=== PATIENT | female | born 1970 | race Caucasian/White ===

== ENCOUNTER 2024-08-20 09:38 | Emergency (ER) | payer OTHER, SELFPAY ==
[2024-08-20] VITALS (13 sets, daily range): BP systolic 130–181; BP diastolic 87–123; PULSE 74–85; RESP 13–23; TEMP 36.4; O2SAT 95–99; BMI 31.9
--- NOTE | 2024-08-20 09:47 | CRLHL7_ITS ---
For Patients: As a result of the Century Cures Act, medical imaging exams and procedure reports are released immediately into your electronic medical record. You may view this report before your referring provider. If you have questions, please contact your health care provider. INDICATION: Chest pain. Question fran NV. TECHNIQUE: Chest 1 views. COMPARISON: None FINDINGS: Tubes and devices: None. Lungs: Shallow inspiration. Elevation right hemidiaphragm. Prominence of the bronchovascular markings commensurate with degree of inspiration. No infiltrates. Pleura: No pleural effusion. No pneumothorax. Heart: Heart size and vasculature are normal in caliber and appearance. Autumn and Mediastinum: No enlargement. Bones and soft tissues: No significant findings. IMPRESSION: Shallow inspiration. No infiltrates. Dictated by Mikael Arreola MD @ 08/20/2024 10:16:41 AM (Electronically Signed)
--- NOTE | 2024-08-20 09:48 | ED_ITS ---
HPI - Chest Pain General Chief Complaint: Chest Pain Stated Complaint: Having Heart Attack Time Seen by Provider: 08/20/24 09:51 History of Present Illness HPI narrative: Patient is a 54-year-old woman who comes in today with approximately 10 hour history of left-sided chest pain. Pain is deep to her left breast. There is minimal radiation. The pain is severe 10/10 and worsened with a deep breath. She has had no fevers no chills no night sweats. She has no previous history of coronary disease. Upon arrival I did review her EKG and see no acute abnormalities. She is not hypoxic. She does take medication for hypertension. She has not had any change in her bowel or bladder. She states he has had no similar symptoms previously. No recent injuries. Related Data Home Medications ?Medication ?Instructions ?Recorded ?Confirmed bupropion HCl 150 mg tablet,12 hr 300 mg PO DAILY 08/20/24 08/20/24 sustained-release (Wellbutrin SR) duloxetine 60 mg capsule,delayed 60 mg PO DAILY 08/20/24 08/20/24 release estradiol-progesterone .ROUTE 08/20/24 levothyroxine See Rx Instructions PO .COMPLEX 08/20/24 08/20/24 metoprolol succinate 25 mg 25 mg PO BID 08/20/24 08/20/24 tablet,extended release 24 hr Allergies Allergy/AdvReac Type Severity Reaction Status Date / Time No Known Drug Allergies Allergy Verified 08/20/24 09:53 Review of Systems Status of ROS Reports: 10 or more systems reviewed and unremarkable except as noted in History and below [facility] Medical History (Updated 08/20/24 @ 11:16 by Tommie Ferguson MD) Hypertension ?I10 - Essential (primary) hypertension (ICD-10) Social History Smoking Status: Never smoker Do you use any of these nicotine containing products: None How often do you have a drink containing alcohol: monthly or less AUDIT-C Alcohol total score: 1 Non-prescribed substance use: denies use Exam Narrative Exam Narrative: EXAM GENERAL: Patient appears agitated anxious. EYES: No scleral icterus. LYMPH: No supraclavicular or cervical lymphadenopathy. SKIN: Visible skin seen during exam normal or with benign process only. EXT: No dependent lower extremity pedal edema. HEART: Regular rate and rhythm with no murmurs, rubs, or gallops. LUNGS: Clear to auscultation bilaterally with no crackles or wheezes. ABD: Soft, non tender, non distended. PSYCH: Good eye contact, speech is not pressured. Const Vital Signs, click to edit/add: Vital Signs - 24 hr 08/20/24 09:47 08/20/24 09:59 08/20/24 10:00 Temperature 97.6 F Pulse Rate 77 85 Pulse Rate [Pulse Oximeter] 84 Respiratory Rate 20 16 18 Blood Pressure Blood Pressure [Left Upper Arm] 181/123 H Pulse Oximetry 99 99 97 Oxygen Delivery Method Room Air 08/20/24 10:05 08/20/24 10:15 08/20/24 10:21 Temperature Pulse Rate 83 77 80 Pulse Rate [Pulse Oximeter] Respiratory Rate 19 13 15 Blood Pressure 145/96 H 146/98 H Blood Pressure [Left Upper Arm] Pulse Oximetry 97 97 97 Oxygen Delivery Method Course Course ED Course: Patient seen and examined. EKG personally reviewed. 0.5 mg of IV Dilaudid and 4 mg of IV Zofran given. CBC comprehensive metabolic panel D-dimer troponin chest x-ray pending. Vital Signs Vital signs: Initial Vital Signs Temperature 97.6 F 08/20/24 09:47 Temperature Source Temporal Artery Scan 08/20/24 09:47 Pulse Rate 84 08/20/24 09:47 Pulse Rhythm Regular 08/20/24 09:47 Respiratory Rate 20 08/20/24 09:47 Blood Pressure 181/123 H 08/20/24 09:47 Blood Pressure Mean 142 H 08/20/24 09:47 Blood Pressure Position Supine 08/20/24 09:47 Pulse Oximetry 99 08/20/24 09:47 Oxygen Delivery Method Room Air 08/20/24 09:47 Vital Signs Temperature 97.6 F 08/20/24 09:47 Pulse Rate 84 08/20/24 09:47 Respiratory Rate 20 08/20/24 09:47 Blood Pressure 181/123 H 08/20/24 09:47 Pulse Oximetry 99 08/20/24 09:47 Oxygen Delivery Method Room Air 08/20/24 09:47 Temperature 97.6 F 08/20/24 09:47 Pulse Rate 80 08/20/24 10:21 Respiratory Rate 15 08/20/24 10:21 Blood Pressure 146/98 H 08/20/24 10:21 Pulse Oximetry 97 08/20/24 10:21 Oxygen Delivery Method Room Air 08/20/24 09:47 Medications Administered Medications: Discontinued Medications Generic Name Dose Route Start Last Admin Trade Name Bree PRN Reason Stop Dose Admin Hydromorphone HCl 0.5 mg 08/20/24 09:47 08/20/24 10:12 Hydromorphone 0.5 Mg/0.5 Ml Inj IVP 08/20/24 09:48 0.5 mg ONCE ONE Administration Lidocaine/Aluminum/Magnesium/Simeth 30 ml 08/20/24 09:58 08/20/24 10:05 Gi Cocktail (Visc Lido/Antacid) 30 Ml PO 08/20/24 09:59 30 ml ONCE ONE Administration Ondansetron HCl 4 mg 08/20/24 09:47 08/20/24 10:12 Ondansetron 2 Mg/Ml Inj IVP 08/20/24 09:48 4 mg ONCE ONE Administration MDM - Chest Pain MDM Narrative Medical decision making narrative: Patient is a 54-year-old woman who presents with severe left-sided chest pain. Her EKG was reassuring. Troponin is negative. Patient had been having symptoms for approximately 10 hours at the time of her arrival. D-dimer is negative ch est x-ray is unremarkable. Although her D-dimer is negative I did do a CT of her chest which showed no acute abnormalities. Patient has responded to the IV Dilaudid. She is now resting comfortably. Differential diagnosis would include chest wall strain rib fracture occult thoracic radiculopathy pulmonary embolism acute myocardial infarction. At this time will treated with ice and Ralston with primary care follow-up. No driving year using any machinery follow-up with her primary physician this coming week. Lab Data Labs: Lab Results 08/20/24 Range/Units 09:47 WBC 10.70 (4.50-11.00) K/uL RBC 4.82 (4.00-5.20) m/uL Hgb 14.6 (12.0-16.0) gm/dL Hct 43.7 (33.0-51.0) % MCV 91 (80-100) fL MCH 30 (26-34) pg MCHC 33 (32-36) gm/dL RDW Coeff of Janet 12.6 (11.5-15.5) % Plt Count 351 (140-440) K/uL Neut % (Auto) 69.7 (42.0-72.0) % Lymph % (Auto) 20.3 (20-44) % Jasper % (Auto) 8.2 (0.0-11.0) % Eos % (Auto) 1.3 (0.0-7.0) % Baso % (Auto) 0.3 (0.0-3.0) % Neut # (Auto) 7.46 H (1.7-7.0) K/uL Lymph # (Auto) 2.17 (0.90-2.90) K/uL Jasper # (Auto) 0.90 (0.00-0.90) K/UL Eos # (Auto) 0.14 (0.00-0.50) K/uL Baso # (Auto) 0.03 (0.00-0.30) K/uL Abs Immat Gran (auto) 0.02 (0.00-0.30) K/uL Imm/Tot Granulo (auto) 0.2 % D-Dimer Quant (PE/DVT) 0.19 (0.00-0.50) ug/ml Sodium 138 (135-149) mmol/L Potassium 4.5 (3.6-5.1) mmol/L Chloride 105 (96-114) mmol/L Carbon Dioxide 20 (20-32) mmol/L Anion Gap 13 (7-15) mEq/L BUN 16 (7-30) mg/dL Creatinine 1.2 (0.5-1.5) mg/dL Estimated Creat Clear 52.81 Estimated GFR 53 ml/min Glucose 139 H (60-115) mg/dL Calcium 9.2 (8.4-10.6) mg/dL Total Bilirubin 0.5 (0.1-1.5) mg/dL AST 25 (12-35) U/L ALT 22 (4-35) U/L Alkaline Phosphatase 58 (40-150) U/L Troponin I < 0.01 (0.01-0.04) ng/mL Total Protein 7.6 (6.0-8.3) g/dL Albumin 4.4 (3.3-5.0) g/dL POC Troponin I 0.00 L (0.01-0.04) ng/ml Discharge Plan Discharge Clinical Impression: Chest pain Patient Disposition: Home, Self-Care Condition: Stable Instructions: Chest Wall Pain (ED) Additional Instructions: Continue current medications Ralston as directed Ice Follow-up with your doctor next week. Activity Level: No Restrictions Discharge Diet: Regular Prescriptions: No Action metoprolol succinate 25 mg tablet extended release 24 hr 25 mg PO BID bupropion HCl [Wellbutrin SR] 150 mg tablet sustained-release 12 hr 300 mg PO DAILY duloxetine 60 mg capsule,delayed release(DR/EC) 60 mg PO DAILY levothyroxine See Rx Instructions PO .COMPLEX Rx Instructions: orally daily; estradiol-progesterone .ROUTE Follow Up/Referrals: Provider,Not a Local [Primary Care Provider] - Stand Alone Forms: [employer] Info Instructions
[2024-08-20 09:56] LABS: Basophils Absolute Auto 0.03 K/uL (0.00-0.30); Basophils Percent Auto 0.3 % (0.0-3.0); Eosinophils Absolute Auto 0.14 K/uL (0.00-0.50); Eosinophils Percent Auto 1.3 % (0.0-7.0); Hematocrit 43.7 % (33.0-51.0); Hemoglobin* 14.6 gm/dL (12.0-16.0); Immature Granulocytes Abs Auto 0.02 K/uL (0.00-0.30); Immature Granulocytes Pct Auto 0.2 %; Lymphocytes Absolute Auto 2.17 K/uL (0.90-2.90); Lymphocytes Percent Auto 20.3 % (20-44); Mean Corpuscular HGB Conc 33 gm/dL (32-36); Mean Corpuscular Hemoglobin 30 pg (26-34); Mean Corpuscular Volume 91 fL (80-100); Monocytes Percent Auto 8.2 % (0.0-11.0); Neutrophils Absolute Auto 7.46 K/uL (1.7-7.0); Neutrophils Percent Auto 69.7 % (42.0-72.0); Platelet Count* 351 K/uL (140-440); RDW Coefficient of Variation % 12.6 % (11.5-15.5); Red Blood Count 4.82 m/uL (4.00-5.20)
[2024-08-20 09:57] LABS: Slide Review Reflex No
[2024-08-20] MEDS: GI COCKTAIL (VISC LIDO/ANTACID) 30 ML PO (10:05)
[2024-08-20] MEDS: HYDROmorphone 0.5 mg/0.5 ml inj IVP (10:12)
[2024-08-20] MEDS: ONDANSETRON 2 MG/ML inj 4 MG IVP (10:12)
[2024-08-20 10:13] LABS: Chloride* 105 mmol/L (96-114)
[2024-08-20 10:14] LABS: Albumin* 4.4 g/dL (3.3-5.0); Potassium* 4.5 mmol/L (3.6-5.1); Sodium* 138 mmol/L (135-149)
[2024-08-20 10:16] LABS: Alanine Aminotransferase* 22 U/L (4-35); Anion Gap 13 mEq/L (7-15); Aspartate Amino Transferase* 25 U/L (12-35); Blood Urea Nitrogen* 16 mg/dL (7-30); Carbon Dioxide* 20 mmol/L (20-32); Creatinine* 1.2 mg/dL (0.5-1.5); Est. Creatinine Clearance* 52.81; Estimated Glomerular Filt Rate 53 ml/min
[2024-08-20 10:17] LABS: Alkaline Phosphatase* 58 U/L (40-150); Bilirubin Total* 0.5 mg/dL (0.1-1.5); Calcium* 9.2 mg/dL (8.4-10.6); Glucose* 139 mg/dL (60-115); Total Protein* 7.6 g/dL (6.0-8.3)
[2024-08-20 10:18] LABS: D Dimer Quantitative* 0.19 ug/ml (0.00-0.50)
[2024-08-20 10:31] LABS: Troponin I* < 0.01 ng/mL (0.01-0.04)
--- NOTE | 2024-08-20 10:33 | CRLHL7_ITS ---
For Patients: As a result of the Century Cures Act, medical imaging exams and procedure reports are released immediately into your electronic medical record. You may view this report before your referring provider. If you have questions, please contact your health care provider. INDICATION: Left-sided chest pain. COMPARISON: None. TECHNIQUE: CT angiogram chest with contrast, pulmonary embolism protocol. Multiplanar axial, coronal, and sagittal reformats are included. MIP images to improve detection of pulmonary emboli are included. Intravenous contrast: 75 mL Isovue 370. FINDINGS: PE: Well-timed contrast bolus. No pulmonary emboli. Normal caliber main pulmonary artery. Normal sized right heart chambers. No reflux of contrast below the diaphragm. Airway: Expiratory appearance of the airway. Lungs: Expiratory appearance of the lungs. Bibasilar atelectasis. Small nodules could be obscured, particularly in the lung bases. No consolidations. Normal appearance of the pulmonary interstitium. Pleura: No pleural effusion. No pneumothorax. Lymph nodes: No thoracic adenopathy. Mediastinum: No pneumomediastinum. No mass. Heart and great vessels: No pericardial effusion. Normal cardiac chamber size. Focal atherosclerosis at the origin of the left subclavian artery. Otherwise, no substantial atherosclerotic plaques. No aortic aneurysm. Chest wall: Elevated right diaphragm. Upper abdomen: Normal. Bones: No fractures. No focal bone lesions. IMPRESSION: 1. No pulmonary embolism. 2. Expiratory appearance of the airway and lungs. Please note that all CT scans at this facility use dose modulation, iterative reconstruction, and/or weight-based dosing when appropriate to reduce radiation dose to as low as reasonably achievable. Dictated by Andreia Lynne MD @ 08/20/2024 11:01:11 AM (Electronically Signed)
--- OUTSIDE RECORDS SUMMARY | 2024-08-20 10:44 | XMS_ITS | Encounter Summary ---
Author Organization [place] Address [facility] [place] [address] Care Team Providers Care Paper Roll Machine Operator Name Role Phone Mora Garrett MD Primary Care Prov ider Mora Garrett MD Unavailable + Katina Dow Unavailable Unavailable Shana Singleton MD Unavailable [phone] Katina Dow Unavailable Unavailable Tammi Buitrago PharmD Unavailable [phone] Iftikhar Tammi PharmD Unavailable [phone] Iftikhar, Tammi PharmD Unavailable [phone] Crista Norton APRN UROLOGY PHYSICIAN ASSISTANT Unavailable [phone] Jaz Ro Unavailable [phone] Ashanti Ordoñez MD Unavailable [phone] Ashanti Ordoñez MD Primary Care Provider [phone] Majo Roth RPH Unavailable [phone] Majo Roth RPH Unavailable [phone] Magalie Whipple [facility] Unavailable [phone] Magalie Whipple [facility] Unavailable [phone] Magalie Whipple Unavailable Unavailable Tamiko Renee [facility] Unavailable Anthony Roxana M PA-C Unavailable [phone] Reason for Visit * Reason Onset Date Comments Medication Question 01/04/2021 Encounter Details Date Type Department Care Team (Late st Contact Info) Description 01/04/2021 [facility] [address] [address] Mora Garrett MD [place] [address] [address] Medication Question Social History Tobacco Use Types Packs/Day Years Used Date Smoking Tobacco: Never Smokeless Tobacco: Never Alcohol Use Standard Drinks/Week Comments Yes 0 (1 standard drink = 0.6 oz pur e alcohol) 0-2 glasses of wine per week Social Connection and Isolat ion Panel [NHANES] Answer Date Recorded Frequency of Communication w ith Friends and Family More than three times a week 11/06/2018 Frequency of Social Gatherin gs with Friends and Family Once a week 11/06/2018 Attends [employer] Services More than 4 times per year 11/06/2018 Active Member of Clubs or Organizations Yes 11/06/2018 Attends Club or Organization Meetings More than 4 times per year 11/06/2018 Marital Status 11/06/2018 AUDIT-C Answer Date Recorded Q1: How often do you have a drink containing alc ohol? 2-4 times a month 11/06/2018 Q2: How many drinks containi ng alcohol do you have on a typical day when you are drinking? 1 or 2 11/06/2018 Q3: How often do you have si x or more drinks on one occasion? Never 11/06/2018 Overall Financial Resource Strain (CARDIA) Answe r Date Recorded How hard is it for you to pa y for the very basics like food, housing, medical care, and heating? Not very hard 11/06/2018 PHQ-2 Answer Date Recorded PHQ-2 Score 6 01/08/2021 [facility] - Occupational Stress Questionnaire Answer Date Recorded Feeling of Stress To some extent 11/06/2018 Exercise Vital Sign Answer Date Recorde d Days of Exercise per Week 2 days 2018 Minutes of Exercise per Session 60 min 11/06/2018 Hunger Vital Sign Answer Date Recorded Within the past 12 months, y ou worried that your food would run out before you got the money to buy more. Never true 11/07/19 19 Within the past 12 months, t he food you bought just didn't last and you didn't have money to get more. Never true 11/06/2018 PRAPARE - Transportation Answer Date Re corded In the past 12 months, has l ack of transportation kept you from medical appointments or from getting medications? No 10/12 In the past 12 months, has l ack of transportation kept you from meetings, work, or from getting things needed for daily living? No 11/06/2018 Housing Stability Vital Sign Answer Reggie e Recorded In the last 12 months, was t here a time when you were not able to pay the mortgage or rent on time? No 06/23/2019 In the last 12 months, how many places have you lived? 1 06/23/2019 In the last 12 months, was t here a time when you did not have a steady place to sleep or slept in a skilled nursing (including now)? No 06/23/2019 Education Answer Date Recorded What is the highest level of school you have completed or the highest degree you have received? 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 Garrett- see XIHAhart message and previous message. Please advise. Dipti Hernández RN documented in this encounter Plan of Treatment Upcoming Encounters Date Type Department Care Team (Late st Contact Info) Description 12/08/2024 1:30 PM CDT Office Visit [facility] [address] [place] [phone] Roxana Cruz PA-C [address] [place] [phone] Ashanti Ordoñ[place] [address] [place], [place] [phone] documented as of this encounter Visit Diagnoses Not on filedocumented in this encounter Additional Health Concerns Assessment Noted Time PHQ-9 Depression Total Score: 4 06/07/19 21 3:50 PM TAPE DUPLICATOR documented as of this encounter Care Teams Paper Roll Machine Operator Relationship Specialty Start Date End Date Mora Garrett MD PCP - General Family Practice 01/07/18 10/28/22 Ashanti Ordoñ[place] [address] [place] [address] PCP - General 10/29/22 Mora Garrett MD Assigned PCP 01/10/18 09/05/22 Katina Dow Personal Advocate & Liaison (PAL) Family Practice 09/20/19 09/15/22 Shana Singleton MD [address] [place] [address] [phone] Resident Student in organized health care education/training program 12/16/19 Katina Dow Personal Advocate & Liaison (PAL) Family Medicine 06/08/20 01/07/21 Tammi Buitrago, PharmD [address] [place] [address] [phone] Pharmacist Pharmacist 08/06/20 04/26/24 Tammi Buitrago, PharmD [address] [place] [address] [phone] Assigned MTM Pharmacist 09/07/21 Tammi Buitrago, PharmD [address] [place] [address] [phone] Assigned MTM Pharmacist 01/08/2202/07 Crista Norton APRN UROLOGY PHYSICIAN ASSISTANT [address] [place], [place] [phone] Assigned PCP 09/06/22 09/12/22 Jaz Ro AuD [address] [place] [address] [phone] Audiology 10/02/22 Ashanti Ordoñ[place] [address] [place] [address] Assigned PCP 09/13/22 04/03/24 Majo Roth RPH [address] [place] [address] [phone] Pharmacist Pharmacist Coffee Roaster 12/01/22 04/26/24 Majo Roth, [facility] [address] [place] [address] Assigned MTM Pharmacist 12/06/22 Magalie Whipple, [facility] [address] [id number] Pharmacist Pharmacist 12/26/22 04/26/24 Magalie Whipple, [facility] [address] [place] [address] Assigned MTM Pharmacist 01/03/23 Magalie Whipple Medical Student 08/10/23 04/26/24 Tamiko Renee, [facility] [address] [place] [address] Pharmacist Pharmacist 01/27/24 04/26/24 Roxana Cruz PA-C [address] [place] [phone] Assigned PCP 04/04/24 documented as of this encounter
--- OUTSIDE RECORDS SUMMARY | 2024-08-20 10:44 | XMS_ITS | Encounter Summary ---
Author Organization [place] Address [facility] [place] [address] Care Team Providers Care Build Engineer Name Role Phone Mora Garrett MD Primary Care Prov ider Mora Garrett MD Unavailable + Katina Dow Unavailable Unavailable Shana Singleton MD Unavailable [phone] Iftikhar, Tammi PharmD Unavailable [phone] Iftikhar, Tammi PharmD Unavailable [phone] Iftikhar, Tammi PharmD Unavailable [phone] Crista Norton APRN DAIRY BAR MANAGER Unavailable [phone] [place] Jaz Schneider Unavailable [phone] Ashanti Ordoñez MD Unavailable [phone] Ashanti Ordoñez MD Primary Care Provider [phone] Majo Roth Miesha Unavailable [phone] Majo Roth RPH Unavailable [phone] Magalie Whipple [facility] Unavailable [phone] Magalie Whipple [facility] Unavailable [phone] Magalie Whipple Unavailable Unavailable Tamiko Renee [facility] Unavailable Roxana Cruz PA-C Unavailable [phone] Encounter Details Date Type Department Care Team (Late st Contact Info) Description 02/12/2021 [facility] Medical Advice [facility] [address] [address] [address] [address] Shana Singleton MD [address] [place] [address] Social History Tobacco Use Types Packs/Day Years [...] and Family Once a week 11/06/2018 Attends [employer] Services More than 4 times per year [...] hard 11/06/2018 PHQ-2 Answer Date Recorded PHQ-2 Total Score (Adult) - Positive if 3 or more points; Administer PHQ-9 if positive 4 02/14/2021 [facility] [place] [facility] - Occupational Stress [...] place to sleep or slept in a snf (including now)? No 06/23/2019 Education Answer Date Recorded What is the highest level of school you have completed or the highest degree you have received? 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 Plan of Treatment Upcoming Encounters Date Type Department Care Team (Late st Contact Info) Description 12/08/2024 1:30 PM CDT Office Visit [facility] [id number] [place] [phone] Roxana Cruz PA-C [address] [place] [phone] Ashanti Ordoñez [place] [address] [place] [address] documented as of this encounter Visit Diagnoses Not on filedocumented in this encounter Additional Health Concerns Assessment Noted Time PHQ-9 Depression Total Score: 24 021 1:58 PM CDT documented as of this encounter Care Teams Build Engineer Relationship Specialty Start Date End Date Mora Garrett MD PCP - General Family Practice 01/07/18 10/28/22 Ashanti Ordoñez [place] [address] [place] [address] PCP - General 10/29/22 Mora Garrett MD Assigned PCP 01/10/18 09/05/22 Katina Dow Personal Advocate & Liaison (PAL) Family Practice 09/20/19 09/15/22 Shana Singleton MD [address] [place] [address] [phone] Resident Student in organized health care education/training program 12/16/19 Tammi Buitrago, PharmD [address] [place] [phone] Pharmacist Pharmacist 08/06/20 04/26/24 Tammi Buitrago, PharmD [facility] [address] [address] Assigned MTM Pharmacist 09/07/21 Tammi Buitrago, PharmD [facility] [address] [address] Assigned MTM Pharmacist 01/08/2202/07 Crista Norton APRN DAIRY BAR MANAGER [address] [place] [address] Assigned PCP 09/06/22 09/12/22 Jaz Ro AuD [address] [place] [address] [phone] Audiology 10/02/22 Ashanti Ordoñ[place] [address] [place] [address] Assigned PCP 09/13/22 04/03/24 Majo Roth [facility] [address] [place], [place] [phone] Pharmacist Pharmacist Coat Fitter 12/01/22 04/26/24 Majo Roth [facility] [address] [place], [place] 240475 Assigned MTM Pharmacist 12/06/22 Magalie Whipple [facility] [address] [place] [phone] Pharmacist Pharmacist 12/26/22 04/26/24 Magalie Whipple, [facility] [address] [place] [address] Assigned MTM Pharmacist 01/03/23 Magalie Whipple Medical Student 08/10/23 04/26/24 Tamiko Renee, [facility] [address] [place] [address] Pharmacist Pharmacist 01/27/24 04/26/24 Roxana Cruz PA-C [address] [place] [phone] Assigned PCP 04/04/24 documented as of this encounter
--- OUTSIDE RECORDS SUMMARY | 2024-08-20 10:44 | XMS_ITS | Encounter Summary ---
Author Organization [place] Address [facility] [place] [address] Care Team Providers Care Manager Endoscopy Name Role Phone Mora Garrett MD Primary Care Prov ider Mora Garrett MD Unavailable + Katina Dow Unavailable Unavailable Shana Singleton MD Unavailable [phone] Iftikhar, Tammi PharmD Unavailable +[phone] Iftikhar, Tammi PharmD Unavailable +[phone] Iftikhar, Atmmi PharmD Unavailable +[phone] Crista Norton APRN PROCESS SAFETY MANAGER Unavailable [phone] [place] Jaz Schneider Unavailable +[phone] Ashanti Ordoñez MD Unavailable +[phone] Ashanti Ordoñez MD Primary Care Provider [phone] Majo Roth Miesha Unavailable [phone] Majo Roth RPH Unavailable [phone] Magalie Whipple [facility] Unavailable +[phone] Magalie Whipple [facility] Unavailable +[phone] Magalie Whipple Unavailable Unavailable Tamiko Renee [facility] Unavailable [phone] Roxana Cruz PA-C Unavailable [phone] Encounter Details Date Type Department Care Team (Late st Contact Info) Description 01/16/[address] [facility] Mental Health & Addiction [address] [address] Shana Singleton MD 8679 [place] [address] Social History Tobacco Use Types [...] and Family Once a week 11/06/2018 Attends Denominational Services More than 4 times per year [...] Answer Date Recorded PHQ-2 Score 6 01/08/2021 [facility] of Occupat ional Health - Occupational Stress [...] place to sleep or slept in a correction (including now)? No 06/23/2019 Education Answer Date Recorded What is the highest level of school you have completed or the highest degree you have received? 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 No / Unsure 01/10/2021 3:38 PM CDT documented as of this encounter Plan of Treatment Upcoming Encounters Date Type Department Care Team (Late st Contact Info) Description 12/08/2024 1:30 PM CDT Office Visit [facility] [address] [place] [address] Roxana Cruz PA-C [address] [place] [phone] Ashanti Ordoñ[place] [address] [place] [address] documented as of this encounter Visit Diagnoses Not on filedocumented in this encounter Additional Health Concerns Assessment Noted Time PHQ-9 Depression Total Score: 24 021 1:58 PM CDT documented as of this encounter Care Teams Manager Endoscopy Relationship Specialty Start Date End Date Mora Garrett MD PCP - General Family Practice 01/07/18 10/28/22 Ashanti Ordoñ[place] [address] [place] [address] PCP - General 10/29/22 Mora Garrett MD Assigned PCP 01/10/18 09/05/22 Katina Dow Personal Advocate & Liaison (PAL) Family Practice 09/20/19 09/15/22 Shana Singleton MD [address] [place] [address] Resident Student in organized health care education/training program 12/16/19 Tammi Buitrago, PharmD [address] [place] [address] Pharmacist Pharmacist 08/06/20 04/26/24 Tammi Buitrago, GudeliaD [address] [place] [address] Assigned MTM Pharmacist 09/07/21 Tammi Buitrago, GudeliaD [address] [place] [address] Assigned MTM Pharmacist 01/08/2202/07 Crista Norton APRN PROCESS SAFETY MANAGER [address] [place] [address] Assigned PCP 09/06/22 09/12/22 Jaz Ro AuD [address] [place] [address] Audiology 10/02/22 Ashanti Ordoñ[place] [address] [place] [address] Assigned PCP 09/13/22 04/03/24 Majo Roth [facility] [address] [place] [address] Pharmacist Pharmacist Cap Sizer 12/01/22 04/26/24 Majo Roth Miesha [address] [place] [address] Assigned MTM Pharmacist 12/06/22 Magalie Whipple [facility] [address] [place] [address] Pharmacist Pharmacist 12/26/22 04/26/24 Magalie Whipple [facility] [address] [place] [address] [address] Assigned MTM Pharmacist 01/03/23 Magalie Whipple Medical Student 08/10/23 04/26/24 Tamiko Renee, [facility] [address] [place] [address] Pharmacist Pharmacist 01/27/24 04/26/24 Roxana Cruz PA-C [address] [place] [address] Assigned PCP 04/04/24 documented as of this encounter
--- OUTSIDE RECORDS SUMMARY | 2024-08-20 10:44 | XMS_ITS | Encounter Summary ---
Author Organization [place] Address [facility] [place] [address] Care Team Providers Care Online Communications Manager Name Role Phone Mora Garrett MD Primary Care Prov ider Mora Garrett MD Unavailable + Tony Francisco Unavailable Unavailable Katina Dow Unavailable Unavailable Shana Singleton MD Unavailable +[phone] Katina Dow Unavailable Unavailable Iftikhar, Tammi PharmD Unavailable [phone] Iftikhar, Tammi PharmD Unavailable +[phone] Iftikhar, Tammi PharmD Unavailable +[phone] Crista Norton APRN COOLER WORKER Unavailable [phone] Jaz Ro Unavailable +[phone] Ashanti Ordoñez MD Unavailable [phone] Ashanti Ordoñez MD Primary Care Provider [phone] Majo Roth [facility] Unavailable [phone] Majo Roth [facility] Unavailable [phone] Magalie Whipple [facility] Unavailable [phone] Magalie Whipple [facility] Unavailable [phone] Magalie Whipple Unavailable Unavailable Tamiko Renee [facility] Unavailable [phone] Roxana CruzC Unavailable [phone] Reason for Visit * Reason Onset Date Comments Refill Request 01/20/2019 rizatriptan (MAX ALT) 5 MG tablet Encounter Details Date Type Department Care Team (Late st Contact Info) Description 01/20/2019 MyC Refill [address] [address] Hong Allred PA-C [address] [place] [address] Refill Request (rizatriptan (MAXALT) 5 MG ... Social History Tobacco Use Types Packs/Day Years Used Date Smoking Tobacco: Never Smokeless Tobacco: Never Alcohol Use Standard Drinks/Week Comments Yes 0 (1 standard drink = 0.6 oz pur e alcohol) rare Social Connection and Isolat ion Panel [NHANES] Answer Date Recorded Frequency of Communication w ith Friends and Family More than three times a week 11/06/2018 Frequency of Social Gatherin gs with Friends and Family Once a week 11/06/2018 Attends Ep[employer] Services More than 4 times per year [...] 11/06/2018 PHQ-2 Answer Date Recorded PHQ-2 Score 4 11/06/2018 [facility] of Occupat ional Health - Occupational Stress [...] things needed for daily living? No 11/06/2018 Education Answer Date Recorded What is the highest level of school you have completed or the highest degree you have received? 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 Tonya Byrne RN * Telephone Encounter - Lara Villatoro - 01/20/2019 9:15 AM CDT Images from the original note were not included. Requested Prescriptions Pending Prescriptions Disp Refills ??? rizatriptan (MAXALT) 5 MG tablet 18 tablet 1 Sig: Take 1-2 tablets (5-10 mg) by mouth at onset of headache for migraine Last Written Prescription Date: 11/06/18 Last Fill Quantity: 18, # refills: 1 Last Office Visit: 12/27/2018 [place] Return in about 1 month (around 01/26/2019) for Med Check. Future Office Visit: Serotonin Agonists Failed - 01/20/2019 8:47 AM Failed - Serotonin Agonist request needs review. Please review patient's record. If patient has had 8 or more treatments in the past month, please forward to provider. Passed - Blood pressure under 140/90 in past 12 months BP Readings from Last 3 Encounters: 12/27/18 110/78 11/06/18 (!) 124/92 09/22/18 (!) 142/92 Passed - Recent (12 mo) or future (30 days) visit within the authorizing provider's specialty Patient has had an office visit with the authorizing provider or a provider within the authorizing providers department within the previous 12 mos or has a future within next 30 days. See Patient Info tab in inbasket, or Choose Columns in Meds & Orders section of the refill encounter. Passed - Medication is active on med list Passed - Patient is age 18 or older Passed - No active on record Passed - No positive test in past 12 months documented in this encounter Plan of Treatment Upcoming Encounters Date Type Department Care Team (Late st Contact Info) Description 12/08/2024 1:30 PM CDT Office Visit [facility] [address] [place] [phone] Roxana Cruz PA-C [address] [place] [phone] Ashanti Ordoñ[place] [address] [place] [address] documented as of this encounter Visit Diagnoses Diagnosis Migraine with aura and without status migrainosus, not intractable Migraine with aura, without mention of intractable migraine without mention of status migrainosus documented in this encounter Additional Health Concerns Assessment Noted Time PHQ-9 Depression Total Score: 14 019 12:17 PM CDT documented as of this encounter Care Teams Online Communications Manager Relationship Specialty Start Date End Date Mora Garrett MD PCP - General Family Practice 01/07/18 10/28/22 Ashanti Ordoñ[place] [address] [place] [address] PCP - General 10/29/22 Mora Garrett MD Assigned PCP 01/10/18 09/05/22 Tony Francisco Personal Advocate & Liaison (PAL) Family Practice 04/11/19 09/19/19 Katina Dow Personal Advocate & Liaison (PAL) Family Practice 09/20/19 09/15/22 Shana Singleton MD [address] [place] [address] 035925 Resident Student in organized health care education/training program 12/16/19 Katina Dow Personal Advocate & Liaison (PAL) Family Medicine 06/08/20 01/07/21 Tammi Buitrago, GudeliaD [address] [place] [address] 079654 Pharmacist Pharmacist 08/06/20 04/26/24 Tammi Buitrago, PharmD [address] [place] [address] 015814 Assigned MTM Pharmacist 09/07/21 Tammi Buitrago, GudeliaD [address] [address] Assigned MTM Pharmacist 01/08/2202/07 Crista Norton APRN COOLER WORKER [address] [place] [address] Assigned PCP 09/06/22 09/12/22 Jaz Ro AuD [address] [place] [address] Audiology 10/02/22 Ashanti Ordoñ[place] [address] [place] [address] Assigned PCP 09/13/22 04/03/24 Majo Roth [facility] [address] [place] [address] Pharmacist Pharmacist Engraver Hand [employer]als 12/01/22 04/26/24 Majo Roth [facility] [address] [place] [address] Assigned MTM Pharmacist 12/06/22 Magalie Whipple [facility] [address] [place] [address] Pharmacist Pharmacist 12/26/22 04/26/24 Magalie Whipple [facility] [address] [id number] Assigned MTM Pharmacist 01/03/23 Magalie Whipple Medical Student 08/10/23 04/26/24 Tamiko Renee, [facility] [address] [place] [address] Pharmacist Pharmacist 01/27/24 04/26/24 Roxana Cruz PA-C [address] [place] [address] Assigned PCP 04/04/24 documented as of this encounter
--- OUTSIDE RECORDS SUMMARY | 2024-08-20 10:44 | XMS_ITS | Encounter Summary ---
Author Organization [place] Address [facility] [place] [address] Care Team Providers Care Cross Cut Saw Operator Name Role Phone Mora Garrett MD Primary Care Prov ider Mora Garrett MD Unavailable + Tony Francisco Unavailable Unavailable Katina Dow Unavailable Unavailable Shana Singleton MD Unavailable [phone] Katina Dow Unavailable Unavailable Iftikhar, Tammi PharmD Unavailable [phone] Iftikhar, Tammi PharmD Unavailable [phone] Iftikhar, Tammi PharmD Unavailable +[phone] Crista Norton APRN STROKE PROGRAM COORDINATOR Unavailable [phone] Jaz Ro Unavailable [phone] Ashanti Ordoñez MD Unavailable [phone] Ashanti Ordoñez MD Primary Care Provider [phone] Majo Roth [facility] Unavailable +[phone] Majo Roth [facility] Unavailable [phone] Magalie Whipple [facility] Unavailable Magalie Whipple [facility] Unavailable [phone] Magalie Whipple Unavailable Unavailable Tamiko Renee [facility] Unavailable Roxana Cruz PA-C Unavailable [phone] Reason for Visit * Reason Onset Date Comments MyChart Communication 10/29/2018 duloxetine Encounter Details Date Type Department Care Team (Latest Contact Info) Description 10/29/2018 MyC Medical Advice [facility] [address] [place] [address] Mora Garrett MD ARISE [address] [address] MyChart Communication (duloxetine) Social History Tobacco Use Types Packs/Day Years Used Date Smoking Tobacco: Never Smokeless Tobacco: Never Alcohol Use Standard Drinks/Week Comments Yes 0 (1 standard drink = 0.6 oz pur e alcohol) rare PHQ-2 Answer Date Recorded PHQ-2 Score 1 04/21/2018 Comments No Sex and Gender Information Value Date Recorded Sex Assigned at Female 03/22/2018 7:28 AM SALES REPRESENTATIVE [employer] Legal Sex Female 5:04 AM SALES REPRESENTATIVE [employer] Gender Identity Female 03/22/2018 7:28 AM SALES REPRESENTATIVE [employer] Sexual Orientation Straight 03/22/2018 7: 28 AM SALES REPRESENTATIVE [employer] 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 Plan of Treatment Upcoming Encounters Date Type Department Care Team (Late st Contact Info) Description 12/08/2024 1:30 PM CDT Office Visit [address] [address] Roxana Cruz PA-C [id number] [place] [address] Ashanti Ordoñ[place] [address] [place] [address] documented as of this encounter Visit Diagnoses Not on filedocumented in this encounter Additional Health Concerns Assessment Noted Time PHQ-9 Depression Total Score: 12 019 7:04 AM CDT documented as of this encounter Care Teams Cross Cut Saw Operator Relationship Specialty Start Date End Date Mora Garrett MD PCP - General Family Practice 01/07/18 10/28/22 Ashanti Ordoñ[place] [address] [place] [address] PCP - General 10/29/22 Mora Garrett MD Assigned PCP 01/10/18 09/05/22 Tony Francisco Personal Advocate & Liaison (PAL) Family Practice 04/11/19 09/19/19 Katina Dow Personal Advocate & Liaison (PAL) Family Practice 09/20/19 09/15/22 Shana Singleton MD [address] [place] [address] [phone] Resident Student in organized health care education/training program 12/16/19 Katina Dow Personal Advocate & Liaison (PAL) Family Medicine 06/08/20 01/07/21 Tammi Buitrago, GudeliaD [address] [place], [place] [address] [place], [place] [address] Pharmacist Pharmacist 08/06/20 04/26/24 Tammi Buitrago, GudeliaD [facility] [address] [address] Assigned MTM Pharmacist 09/07/21 Tammi Buitrago, Pako [address] [address] Assigned MTM Pharmacist 01/08/2202/07 Crista Norton APRN STROKE PROGRAM COORDINATOR [address] [place] [address] Assigned PCP 09/06/22 09/12/22 Jaz Ro AuD [address] [place] [address] [id number] Audiology 10/02/22 Ashanti Ordoñ[place] [address] [place] [address] Assigned PCP 09/13/22 04/03/24 Majo Roth [facility] [address] [place], [place] 490185 Pharmacist Pharmacist Public Affairs Specialist 12/01/22 04/26/24 Majo Roth [facility] [address] [place], [place] 8[address] Assigned MTM Pharmacist 12/06/22 Magalie Whipple [facility] [address] [place] [address] Pharmacist Pharmacist 12/26/22 04/26/24 Magalie Whipple [facility] [address] [place], [place] [address] Assigned MTM Pharmacist 01/03/23 Magalie Whipple Medical Student 08/10/23 04/26/24 Tamiko Renee, [facility] [address] [place], [place] [address] Pharmacist Pharmacist 01/27/24 04/26/24 Roxana Cruz PA-C [address] [place] [address] Assigned PCP 04/04/24 documented as of this encounter
--- OUTSIDE RECORDS SUMMARY | 2024-08-20 10:44 | XMS_ITS | Encounter Summary ---
Author Organization [place] Address [facility] [place] [address] Care Team Providers Care Bench Assembler Operator Name Role Phone Mora Garrett MD Primary Care Prov ider Mora Garrett MD Unavailable + Katina Dow Unavailable Unavailable Shana Singleton MD Unavailable [phone] Iftikhar, Tammi PharmD Unavailable +[phone] Iftikhar, Tammi PharmD Unavailable +[phone] Iftikhar, Tammi PharmD Unavailable +[phone] Crista Norton APRN BRIM STITCHER Unavailable [phone] [place] Jaz Schneider Unavailable +[phone] Ashanti Ordoñez MD Unavailable [phone] Ashanti Ordoñez MD Primary Care Provider [phone] Majo Roth Miesha Unavailable [phone] Majo Roth RPH Unavailable [phone] Magalie Whipple [facility] Unavailable [phone] Magalie Whipple [facility] Unavailable [phone] Magalie Whipple Unavailable Unavailable Tamiko Renee [facility] Unavailable Roxana Cruz PA-C Unavailable [phone] Encounter Details Date Type Department Care Team (Late st Contact Info) Description 01/22/2021 MyC Medical Advice [facility] Mental Health & Addiction [address] [address] Shana Singleton MD [address] [place] [address] Social History Tobacco Use Types [...] and Family Once a week 11/06/2018 Attends Cheondoism Services More than 4 times per year [...] Answer Date Recorded PHQ-2 Score 6 01/08/2021 [facility] of Occupat ional Health - Occupational Stress [...] place to sleep or slept in a long-term (including now)? No 06/23/2019 Education Answer Date Recorded What is the highest level of school you have completed or the highest degree you have received? Bachelor's degree (e.g., BA, AB, BS) 06/23/2019 Comments No Sex and Gender Information Value Date Recorded Sex Assigned at Female 03/22/2018 7:28 AM MEMBERSHIP SALES REPRESENTATIVE Legal Sex Female 5:04 AM MEMBERSHIP SALES REPRESENTATIVE Gender Identity Female 03/22/2018 7:28 AM MEMBERSHIP SALES REPRESENTATIVE Sexual Orientation Straight 03/22/2018 7: 28 AM MEMBERSHIP SALES REPRESENTATIVE Occupation Industry Job Start Date Job End [...] Description 12/08/2024 1:30 PM CDT Office Visit [facility] [address] [place] [address] Roxana Cruz PA-C [address] [place] [phone] Ashanti Ordoñ[place] [address] [place] [address] documented as of this encounter Visit Diagnoses Not on filedocumented in this encounter Additional Health Concerns Assessment Noted Time PHQ-9 Depression Total Score: 24 021 1:58 PM CDT documented as of this encounter Care Teams Bench Assembler Operator Relationship Specialty Start Date End Date Mora Garrett MD PCP - General Family Practice 01/07/18 10/28/22 Ashanti Ordoñ[place] [address] [place] [address] PCP - General 10/29/22 Mora Garrett MD Assigned PCP 01/10/18 09/05/22 Katina Dow Personal Advocate & Liaison (PAL) Family Practice 09/20/19 09/15/22 Shana Singleton MD [address] [place] [address] Resident Student in organized health care education/training program 12/16/19 Tammi Buitrago, PharmD [address] [place] [address] Pharmacist Pharmacist 08/06/20 04/26/24 Tammi Buitrago, GudeliaD [address] [place] [address] Assigned MTM Pharmacist 09/07/21 Tammi Buitrago, GudeliaD [address] [place] [address] Assigned MTM Pharmacist 01/08/2202/07 Crista Norton APRN BRIM STITCHER [address] [place] [address] Assigned PCP 09/06/22 09/12/22 Jaz Ro AuD [address] [place] [address] Audiology 10/02/22 Ashanti Ordoñ[place] [address] [place] [address] Assigned PCP 09/13/22 04/03/24 Majo Roth [facility] [address] [place] [address] Pharmacist Pharmacist [facility] 12/01/22 04/26/24 Majo Roth Miesha [address] [place] [address] Assigned MTM Pharmacist 12/06/22 Magalie Whipple [facility] [address] [place] [address] Pharmacist Pharmacist 12/26/22 04/26/24 Magalie Whipple [facility] [address] [place] [address] Assigned MTM Pharmacist 01/03/23 Magalie Whipple Medical Student 08/10/23 04/26/24 Tamiko Renee, [facility] [address] [place] [address] Pharmacist Pharmacist 01/27/24 04/26/24 Roxana Cruz PA-C [address] [place] [address] Assigned PCP 04/04/24 documented as of this encounter
--- OUTSIDE RECORDS SUMMARY | 2024-08-20 10:45 | XMS_ITS | Encounter Summary ---
Author Organization [place] Address Count includes the [facility] [place] [address] Care Team Providers Care Industrial Safety Engineer Name Role Phone Mora Garrett MD Primary Care Prov ider Mora Garrett MD Unavailable + Katina Dow Unavailable Unavailable Shana Singleton MD Unavailable [phone] Katina Dow Unavailable Unavailable Tammi Buitrago PharmD Unavailable [phone] Iftikhar Tammi PharmD Unavailable [phone] Iftikhar, Tammi PharmD Unavailable [phone] Crista Norton APRN BEER RUNNER Unavailable [phone] Jaz Ro Unavailable [phone] Ashanti Ordoñez MD Unavailable [phone] Ashanti Ordoñez MD Primary Care Provider [phone] Majo Roth RPH Unavailable [phone] Majo Roth RPH Unavailable [phone] Magalie Whipple [facility] Unavailable Magalie Whipple [facility] Unavailable Magalie Whipple Unavailable Unavailable Tamiko Renee [facility] Unavailable AnthonyRoxana Sirena PA-C Unavailable [phone] Encounter Details Date Type Department Care Team (Late st Contact Info) Description 06/19/2020 MyC Medical Advice [facility] Mental Health & Addiction [place] [id number] [address] Shana Singleton MD [address] [place] [address] Social History Tobacco Use Types [...] and Family Once a week 11/06/2018 Attends [employer] Services More than 4 times per year [...] or more points; Administer PHQ-9 if positive 0 06/07/2020 [facility] [place] of Occupat ional Health - Occupational Stress [...] place to sleep or slept in a longterm (including now)? No 06/23/2019 Education Answer Date Recorded What is the highest level of school you have completed or the highest degree you have received? 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 No / Unsure 06/10/2020 10:14 PM COTTON GINNER HELPER documented as of this encounter Plan of Treatment Upcoming Encounters Date Type Department Care Team (Late st Contact Info) Description 12/08/2024 1:30 PM CDT Office Visit [facility] [address] [place] [address] Roxana Cruz PA-C [address] [place] [address] Ashanti Ordoñ[place] [address] [place] [address] documented as of this encounter Visit Diagnoses Not on filedocumented in this encounter Additional Health Concerns Assessment Noted Time PHQ-9 Depression Total Score: 4 06/07/19 21 3:50 PM COTTON GINNER HELPER documented as of this encounter Care Teams Industrial Safety Engineer Relationship Specialty Start Date End Date Mora Garrett MD PCP - General Family Practice 01/07/18 10/28/22 Ashanti Ordoñ[place] [address] [place] [address] PCP - General 10/29/22 Mora Garrett MD Assigned PCP 01/10/18 09/05/22 Katina Dow Personal Advocate & Liaison (PAL) Family Practice 09/20/19 09/15/22 Shana Singleton MD [address] [place] [address] Resident Student in organized health care education/training program 12/16/19 Katina Dow Personal Advocate & Liaison (PAL) Family Medicine 06/08/20 01/07/21 Tmami Buitrago, PharmD [address] [place] [address] Pharmacist Pharmacist 08/06/20 04/26/24 Tammi Buitrago, PharmD [address] [place] [address] [phone] Assigned MTM Pharmacist 09/07/21 Tammi Buitrago, GudeliaD [address] [place] [address] [phone] Assigned MTM Pharmacist 01/08/2202/07 Crista Norton APRN [facility] [address] [place] [address] Assigned PCP 09/06/22 09/12/22 Jaz Ro AuD [address] [place] [address] [id number] Audiology 10/02/22 Ashanti Ordoñ[place] [address] [place] [address] Assigned PCP 09/13/22 04/03/24 Majo Roth RPH [address] [place] [address] [phone] Pharmacist Pharmacist Insurance Underwriter 12/01/22 04/26/24 Majo Roth RPH [address] [place] [address] [phone] Assigned MTM Pharmacist 12/06/22 Magalie Whipple, [facility] [address] [id number] Pharmacist Pharmacist 12/26/22 04/26/24 Magalie Whipple, [facility] [address] [id number] Assigned MTM Pharmacist 01/03/23 Magalie Whipple Medical Student 08/10/23 04/26/24 Tamiko Renee, [facility] [address] [place] [address] Pharmacist Pharmacist 01/27/24 04/26/24 Roxana Cruz PAChesterC [address] [place] [address] Assigned PCP 04/04/24 documented as of this encounter
--- OUTSIDE RECORDS SUMMARY | 2024-08-20 10:45 | XMS_ITS | Encounter Summary ---
Author Organization [place] Address [facility] [place] [address] Care Team Providers Care Spa Technician Name Role Phone Mora Garrett MD Primary Care Prov ider Mora Garrett MD Unavailable + Tony Francisco Unavailable Unavailable Katina Dow Unavailable Unavailable Shana Singleton MD Unavailable [phone] Katina Dow Unavailable Unavailable Iftikhar, Tammi PharmD Unavailable [phone] Iftikhar, Tammi PharmD Unavailable [phone] Iftikhar, Tammi PharmD Unavailable [phone] Crista Norton APRN EXPERIMENTAL ELECTRONICS DEVELOPER Unavailable [phone] Jaz Ro Unavailable [phone] Ashanti Ordoñez MD Unavailable [phone] Ashanti Ordoñez MD Primary Care Provider [phone] Majo Roth [facility] Unavailable [phone] Majo Roth [facility] Unavailable [phone] Magalie Whiplpe [facility] Unavailable [phone] Magalie Whipple [facility] Unavailable [phone] Magalie Whipple Unavailable Unavailable Tamiko Renee [facility] Unavailable [phone] Roxana Cruz Sirena PA-C Unavailable [phone] Reason for Visit * Reason Onset Date Comments Medication Question 07/15/2018 Encounter Details Date Type Department Care Team (Late st Contact Info) Description 07/15/[address] [address] Mora Garrett MD [facility] [address] [address] Medication Question Social History Tobacco Use Types Packs/Day Years Used Date Smoking Tobacco: Never Smokeless Tobacco: Never Alcohol Use Standard Drinks/Week Comments Yes 0 (1 standard drink = 0.6 oz pur e alcohol) rare PHQ-2 Answer Date Recorded PHQ-2 Score 1 04/21/2018 Comments No Sex and Gender Information Value Date Recorded Sex Assigned at Female 03/22/2018 7:28 AM SUPERVISOR TREE FRUIT AND NUT FARMING Legal Sex Female 5:04 AM SUPERVISOR [employer] FARMING Gender Identity Female 03/22/2018 7:28 AM SUPERVISOR [employer] FARMING Sexual Orientation Straight 03/22/2018 7: 28 AM SUPERVISOR TREE FRUIT AND NUT FARMING documented as of this encounter Miscellaneous Notes * Telephone Encounter - Dipti Hernández RN - 07/16/2018 7:04 AM CDT Images from the original note were not included. Dr. Garrett- see [employer] message below. Visit due 08/04/18. Reminder in [employer] message to schedule soon. Please advise. MENDY Fukn Nana Adaben, MD to Michelle Cochran ?? 06/28/18 2:32 PM Maurisio Marie to hear pain relief. generally increasing doses can cause this expected side effect which initially resolves in the first couple of weeks. Please go ahead and decrease your dose of wellbutrin and lets see if this does help. Keep me posted. Dr. Garrett Last read by Michelle Cochran at 10:13 PM on 07/15/2018. Michelle Cochran to Tami, Mora Huggins MD 06/28/18 3:[address] Lisbeth Hoff With increased dose, I am now feeling pain relief from cymbalta but noticing increased irritability, anxiety and more difficulty sleeping. Would you recommend decreasing my welbutrin from 300 to 150mg? Michelle Cochran 06/23/18 ASSESSMENT/PLAN: ?? 1. Moderate single current episode of major depressive disorder (H) - will increase dose of cymbalta to 60 mg and recheck in 6 weeks. Compliance encouraged. If no noticeable changes with dose increase she can restart celexa. - DULoxetine (CYMBALTA) 60 MG capsule; Take 1 capsule (60 mg) by mouth daily Dispense: 60 capsule; Refill: 0 ?? 2. Lumbar radiculopathy - DULoxetine (CYMBALTA) 60 MG capsule; Take 1 capsule (60 mg) by mouth daily Dispense: 60 capsule; Refill: 0 ?? 3. Migraine with aura and without status migrainosus, not intractable -stable - rizatriptan (MAXALT) 10 MG tablet; Take 1 tablet (10 mg) by mouth at onset of headache for migraine Dispense: 18 tablet; Refill: 1 ?? 4. Elevated blood pressure reading without diagnosis of hypertension - patient will recheck at work and notify provider ?? See Patient Instructions ?? Mora Garrett MD [facility] Answers for HPI/ROS submitted by the patient on 06/23/2018 Chronic problems general questions HPI Form If you checked off any problems, how difficult have these problems made it for you to do your work,take care of things at home, or get along with other people?: Somewhat difficult PHQ9 TOTAL SCORE: 5 HARDIK 7 TOTAL SCORE: 3 ?? Instructions Return in about 6 weeks (around 08/04/2018). Follow up in 6 weeks or sooner if needed documented in this encounter Plan of Treatment Upcoming Encounters Date Type Department Care Team (Late st Contact Info) Description 12/08/2024 1:30 PM CDT Office Visit [facility] [address] [place] [address] Rxoana Cruz PA-C [address] [place] [phone] Ashanti Ordoñez [place] [id number] [place] [address] [phone] documented as of this encounter Visit Diagnoses Not on filedocumented in this encounter Additional Health Concerns Assessment Noted Time PHQ-9 Depression Total Score: 5 06/25/19 7:05 AM CDT documented as of this encounter Care Teams Spa Technician Relationship Specialty Start Date End Date Mora Garrett MD PCP - General Family Practice 01/07/18 10/28/22 Ashanti Ordoñez [place] [address] [place] [address] PCP - General 10/29/22 Mora Garrett MD Assigned PCP 01/10/18 09/05/22 Tony Francisco Personal Advocate & Liaison (PAL) Family Practice 04/11/19 09/19/19 Kaitna Dow Personal Advocate & Liaison (PAL) Family Practice 09/20/19 09/15/22 Shana Singleton MD [address] [place] [address] Resident Student in organized health care education/training program 12/16/19 Katina Dow Personal Advocate & Liaison (PAL) Family Medicine 06/08/20 01/07/21 Tammi Buitrago, PharmD [address] [place] [phone] Pharmacist Pharmacist 08/06/20 04/26/24 Tammi Buitrago, PharmD [address] [place] [address] Assigned MTM Pharmacist 09/07/21 Tammi Buitrago, GudeliaD [address] [place] [address] Assigned MTM Pharmacist 01/08/2202/07 Crista Norton APRN [facility] [address] [place] [address] Assigned PCP 09/06/22 09/12/22 Jaz Ro AuD [address] [place] [address] 138805 Audiology 10/02/22 Ashanti Ordoñez [place] [address] [place] [address] Assigned PCP 09/13/22 04/03/24 Majo Roth [facility] [address] [place] [address] Pharmacist Pharmacist Cloth Shearer 12/01/22 04/26/24 Majo Roth, [facility] [address] [place] [address] Assigned MTM Pharmacist 12/06/22 Magalie Whipple, [facility] [address] [id number] Pharmacist Pharmacist 12/26/22 04/26/24 Magalie Whipple, [facility] [address] [place] [address] Assigned MTM Pharmacist 01/03/23 Magalie Whipple Medical Student 08/10/23 04/26/24 Tamiko Renee, [facility] [address] [place] [address] Pharmacist Pharmacist 01/27/24 04/26/24 Roxana Cruz PA-C [address] [place] [address] Assigned PCP 04/04/24 documented as of this encounter
--- OUTSIDE RECORDS SUMMARY | 2024-08-20 10:45 | XMS_ITS | Encounter Summary ---
Author Organization [place] Address [facility] [place] [address] Care Team Providers Care Supervisor Fine Grading Name Role Phone Mora Garrett MD Primary Care Prov ider Mora Garrett MD Unavailable + Katina Dow Unavailable Unavailable Shana Singleton MD Unavailable [phone] Tammi Buitrago PharmD Unavailable [phone] Crista Norton NAT INSTRUCTOR ELECTRONIC INDUSTRIAL CONTROLS MECHANIC Unavailable [phone] Jaz Ro AuD Unavailable [phone] Ashanti Ordoñez MD Unavailable [phone] Ashanti Ordoñez MD Primary Care Provider [phone] Majo Roth [facility] Unavailable [phone] Majo Roth [facility] Unavailable [phone] Magalie Whipple [facility] Unavailable [phone] Magalie Whipple [facility] Unavailable WhippleMagalie Unavailable Unavailable Tamiko Renee [facility] Unavailable [phone] Roxana Cruz PA-C Unavailable Encounter Details Date Type Department Care Team (Late st Contact Info) Description 02/21/2022 MyC Medical Advice [facility] Mental Health & Addiction [place] [id number] [address] [address] Christiano Davenport MD [address], [address] [place] [address] Social History Tobacco Use Types Packs/Day Years [...] and Family Once a week 11/06/2018 Attends [employer] Services More than 4 times per year [...] 11/06/2018 PHQ-2 Answer Date Recorded PHQ-2 Score 2 01/20/2022 [facility] of Occupat ional Health - Occupational Stress [...] Sex Assigned at Female 03/22/2018 7:28 AM ROCK CRUSHER OPERATOR Legal Sex Female 5:04 AM ROCK CRUSHER OPERATOR Gender Identity Female 03/22/2018 7:28 AM ROCK CRUSHER OPERATOR Sexual Orientation Straight 03/22/2018 7: 28 AM ROCK CRUSHER OPERATOR 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 No / Unsure 02/11/2022 12:43 PM CDT documented as of this encounter Plan of Treatment Upcoming Encounters Date Type Department Care Team (Late st Contact Info) Description 12/08/2024 1:30 PM CDT Office Visit [facility] [address] [place], [place] [address] Roxana Cruz PA-C [address] [place] [phone] Ashanti Ordoñ[place] [address] [place], [place] [phone] documented as of this encounter Visit Diagnoses Not on filedocumented in this encounter Additional Health Concerns Assessment Noted Time PHQ-9 Depression Total Score: 8 01/21/20 22 10:31 AM CDT documented as of this encounter Care Teams Supervisor Fine Grading Relationship Specialty Start Date End Date Mora Garrett MD PCP - General Family Practice 01/07/18 10/28/22 Ashanti Ordoñez [place] [address] [place] [address] PCP - General 10/29/22 Mora Garrett MD Assigned PCP 01/10/18 09/05/22 Katina Dow Personal Advocate & Liaison (PAL) Family Practice 09/20/19 09/15/22 Shana Singleton MD [address] [place] [address] 349255 Resident Student in organized health care education/training program 12/16/19 Tammi Buitrago, PharmD [address] [place] [address] [phone] Pharmacist Pharmacist 08/06/20 04/26/24 Crista Norton APRN ELECTRONIC INDUSTRIAL CONTROLS MECHANIC [address] [place] [address] Assigned PCP 09/06/22 09/12/22 Jaz Ro AuD [address] [place], [place] 456005 Audiology 10/02/22 Ashanti Ordoñ[place] [address] [address] [address] Assigned PCP 09/13/22 04/03/24 [facility] [place], [place] [address] Pharmacist Pharmacist Unarmed Security Guard 12/01/22 04/26/24 [facility] 9 [place], [place] 447575 Assigned MTM Pharmacist 12/06/22 Magalie Whipple, [facility] [address] [address] Pharmacist Pharmacist 12/26/22 04/26/24 Magalie Whipple, [facility] [address] [address] Assigned MTM Pharmacist 01/03/23 Magalie Whipple Medical Student 08/10/23 04/26/24 Tamiko Renee, [facility] [address] [address] Pharmacist Pharmacist 01/27/24 04/26/24 Roxana Cruz PA-C [address] [place] [phone] Assigned PCP 04/04/24 documented as of this encounter
--- OUTSIDE RECORDS SUMMARY | 2024-08-20 10:45 | XMS_ITS | Encounter Summary ---
Author Organization [place] Address [facility] [place] [address] Care Team Providers Care Communications Consultant Name Role Phone Mora Garrett MD Primary Care Prov ider Moar Garrett MD Unavailable + Katina Dow Unavailable Unavailable Shana Singleton MD Unavailable [phone] Tammi Buitrago PharmD Unavailable [phone] Crista Norton ASSEMBLER ADJUSTER RUBBER DOWN Unavailable [phone] Jaz Ro AuD Unavailable [phone] Ashanti Ordoñez MD Unavailable +[phone] Ashanti Ordoñez MD Primary Care Provider [phone] Majo Roth [facility] Unavailable [phone] Majo Roth [facility] Unavailable [phone] Magalie Whipple [facility] Unavailable [phone] Magalie Whipple [facility] Unavailable [phone] Magalie Whipple Unavailable Unavailable Tamiko Renee [facility] Unavailable Roxana Cruz PA-C Unavailable Encounter Details Date Type Department Care Team (Late st Contact Info) Description 03/21/2022 [facility] Medical Advice [facility] [address] [address] [place] Social History Tobacco Use Types Packs/Day Years [...] and Family Once a week 11/06/2018 Attends [employer] Services More than 4 times per year [...] PHQ-2 Answer Date Recorded PHQ-2 Score 2 03/18/2022 [facility] [place] of Occupat ional Health - Occupational Stress [...] place to sleep or slept in a nursing home (including now)? No 06/23/2019 Education Answer Date Recorded What is the highest level of school you have completed or the highest degree you have received? 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 No / Unsure 03/24/2022 1:41 PM PELLETIZER OPERATOR documented as of this encounter Plan of Treatment Upcoming Encounters Date Type Department Care Team (Late st Contact Info) Description 12/08/2024 1:30 PM CDT Office Visit [facility] [address] [place] [address] Roxana Cruz PAChesterC [address] [place] [address] Ashanti Ordoñ[place] [address] [place] [address] documented as of this encounter Visit Diagnoses Not on filedocumented in this encounter Additional Health Concerns Assessment Noted Time PHQ-9 Depression Total Score: 8 03/18/20 22 4:49 PM PELLETIZER OPERATOR documented as of this encounter Care Teams Communications Consultant Relationship Specialty Start Date End Date Mora Garrett MD PCP - General Family Practice 01/07/18 10/28/22 Ashanti Ordoñez [place] [address] [place] [address] PCP - General 10/29/22 Mora Garrett MD Assigned PCP 01/10/18 09/05/22 Katina Dow Personal Advocate & Liaison (PAL) Family Practice 09/20/19 09/15/22 Shana Singleton MD [facility] [place], [place] 380705 Resident Student in organized health care education/training program 12/16/19 Tammi Buitrago, GudeliaD [address] [place] [address] [phone] Pharmacist Pharmacist 08/06/20 04/26/24 Crista Norton APRN RUBBER DOWN [address] [place] [address] Assigned PCP 09/06/22 09/12/22 Jaz Ro AuD [address] [place] [address] Audiology 10/02/22 Ashanti Ordoñez [place] [address] [place] [address] Assigned PCP 09/13/22 04/03/24 [facility] [address] [place], [place] 8725[address] Pharmacist Pharmacist Outreach And Education Social Worker 12/01/22 04/26/24 [facility] 9 [place], [place] 621465 Assigned MTM Pharmacist 12/06/22 Magalie Whipple, [facility] [address] [id number] Pharmacist Pharmacist 12/26/22 04/26/24 [facility] [address] [place] [id number] Assigned MTM Pharmacist 01/03/23 Magalie Whipple Medical Student 08/10/23 04/26/24 Tamiko Renee, [facility] [address] [id number] Pharmacist Pharmacist 01/27/24 04/26/24 Roxana Cruz PA-C [address] [place] [address] Assigned PCP 04/04/24 documented as of this encounter
--- OUTSIDE RECORDS SUMMARY | 2024-08-20 10:45 | XMS_ITS | Encounter Summary ---
Author Organization [place] Address [facility] [place] [address] Care Team Providers Care Sheep Killer Name Role Phone Mora Garrett MD Primary Care Prov ider Mora Garrett MD Unavailable + Katina Dow Unavailable Unavailable Shana Singleton MD Unavailable +[phone] Iftikhar, Tammi PharmD Unavailable +[phone] Iftikhar, Tammi PharmD Unavailable +[phone] Iftikhar, Tammi PharmD Unavailable +[phone] Crista Norton APRN SHARED SERVICES REPRESENTATIVE Unavailable +[phone] Doritanilton Jaz Schneider Unavailable +[phone] Ashanti Ordoñez MD Unavailable +[phone] Ashanti Ordoñez MD Primary Care Provider +[phone] Majo Roth Miesha Unavailable +[phone] Majo Roth RPH Unavailable [phone] Magalie Whipple [facility] Unavailable +[phone] Magalie Whipple [facility] Unavailable [phone] Magalie Whipple Unavailable Unavailable Tamiko Renee [facility] Unavailable Roxana Cruz PA-C Unavailable [phone] Encounter Details Date Type Department Care Team (Late st Contact Info) Description 01/23/2021 [facility] Medical Advice [facility] Mental Health & Addiction [address] [address] Nahed Mabry, [facility] [address] [place] [address] Social History Tobacco Use Types [...] and Family Once a week 11/06/2018 Attends Mormonism Services More than 4 times per year [...] Answer Date Recorded PHQ-2 Score 6 01/08/2021 [facility] [place] of Occupat ional Health - Occupational Stress [...] place to sleep or slept in a detention (including now)? No 06/23/2019 Education Answer Date Recorded What is the highest level of school you have completed or the highest degree you have received? Bachelor's degree (e.g., BA, AB, BS) 06/23/2019 Comments No Sex and Gender Information Value Date Recorded Sex Assigned at Female 03/22/2018 7:28 AM EGG GRADER Legal Sex Female 5:04 AM EGG GRADER Gender Identity Female 03/22/2018 7:28 AM EGG GRADER Sexual Orientation Straight 03/22/2018 7: 28 AM EGG GRADER Occupation Industry Job Start Date Job End [...] 12/08/2024 1:30 PM CDT Office Visit [facility] [address] [place] [address] Roxana Cruz PA-C [address] [place] [address] Ashanti Ordoñ[place] [address] [place] [address] documented as of this encounter Visit Diagnoses Not on filedocumented in this encounter Additional Health Concerns Assessment Noted Time PHQ-9 Depression Total Score: 24 021 1:58 PM CDT documented as of this encounter Care Teams Sheep Killer Relationship Specialty Start Date End Date Mora Garrett MD PCP - General Family Practice 01/07/18 10/28/22 Ashanti Ordoñ[place] [address] [place] [address] PCP - General 10/29/22 Mora Garrett MD Assigned PCP 01/10/18 09/05/22 Katina Dow Personal Advocate & Liaison (PAL) Family Practice 09/20/19 09/15/22 Shana Singleton MD [address] [place] [address] 109235 Resident Student in organized health care education/training program 12/16/19 Tammi Buitrago, PharmD [address] [place] [address] Pharmacist Pharmacist 08/06/20 04/26/24 Tammi Buitrago, GudeliaD [address] [place] [address] Assigned MTM Pharmacist 09/07/21 Tamim Buitrago, PharmD [address] [place] [address] Assigned MTM Pharmacist 01/08/2202/07 Crista Norton APRN [facility] [address] [place] [address] Assigned PCP 09/06/22 09/12/22 Jaz Ro AuD [address] [place] [address] Audiology 10/02/22 Ashanti Ordoñ[place] [address] [place] [address] Assigned PCP 09/13/22 04/03/24 Majo Roth [facility] [address] [place] [address] Pharmacist Pharmacist Skin Tanner 12/01/22 04/26/24 Majo Roth Miesha [address] [place] [address] Assigned MTM Pharmacist 12/06/22 Magalie Whipple [facility] [address] [place] [address] Pharmacist Pharmacist 12/26/22 04/26/24 Magalie Whipple, [facility] [address] [place] [address] Assigned MTM Pharmacist 01/03/23 Magalie Whipple Medical Student 08/10/23 04/26/24 Tamiko Renee, [facility] [address] [place] [address] [address] Pharmacist Pharmacist 01/27/24 04/26/24 Roxana Cruz PA-C [address] [place] [address] Assigned PCP 04/04/24 documented as of this encounter
--- OUTSIDE RECORDS SUMMARY | 2024-08-20 10:45 | XMS_ITS | Encounter Summary ---
Author Organization [place] Address [facility] [place] [address] Care Team Providers Care Contract Implementation Analyst Name Role Phone Mora Garrett MD Primary Care Prov ider Mora Garrett MD Unavailable + Katina Dow Unavailable Unavailable Shana Singleton MD Unavailable [phone] Katina Dow Unavailable Unavailable Tammi Buitrago PharmD Unavailable [phone] Iftikhar Tammi PharmD Unavailable +[phone] Iftikhar, Tammi PharmD Unavailable +[phone] Crista Norton APRN MAIL CLERK BILLS Unavailable [phone] Jaz Ro Unavailable +[phone] Ashanti Ordoñze MD Unavailable +[phone] Ashanti Ordoñez MD Primary Care Provider +[phone] Majo Roth RPH Unavailable [phone] Majo Roth RPH Unavailable [phone] Magalie Whipple [facility] Unavailable Magalie Whipple [facility] Unavailable [phone] Magalie Whipple Unavailable Unavailable Tamiko Renee [facility] Unavailable AnthonyRoxana Sirena PA-C Unavailable [phone] Encounter Details Date Type Department Care Team (Late st Contact Info) Description 06/17/2020 [facility] Medical Advice [facility] Mental Health & Addiction [place] [id number] [address] [address] Shana Singleton MD 0271 [place] [address] Social History Tobacco Use Types [...] and Family Once a week 11/06/2018 Attends [employer] Services More than 4 times per year [...] points; Administer PHQ-9 if positive 0 06/07/2020 [facility] of Occupat ional Health - Occupational Stress [...] place to sleep or slept in a m[facility]p (including now)? No 06/23/2019 Education Answer Date Recorded What is the highest level of school you have completed or the highest degree you have received? 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 No / Unsure 06/10/2020 10:14 PM ANESTHESIOLOGY TECH documented as of this encounter Miscellaneous Notes * Telephone Encounter - Monica Amor RN - 06/18/2020 4:37 PM ANESTHESIOLOGY TECH Called patient for updates on symptoms and to find out what would be the most helpful from provider. Updates: -feeling much better today after a week of ringing in ears, vertigo, and trouble walking -headaches have stopped- started topamax- yes 50mg, occipital nerve block helpful, off mirtazapine now -back driving today, going back to work tomorrow Thinking that it's definitely connected to Wellbutrin wean. Dropped to 300mg on a Thursday and symptoms started on the Thursday, two days later. Wanting to wean more slowly. Routed to provider for input. THESIOLOGY TECH THESIOLOGY TECH documented in this encounter Plan of Treatment Upcoming Encounters Date Type Department Care Team (Late st Contact Info) Description 12/08/2024 1:30 PM CDT Office Visit [address] [address] Roxana Cruz PA-C [address] [place] [phone] Ashanti Ordoñez [place] [id number] [place] [address] documented as of this encounter Visit Diagnoses Not on filedocumented in this encounter Additional Health Concerns Assessment Noted Time PHQ-9 Depression Total Score: 4 06/07/19 21 3:50 PM ANESTHESIOLOGY TECH documented as of this encounter Care Teams Contract Implementation Analyst Relationship Specialty Start Date End Date Mora Garrett MD PCP - General Family Practice 01/07/18 10/28/22 Ashanti Ordoñ[place] [address] [place] [address] PCP - General 10/29/22 Mora Garrett MD Assigned PCP 01/10/18 09/05/22 Katina Dow Personal Advocate & Liaison (PAL) Family Practice 09/20/19 09/15/22 Shana Singleton MD [address] [place] [address] Resident Student in organized health care education/training program 12/16/19 Katina Dow Personal Advocate & Liaison (PAL) Family Medicine 06/08/20 01/07/21 Tammi Buitrago, PharmD [address] [place] [address] 895354 Pharmacist Pharmacist 08/06/20 04/26/24 Tammi Buitrago, PharmD [address] [place] [address] 807414 Assigned MTM Pharmacist 09/07/21 Tammi Buitrago, PharmD [address] [place] [address] 700904 Assigned MTM Pharmacist 01/08/2202/07 Crista Norton APRN MAIL CLERK BILLS [address] [place] [address] Assigned PCP 09/06/22 09/12/22 Jaz Ro AuD [address]09 [place] [address] Audiology 10/02/22 Ashanti Ordoñ[place] [address] [place] [address] Assigned PCP 09/13/22 04/03/24 [facility] [address] [place] [address] 419095 Pharmacist Pharmacist Geology Faculty Member 12/01/22 04/26/24 [facility] [address] [place] [address] 630865 Assigned MTM Pharmacist 12/06/22 Magalie Whipple, [facility] [address] [id number] Pharmacist Pharmacist 12/26/22 04/26/24 Magalie Whipple, [facility] [address] [place] [address] [address] Assigned MTM Pharmacist 01/03/23 Magalie Whipple Medical Student 08/10/23 04/26/24 Tamiko Renee, [facility] [address] [address] Pharmacist Pharmacist 01/27/24 04/26/24 Roxana Cruz PA-C [address] [place] [address] Assigned PCP 04/04/24 documented as of this encounter
--- OUTSIDE RECORDS SUMMARY | 2024-08-20 10:45 | XMS_ITS | Encounter Summary ---
Author Organization [place] Address [facility] [place] [address] Care Team Providers Care [place] Name Role Phone Mora Garrett MD Primary Care Prov ider Mora Garrett MD Unavailable + Katina Dow Unavailable Unavailable Shana Singleton MD Unavailable [phone] Katina Dow Unavailable Unavailable Tammi Buitrago PharmD Unavailable [phone] Iftikhar Tammi PharmD Unavailable +[phone] Iftikhar, Tammi PharmD Unavailable +[phone] Crista Norton APRN DOCK HAND Unavailable [phone] Jaz Ro Unavailable +[phone] Ashanti Ordoñez MD Unavailable [phone] Ashanti Ordoñez MD Primary Care Provider [phone] Majo Roth RPH Unavailable [phone] Majo Roth RPH Unavailable [phone] Magalie Whipple [facility] Unavailable Magalie Whipple [facility] Unavailable Magalie Whipple Unavailable Unavailable Tamiko Renee [facility] Unavailable AnthonyRoxana Sirena PA-C Unavailable [phone] Encounter Details Date Type Department Care Team (Late st Contact Info) Description 09/18/2020 [facility] Medical Advice [facility] Mental Health & Addiction [place] [id number] [address] [address] Shana Singleton MD 5738 [place] [address] Moderate single current episode of major depressive disorder (H) Social History Tobacco Use Types Packs/Day Years [...] and Family Once a week 11/06/2018 Attends [employer] Services More than 4 times per year [...] points; Administer PHQ-9 if positive 0 06/07/2020 [facility] of Occupat ional Health - Occupational Stress [...] place to sleep or slept in a long term (including now)? No 06/23/2019 Education Answer Date Recorded What is the highest level of school you have completed or the highest degree you have received? 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 No / Unsure 08/20/2020 10:46 AM CDT documented as of this encounter Miscellaneous Notes * Telephone Encounter - Monica Amor RN - 09/19/2020 1:37 PM CDT Images from the original note were not included. Shana Singleton MD Kaiser-Schatzlein, Sarah, RN ?? Clary Rider, here's what I got from pharmacy. Reduce duloxetine from 90mg to 60mg and start low dose Fetzima (20mg) x 1 week, followed by reducing duloxetine to 30mg and increasing Fetzima to 40mg x 1 week, then stop duloxetine and further increase Fetzima if desired. Can you please reply to [facility] and send these Rx's for me? Let me know if not and I will get to it later. Thanks! 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 Routed to provider for finishing. documented in this encounter Plan of Treatment Upcoming Encounters Date Type Department Care Team (Late st Contact Info) Description 12/08/2024 1:30 PM CDT Office Visit [facility] [address] [place] [address] Roxana Cruz, PARodríguez [address] [place] [address] Ashanti Ordoñez MD [id number] [place] [address] [phone] documented as of this encounter Visit Diagnoses Diagnosis Moderate single current episode of major depressive disorder (H) documented in this encounter Additional Health Concerns Assessment Noted Time PHQ-9 Depression Total Score: 4 06/07/19 21 3:50 PM CARDIOLOGY CLINICAL NURSE SPECIALIST documented as of this encounter Care Teams [place] Relationship Specialty Start Date End Date Mora Garrett MD PCP - General Family Practice 01/07/18 10/28/22 Ashanti Ordoñ[place] [address] [place] [address] PCP - General 10/29/22 Mora Garrett MD Assigned PCP 01/10/18 09/05/22 Katina Dow Personal Advocate & Liaison (PAL) Family Practice 09/20/19 09/15/22 Shana Singleton MD [address] [place] [address] 485265 Resident Student in organized health care education/training program 12/16/19 Katina Dow Personal Advocate & Liaison (PAL) Family Medicine 06/08/20 01/07/21 Tammi Buitrago, GudeliaD [address] [place] [address] Pharmacist Pharmacist 08/06/20 04/26/24 Tammi Buitrago, PharmD [address] [place] [address] Assigned MTM Pharmacist 09/07/21 Tammi Buitrago, PharmD [address] [place] [address] Assigned MTM Pharmacist 01/08/2202/07 Crista Norton APRN [facility] [address] [place] [address] Assigned PCP 09/06/22 09/12/22 Jaz Ro AuD [address] [place] [address] Audiology 10/02/22 Ashanti Ordoñ[place] [address] [place] [address] Assigned PCP 09/13/22 04/03/24 [facility] [address] [place] [address] Pharmacist Pharmacist Health Careers Instructor 12/01/22 04/26/24 [facility] [address] [place] [address] Assigned MTM Pharmacist 12/06/22 Magalie Whipple, [facility] [address] [place] [address] Pharmacist Pharmacist 12/26/22 04/26/24 Magalie Whipple, [facility] [address] [place] [address] Assigned MTM Pharmacist 01/03/23 Magalie Whipple Medical Student 08/10/23 04/26/24 Tamiko Renee, [facility] [address] [place] [address] Pharmacist Pharmacist 01/27/24 04/26/24 Roxana Cruz PA-C [address] [place] [address] Assigned PCP 04/04/24 documented as of this encounter
--- OUTSIDE RECORDS SUMMARY | 2024-08-20 10:45 | XMS_ITS | Encounter Summary ---
Author Organization [place] Address [facility] [place] [address] Care Team Providers Care Buttonhole Maker Name Role Phone Mora Garrett MD Primary Care Prov ider Mora Garrett MD Unavailable + Katina Dow Unavailable Unavailable Shana Singleton MD Unavailable [phone] Tammi Buitrago PharmD Unavailable +[phone] Crista Norton LEGAL CLERK GRAIN MIXER Unavailable [phone] Jaz Ro AuD Unavailable [phone] Ashanti Ordoñez MD Unavailable [phone] Ashanti Ordoñez MD Primary Care Provider [phone] Majo Roth [facility] Unavailable [phone] Majo Roth [facility] Unavailable [phone] Magalie Whipple [facility] Unavailable [phone] Magalie Whipple [facility] Unavailable WhippleMagalie Unavailable Unavailable Tamiko Renee [facility] Unavailable Roxana Cruz PA-C Unavailable Encounter Details Date Type Department Care Team (Late st Contact Info) Description 03/12/2022 [facility] Medical Advice [facility] Mental Health & Addiction [place] [id number] [address] [address] Christiano Davenport MD [address], [address] [place] [address] Social History Tobacco Use Types [...] and Family Once a week 11/06/2018 Attends Je[employer]'S Witness Services More than 4 times per year [...] Answer Date Recorded PHQ-2 Score 2 01/20/2022 [facility] of Occupat ional Health - Occupational [...] place to sleep or slept in a group home (including now)? No 06/23/2019 Education Answer Date Recorded What is the highest level of school you have completed or the highest degree you have received? Bachelor's degree (e.g., BA, AB, BS) 06/23/2019 Comments No Sex and Gender Information Value Date Recorded Sex Assigned at Female 03/22/2018 7:28 AM CHIN STRAP CUTTER Legal Sex Female 5:04 AM CHIN STRAP CUTTER Gender Identity Female 03/22/2018 7:28 AM CHIN STRAP CUTTER Sexual Orientation Straight 03/22/2018 7: 28 AM CHIN STRAP CUTTER Occupation Industry Job Start Date Job End [...] Description 12/08/2024 1:30 PM CDT Office Visit [facility] [address] [place], [place] [address] Roxana Cruz PA-C [address] [place] [phone] Ashanti Ordoñ[place] [address] [place], [place] [phone] documented as of this encounter Visit Diagnoses Not on filedocumented in this encounter Additional Health Concerns Assessment Noted Time PHQ-9 Depression Total Score: 8 01/21/20 22 10:31 AM CDT documented as of this encounter Care Teams Buttonhole Maker Relationship Specialty Start Date End Date Mora Garrett MD PCP - General Family Practice 01/07/18 10/28/22 Ashanti Ordoñ[place] [address] [place] [address] PCP - General 10/29/22 Mora Garrett MD Assigned PCP 01/10/18 09/05/22 Katina Dow Personal Advocate & Liaison (PAL) Family Practice 09/20/19 09/15/22 Shana Singleton MD [address] [place] [address] [phone] Resident Student in organized health care education/training program 12/16/19 Tammi Buitrago, PharmD [address] [place] [address] [phone] Pharmacist Pharmacist 08/06/20 04/26/24 Crista Norton APRN GRAIN MIXER [address] [place] [address] Assigned PCP 09/06/22 09/12/22 Jaz Ro AuD [address] [place], [place] 614535 Audiology 10/02/22 Ashanti Ordoñez [place] [address] [place] [address] Assigned PCP 09/13/22 04/03/24 [facility] [address] [place], [place] 326875 Pharmacist Pharmacist Supervisor [employer] 12/01/22 04/26/24 [facility] 9 [place], [place] 777915 Assigned MTM Pharmacist 12/06/22 Magalie Whipple, [facility] [address] [place] [address] Pharmacist Pharmacist 12/26/22 04/26/24 Magalie Whipple, [facility] [address] [place] [address] [address] Assigned MTM Pharmacist 01/03/23 Magalie Whipple Medical Student 08/10/23 04/26/24 Tamiko Renee, [facility] [address] [place] [address] Pharmacist Pharmacist 01/27/24 04/26/24 Roxana Cruz PA-C [address] [place] [address] Assigned PCP 04/04/24 documented as of this encounter
--- OUTSIDE RECORDS SUMMARY | 2024-08-20 10:45 | XMS_ITS | Encounter Summary ---
Author Organization [place] Address [facility] [place] [address] Care Team Providers Care Vessel Builder Name Role Phone Mora Garrett MD Primary Care Prov ider Mora Garrett MD Unavailable + Katina Dow Unavailable Unavailable Shana Singleton MD Unavailable [phone] Tammi Buitrago PharmD Unavailable [phone] Crista Norton DELIVERY TRUCK DRIVER SPRAGGER Unavailable [phone] Jaz Ro AuD Unavailable [phone] Ashanti Ordoñez MD Unavailable [phone] Ashanti Ordoñez MD Primary Care Provider [phone] Majo Roth [facility] Unavailable [phone] Majo Roth [facility] Unavailable [phone] Magalie Whipple [facility] Unavailable [phone] Magalie Whipple [facility] Unavailable [phone] Magalie Whipple Unavailable Unavailable Tamiko Renee [facility] Unavailable Roxana Cruz PA-C Unavailable [phone] Reason for Visit * Reason Onset Date Comments MyChart Communication 03/21/2022 update Encounter Details Date Type Department Care Team (Latest Contact Info) Description 03/21/2022 MyC Medical Advice M [address] [address] Mora Garrett MD ARISE [address] [address] MyChart Communication (update) Social History Tobacco Use Types Packs/Day Years [...] and Family Once a week 11/06/2018 Attends [employer] More than 4 times per year [...] Answer Date Recorded PHQ-2 Score 2 03/18/2022 [facility] [place] of Occupat ional Health - Occupational [...] place to sleep or slept in a [place] health care facility (including now)? No 06/23/2019 Education Answer Date Recorded What is the highest level of school you have completed or the highest degree you have received? 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 No / Unsure 03/24/2022 1:41 PM SUPERVISOR SALVAGE documented as of this encounter Miscellaneous Notes * Telephone Encounter - Michelle Beltran RN - 03/21/2022 8:51 AM CST [facility] appointment update message, routed to NWD, please review and advise Michelle Beltran RN, BSN [facility] RVISOR SALVAGE * Telephone Encounter - [facility] Karl[facility]vin Bo - 03/21/2022 8:39 AM CST Routed to triage. Eric Reynoso 4 [facility] RVISOR SALVAGE documented in this encounter Plan of Treatment Upcoming Encounters Date Type Department Care Team (Late st Contact Info) Description 12/08/2024 1:30 PM CDT Office Visit [facility] [id number] [place] [address] Roxana Cruz PAChesterC [address] [place] [address] Ashanti Ordoñ[place] [address] [place] [address] documented as of this encounter Visit Diagnoses Not on filedocumented in this encounter Additional Health Concerns Assessment Noted Time PHQ-9 Depression Total Score: 8 03/18/20 22 4:49 PM SUPERVISOR SALVAGE documented as of this encounter Care Teams Vessel Builder Relationship Specialty Start Date End Date Mora Garrett MD PCP - General Family Practice 01/07/18 10/28/22 Ashanti Ordoñez [place] [address] [place] [address] PCP - General 10/29/22 Mora Garrett MD Assigned PCP 01/10/18 09/05/22 Katina Dow Personal Advocate & Liaison (PAL) Family Practice 09/20/19 09/15/22 Shana Singleton MD [facility] [place], [place] [address] Resident Student in [employer] [facility] care education/training program 12/16/19 Tammi Buitrago, GudeliaD [facility] [address] [address] Pharmacist Pharmacist 08/06/20 04/26/24 Crista Norton APRN [facility] [address] [place], [place] [id number] Assigned PCP 09/06/22 09/12/22 Jaz Ro AuD [address] [place] [address] Audiology 10/02/22 Ashanti Ordoñ[place] [address] [place] [address] Assigned PCP 09/13/22 04/03/24 Majo Roth [facility] [address] [place] [address] [id number] Pharmacist Pharmacist Bacon Slicer 12/01/22 04/26/24 Majo Roth Miesha [address] [place] [address] [id number] Assigned MTM Pharmacist 12/06/22 Magalie Whipple, [facility] [address] [place] [address] Pharmacist Pharmacist 12/26/22 04/26/24 Magalie Whipple, [facility] [address] [place] [address] Assigned MTM Pharmacist 01/03/23 Magalie Whipple Medical Student 08/10/23 04/26/24 Tamiko Renee, [facility] [address] [place] [address] [address] Pharmacist Pharmacist 01/27/24 04/26/24 Roxana Cruz PA-C [address] [place] [address] Assigned PCP 04/04/24 documented as of this encounter
--- OUTSIDE RECORDS SUMMARY | 2024-08-20 10:45 | XMS_ITS | Encounter Summary ---
Author Organization [place] Address [facility] [place] [address] Care Team Providers Care Quality Assurance Name Role Phone Mora Garrett MD Primary Care Prov ider Mora Garrett MD Unavailable + Katina Dow Unavailable Unavailable Shana Singleton MD Unavailable [phone] Katina Dow Unavailable Unavailable Tammi Buitrago PharmD Unavailable [phone] Iftikhar Tammi PharmD Unavailable [phone] Iftikhar, Tammi PharmD Unavailable [phone] Crista Norton APRN [employer] Unavailable [phone] Jaz Ro Unavailable [phone] Ashanti Ordoñez MD Unavailable [phone] Ashanti Ordoñez MD Primary Care Provider [phone] Majo Roth RPH Unavailable [phone] Majo Roth RPH Unavailable [phone] Magalie Whipple [facility] Unavailable Magalie Whipple [facility] Unavailable Magalie Whipple Unavailable Unavailable Tamiko Renee [facility] Unavailable AnthonyRoxana Sirena PA-C Unavailable [phone] Encounter Details Date Type Department Care Team (Late st Contact Info) Description 11/17/2020 MyC Medical Advice [facility] Mental Health & Addiction [place] [id number] [address] [address] Shana Singleton MD [address] [place] [address] Social History Tobacco Use Types [...] and Family Once a week 11/06/2018 Attends [employer] Services More than 4 times per year [...] points; Administer PHQ-9 if positive 0 06/07/2020 [facility] [place] of Occupat ional Health - Occupational Stress [...] Sex Assigned at Female 03/22/2018 7:28 AM CONCILIATOR Legal Sex Female 5:04 AM CONCILIATOR Gender Identity Female 03/22/2018 7:28 AM CONCILIATOR Sexual Orientation Straight 03/22/2018 7: 28 AM CONCILIATOR 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 No / Unsure 10/24/2020 1:27 PM CDT documented as of this encounter Miscellaneous Notes * Telephone Encounter - Jennifer Gan RN - 11/19/2020 4:24 PM CDT See 11/19 telephone encounter for f/up documented in this encounter Plan of Treatment Upcoming Encounters Date Type Department Care Team (Late st Contact Info) Description 12/08/2024 1:30 PM CDT Office Visit [facility] [address] [place] [address] Roxana Cruz PA-C [address] [place] [address] Ashanti Ordoñez [place] [address] [place] [address] documented as of this encounter Visit Diagnoses Not on filedocumented in this encounter Additional Health Concerns Assessment Noted Time PHQ-9 Depression Total Score: 4 06/07/19 21 3:50 PM CONCILIATOR documented as of this encounter Care Teams Quality Assurance Relationship Specialty Start Date End Date Mora Garrett MD PCP - General Family Practice 01/07/18 10/28/22 Ashanti Ordoñez [place] [address] [place] [address] PCP - General 10/29/22 Mora Garrett MD Assigned PCP 01/10/18 09/05/22 Katina Dow Personal Advocate & Liaison (PAL) Family Practice 09/20/19 09/15/22 Shana Singleton MD [address] [place] [address] [id number] Resident Student in [facility] health care education/training program 12/16/19 Katina Dow Personal Advocate & Liaison (PAL) Family Medicine 06/08/20 01/07/21 Tammi Buitrago, GudeliaD [address] [place] [address] Pharmacist Pharmacist 08/06/20 04/26/24 Tammi Buitrago, GudeliaD [address] [place] [address] Assigned MTM Pharmacist 09/07/21 Tammi Buitrago, PharmD [address] [place] [address] Assigned MTM Pharmacist 01/08/2202/07 Crista Norton APRN [employer] [address] [place] [address] Assigned PCP 09/06/22 09/12/22 Jaz Ro AuD [address] [place] [address] Audiology 10/02/22 Ashanti Ordoñ[place] [address] [place] [address] Assigned PCP 09/13/22 04/03/24 Majo Roth [facility] [address] [place] [address] Pharmacist Pharmacist Election Watcher 12/01/22 04/26/24 Majo Roth, [facility] [address] [place] [address] Assigned MTM Pharmacist 12/06/22 Magalie Whipple, [facility] [address] [place] [address] [address] Pharmacist Pharmacist 12/26/22 04/26/24 Magalie Whipple, [facility] [address] [place] [address] Assigned MTM Pharmacist 01/03/23 Magalie Whipple Medical Student 08/10/23 04/26/24 Tamiko Renee, [facility] [address] [place] [address] Pharmacist Pharmacist 01/27/24 04/26/24 Roxana Cruz PA-C [address] [place] [address] Assigned PCP 04/04/24 documented as of this encounter
--- OUTSIDE RECORDS SUMMARY | 2024-08-20 10:45 | XMS_ITS | Encounter Summary ---
Author Organization [place] Address [address] [place] [address]. [place] [address] Care Team Providers Care Ballast Cleaning Operator Name Role Phone Shana Singleton MD Unavailable [phone] Joshzaira Jaz Schneider Unavailable [phone] Ashanti Ordoñez MD Primary Care Provider [phone] Magalie Whipple [facility] Unavailable [phone] Roxana Cruz PA-C Unavailable [phone] Reason for Visit * Reason Onset Date Comments Refill Request 08/11/2024 Encounter Details Date Type Department Care Team (Late st Contact Info) Description 08/11/2024 MyC Refill M [address] [address] Ashanti Ordoñ[place] [address] [facility] [place] [address] Refill Request Social History Tobacco Use Types Packs/Day Years Used Date Smoking Tobacco: Never Passive Smoke Exposure: Never Smokeless Tobacco: Never Alcohol Use Standard Drinks/Week Comments Yes 0 (1 standard drink = 0.6 oz pur e alcohol) 0-2 glasses of wine per week Social Connection and Isolation Panel [NHANES] A nswer Date Recorded Frequency of Communication with Friends and Fami ly Not on file 12/09/2023 How often do you get together with friends or re latives? Once a week 12/09/2023 Attends [employer] Services Not on file 12/08 Active Member of Clubs or Organizations Not on f ile 12/09/2023 Attends Club or Organization Meetings Not on hamzah e 12/09/2023 Marital Status Not on file 12/09/2023 AUDIT-C Answer Date Recorded Q1: How often do you have a drink containing alc ohol? Monthly or less 03/11/2023 Q2: How many drinks containi ng alcohol do you have on a typical day when you are drinking? 1 or 2 03/11/2023 Q3: How often do you have si x or more drinks on one occasion? Never 03/11/2023 PHQ-2 Answer Date Recorded PHQ-2 Score 1 06/13/2024 [facility] of Occupat ional Health - Occupational Stress Questionnaire Answer Date Recorded Do you feel stress - tense, restless, nervous, or anxious, or unable to sleep at night because your mind is troubled all the time - these days? Not at all 12/09/2023 Exercise Vital Sign Answer Date Recorde d On average, how many days pe r week do you engage in moderate to strenuous exercise (like a brisk walk)? 2 days Minutes of Exercise per Session Not on file 12/09/2023 Adolescent Education Answer Date Record ed Getting School Help Needed Not on file 01/03 Food Insecurity Answer Date Recorded Within the past 12 months, d id you worry that your food would run out before you got money to buy more? No 12/09/2023 Within the past 12 months, d id the food you bought just not last and you didn t have money to get more? No 12/09/2023 Housing Stability Answer Date Recorded Do you have housing? (Housin g is defined as stable permanent housing and does not include staying outside in a car, in a tent, in an abandoned building, in an overnight chcf, or couch-surfing.) Yes 12/09/2023 Are you worried about losing your housing? No 12/09/2023 Financial Resource Strain Answer Date R ecorded Within the past 12 months, h ave you or your family members you live with been unable to get utilities (heat, electricity) when it was really needed? No 12/09/2023 Transportation Needs Answer Date Record ed Within the past 12 months, h as lack of transportation kept you from medical appointments, getting your medicines, non-medical meetings or appointments, work, or from getting things that you need? No 12/09/2023 Interpersonal Safety Answer Date Record ed Do you feel physically and e motionally safe where you currently live? Yes 12/09/2023 Within the past 12 months, h ave you been hit, slapped, kicked or otherwise physically hurt by someone? No 12/09/2023 Within the past 12 months, h ave you been humiliated or emotionally abused in other ways by your partner or ex-partner? No 12/09/2023 Education Answer Date Recorded What is the highest level of school you have completed or the highest degree you have received? 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 Plan of Treatment Upcoming Encounters Date Type Department Care Team (Late st Contact Info) Description 12/08/2024 1:30 PM CDT Office Visit [facility] [address] [place] [address] Roxana Cruz PA-C [address] [place] [address] Ashanti Ordoñ[place] [address] [place], [place] 8[address] documented as of this encounter Visit Diagnoses Diagnosis Migraine with aura and without status migrainosus, not intractable Migraine with aura, without mention of intractable migraine without mention of status migrainosus documented in this encounter Additional Health Concerns Assessment Noted Time PHQ-9 Depression Total Score: 4 06/14/19 25 7:47 AM ASSISTANT SERVICE MANAGER documented as of this encounter Care Teams Ballast Cleaning Operator Relationship Specialty Start Date End Date Ashanti Ordoñ[place] [address] [place] [address] PCP - General 10/29/22 Shana Singleton MD [address] [place], [place] 8140[address] Resident Student in organized health care education/training program 12/16/19 Jaz Ro AuD 9 [place] [address] Audiology 10/02/22 Magalie Whipple [facility] [address] [place], [place] [id number] Assigned MTM Pharmacist 01/03/23 Roxana Cruz PA-C [address] [place] [address] Assigned PCP 04/04/24 documented as of this encounter
--- OUTSIDE RECORDS SUMMARY | 2024-08-20 10:45 | XMS_ITS | Encounter Summary ---
Author Organization [place] Address [facility] [place] [address] Care Team Providers Care Ecology Teacher Name Role Phone Mora Garrett MD Primary Care Prov ider Mora Garrett MD Unavailable + Katina Dow Unavailable Unavailable Shana Singleton MD Unavailable [phone] Tammi Buitrago PharmD Unavailable [phone] Crista Norton OIL PIT ATTENDANT SAMPLER AND TEST PREPARER Unavailable [phone] Jaz Ro AuD Unavailable [phone] Ashanti Ordoñez MD Unavailable [phone] Ashanti Ordoñez MD Primary Care Provider [phone] Majo Roth [facility] Unavailable [phone] Majo Roth [facility] Unavailable [phone] Magalie Whipple [facility] Unavailable [phone] Magalie Whipple [facility] Unavailable [phone] WhippleMagalie Unavailable Unavailable Tamiko Renee [facility] Unavailable Roxana Cruz PA-C Unavailable [phone] Encounter Details Date Type Department Care Team (Late st Contact Info) Description 03/25/2022 [facility] [place] [facility] Mental Health & Addiction [place] [id number] [address] [address] Michele Quiles Social History Tobacco Use Types Packs/Day Years [...] and Family Once a week 11/06/2018 Attends [employer] Services More than 4 times per year [...] Answer Date Recorded PHQ-2 Score 2 03/18/2022 [facility] [place] of Occupat ional Health - Occupational Stress [...] Sex Assigned at Female 03/22/2018 7:28 AM FORK ASSEMBLER Legal Sex Female 5:04 AM FORK ASSEMBLER Gender Identity Female 03/22/2018 7:28 AM FORK ASSEMBLER Sexual Orientation Straight 03/22/2018 7: 28 AM FORK ASSEMBLER 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 No / Unsure 03/24/2022 1:41 PM FORK ASSEMBLER documented as of this encounter Plan of Treatment Upcoming Encounters Date Type Department Care Team (Late st Contact Info) Description 12/08/2024 1:30 PM CDT Office Visit [facility] [address] [place] [address] Roxana Cruz PAChesterC [address] [place] [address] Ashanti Ordoñ[place] [address] [place], [place] [phone] documented as of this encounter Visit Diagnoses Not on filedocumented in this encounter Additional Health Concerns Assessment Noted Time PHQ-9 Depression Total Score: 8 03/18/20 22 4:49 PM FORK ASSEMBLER documented as of this encounter Care Teams Ecology Teacher Relationship Specialty Start Date End Date Mora Garrett MD PCP - General Family Practice 01/07/18 10/28/22 Ashanti Ordoñez [place] [address] [place] [address] PCP - General 10/29/22 Mora Garrett MD Assigned PCP 01/10/18 09/05/22 Katina Dow Personal Advocate & Liaison (PAL) Family Practice 09/20/19 09/15/22 Shana Singleton MD [address] [place] [phone] Resident Student in organized health care education/training program 12/16/19 Tammi Buitrago, PharmD [address] [place], [place] [address] [place], [place] [phone] Pharmacist Pharmacist 08/06/20 04/26/24 Crista Norton APRN SAMPLER AND TEST PREPARER [address] [facility] [place] [address] Assigned PCP 09/06/22 09/12/22 JoshJaz menesesWyatt [address] [place] [address] Audiology 10/02/22 Ashanti Ordoñez [place] [address] [place] [address] Assigned PCP 09/13/22 04/03/24 [facility] [address] [place] [phone] Pharmacist Pharmacist Airplane Pilot Photogrammetry 12/01/22 04/26/24 [facility] [address] [place] [address] [phone] Assigned MTM Pharmacist 12/06/22 Magalie Whipple, [facility] [address] [id number] Pharmacist Pharmacist 12/26/22 04/26/24 Magalie Whipple, [facility] [address] [id number] Assigned MTM Pharmacist 01/03/23 Magalie Whipple Medical Student 08/10/23 04/26/24 Tamiko Renee, [facility] [address] [address] Pharmacist Pharmacist 01/27/24 04/26/24 Roxana Cruz PA-C [address] [place] [address] Assigned PCP 04/04/24 documented as of this encounter
--- OUTSIDE RECORDS SUMMARY | 2024-08-20 10:45 | XMS_ITS | Encounter Summary ---
Author Organization [place] Address [facility] [place] [address] Care Team Providers Care Soda Fountain Operator Name Role Phone Mora Garrett MD Primary Care Prov ider Mora Garrett MD Unavailable + Tony Francisco Unavailable Unavailable Katina Dow Unavailable Unavailable Shana Singleton MD Unavailable +[phone] Katina Dow Unavailable Unavailable Iftikhar, Tammi PharmD Unavailable [phone] Iftikhar, Tammi PharmD Unavailable [phone] Iftikhar, Tammi PharmD Unavailable [phone] Crista Norton APRN IN SHOP SERVICE TECHNICIAN Unavailable [phone] Jaz Ro Unavailable +[phone] Ashanti Ordoñez MD Unavailable [phone] Ashanti Ordoñez MD Primary Care Provider [phone] Majo Roth [facility] Unavailable [phone] Majo Roth [facility] Unavailable [phone] Magalie Whipple [facility] Unavailable Magalie Whipple [facility] Unavailable [phone] Magalie Whipple Unavailable Unavailable Tamiko Renee [facility] Unavailable AnthonyRoxana Sirena ROJAS Unavailable [phone] Encounter Details Date Type Department Care Team (Late st Contact Info) Description 07/19/2018 [facility] [address] [address] Mora Garrett MD [address]ISE [address] [address] Moderate single current episode of major depressive disorder (H) (Primary Dx) Social History Tobacco Use Types Packs/Day Years Used Date Smoking Tobacco: Never Smokeless Tobacco: Never Alcohol Use Standard Drinks/Week Comments Yes 0 (1 standard drink = 0.6 oz pur e alcohol) rare PHQ-2 Answer Date Recorded PHQ-2 Score 1 04/21/2018 Comments No Sex and Gender Information Value Date Recorded Sex Assigned at Female 03/22/2018 7:28 AM TELEPHONER Legal Sex Female 5:04 AM TELEPHONER Gender Identity Female 03/22/2018 7:28 AM TELEPHONER Sexual Orientation Straight 03/22/2018 7: 28 AM TELEPHONER documented as of this encounter Miscellaneous Notes * Telephone Encounter - Dipti Hernández RN - 07/19/2018 3:20 PM CDT Images from the original note were not included. Dr. Garrett- see [employer] message below. Please advise. Dipti Hernández RN July 19, 2018 Mora Garrett MD to Michelle Cochran ?? 10:48 AM Jefferson Martinez, I'm glad the cymbalta is working well for you. Staying on wellbutrin is dependent on how you feel. How long have you been on wellbutrin? We can certainly give weaning off a trial. (let me know if you want to do this and we can develop aschedule). As you know you will note changes when we do this. In regards to cymbalta we have room to play with to see if it provides better pain control but whether that will provider any more benefit or not is unknown. Thanks Last read by Michelle Cochran at 3:12 PM on 07/19/2018. July 16, 2018 ? 7:11 AM You routed this conversation to Mora Garrett MD Me to Michelle Cochran ?? 7:[address] Tami Martinez is off on Fridays. ??I will send this to her to review and advise. ??Also 6 weekrecheck will be due 08/04/18. ??Please schedule this in the near future. ??Dipti Hernández RN Last read by Michelle Cochran at 11:54 AM on 07/16/2018. Me ?? 7:[address] Garrett- see [employer] message below. Visit due 08/04/18. Reminder in [employer] message to schedule soon. Please advise. Dipti Hernández RN ?? Mora Garrett MD to Michelle Cochran ?? 06/28/18 2:32 PM Hi Maurisio Martinez to hear pain relief. generally increasing doses can cause this expected side effect which initially resolves in the first couple of weeks. Please go ahead and decrease your dose of wellbutrin and lets see if this does help. Keep me posted. Dr. Garrett ?? Last read by Michelle Cochran at 10:13 PM on 07/15/2018. ? Michelle Cochran to Mora Garrett MD 06/28/18 3:41 AM ?? Dr Lisbeth Hoff With increased dose, I am now feeling pain relief from cymbalta but noticing increased irritability, anxiety and more difficulty sleeping. Would you recommend decreasing my welbutrin from 300 to 150mg? Michelle Cochran ?? 06/23/18 ASSESSMENT/PLAN: ?? 1. Moderate single current episode of major depressive disorder (H) - will increase dose of cymbalta to 60 mg and recheck in 6 weeks. Compliance encouraged. If no noticeable changes with dose increase she can restart celexa.?? - DULoxetine (CYMBALTA) 60 MG capsule; Take 1 capsule (60 mg) by mouth daily ??Dispense: 60 capsule; Refill: 0 ?? 2. Lumbar radiculopathy - DULoxetine (CYMBALTA) 60 MG capsule; Take 1 capsule (60 mg) by mouth daily ??Dispense: 60 capsule; Refill: 0 ?? 3. Migraine with aura and without status migrainosus, not intractable -stable?? - rizatriptan (MAXALT) 10 MG tablet; Take 1 tablet (10 mg) by mouth at onset of headache for migraine ??Dispense: 18 tablet; Refill: 1 ?? 4. Elevated blood pressure reading without diagnosis of hypertension - patient will recheck at work and notify provider? See Patient Instructions ?? Mora Garrett MD [facility] Answers for HPI/ROS submitted by the patient on 06/23/2018 Chronic problems general questions HPI Form If you checked off any problems, how difficult have these problems made it for you to do your work,take care of things at home, or get along with other people?: Somewhat difficult PHQ9 TOTAL SCORE: 5 HARDIK 7 TOTAL SCORE: 3 ?? Instructions ?? Return in about 6 weeks (around 08/04/2018). Follow up in 6 weeks or sooner if needed ? July 15, 2018 Michelle Cochran to Tami, Mora Huggins MD ?? 10:18 PM Decreased to 150 mg welbutrin which has helped. Should I continue to wean from welbutrin completelyand just stay with cymbalta? I have a feeling I may need to increase cymbalta one more time if we do this. What do you think? Is being on just one of these meds better than two? Will I get more pain relief if increasing cymbalta? My hip pain at night from bursitis has decreased a lot, but still room for more relief in back. Thanks Michelle Cochran documented in this encounter Plan of Treatment Upcoming Encounters Date Type Department Care Team (Late st Contact Info) Description 12/08/2024 1:30 PM CDT Office Visit [facility] [address] [place] [address] Roxana Cruz PA-C [address] [place] [address] Ashanti Ordoñ[place] [address] [place] [address] documented as of this encounter Visit Diagnoses Diagnosis Moderate single current episode of major depressive disorder (H)- Primary documented in this encounter Additional Health Concerns Assessment Noted Time PHQ-9 Depression Total Score: 5 06/25/19 19 7:05 AM CDT documented as of this encounter Care Teams Soda Fountain Operator Relationship Specialty Start Date End Date Mora Garrett MD PCP - General Family Practice 01/07/18 10/28/22 Ashanti Ordoñ[place] [address] [place] [address] PCP - General 10/29/22 Mora Garrett MD Assigned PCP 01/10/18 09/05/22 Tony Francisco Personal Advocate & Liaison (PAL) Family Practice 04/11/19 09/19/19 Katina Dow Personal Advocate & Liaison (PAL) Family Practice 09/20/19 09/15/22 Shana Singleton MD [address] [place] [address] [phone] Resident Student in organized health care education/training program 12/16/19 Katina Dow Personal Advocate & Liaison (PAL) Family Medicine 06/08/20 01/07/21 Tammi Buitrago, PharmD [address] [place] [address] [phone] Pharmacist Pharmacist 08/06/20 04/26/24 Tammi Buitrago, PharmD [address] [place] [address] [phone] Assigned MTM Pharmacist 09/07/21 Tammi Buitrago, GudeliaD [address] [place] [address] [phone] Assigned MTM Pharmacist 01/08/2202/07 Crista Norton APRN IN SHOP SERVICE TECHNICIAN [address] [place] [address] Assigned PCP 09/06/22 09/12/22 Jaz Ro AuD [address] [place] [address] [id number] Audiology 10/02/22 Ashanti Ordoñ[place] [address] [place] [address] Assigned PCP 09/13/22 04/03/24 Majo Roth [facility] [address] [place] [address] [phone] Pharmacist Pharmacist Drafting Technician 12/01/22 04/26/24 Majo Roth, [facility] [address] [place] [address] Assigned MTM Pharmacist 12/06/22 Magalie Whipple, [facility] [address] [id number] Pharmacist Pharmacist 12/26/22 04/26/24 Magalie Whipple, [facility] [address] [place] [address] [address] Assigned MTM Pharmacist 01/03/23 Magalie Whipple Medical Student 08/10/23 04/26/24 Tamiko Renee, [facility] [place] [address] [address] Pharmacist Pharmacist 01/27/24 04/26/24 Roxana Cruz PA-C [address] [place] [address] Assigned PCP 04/04/24 documented as of this encounter
--- OUTSIDE RECORDS SUMMARY | 2024-08-20 10:45 | XMS_ITS | Encounter Summary ---
Author Organization [place] Address [facility] [place] [address] Care Team Providers Care Feller Seam Operator Name Role Phone Mora Garrett MD Primary Care Prov ider Mora Garrett MD Unavailable + Katina Dow Unavailable Unavailable Shana Singleton MD Unavailable [phone] Katina Dow Unavailable Unavailable Tammi Buitrago PharmD Unavailable [phone] Iftikhar Tammi PharmD Unavailable [phone] Iftikhar, Tammi PharmD Unavailable [phone] Crista Norton APRN HARNESS TIER Unavailable [phone] Jaz oR Unavailable +[phone] Ashanti Ordoñez MD Unavailable [phone] Ashanti Ordoñez MD Primary Care Provider [phone] Majo Roth RPH Unavailable [phone] Majo Roth RPH Unavailable [phone] Magalie Whipple [facility] Unavailable Magalie Whipple [facility] Unavailable [phone] Magalie Whipple Unavailable Unavailable Tamiko Renee [facility] Unavailable Anthony Roxana M PA-C Unavailable [phone] Encounter Details Date Type Department Care Team (Late st Contact Info) Description 06/07/2020 [facility] Medical Advice [facility] [place] [id number] [address] [address] Emely Maciel, [facility] [address] [place] [address] Social History Tobacco Use Types [...] and Family Once a week 11/06/2018 Attends Jew Services More than 4 times per year [...] points; Administer PHQ-9 if positive 0 06/07/2020 [facility] [place] of Occupat ional Health - Occupational Stress [...] Sex Assigned at Female 03/22/2018 7:28 AM DATA PROCESSING CONTROL CLERK Legal Sex Female 5:04 AM DATA PROCESSING CONTROL CLERK Gender Identity Female 03/22/2018 7:28 AM DATA PROCESSING CONTROL CLERK Sexual Orientation Straight 03/22/2018 7: 28 AM DATA PROCESSING CONTROL CLERK 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 No / Unsure 06/10/2020 10:14 PM DATA PROCESSING CONTROL CLERK documented as of this encounter Plan of Treatment Upcoming Encounters Date Type Department Care Team (Late st Contact Info) Description 12/08/2024 1:30 PM CDT Office Visit [facility] [address] [place] [address] Roxana Cruz PA-C [address] [place] [address] Ashanti Ordoñ[place] [address] [place] [address] documented as of this encounter Visit Diagnoses Not on filedocumented in this encounter Additional Health Concerns Assessment Noted Time PHQ-9 Depression Total Score: 4 06/07/19 21 3:50 PM DATA PROCESSING CONTROL CLERK documented as of this encounter Care Teams Feller Seam Operator Relationship Specialty Start Date End Date Mora Garrett MD PCP - General Family Practice 01/07/18 10/28/22 Ashanti Ordoñez [place] [address] [place] [address] PCP - General 10/29/22 Mora Garrett MD Assigned PCP 01/10/18 09/05/22 Katina Dow Personal Advocate & Liaison (PAL) Family Practice 09/20/19 09/15/22 Shana Singleton MD [address] [place] [address] Resident Student in organized health care education/training program 12/16/19 Katina Dow Personal Advocate & Liaison (PAL) Family Medicine 06/08/20 01/07/21 Tammi Buitrago, PharmD [address] [place] [address] Pharmacist Pharmacist 08/06/20 04/26/24 Tammi Buitrago, PharmD [address] [place] [address] [phone] Assigned MTM Pharmacist 09/07/21 Tammi Buitrago, PharmD [address] [place] [address] [phone] Assigned MTM Pharmacist 01/08/2202/07 Crista Norton APRN [facility] [address] [place] [address] Assigned PCP 09/06/22 09/12/22 Jaz Ro AuD [address] [place] [address] [phone] Audiology 10/02/22 Ashanti Ordoñ[place] [address] [place] [address] Assigned PCP 09/13/22 04/03/24 Majo Roth RPH [address] [place] [address] [phone] Pharmacist Pharmacist Continuous Crusher Operator 12/01/22 04/26/24 Majo Roth RPH [address] [place] [address] Assigned MTM Pharmacist 12/06/22 Magalie Whipple, [facility] [address] [id number] Pharmacist Pharmacist 12/26/22 04/26/24 Magalie Whipple, [facility] [address] [id number] Assigned MTM Pharmacist 01/03/23 Magalie Whipple Medical Student 08/10/23 04/26/24 Tamiko Renee, [facility] [address] [place] [address] Pharmacist Pharmacist 01/27/24 04/26/24 Roxana Cruz PAChesterC [address] [place] [address] Assigned PCP 04/04/24 documented as of this encounter
--- OUTSIDE RECORDS SUMMARY | 2024-08-20 10:45 | XMS_ITS | Encounter Summary ---
Author Organization [place] Address [facility] [place] [address] Care Team Providers Care Bodywork Therapist Name Role Phone Mora Garrett MD Primary Care Prov ider Mora Garrett MD Unavailable + Katina Dow Unavailable Unavailable Shana Singleton MD Unavailable [phone] Katina Dow Unavailable Unavailable Tammi Buitrago PharmD Unavailable [phone] Iftikhar Tammi PharmD Unavailable +[phone] Iftikhar, Tammi PharmD Unavailable +[phone] Crista Norton APRN STILE RIPSAW OPERATOR Unavailable [phone] Jaz Ro Unavailable [phone] Ashanti Ordoñez MD Unavailable [phone] Ashanti Ordoñez MD Primary Care Provider [phone] Majo Roth RPH Unavailable [phone] Majo Roth RPH Unavailable [phone] Magalie Whipple [facility] Unavailable [phone] Magalie Whipple [facility] Unavailable Magalie Whipple Unavailable Unavailable Tamiko Renee [facility] Unavailable AnthonyRoxana Sirena PA-C Unavailable [phone] Encounter Details Date Type Department Care Team (Late st Contact Info) Description 06/04/2020 [facility]ice [facility] [place] [id number] [address] [address] Shana Singleton MD [address] [place] [address] Social History Tobacco Use Types [...] and Family Once a week 11/06/2018 Attends Islam Services More than 4 times per year [...] points; Administer PHQ-9 if positive 0 06/07/2020 [facility] [place] of Occupat ional Health - Occupational Stress [...] place to sleep or slept in a alf (including now)? No 06/23/2019 Education Answer Date Recorded What is the highest level of school you have completed or the highest degree you have received? 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 No / Unsure 06/07/2020 3:40 PM SORTING MACHINE OPERATOR documented as of this encounter Plan of Treatment Upcoming Encounters Date Type Department Care Team (Late st Contact Info) Description 12/08/2024 1:30 PM CDT Office Visit [facility] [address] [place] [address] Roxana Cruz PA-C [address] [place] [address] Ashanti Ordoñ[place] [address] [place] [address] documented as of this encounter Visit Diagnoses Not on filedocumented in this encounter Additional Health Concerns Assessment Noted Time PHQ-9 Depression Total Score: 11 020 7:02 AM CDT documented as of this encounter Care Teams Bodywork Therapist Relationship Specialty Start Date End Date Mora Garrett MD PCP - General Family Practice 01/07/18 10/28/22 Ashanti Ordoñ[place] [address] [place] [address] PCP - General 10/29/22 Mora Garrett MD Assigned PCP 01/10/18 09/05/22 Katina Dow Personal Advocate & Liaison (PAL) Family Practice 09/20/19 09/15/22 Shana Singleton MD [address] [place] [address] Resident Student in organized health care education/training program 12/16/19 Katina Dow Personal Advocate & Liaison (PAL) Family Medicine 06/08/20 01/07/21 Tammi Buitrago, GudeliaD [address] [place] [address] Pharmacist Pharmacist 08/06/20 04/26/24 Tammi Buitrago, PharmD [address] [place] [phone] Assigned MTM Pharmacist 09/07/21 Tammi Buitrago, GudeliaD [address] [place] [address] Assigned MTM Pharmacist 01/08/2202/07 Crista Norton APRN [facility] [address] [place] [address] Assigned PCP 09/06/22 09/12/22 Jaz Ro AuD [address] [place] [address] [phone] Audiology 10/02/22 Ashanti Ordoñ[place] [address] [place] [address] Assigned PCP 09/13/22 04/03/24 Majo oRth RPH [address] [place] [address] [phone] Pharmacist Pharmacist Ward Clerk 12/01/22 04/26/24 Majo Roth RPH [address] [place] [address] [phone] Assigned MTM Pharmacist 12/06/22 Magalie Whipple, [facility] [address] [id number] Pharmacist Pharmacist 12/26/22 04/26/24 Magalie Whipple, [facility] [address] [place] [address] Assigned MTM Pharmacist 01/03/23 Magalie Whipple Medical Student 08/10/23 04/26/24 Tamiko Renee, [facility] [address] [place] [address] Pharmacist Pharmacist 01/27/24 04/26/24 Roxana Cruz PAChesterC [address] [place] [address] Assigned PCP 04/04/24 documented as of this encounter
--- OUTSIDE RECORDS SUMMARY | 2024-08-20 10:45 | XMS_ITS | Encounter Summary ---
Author Organization [place] Address [address] [place] [address] Care Team Providers Care Bead Forming Machine Set Up Operator Name Role Phone Shana Singleton MD Unavailable [phone] Tammi Buitrago PharmD Unavailable [phone] Jaz Ro Unavailable [phone] Ashanti Ordoñez MD Unavailable [phone] Ashanti Ordoñez MD Primary Care Provider [phone] Majo Roth [facility] Unavailable [phone] Majo Roth [facility] Unavailable [phone] Magalie Whipple [facility] Unavailable [phone] Magalie Whipple [facility] Unavailable [phone] Magalie Whipple Unavailable Unavailable Tamiko Renee [facility] Unavailable Roxana Cruz PA-C Unavailable [phone] Encounter Details Date Type Department Care Team (Late st Contact Info) Description 12/02/[address] [facility] [address] [place] [address] Majo Roth, [facility] [address] [place] [address] Social History Tobacco Use Types Packs/Day Years Used Date Smoking Tobacco: Never Passive Smoke Exposure: Never Smokeless Tobacco: Never Alcohol Use Standard Drinks/Week Comments Yes 0 (1 standard drink = 0.6 oz pur e alcohol) 0-2 glasses of wine per week Social Connection and Isolat ion Panel [NHANES] Answer Date Recorded In a typical week, how many times do you talk on the phone with family, friends, or neighbors? More than three times a week 09/08/2022 How often do you get togethe r with friends or relatives? More than three times a week 09/08/2022 How often do you attend [facility] or [facility] services? More than 4 times per year 09/08/2022 Do you belong to any clubs o r organizations such as shinto groups, unions, fraternal or athletic groups, or school groups? Yes 09/08/2022 Attends Club or Organization Meetings Not on hamzah e 09/08/2022 Are you , , di vorced, , never , or living with a partner? 09/08/2022 AUDIT-C Answer Date Recorded Q1: How often do you have a drink containing alc ohol? 2-4 times a month 09/08/2022 Q2: How many drinks containi ng alcohol do you have on a typical day when you are drinking? 1 or 2 09/08/2022 Q3: How often do you have si x or more drinks on one occasion? Never 09/08/2022 Overall Financial Resource Strain (CARDIA) Answe r Date Recorded How hard is it for you to pa y for the very basics like food, housing, medical care, and heating? Not very hard 09/08/2022 PHQ-2 Answer Date Recorded PHQ-2 Score 2 10/30/2022 [facility] Occupat ional Health - Occupational Stress Questionnaire Answer Date Recorded Do you feel stress - tense, restless, nervous, or anxious, or unable to sleep at night because your mind is troubled all the time - these days? Only a little 09/08/2022 Exercise Vital Sign Answer Date Recorde d On average, how many days pe r week do you engage in moderate to strenuous exercise (like a brisk walk)? 3 days 09/08/2022 On average, how many minutes do you engage in exercise at this level? 80 min 09/08/2022 Hunger Vital Sign Answer Date Recorded Within the past 12 months, y ou worried that your food would run out before you got the money to buy more. Never true 09/09/19 23 Within the past 12 months, t he food you bought just didn't last and you didn't have money to get more. Never true 09/08/2022 PRAPARE - Transportation Answer Date Re corded In the past 12 months, has l ack of transportation kept you from medical appointments or from getting medications? No 08/12 In the past 12 months, has l ack of transportation kept you from meetings, work, or from getting things needed for daily living? No 09/08/2022 Housing Stability Vital Sign Answer Reggie e Recorded In the last 12 months, was t here a time when you were not able to pay the mortgage or rent on time? No 09/08/2022 In the last 12 months, how many places have you lived? 1 09/08/2022 In the last 12 months, was t here a time when you did not have a steady place to sleep or slept in a senior care (including now)? No 09/08/2022 Education Answer Date Recorded What is the highest level of school you have completed or the highest degree you have received? 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 No / Unsure 12/02/2022 1:19 PM CDT documented as of this encounter Plan of Treatment Upcoming Encounters Date Type Department Care Team (Late st Contact Info) Description 12/08/2024 1:30 PM CDT Office Visit [facility] [address] [place] [address] Roxana Cruz PA-C [address] [place] [address] Ashanti Ordoñ[place] [address] [place] [address] documented as of this encounter Visit Diagnoses Not on filedocumented in this encounter Additional Health Concerns Assessment Noted Time PHQ-9 Depression Total Score: 7 10/30/19 8:58 PM CDT documented as of this encounter Care Teams Bead Forming Machine Set Up Operator Relationship Specialty Start Date End Date Ashanti Ordoñ[place] [address] [place] [address] PCP - General 10/29/22 Shana Singleton MD [address] [place] [address] [phone] Resident Student in organized health care education/training program 12/16/19 Tammi Buitrago, GudeliaD [address] [place] [address] [phone] Pharmacist Pharmacist 08/06/20 04/26/24 Jaz Ro AuD [address] [place] [address] 906005 Audiology 10/02/22 Ashanti Ordoñ[place] [address] [place] [address] Assigned PCP 09/13/22 04/03/24 Majo Roth, [facility] [address] [place] [address] Pharmacist Pharmacist Beer Coil Cleaner 12/01/22 04/26/24 Majo Roth, [facility] [address] [place] [address] Assigned MTM Pharmacist 12/06/22 Magalie Whipple, [facility] [address] [place] [address] Pharmacist Pharmacist 12/26/22 04/26/24 Magalie Whipple, [facility] [address] [place] [address] Assigned MTM Pharmacist 01/03/23 Magalie Whipple Medical Student 08/10/23 04/26/24 Tamiko Renee, [facility] [address] [place] [address] Pharmacist Pharmacist 01/27/24 04/26/24 Roxana Cruz PA-C [address] [place] [address] Assigned PCP 04/04/24 documented as of this encounter
--- OUTSIDE RECORDS SUMMARY | 2024-08-20 10:45 | XMS_ITS | Encounter Summary ---
Author Organization [place] Address [facility] [place] [address] Care Team Providers Care Rag Production Worker Name Role Phone Mora Garrett MD Primary Care Prov ider Mora Garrett MD Unavailable + Katina Dow Unavailable Unavailable Shana Singleton MD Unavailable [phone] Tammi Buitrago PharmD Unavailable [phone] Crista Norton HIDE DYER ENDOCRINOLOGY TEACHER Unavailable [phone] Jaz Ro AuD Unavailable [phone] Ashanti Ordoñez MD Unavailable [phone] Ashanti Ordoñez MD Primary Care Provider [phone] Majo Roth [facility] Unavailable [phone] Majo Roth [facility] Unavailable [phone] Magalie Whipple [facility] Unavailable [phone] Magalie Whipple [facility] Unavailable Magalie Whipple Unavailable Unavailable Tamiko Renee [facility] Unavailable Roxana Cruz PA-C Unavailable [phone] Reason for Visit * Reason Comments Medication Refill Encounter Details Date Type Department Care Team (Late st Contact Info) Description 07/14/2022 Refill [facility] Mental Health & Addiction [address] [address] [address] Shireen Garzon MD [address] [facility] [place] [address] Medication Refill Social History Tobacco Use Types Packs/Day Years [...] and Family Once a week 11/06/2018 Attends [employer] More than 4 times per year [...] PHQ-2 Answer Date Recorded PHQ-2 Score 2 06/24/2022 [facility] [place] of Occupat ional Health - Occupational Stress [...] Sex Assigned at Female 03/22/2018 7:28 AM CAMPAIGN MARKETING SPECIALIST Legal Sex Female 5:04 AM CAMPAIGN MARKETING SPECIALIST Gender Identity Female 03/22/2018 7:28 AM CAMPAIGN MARKETING SPECIALIST Sexual Orientation Straight 03/22/2018 7: 28 AM CAMPAIGN MARKETING SPECIALIST 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 No / Unsure 06/24/2022 9:54 AM CDT documented as of this encounter Miscellaneous Notes * Telephone Encounter - Brittanie Granados RN - 07/15/2022 3:40 PM CDT Routing refill request to provider for review/approval because: See pharmacy notes below Med previously ordered by provider out of our clinic Patient has an upcoming visit in in September Brittanie Granados, Registered Nurse [facility] * Telephone Encounter - Roselyn Richter - 07/14/2022 1:21 PM CDT Patient has seen Dr. Fitzgerald in the past and is making an appointment with a new pcp at the clinic. However she is in need of a refill on her Duloxetine 30mg. Is it possible to get a eloy refill to get her through until her appointment? Thanks, Roselyn Richter [facility] documented in this encounter Plan of Treatment Upcoming Encounters Date Type Department Care Team (Late st Contact Info) Description 12/08/2024 1:30 PM CDT Office Visit [address] [address] Roxana Cruz PA-C [address] [place] [address] Ashanti Ordoñez [place] [id number] [place] [address] documented as of this encounter Visit Diagnoses Diagnosis Major depressive disorder, recurrent episode, moderate (H) Major depressive disorder, recurrent episode, moderate HARDIK (generalized anxiety disorder) Generalized anxiety disorder documented in this encounter Additional Health Concerns Assessment Noted Time PHQ-9 Depression Total Score: 8 06/25/19 23 10:01 AM CDT documented as of this encounter Care Teams Rag Production Worker Relationship Specialty Start Date End Date Mora Garrett MD PCP - General Family Practice 01/07/18 10/28/22 Ashanti Ordoñ[place] [address] [place] [address] PCP - General 10/29/22 Mora Garrett MD Assigned PCP 01/10/18 09/05/22 Katina Dow Personal Advocate & Liaison (PAL) Family Practice 09/20/19 09/15/22 Shana Singleton MD [address] [place] [address] 699355 Resident Student in organized health care education/training program 12/16/19 Tammi Buitrago, PharmD [address] [place] [address] Pharmacist Pharmacist 08/06/20 04/26/24 Crista Norton APRN ENDOCRINOLOGY TEACHER [address] [place] [address] Assigned PCP 09/06/22 09/12/22 Jaz Ro AuD [address] [place] [address] Audiology 10/02/22 Ashanti Ordoñ[place] [address] [place] [address] Assigned PCP 09/13/22 04/03/24 Majo Roth [facility] [address] [place] [address] Pharmacist Pharmacist Machine Iii Coremaker 12/01/22 04/26/24 Majo Roth, [facility] [address] [place] [address] Assigned MTM Pharmacist 12/06/22 Magalie Whipple, [facility] [address] [place] [address] Pharmacist Pharmacist 12/26/22 04/26/24 Magalie Whipple, [facility] [address] [place] [address] [address] Assigned MTM Pharmacist 01/03/23 Magalie Whipple Medical Student 08/10/23 04/26/24 Tamiko Renee, [facility] [address] [place] [address] [address] Pharmacist Pharmacist 01/27/24 04/26/24 Roxana Cruz PA-C [address] [place] [address] Assigned PCP 04/04/24 documented as of this encounter
--- OUTSIDE RECORDS SUMMARY | 2024-08-20 10:46 | XMS_ITS | Encounter Summary ---
Author Organization [place] Address [facility] [place] [address] Care Team Providers Care Credit Administration Specialist Name Role Phone Mora Garrett MD Primary Care Prov ider Mora Garrett MD Unavailable + Katina Dow Unavailable Unavailable Shana Singleton MD Unavailable [phone] Iftikhar, Tammi PharmD Unavailable [phone] Iftikhar, Tammi PharmD Unavailable [phone] Iftikhar, Tammi PharmD Unavailable [phone] Crista Norton APRN LENS EDGER Unavailable [phone] Doritanilton Jaz Schneider Unavailable [phone] Ashanti Ordoñez MD Unavailable [phone] Ashanti Ordoñez MD Primary Care Provider [phone] Majo Roth Miesha Unavailable Majo Roth RPH Unavailable [phone] Magalie Whipple [facility] Unavailable [phone] Magalie Whipple [facility] Unavailable [phone] Magalie Whipple Unavailable Unavailable Tamiko Renee [facility] Unavailable [phone] Roxana Cruz Sirena PA-C Unavailable [phone] Reason for Visit * Reason Onset Date Comments Refill Request 12/02/2021 duloxetine Encounter Details Date Type Department Care Team (Late st Contact Info) Description 12/02/2021 MyC Refill [facility] Mental Health & Addiction [place] [id number] [address] Shana Singleton MD [address] [place] [address] Refill Request (duloxetine) Social History Tobacco Use Types Packs/Day [...] and Family Once a week 11/06/2018 Attends [employer] Services More than 4 times per year [...] or more points; Administer PHQ-9 if positive 1 08/05/2021 [facility] [place] of Occupat ional Health - Occupational Stress [...] Sex Assigned at Female 03/22/2018 7:28 AM INSTALLATION AND REPAIR TECHNICIAN Legal Sex Female 5:04 AM INSTALLATION AND REPAIR TECHNICIAN Gender Identity Female 03/22/2018 7:28 AM INSTALLATION AND REPAIR TECHNICIAN Sexual Orientation Straight 03/22/2018 7: 28 AM INSTALLATION AND REPAIR TECHNICIAN 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 documented in this encounter Plan of Treatment Upcoming Encounters Date Type Department Care Team (Late st Contact Info) Description 12/08/2024 1:30 PM CDT Office Visit [facility] [address] [place] [phone] Roxana Cruz PAChesterC [address] [place] [address] Ashanti Ordoñez MD [address] [place] [address] documented as of this encounter Visit Diagnoses Diagnosis Arthralgia of pelvic region and thigh, unspecified laterality Moderate single current episode of major depressive disorder (H) Lumbar radiculopathy Thoracic or lumbosacral neuritis or radiculitis, unspecified PTSD (post-traumatic stress disorder) Posttraumatic stress disorder documented in this encounter Additional Health Concerns Assessment Noted Time PHQ-9 Depression Total Score: 5 08/07/19 22 7:02 AM CDT documented as of this encounter Care Teams Credit Administration Specialist Relationship Specialty Start Date End Date Mora Garrett MD PCP - General Family Practice 01/07/18 10/28/22 Ashanti Ordoñ[place] [address] [place] [address] PCP - General 10/29/22 Mora Garrett MD Assigned PCP 01/10/18 09/05/22 Katina Dow Personal Advocate & Liaison (PAL) Family Practice 09/20/19 09/15/22 Shana Singleton MD [address] [place] [address] [phone] Resident Student in [facility] health care education/training program 12/16/19 Tammi Buitrago, GudeliaD [address] [place] [address] [phone] Pharmacist Pharmacist 08/06/20 04/26/24 Tammi Buitrago, PharmD [address] [place] [address] Assigned MTM Pharmacist 09/07/21 Tammi Buitrago, PharmD [address] [place] [address] 179034 Assigned MTM Pharmacist 01/08/2202/07 Crista Norton APRN LENS EDGER [address] [facility] [place] [place] 18668[address] Assigned PCP 09/06/22 09/12/22 Jaz Ro AuD [address] [place], [place] 311105 Audiology 10/02/22 Ashanti Ordoñ[place] [address] [place] [address] Assigned PCP 09/13/22 04/03/24 Majo Roth, [facility] [address] [place], [place] 229455 Pharmacist Pharmacist Animation Artist 12/01/22 04/26/24 Majo Roth, [facility] [address] [place], [place] 043745 Assigned MTM Pharmacist 12/06/22 Magalie Whipple, [facility] [address] [place] [address] Pharmacist Pharmacist 12/26/22 04/26/24 Magalie Whipple, [facility] [address] [place] [address] [address] Assigned MTM Pharmacist 01/03/23 Magalie Whipple Medical Student 08/10/23 04/26/24 Tamiko Renee, [facility] [address] [place] [address] Pharmacist Pharmacist 01/27/24 04/26/24 Roxana Cruz PA-C [address] [place] [phone] Assigned PCP 04/04/24 documented as of this encounter
--- OUTSIDE RECORDS SUMMARY | 2024-08-20 10:46 | XMS_ITS | Encounter Summary ---
Author Organization [place] Address [facility] [place] [address] Care Team Providers Care Licensed Nuclear Operator Name Role Phone Mora Garrett MD Primary Care Prov ider Mora Garrett MD Unavailable + Katina Dow Unavailable Unavailable Shana Singleton MD Unavailable [phone] Iftikhar, Tammi PharmD Unavailable [phone] Iftikhar, Tammi PharmD Unavailable [phone] Iftikhar, Tammi PharmD Unavailable [phone] Crista Norton APRN WING COMMANDER Unavailable [phone] Doritanilton Jaz Schneider Unavailable +[phone] Ashanti Ordoñez MD Unavailable [phone] Ashanti Ordoñez MD Primary Care Provider [phone] Majo Roth Miesha Unavailable [phone] Majo Roth RPH Unavailable [phone] Magalie Whipple [facility] Unavailable [phone] Magalie Whipple [facility] Unavailable [phone] Magalie Whipple Unavailable Unavailable Tamiko Renee [facility] Unavailable [phone] AnthonyRoxana Sirena PA-C Unavailable [phone] Reason for Visit * Reason Onset Date Comments Refill Request 10/31/2021 Medication Request 10/31/2021 90 day supply on duloxetine (not enough capsules on file for full 90 days and patient going on vacation). Encounter Details Date Type Department Care Team (Late st Contact Info) Description [facility]31/[facility] [address] [address] Mora Garrett MD [place] [address] [address] Refill Request; Medication Request (90 day supply on duloxetine (not enough capsules on file for full 90 days and patient going on vacation).) Social History Tobacco Use Types Packs/Day Years [...] and Family Once a week 11/06/2018 Attends [employer] Services More than 4 times per year [...] points; Administer PHQ-9 if positive 1 08/05/2021 [facility]ational Stress Questionnaire Answer [...] place to sleep or slept in a usp (including now)? No 06/23/2019 Education Answer Date Recorded What is the highest level of school you have completed or the highest degree you have received? 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 She is going on vacation in a few weeks and will need more at that time. We only have enough capsules on file for a 20 day supply. Patient is requesting a new prescription for 90 days supply (#270). If approved, please send a new prescription. Thanks, Roselyn Richter [facility] documented in this encounter Plan of Treatment Upcoming Encounters Date Type Department Care Team (Late st Contact Info) Description 12/08/2024 1:30 PM CDT Office Visit [facility] [address] [place] [address] Roxana Cruz PA-C [address] [place] [address] Ashanti Ordoñ[place] [address] [place] [address] documented as of this encounter Visit Diagnoses [...] documented as of this encounter Care Teams Licensed Nuclear Operator Relationship Specialty Start Date End Date Mora Garrett MD PCP - General Family Practice 01/07/18 10/28/22 Ashanti Ordoñ[place] [address] [place] [address] PCP - General 10/29/22 Mora Garrett MD Assigned PCP 01/10/18 09/05/22 Katina Dow Personal Advocate & Liaison (PAL) Family Practice 09/20/19 09/15/22 Shana Singleton MD [address] [place] [address] [phone] Resident Student in organized health care education/training program 12/16/19 Tammi Buitrago, PharmD [address] [place] [address] 960574 Pharmacist Pharmacist 08/06/20 04/26/24 Tammi Buitrago, PharmD [address] [place] [address] 356354 Assigned MTM Pharmacist 09/07/21 Tammi Buitrago, PharmD [address] [place] [address] [phone] Assigned MTM Pharmacist 01/08/2202/07 Crista Norton APRN WING COMMANDER [address] [place] [address] Assigned PCP 09/06/22 09/12/22 Jaz Ro AuD [address] [place] [address] Audiology 10/02/22 Ashanti Ordoñ[place] [address] [place] [address] Assigned PCP 09/13/22 04/03/24 Majo Roth, [facility] [address] [place] [address] Pharmacist Pharmacist Production Specialist 12/01/22 04/26/24 [facility] [address] [place] [address] Assigned MTM Pharmacist 12/06/22 Magalie Whipple, [facility] [address] [place] [address] Pharmacist Pharmacist 12/26/22 04/26/24 Magalie Whipple, [facility] [address] [place] [address] Assigned MTM Pharmacist 01/03/23 Magalie Whipple Medical Student 08/10/23 04/26/24 Tamiko Renee, [facility] [address] [place] [address] Pharmacist Pharmacist 01/27/24 04/26/24 Roxana Cruz PA-C [address] [place] [phone] Assigned PCP 04/04/24 documented as of this encounter
--- OUTSIDE RECORDS SUMMARY | 2024-08-20 10:46 | XMS_ITS | Encounter Summary ---
Author Organization [place] Address [facility] [place] [address] Care Team Providers Care Fire Sprinkler Service Technician Name Role Phone Shana Singleton MD Unavailable [phone] Tammi Buitrago PharmD Unavailable [phone] Jaz Ro Unavailable [phone] Ashanti Ordoñez MD Unavailable [phone] Ashanti Ordoñez MD Primary Care Provider [phone] Majo Roth [facility] Unavailable [phone] Magalie Whipple [facility] Unavailable [phone] Magalie Whipple [facility] Unavailable Magalie Whipple Unavailable Unavailable Tamiko Renee [facility] Unavailable Roxana Cruz PA-C Unavailable [phone] Encounter Details Date Type Department Care Team (Late st Contact Info) Description 03/02/2024 [facility] Medical Advice [address] [place] [address] Magalie Whipple Vladimir, [facility] [address] [facility] [place] [address] Social History Tobacco Use Types Packs/Day Years [...] re latives? Once a week 12/09/2023 Attends Muslim Services Not on file 12/08 Active Member [...] 03/11/2023 PHQ-2 Answer Date Recorded PHQ-2 Score 2 12/09/2023 [facility] of Occupat ional Health - Occupational Stress [...] Answer Date Recorded Do you have housing? 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 Plan of Treatment Upcoming Encounters Date Type Department Care Team (Late st Contact Info) Description 12/08/2024 1:30 PM CDT Office Visit [address] [address] Roxana Cruz, PAChesterC [address] [place] [address] Ashanti Ordoñ[place] [address] [place], [place] [id number] documented as of this encounter Visit Diagnoses Not on filedocumented in this encounter Additional Health Concerns Assessment Noted Time PHQ-9 Depression Total Score: 9 12/09/19 24 9:30 AM CDT documented as of this encounter Care Teams Fire Sprinkler Service Technician Relationship Specialty Start Date End Date Ashanti Ordoñ[place] [address] [place], [place] [id number] PCP - General 10/29/22 Shana Singleton MD [address] [place] [address] [phone] Resident Student in organized health care education/training program 12/16/19 Tammi Buitrago, GudeliaD [address] [place] [address] [phone] Pharmacist Pharmacist 08/06/20 04/26/24 Jaz Ro AuD [address] [place] [address] [phone] Audiology 10/02/22 Ashanti Ordoñ[place] [address] [place] [address] Assigned PCP 09/13/22 04/03/24 Majo Roth [facility] [address] [place] [address] [phone] Pharmacist Pharmacist Furnace Caretaker 12/01/22 04/26/24 Magalie Whipple, [facility] [address] [place] [address] Pharmacist Pharmacist 12/26/22 04/26/24 Magalie Whipple, [facility] [address] [place] [address] [address] Assigned MTM Pharmacist 01/03/23 Magalie Whipple Medical Student 08/10/23 04/26/24 Tamiko Renee, [facility] [address] [place] [address] [address] Pharmacist Pharmacist 01/27/24 04/26/24 Roxana Cruz PA-C [address] [place] [address] Assigned PCP 04/04/24 documented as of this encounter
--- OUTSIDE RECORDS SUMMARY | 2024-08-20 10:46 | XMS_ITS | Encounter Summary ---
Author Organization [place] Address [address] [place] [address] Care Team Providers Care Pearl Stringer Name Role Phone Shana Singleton MD Unavailable [phone] Tammi Buitrago PharmD Unavailable [phone] Jaz Ro Unavailable [phone] Ashanti Ordoñez MD Unavailable [phone] Ashanti Ordoñez MD Primary Care Provider [phone] Majo Roth [facility] Unavailable [phone] Magalie Whipple [facility] Unavailable [phone] Magalie Whipple [facility] Unavailable [phone] Magalie Whipple Unavailable Unavailable Tamiko Renee [facility] Unavailable Roxana Cruz PA-C Unavailable [phone] Reason for Visit * Reason Onset Date Comments Refill Request 11/05/2023 metoprolol succi claudine ER (TOPROL XL) 25 MG 24 hr tablet Encounter Details Date Type Department Care Team (Late st Contact Info) Description 11/05/2023 Refill [facility] [address] [place] [address] Ashanti Ordoñ[place] [address] [address] Refill Request (metoprolol succinate ER (TOPROL XL) 25 MG 24 hr tablet ) Social History Tobacco Use Types Packs/Day Years [...] neighbors? More than three times a week 03/11/2023 How often do you get togethe r with friends or relatives? Three times a week 03/11/2023 How often do you attend chur or mormon services? More than 4 times per year 03/11/2023 Do you belong to any clubs o r organizations such as episcopalian groups, unions, fraternal or athletic groups, or school groups? Yes 03/11/2023 How often do you attend meet ings of the clubs or organizations you belong to? More than 4 times per year 03/11/2023 Are you , , di vorced, , never , or living with a partner? 03/11/2023 AUDIT-C Answer Date Recorded Q1: How often do you have a drink containing alc ohol? Monthly or less 03/11/2023 Q2: How many drinks containi ng alcohol do you have on a typical day when you are drinking? 1 or 2 03/11/2023 Q3: How often do you have si x or more drinks on one occasion? Never 03/11/2023 PHQ-2 Answer Date Recorded PHQ-2 Score 6 08/10/2023 [facility] [place] of Occupat ional Health - Occupational Stress Questionnaire Answer Date Recorded Do you feel stress - tense, restless, nervous, or anxious, or unable to sleep at night because your mind is troubled all the time - these days? Only a little 03/11/2023 Exercise Vital Sign Answer Date Recorde d On average, how many days pe r week do you engage in moderate to strenuous exercise (like a brisk walk)? 3 days Minutes of Exercise per Session Not on file 03/11/2023 Adolescent Education Answer Date Record ed Getting School Help Needed Not on file 01/03 Food Insecurity Answer Date Recorded Within the past 12 months, d id you worry that your food would run out before you got money to buy more? No 03/11/2023 Within the past 12 months, d id the food you bought just not last and you didn t have money to get more? No 03/11/2023 Housing Stability Answer Date Recorded Do you have housing? (Sarah veliz is defined as stable permanent housing and does not include staying outside in a car, in a tent, in an abandoned building, in an overnight custodial, or couch-surfing.) Yes 03/11/2023 Are you worried about losing your housing? No 03/11/2023 Financial Resource Strain Answer Date R ecorded Within the past 12 months, h ave you or your family members you live with been unable to get utilities (heat, electricity) when it was really needed? No 03/11/2023 Transportation Needs Answer Date Record ed Within the past 12 months, h as lack of transportation kept you from medical appointments, getting your medicines, non-medical meetings or appointments, work, or from getting things that you need? No 03/11/2023 Education Answer Date Recorded What is the highest level of school you have completed or the highest degree you have received? 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 Miscellaneous Notes * Telephone Encounter - Zelda Zabala - 11/09/2023 7:14 AM CDT Patient read GPal message and scheduled Zelda Zabala/ Nail Maker * Telephone Encounter - Ashanti Ordoñez MD - 11/06/2023 7:56 AM CDT I haven't seen her since - needs office visit #60 sent documented in this encounter Plan of Treatment Upcoming Encounters Date Type Department Care Team (Late st Contact Info) Description 12/08/2024 1:30 PM CDT Office Visit [facility] [address] [place] [address] Roxana Cruz PA-C [address] [place] [address] Ashanti Ordoñ[place] [address] [place] [address] documented as of this encounter Visit Diagnoses Diagnosis Benign essential hypertension Essential hypertension, benign documented in this encounter Additional Health Concerns Assessment Noted Time PHQ-9 Depression Total Score: 18 024 1:21 PM CDT documented as of this encounter Care Teams Pearl Stringer Relationship Specialty Start Date End Date Ashanti Ordoñez [place] [id number] [place] [address] PCP - General 10/29/22 Shana Singleton MD [address] [place] [address] Resident Student in organized health care education/training program 12/16/19 Tammi Buitrago, PharmD [address] [place], [place] [address]E [address] [place] [address] Pharmacist Pharmacist 08/06/20 04/26/24 Jaz Ro AuD [address] [place] [address] Audiology 10/02/22 Ashanti Ordoñ[place] [address] [place] [address] Assigned PCP 09/13/22 04/03/24 Majo Roth, [facility] [address] [place] [address] Pharmacist Pharmacist Roll Winder 12/01/22 04/26/24 Magalie Whipple, [facility] [address] [place] [address] Pharmacist Pharmacist 12/26/22 04/26/24 [facility] [address] [place] [address] Assigned MTM Pharmacist 01/03/23 Magalie Whipple Medical Student 08/10/23 04/26/24 Tamiko Renee, [facility] [address] [place] [address] Pharmacist Pharmacist 01/27/24 04/26/24 Roxana Cruz PA-C [address] [place] [address] Assigned PCP 04/04/24 documented as of this encounter
--- OUTSIDE RECORDS SUMMARY | 2024-08-20 10:46 | XMS_ITS | Encounter Summary ---
Author Organization [place] Address [facility] [place] [address] Care Team Providers Care Warp Splitter Name Role Phone Mora Garrett MD Primary Care Prov ider Mora Garrett MD Unavailable + Katina Dow Unavailable Unavailable Shana Singleton MD Unavailable [phone] Katina Dow Unavailable Unavailable Tammi Buitrago PharmD Unavailable [phone] Iftikhar Tammi PharmD Unavailable [phone] Iftikhar, Tammi PharmD Unavailable [phone] Crista Norton APRN PLANNING SPECIALIST Unavailable [phone] Jaz Ro Unavailable [phone] Ashanti Ordoñez MD Unavailable [phone] Ashanti Ordoñez MD Primary Care Provider [phone] Majo Roth RPH Unavailable [phone] Majo Roth RPH Unavailable Magalie Whipple [facility] Unavailable [phone] Magalie Whipple [facility] Unavailable [phone] Magalie Whipple Unavailable Unavailable Tamiko Renee [facility] Unavailable Anthony Roxana M PA-C Unavailable [phone] Encounter Details Date Type Department Care Team (Late st Contact Info) Description 02/02/2020 [facility] Medical Advice [address] [address] Mora Garrett MD [place] [address] [address] Social History Tobacco Use Types Packs/Day Years [...] 11/06/2018 PHQ-2 Answer Date Recorded PHQ-2 Score 3 01/29/2020 [facility] [place] of Occupat ional Health - Occupational Stress [...] Sex Assigned at Female 03/22/2018 7:28 AM AUTOMOTIVE PROJECT ENGINEER Legal Sex Female 5:04 AM AUTOMOTIVE PROJECT ENGINEER Gender Identity Female 03/22/2018 7:28 AM AUTOMOTIVE PROJECT ENGINEER Sexual Orientation Straight 03/22/2018 7: 28 AM AUTOMOTIVE PROJECT ENGINEER 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 No / Unsure 01/30/2020 8:06 AM CDT documented as of this encounter Plan of Treatment Upcoming Encounters Date Type Department Care Team (Late st Contact Info) Description 12/08/2024 1:30 PM CDT Office Visit [facility] [address] [place] [address] Roxana Cruz PA-C [address] [place] [address] Ashanti Ordoñ[place] [address] [place] [address] documented as of this encounter Visit Diagnoses Not on filedocumented in this encounter Additional Health Concerns Assessment Noted Time PHQ-9 Depression Total Score: 11 020 7:02 AM CDT documented as of this encounter Care Teams Warp Splitter Relationship Specialty Start Date End Date Mora Garrett MD PCP - General Family Practice 01/07/18 10/28/22 Ashanti Ordoñez [place] [address] [place] [address] PCP - General 10/29/22 Mora Garrett MD Assigned PCP 01/10/18 09/05/22 Katina Dow Personal Advocate & Liaison (PAL) Family Practice 09/20/19 09/15/22 Shana Singleton MD [address] [place] [address] Resident Student in organized health care education/training program 12/16/19 Katina Dow Personal Advocate & Liaison (PAL) Family Medicine 06/08/20 01/07/21 Tammi Buitrago, PharmD [address] [address] Pharmacist Pharmacist 08/06/20 04/26/24 Tammi Buitrago, PharmD [address] [place] [address] Assigned MTM Pharmacist 09/07/21 Tammi Buitrago, PharmD [address] [place] [address] 486204 Assigned MTM Pharmacist 01/08/2202/07 Crista Norton APRN PLANNING SPECIALIST [address] [place] [address] Assigned PCP 09/06/22 09/12/22 Jaz Ro AuD [address] [place] [phone] Audiology 10/02/22 Ashanti Ordoñ[place] [address] [place] [address] Assigned PCP 09/13/22 04/03/24 Majo Roth RPH [address] [place] [address] [phone] Pharmacist Pharmacist Coroner Transport Technician 12/01/22 04/26/24 Majo Roth RPH [address] [place] [address] [phone] Assigned MTM Pharmacist 12/06/22 Magalie Whipple, [facility] [address] [place] [address] Pharmacist Pharmacist 12/26/22 04/26/24 Magalie Whipple, [facility] [address] [place] [address] [address] Assigned MTM Pharmacist 01/03/23 Magalie Whipple Medical Student 08/10/23 04/26/24 Tamiko Renee, [facility] [address] [place] [address] [address] Pharmacist Pharmacist 01/27/24 04/26/24 Roxana Cruz PA-C [address] [place] [address] Assigned PCP 04/04/24 documented as of this encounter
--- OUTSIDE RECORDS SUMMARY | 2024-08-20 10:46 | XMS_ITS | Clinical Summary ---
Author Organization [facility] Address [address] [place] [address] Care Team Providers Care Document Imaging Manager Name Role Phone Shana Singleton MD Unavailable [phone] aJz Ro Unavailable [phone] Ashanti Ordoñez MD Primary Care Provider [phone] Magalie Whipple [facility] Unavailable [phone] Roxana Cruz-C Unavailable [phone] Allergies Active Allergy Reactions Criticality Noted Date Comments Amlodipine Headache 12/17/2022 Chlorthalidone Dizziness 12/17/2022 Carvedilol 12/26/2022 fatigue, muscle aches in her leg, weight gain, mild headache. Cyclobenzaprine Other (See Comments) 02/14/2022 Twitching and muscle spasms Lactose 05/07/2020 Lisinopril 08/20/2023 headaches Losartan Cramps 12/17/2022 Metaxalone 12/07/2017 Muscle twiching Methylprednisolone Other (See Comments) High 10/24/2020 Patient experienced severe depression with suicidal ideation when she started a Medrol dose pack. She reported rage episodes in the past as well. Moxifloxacin Nausea and Vomiting Low 06/25/2011 Moxifloxacin Hcl In Nacl Nausea and Vomiting Low 06/25/2011 Sulfamethoxazole-Trimethop rim Nausea and Vomiting High 05/03/2016 Happened in 2017 Verapamil 08/20/2023 Headache, constipation insomnia Medications polyethylene glycol (MIRALAX) 17 GM/Dose powder Take 1 Capful by mouth daily. Active traZODone (DESYREL) 50 MG tabletIndication s:HARDIK (generalized anxiety disorder),Major depressive disorder, recurrent episode, moderate (H) Take 25-50 mg (1/2 tablet-1 tablet) at bedtime as needed for insomnia, may take an additional 12.5 mg (1/4 tablet) during the day PRN for anxiety 40 tablet 1 1 Active vitamin D3 (CHOLECALCIFEROL ) 50 mcg (2000 units) tablet Take 1 tablet by mouth daily. 1 Active glucosamine-jose droitin 500-400 MG CAPS per capsule Take 3 capsules by mouth daily Active clobetasol (TEMOVATE) 0.05 % external solutionIndicati ons:Eczema, unspecified type Apply topically 2 times daily 50 mL 1 3 Active fluticasone (FLONASE) 50 MCG/ACT nasal sprayIndications :Allergic rhinitis, unspecified seasonality, unspecified trigger SHAKE GENTLY AND USE 2 SPRAYS INTO EACH NOSTRIL ONCE DAILY 16 g 10 4 Active aspirin-acetamin ophen-caffeine (EXCEDRIN MIGRAINE) 250-250-65 MG tablet Take 1 tablet by mouth daily as needed for headaches Active cetirizine (ZYRTEC) 10 MG tablet Take 10 mg by mouth daily as needed for allergies. Active sennosides (SENOKOT) 8.6 MG tablet Take 2 tablets by mouth daily as needed. Active buPROPion (WELLBUTRIN XL) 300 MG 24 hr tabletIndication s:Major depressive disorder, recurrent episode, moderate (H),HARDIK (generalized anxiety disorder) Take 1 tablet (300 mg) by mouth every morning 90 tablet 3 4 Active DULoxetine (CYMBALTA) 60 MG capsuleIndicatio ns:Major depressive disorder, recurrent episode, moderate (H),HARDIK (generalized anxiety disorder) Take 1 capsule (60 mg) by mouth daily. 90 capsule 3 4 Active MAGNESIUM COMPLEX HIGH POTENCY PO Take 1 capsule by mouth every other day. Active ondansetron (ZOFRAN) 4 MG tabletIndication s:Nausea Take 1 tablet (4 mg) by mouth every 12 hours as needed for nausea. 20 tablet 1 4 Active famotidine-Ca Carb-mag hydrox 10-800-165 MG CHEW Take 1 tablet by mouth daily as needed (heartburn symptoms). Active guaiFENesin-code ine (ROBITUSSIN AC) 100-10 MG/5ML solutionIndicati ons:Upper respiratory tract infection, unspecified type Take 5-10 mLs by mouth every 4 hours as needed for cough. 118 mL 5 Active metoprolol succinate ER (TOPROL XL) 25 MG 24 hr tabletIndication s:Benign essential hypertension TAKE ONE TABLET BY MOUTH TWICE A DAY 180 tablet 1 5 Active rizatriptan (MAXALT) 5 MG tabletIndication s:Migraine with aura and without status migrainosus, not intractable TAKE ONE TO TWO TABLETS BY MOUTH AT ONSET OF HEADACHE FOR MIGRAINE Strength: 5 mg 18 tablet 5 Active rizatriptan (MAXALT) 5 MG tabletIndication s:Migraine with aura and without status migrainosus, not intractable TAKE ONE TO TWO TABLETS BY MOUTH AT ONSET OF HEADACHE FOR MIGRAINE Strength: 5 mg 18 tablet 1 4 025 Discontin ued(Reord er (No AVS)) Active Problems Problem Noted Date Diagnosed Date CKD (chronic kidney disease) stage 2, GFR 60-89 ml/min 10/30/2022 Obesity (BMI 30-39.9) 03/18/2022 Major depressive disorder, recurrent episode, mo derate 03/18/2022 Bone spur of posterior portion of left calcaneus 10/20/2020 Non-insertional Achilles tendinopathy 10/11/2020 Arthritis of carpometacarpal (CMC) joint of left thumb 08/20/2020 Elevated blood pressure read ing without diagnosis of hypertension 05/07/2020 Migraine with aura and witho ut status migrainosus, not intractable 06/23/2018 Moderate single current epis ode of major depressive disorder 12/07/2017 Cervical radiculopathy 12/07/2017 Lumbar radiculopathy 12/07/2017 Thoracic outlet syndrome 12/07/2017 PTSD (post-traumatic stress disorder) 07/02/2011 Overview (07/02/2011): Rule out Bipolar Disorder type 1 (possible mixed episode) Osteoarthritis 08/14/2006 Resolved Problems Problem Noted Date Diagnosed Date Resolved Date Drug-induced constipation 07/20/2019 Generalized osteoarthritis of hand 06/16/2019 10/10/2019 Thumb pain 06/16/2019 10/10/2019 Bursitis of left hip 12/07/2017 022 Eczema, unspecified type 12/07/201707/2021 Trochanteric bursitis of both hips 12/07/2017 04/16/2021 Trapezius muscle strain 08/10/20160 07/2021 Missed 03/26/2012 01/04/2018 Encounters Date Type Department Care Team Description 08/11/2024 MyC Refill [address] [address] Ashanti Ordoñez MD Refill Request 07/01/[address] [address] Roxana Cruz PA-C Medication Refill 06/13/2024 1:30 PM JACK SPINNER Office Visit [facility] [address] [place] [phone] Lara Bailey APRN DIRECTOR OF PHOTOGRAPHY Streptococcal pharyngitis (Primary Dx); Upper respiratory tract infection, unspecified type 06/13/2024 Telephone [facility] [address] [place] [address] Lara Bailey APRN DIRECTOR OF PHOTOGRAPHY Medication Question 06/13/2024 Travel from Last 3 Months Immunizations Immunization Administration Dates Next Due COVID-19 Bivalent 12+ (Pfizer) 01/24/2022 COVID-19 MONOVALENT 12+ (Pfizer) 05/31/2020,04/14 COVID-19 Monovalent 12+ (Pfizer 2021) 01/24/2022 COVID-19 Monovalent Booster 18+ (Moderna) 02/28/2021 Influenza Vaccine 18-64 (Flublok) 2021,01/07/2021,01/18/2020,2018 Influenza Vaccine >6 months,quad, PF ,12/26/2016,01/12/2016,2014 Influenza Vaccine Trivalent (FluBlok) 01/02/2024 TDAP (Adacel,Boostrix) 04/16/2021,04/25/2011 Zoster recombinant adjuvante d (Shingrix) 04/18/2020,02/10/2020 Family History Medical History Relation Comments Depression Brother Hypertension Brother Anxiety Disorder Daughter 1 Depression Daughter 1 Mental Illness Daughter 1 Depression, PTSD , anxiety Unknown/Adopted Daughter 1 Migraine Genetic Disorder Daughter 2 Incontinentia p igmenti Unknown/Adopted Daughter 2 Incontinentia pi gmenti, migraine Cardiac Sudden Father Coronary Artery Disease Father Passed a way Depression Father Heart Failure Father Hyperlipidemia Father Hypertension Father Mental Illness Father Bipolar Leukemia Maternal Grandfather Other Cancer Maternal Grandfather Leukemia Cerebrovascular Disease Maternal Grandmother Depression Maternal Grandmother Breast Cancer Mother Melanoma Mother Other Cancer Mother Melanoma Anemia Paternal Grandmother Unknown/Adopted Paternal Grandmother Aplastic an emai Anxiety Disorder Son Depression Son Mental Illness Son Depression, PTSD Relation Status Comments Brother Alive Daughter 1 Alive Daughter 2 Alive Father Maternal Grandfather Maternal Grandmother Mother Alive Paternal Grandfather Paternal Grandmother Son Alive Social History Tobacco Use Types Packs/Day Years Used Date Smoking Tobacco: Never Passive Smoke Exposure: Never Smokeless Tobacco: Never Tobacco Cessation:Counseling Given: Not Answered Alcohol Use Standard Drinks/Week Comments Yes 0 (1 standard drink = 0.6 oz pur e alcohol) 0-2 glasses of wine per week Social Connection and Isolation Panel [NHANES] A nswer Date Recorded Frequency of Communication with Friends and Fami ly Not on file 12/09/2023 How often do you get together with friends or re latives? Once a week 12/09/2023 Attends Shinto Services Not on file 12/08 Active Member [...] Answer Date Recorded PHQ-2 Score 1 06/13/2024 [facility] - Occupational [...] Date Recorded Do you have housing? 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 Last Filed Vital Signs Vital Sign Reading Time Taken Comments Blood Pressure 124/87 06/13/2024 11:36 AM JACK SPINNER Pulse 79 06/13/2024 11:34 AM JACK SPINNER Temperature 37.1 C (98.8 F) 06/13/2024 11:34 AM JACK SPINNER Respiratory Rate 18 06/13/2024 11:34 AM JACK SPINNER Oxygen Saturation 100% 06/13/2024 11:34 AM JACK SPINNER Inhaled Oxygen Concentration - - Weight 93.9 kg (207 lb) 06/13/2024 11:34 AM JACK SPINNER Height 172.7 cm (5' 8) 06/13/2024 11:34 AM JACK SPINNER Body Mass Index 31.47 06/13/2024 11:34 AM JACK SPINNER Plan of Treatment Upcoming Encounters Date Type Department Care Team (Late st Contact Info) Description 12/08/2024 1:30 PM CDT Office Visit [facility] [id number] [place] [phone] Roxana Cruz PARodríguez [address] [place] [phone] Ashanti Ordoñ[place] [address] [place] [address] Health Maintenance Due Date Last Done Comments CT COLONOGRAPHY 1968 FIT 1968 FLEX SIG 1968 sDNA (Cologuard) 1968 Pneumococcal Vaccine: 50+ Years (1 of 1 - PCV) 01/14/2018 COVID-19 Vaccine ( season) 2023 01/24/2022, 01/24/2022, 02/28/2021, Additional history exists PHQ-9 09/13/2024 06/13/2024, 11/12, 08/10/2023, Additional history exists BMP 12/02/2024 12/03/2023, 02/12, 12/02/2022, Additional history exists LIPID 12/02/2024 12/03/2023, 09/12, 04/16/2021, Additional history exists MICROALBUMIN 12/08/2024 12/09/2023, 12/02/2022 YEARLY PREVENTIVE VISIT 12/08/2024 12/09/19 24, 09/11/2022, 01/30/2020 HPV TEST 01/29/2025 01/30/2020 PAP 01/29/2025 01/30/2020, 07/13/2015 ANNUAL REVIEW OF HM ORDERS 06/13/202506/13, 09/12/2022, 08/20/2020, Additional history exists MAMMO SCREENING 12/10/2025 12/11/2023, 10/11, 09/30/2021, Additional history exists DIABETES SCREENING 12/02/2026 12/03/2023, 0 12/03/2023, 03/04/2023, Additional history exists ADVANCE CARE PLANNING 12/08/2028 12/09/2023, 023 COLONOSCOPY 01/07/2029 01/08/2024, 06/11, 06/21/2018 COLORECTAL CANCER SCREENING 01/07/2029 DTAP/TDAP/TD IMMUNIZATION (3 - Td or Tdap) 04/16/2031 04/16/2021, 04/25/2011 URINALYSIS Completed 07/01/2011 DEPRESSION ACTION PLAN Completed 04/24/2018, 2018 ZOSTER IMMUNIZATION Completed 04/18/2020, HEPATITIS C SCREENING Completed 08/20/2020 HIV SCREENING Completed 08/20/2020 INFLUENZA VACCINE Completed 01/02/2024, , 01/07/2021, Additional history exists HEPATITIS B IMMUNIZATION Discontinued HPV IMMUNIZATION Aged Out No longer e ligible based on patient's age to complete this topic MENINGITIS IMMUNIZATION Aged Out No l onger eligible based on patient's age to complete this topic URINE DRUG SCREEN Discontinued Procedures Procedure Name Priority Date/Time Associated Diagnosis Comments GROUP A STREPTOCOCCUS PCR THROAT SWAB Routine 06/13/2024 11:42 AM JACK SPINNER Streptococcal pharyngitis STREPTOCOCCUS A RAPID SCREEN W REFELX TO PCR Routine 06/13/2024 11:42 AM JACK SPINNER Streptococcal pharyngitis COLONOSCOPY - HIM SCAN 01/08/2024 12:00 AM CDT MA SCREENING BILATERAL W/ CIRILO Routine 12/11/2023 1:29 PM CDT Visit for screening mammogram ALBUMIN RANDOM URINE QUANTITATIVE Routine 12/09/2023 10:24 AM CDT CKD (chronic kidney disease) stage 2, GFR 60-89 ml/min LIPID REFLEX TO DIRECT LDL PANEL Routine 12/03/2023 8:50 AM CDT Obesity (BMI 30-39.9) BASIC METABOLIC PANEL Routine 12/03/2023 8:50 AM CDT Obesity (BMI 30-39.9) HIV ANTIGEN ANTIBODY COMBO Routine 08/20/2020 11:32 AM CDT Screening for HIV (human immunodeficiency virus) HEPATITIS C SCREEN REFLEX TO HCV RNA QUANT AND GENOTYPE Routine 08/20/2020 11:32 AM CDT Need for hepatitis C screening test HPV HIGH RISK TYPES DNA CERVICAL Routine 01/30/2020 8:53 AM CDT Screening for malignant neoplasm of cervix PAP IMAGED THIN LAYER SCREEN Routine 01/30/2020 8:37 AM CDT Screening for malignant neoplasm of cervix ROUTINE UA WITH MICROSCOPIC REFLEX TO CULTURE Routine 07/01/2011 12:45 PM CDT from Last 3 Months or Most Recently Relevant to Health Maintenance Results * Streptococcus A Rapid Screen w/Reflex to PCR - Clinic Collect (06/13/2024 11:42 AM JACK SPINNER) Pathologist [facility] Group A Strep antigen Negative Negative 06/13/2024 11:50 AM JACK SPINNER LABORATORY Swab STRUCTURE OF ANTERIOR PORTION OF NECK / Unknown Non-blood Collection / Unknown 06/13/2024 11:42 AM JACK SPINNER 06/13/2024 11:42 AM JACK SPINNER us Lara Bailey APRN DIRECTOR OF PHOTOGRAPHY LAB - MICRO GENERAL ORD ERABLES Final Result LABORATORY [facility] [place] [facility] [address] [facility] (no room number, 1st floor of clinic) [place] [address], [facility] * Group A Streptococcus PCR Throat Swab (06/13/2024 11:42 AM JACK SPINNER) Pathologist [facility] Group A strep by PCR Not Detected Not Detected 06/13/2024 8:19 PM JACK SPINNER [facility] Swab STRUCTURE OF ANTERIOR PORTION OF NECK / Unknown Non-blood Collection / Unknown 06/13/2024 11:42 AM JACK SPINNER 06/13/2024 11:50 AM JACK SPINNER Narrative [facility] - 06/13/2024 8:19 PM JACK SPINNER The Xpert Xpress Strep A test, performed on the [employer], is a rapid, qualitative in vitro diagnostic test for the detection of Streptococcus pyogenes (Group A -hemolytic Streptococcus, Strep A) in throat swab specimens from patients with signs and symptoms of pharyngitis. The Xpert Xpress Strep A test can be used as an aid in the diagnosis of Group A Streptococcal pharyngitis. The assay is not intended to monitor treatment for Group A Streptococcus infections. The Xpert Xpress Strep A test utilizes an automated real-time polymerase chain reaction (PCR) to detect Streptococcus pyogenes DNA. Lara Bailey APRN DIRECTOR OF PHOTOGRAPHY LAB - MICRO GENERAL ORD ERABLES Final Result [facility] Inf. Diseases Diag. Lab [address] [facility], [address] [place] [address] * Colonoscopy - HIM Scan (01/08/2024 12:00 AM CDT) 01/08/2024 Provider Outside PROCEDURES Final Result * MA Screen Bilateral w/Cirilo (12/11/2023 1:29 PM CDT) Anatomical Region Laterality Modality Breast Bilateral Mammography Impressions 12/11/2023 2:55 PM CDT IMPRESSION: ACR BI-RADS Category 1: Negative BREAST CANCER SCREENING RECOMMENDATION: Routine yearly mammography beginning at age 40 or as discussed with your provider. The results and recommendations of this examination will be communicated to the patient. Vu Georges MD Narrative 12/11/2023 2:55 PM CDT BILATERAL FULL FIELD DIGITAL SCREENING MAMMOGRAM WITH TOMOSYNTHESIS Performed on: 12/11/23 Compared to: 10/21/2022, 09/30/2021, 09/25/2020, and 09/19/2019 Technique: This study was evaluated with the assistance of Computer-Aided Detection. Breast Tomosynthesis was used in interpretation. Findings: The breasts are heterogeneously dense, which may obscure small masses. There is no radiographic evidence of malignancy. us Screening Mammogram Selfreferral IMG MAMMOGRAPHY ORDERABLES Final Result * Albumin Random Urine Quantitative with Creat Ratio (12/09/2023 10:24 AM CDT) Creatinine Urine mg/dL 129.0 mg/dL 12/09/2023 1:31 PM CDT [facility] Comment:The reference ranges have not been established in urine creatinine. The results should be integrated into the clinical context for interpretation. Albumin Urine mg/L <12.0 mg/L 2023 1:31 PM CDT [facility] Comment:The reference ranges have not been established in urine albumin. The results should be integrated into the clinical context for interpretation. Albumin Urine mg/g Cr 12/09/2023 1:31 PM CDT [facility] Comment: Unable to calculate, urine albumin and/or urine creatinine is outside detectable limits. Microalbuminuria is defined as an albumin:creatinine ratio of 17 to 299 for males and 25 to 299 for females. A ratio of albumin:creatinine of 300 or higher is indicative of overt proteinuria. Due to biologic variability, positive results should be confirmed by a second, first-morning random or 24-hour timed urine specimen. If there is discrepancy, a third specimen is recommended. When 2 out of 3 results are in the microalbuminuria range, this is evidence for incipient nephropathy and warrants increased efforts at glucose control, blood pressure control, and institution of therapy with an blrsydhkzvj-gaaxuyqfkn-eygwqu (OSCAR) inhibitor (if the patient can tolerate it). Urine URINE SPECIMEN / Unknown Non-blood Collection / Unknown 12/09/2023 10:24 AM CDT 12/09/2023 10:27 AM CDT us Roxana Cruz PA-C LAB - URINE ORDERABLES Final R esult [facility] Core Lab [address] [facility], [address] [phone] * (ABNORMAL) Lipid panel reflex to direct LDL Fasting (12/03/2023 8:50 AM CDT) Cholesterol 233(H) <200 mg/dL 12/03/2023 3:07 PM CDT [facility] Triglycerides 187(H) <150 mg/dL 12/03/2023 3:07 PM CDT [facility] Direct Measure HDL 50 >=50 mg/dL 12/03/2023 3:07 PM CDT [facility] LDL Cholesterol Calculated 146(H) <=100 mg/dL 12/03/2023 3:07 PM CDT [facility] Non HDL Cholesterol 183(H) <130 mg/dL 12/03/2023 3:07 PM CDT [facility] Patient Fasting > 8hrs? Yes 12/03/2023 3:07 PM CDT [facility] Blood BLOOD SPECIMEN / Unknown Venipuncture / Unknown 12/03/2023 8:50 AM CDT 12/03/2023 8:50 AM CDT Narrative [facility] - 12/03/2023 3:07 PM CDT Cholesterol Desirable: <200 mg/dL Triglycerides Normal: Less than 150 mg/dL Borderline High: 150-199 mg/dL High: 200-499 mg/dL Very High: Greater than or equal to 500 mg/dL Direct Measure HDL Female: Greater than or equal to 50 mg/dL Male: Greater than or equal to 40 mg/dL LDL Cholesterol Desirable: <100mg/dL Above Desirable: 100-129 mg/dL Borderline High: 130-159 mg/dL High: 160-189 mg/dL Very High: >= 190 mg/dL Non HDL Cholesterol Desirable: 130 mg/dL Above Desirable: 130-159 mg/dL Borderline High: 160-189 mg/dL High: 190-219 mg/dL Very High: Greater than or equal to 220 mg/dL us Ashanti Ordoñez MD LAB - BLOOD ORDERABLES Fi nal Result [facility] [place] Core Lab [address] [facility], [address] [phone] * (ABNORMAL) Basic metabolic panel (12/03/2023 8:50 AM CDT) Sodium 140 135 - 145 mmol/L 12/03/2023 3:07 PM CDT [facility] Potassium 5.3 3.4 - 5.3 mmol/L 12/03/2023 3:07 PM CDT [facility] Chloride 101 98 - 107 mmol/L 12/03/2023 3:07 PM CDT [facility] Carbon Dioxide (CO2) 25 22 - 29 mmol/L 12/03/2023 3:07 PM CDT [facility] Anion Gap 14 7 - 15 mmol/L 12/03/2023 3:07 PM CDT [facility] Urea Nitrogen 17.8 6.0 - 20.0 mg/dL 12/03/2023 3:07 PM CDT [facility] Creatinine 1.11(H) 0.51 - 0.95 mg/dL 12/03/2023 3:07 PM CDT [facility] GFR Estimate 58(L) >60 mL/min/1.7 3m2 12/03/2023 3:07 PM CDT [facility] Comment:eGFR calculated us2020 CKD-EPI equation. Calcium 9.8 8.8 - 10.4 mg/dL 12/03/2023 3:07 PM CDT [facility] Comment:Reference intervals for this test were updated on 10/27/2023 to reflect our healthy population more accurately. There may be differences in the flagging of prior results with similar values performed with this method. Those prior results can be interpreted in the context of the updated reference intervals. Glucose 92 70 - 99 mg/dL 12/03/2023 3:07 PM CDT [facility] Patient Fasting > 8hrs? Yes 12/03/2023 3:07 PM CDT [facility] Blood BLOOD SPECIMEN / Unknown Venipuncture / Unknown 12/03/2023 8:50 AM CDT 12/03/2023 8:50 AM CDT us Ashanti Ordoñez MD LAB - BLOOD ORDERABLES Fi nal Result [facility] Core Lab [address] [facility], [address] [phone] * HIV Antigen Antibody Combo (08/20/2020 11:32 AM CDT) HIV Antigen Antibody Combo Nonreactive NR^Nonrea ctive 08/20/2020 7:[address] [facility] Comment:HIV-1 p24 Ag & HIV-1 /HIV-2 Ab Not Detected Blood 08/20/2020 11:3 2 AM CDT 08/20/2020 11:33 AM CDT us Aramndojoni Garrett MD LAB - BLOOD ORDERA BLES Final Result [address] [address] * Hepatitis C Screen Reflex to HCV RNA Quant and Genotype (08/20/2020 11:32 AM CDT) Hepatitis C Antibody Nonreactive NR^Nonre active 08/20/2020 7:[address] [facility] Comment: Assay performance characteristics have not been established for newborns, infants, and children Blood 08/20/2020 11:3 2 AM CDT 08/20/2020 11:33 AM CDT Armando Garrett MD LAB - BLOOD ORDERA BLES Final Result Performing Organization Address City/[facility]/ZIP Co de Phone Number [address] [address] * HPV High Risk Types DNA Cervical (01/30/2020 8:53 AM CDT) Pathologist [facility] HPV Source [facility] 01/30/2020 8:37 AM CDT [facility] HPV 16 DNA Negative NEG^Nega tive 02/03/2020 1:[address] [facility] HPV 18 DNA Negative NEG^Nega tive 02/03/2020 1:[address] [facility] Other HR HPV Negative NEG^Nega tive 02/03/2020 1:[address] [facility] Final Diagnosis This patient's sample is negative for HPV DNA. 02/03/2020 1:[address] [facility] Comment: This test was developed and its performance characteristics determined by the [facility], [facility]. It has not been cleared or approved by the FDA. The laboratory is regulated under CLIA as qualified to perform high-complexity testing. This test is used for clinical purposes. It should not be regarded as investigational or for research. (Note) METHODOLOGY: The Luis sera [id number] system uses automated extraction, simultaneous amplification of HPV (L1 region) and beta-globin, followed by real time detection of fluorescent labeled HPV and beta globin using specific oligonucleotide probes . The test specifically identifies types HPV 16 DNA and HPV 18 DNA while concurrently detecting the rest of the high risk types (31, 33, 35, 39, 45, 51, 52, 56, 58, 59, 66 or 68). COMMENTS: This test is not intended for use as a screening device for women under age 30 with normal cervical cytology. Results should be correlated with cytologic and histologic findings. Close clinical followup is recommended. Specimen Description Cervical Cells 01/30/2020 8:37 AM CDT [facility] Cervical Cells 01/30/2020 8: 53 AM CDT 01/30/2020 9:13 AM CDT us Armando Garrett MD LAB - BLOOD ORDERA ENMA Final Result [facility] [address] [place] [address] [address] * Pap imaged thin layer screen with HPV - recommended age 30 - 65 years (select HPV order below) (01/30/2020 8:37 AM CDT) PAP YAMINI Prasad Report Patient Name: GELACIO HERRERA MR#: [id number] Specimen #: [id number] Collected: 01/30/2020 Received: 01/31/2020 Reported: 02/01/2020 14:35 Ordering Phy(s): ARMANDO GARRETT For improved result formatting, select 'View Enhanced Report Format' under Linked Documents section. SPECIMEN/STAIN PROCESS: Pap imaged thin layer prep screening (Surepath, [facility] with guided screening) Pap-Cyto x 1, HPV ordered x 1 SOURCE: Cervical, endocervical Pap imaged thin layer prep screening (Surepath, F[facility]Point with guided screening) SPECIMEN ADEQUACY: Satisfactory for evaluation. -Transformation zone component absent. CYTOLOGIC INTERPRETATION: Negative for intraepithelial lesion or malignancy Electronically signed out by: JESSE Ahmadi (ASCP) CLINICAL HISTORY: Post Menopausal, Papanicolaou Test Limitations: Cervical cytology is a screening test with limited sensitivity; regular screening is critical for cancer prevention; Pap tests are primarily effective for the diagnosis/preventi on of squamous cell carcinoma, not adenocarcinomas or other cancers. COLLECTION SITE: Client: [facility] Location: CRFP (R) The technical component of this testing was completed at the [facility], with the professional component performed at the [facility], [address] [place] [phone] ([phone]) COPATH Cytologic material (specimen) 01/30/2020 8:37 AM CDT 01/31/2020 10:48 AM CDT Armando Garrett MD LAB - OPTIME CLINI [facility] SPECIMEN Final Result COPATH * Routine UA with micro reflex to culture (07/01/2011 12:45 PM CDT) Color Urine Light Yellow [facility] Appearance Urine Clear [facility] Glucose Urine Negative NEG mg/dL [facility] Bilirubin Urine Negative NEG [facility] Ketones Urine Negative NEG mg/dL [facility] Specific [place] Urine 1.007 1.003 - 1.035 [facility] Blood Urine Negative NEG [facility] pH Urine 7.0 5.0 - 7.0 pH [facility] Protein Albumin Urine Negative NEG mg/dL [facility] Urobilinogen mg/dL Normal 0.0 - 2.0 mg/dL [facility] Nitrite Urine Negative NEG [facility] Leukocyte Esterase Urine Negative NEG [facility] Source Urine [facility] WBC Urine <1 0 - 2 /HPF [facility] RBC Urine 0 0 - 2 /HPF [facility] Squamous Epithelial /HPF Urine 1 0 - 1 /HPF [facility] Urine specimen (specimen) 07/01/2011 12:45 PM CDT 07/01/2011 1:11 PM CDT us Tamiko Harris MD LAB - URINE ORDERABLES Final R esult [facility] [address] [place] [address], [facility] from Last 3 Months or Most Recently Relevant to Health Maintenance Insurance [facility] * Guarantor: [id number] [facility] C[facility] HOS[facility] Account Type Relation to Patient Date of Phone Billing Address Worker's Compensation Employer [address] [place] [phone] * Guarantor: Gelacio Martel Account Type Relation to Patient Date of Phone Billing Address Medication Therapy Self 1970 [address] [place] [address] [facility] Advance Directives For more information, please contact: [phone] * Full Code (Latest Code Status on File) Date Activated Date Inactivated Comments 06/26/2011 12:20 AM 07/03/2011 2:32 PM Care Teams Document Imaging Manager Relationship Specialty Start Date End Date Ashanti Ordoñ[place] [address] [place] [address] PCP - General 10/29/22 Shana Singleton MD [address] [place] [address] Resident Student in organized health care education/training program 12/16/19 Jaz Ro AuD [address] [place] [address] Audiology 10/02/22 Magalie Whipple, [facility] [address] [place] [address] Assigned MTM Pharmacist 01/03/23 Roxana Cruz PAChesterC [address] [place] [address] Assigned PCP 04/04/24
--- OUTSIDE RECORDS SUMMARY | 2024-08-20 10:46 | XMS_ITS | Encounter Summary ---
Author Organization [place] Address [facility] [place] [address] Care Team Providers Care Payroll Master Name Role Phone Mora Garrett MD Primary Care Prov ider Mora Garrett MD Unavailable + Tony Francisco Unavailable Unavailable Katina Dow Unavailable Unavailable Shana Singleton MD Unavailable [phone] Katina Dow Unavailable Unavailable Iftikhar, Tammi PharmD Unavailable [phone] Iftikhar, Tammi PharmD Unavailable [phone] Iftikhar, Tammi PharmD Unavailable [phone] Crista Norton APRN FORENSIC INVESTIGATOR Unavailable [phone] Jaz Ro Unavailable [phone] Ashanti Ordoñez MD Unavailable [phone] Ashanti Ordoñez MD Primary Care Provider [phone] Majo Roth [facility] Unavailable [phone] Majo Roth [facility] Unavailable [phone] Magalie Whipple [facility] Unavailable [phone] Magalie Whipple [facility] Unavailable [phone] Magalie Whipple Unavailable Unavailable Tamiko Renee [facility] Unavailable AnthonyRoxana Sirena KHANC Unavailable [phone] Reason for Visit * Reason Onset Date Comments Patient Request 06/28/2018 Encounter Details Date Type Department Care Team (Late st Contact Info) Description 06/28/2018 [facility] Medical Advice [address] [address] Mora Garrett MD ARISE [address] [address] Patient Request Social History Tobacco Use Types Packs/Day Years Used Date Smoking Tobacco: Never Smokeless Tobacco: Never Alcohol Use Standard Drinks/Week Comments Yes 0 (1 standard drink = 0.6 oz pur e alcohol) rare PHQ-2 Answer Date Recorded PHQ-2 Score 1 04/21/2018 Comments No Sex and Gender Information Value Date Recorded Sex Assigned at Female 03/22/2018 7:28 AM SENIOR ACCOUNTS PAYABLE CLERK Legal Sex Female 5:04 AM SENIOR ACCOUNTS PAYABLE CLERK Gender Identity Female 03/22/2018 7:28 AM SENIOR ACCOUNTS PAYABLE CLERK Sexual Orientation Straight 03/22/2018 7: 28 AM SENIOR ACCOUNTS PAYABLE CLERK documented as of this encounter Miscellaneous Notes * Telephone Encounter - Dipti Hernández RN - 06/28/2018 11:28 AM CDT Images from the original note were not included. Dr. Garrett- see [employer] message below. Please advise. Dipti Hernández RN 06/23/18 ASSESSMENT/PLAN: ?? 1. Moderate single current [...] See Patient Instructions ?? Mora Garrett MD [facility] Answers for HPI/ROS submitted by the patient [...] Return in about 6 weeks (around 08/04/2018). documented in this encounter Plan of Treatment Upcoming Encounters Date Type Department Care Team (Late st Contact Info) Description 12/08/2024 1:30 PM CDT Office Visit [facility] [address] [place] [phone] Roxana Cruz PARodríguez [address] [place] [address] Ashanti Ordoñez [place] [id number] [place] [address] documented as of this encounter Visit Diagnoses Not on filedocumented in this encounter Additional Health Concerns Assessment Noted Time PHQ-9 Depression Total Score: 5 06/25/19 19 7:05 AM CDT documented as of this encounter Care Teams Payroll Master Relationship Specialty Start Date End Date Mora Garrett MD PCP - General Family Practice 01/07/18 10/28/22 Ashanti Ordoñ[place] [address] [place] [address] PCP - General 10/29/22 Mora Garrett MD Assigned PCP 01/10/18 09/05/22 Tony Francisco Personal Advocate & Liaison (PAL) Family Practice 04/11/19 09/19/19 Katina Dow Personal Advocate & Liaison (PAL) Family Practice 09/20/19 09/15/22 Shana Singleton MD [address] [place] [phone] Resident Student in organized health care education/training program 12/16/19 Katina Dow Personal Advocate & Liaison (PAL) Family Medicine 06/08/20 01/07/21 Tammi Buitrago, PharmD [address] [place] [address] [phone] Pharmacist Pharmacist 08/06/20 04/26/24 Tammi Buitrago, PharmD [address] [place] [address] [phone] Assigned MTM Pharmacist 09/07/21 Tammi Buitrago, PharmD [address] [place] [address] [phone] Assigned MTM Pharmacist 01/08/2202/07 Crista Norton APRN FORENSIC INVESTIGATOR [address] [place] [address] Assigned PCP 09/06/22 09/12/22 Jaz Ro AuD [address] [place] [address] Audiology 10/02/22 Ashanti Ordoñez [place] [address] [place] [address] Assigned PCP 09/13/22 04/03/24 Majo Roth [facility] [address] [place] [address] Pharmacist Pharmacist Cardiology Nurse 12/01/22 04/26/24 Majo Roth [facility] [address] [place] [address] Assigned MTM Pharmacist 12/06/22 Magalie Whipple [facility] [address] [place] [address] Pharmacist Pharmacist 12/26/22 04/26/24 Magalie Whipple [facility] [address] [place] [address] Assigned MTM Pharmacist 01/03/23 Magalie Whipple Medical Student 08/10/23 04/26/24 Tamiko Renee, [facility] [place] [address] Pharmacist Pharmacist 01/27/24 04/26/24 Roxana Cruz PA-C [address] [place] [phone] Assigned PCP 04/04/24 documented as of this encounter
--- OUTSIDE RECORDS SUMMARY | 2024-08-20 10:46 | XMS_ITS | Encounter Summary ---
Author Organization [place] Address [facility] [place] [address] Care Team Providers Care Dope Weigh Operator Name Role Phone Mora Garrett MD Primary Care Prov ider Mora Garrett MD Unavailable + aKtina Dow Unavailable Unavailable Shana Singleton MD Unavailable [phone] Tammi Buitrago PharmD Unavailable [phone] aTmmi Buitrago PharmD Unavailable [phone] Crista Norton APRN UNDERLAY STITCHER Unavailable [phone] JoshJaz meneses Wyatt Unavailable [phone] Ashanti Ordoñez MD Unavailable [phone] Ashanti Ordoñez MD Primary Care Provider [phone] Majo Roth RP Unavailable Majo Roth RP Unavailable [phone] Magalie Whipple [facility] Unavailable [phone] Magalie Whipple [facility] Unavailable [phone] Magalie Whipple Unavailable Unavailable Tamiko Renee [facility] Unavailable [phone] Anthony Roxana M PA-C Unavailable [phone] Encounter Details Date Type Department Care Team (Late st Contact Info) Description 01/27/2022 MyC Medical Advice Initial Department Michele Quiles Social History Tobacco Use Types [...] Answer Date Recorded PHQ-2 Score 2 01/20/2022 [facility] [place] of Occupat ional Health - Occupational Stress [...] place to sleep or slept in a mcc (including now)? No 06/23/2019 Education Answer Date Recorded What is the highest level of school you have completed or the highest degree you have received? 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 No / Unsure 01/09/2022 5:02 PM CDT documented as of this encounter Plan of Treatment Upcoming Encounters Date Type Department Care Team (Late st Contact Info) Description 12/08/2024 1:30 PM CDT Office Visit [facility] [address] [place] [address] Roxana Cruz PARodríguez [address] [place] [address] Ashanti Ordoñ[place] [address] [place] [address] documented as of this encounter Visit Diagnoses Not on filedocumented in this encounter Additional Health Concerns Assessment Noted Time PHQ-9 Depression Total Score: 8 01/21/20 22 10:31 AM CDT documented as of this encounter Care Teams Dope Weigh Operator Relationship Specialty Start Date End Date Mora Garrett MD PCP - General Family Practice 01/07/18 10/28/22 Ashanti Ordoñ[place] [address] [place] [address] PCP - General 10/29/22 Mora Garrett MD Assigned PCP 01/10/18 09/05/22 Katina Dow Personal Advocate & Liaison (PAL) Family Practice 09/20/19 09/15/22 Shana Singleton MD [address] [place] [address] [phone] Resident Student in organized health care education/training program 12/16/19 Tammi Buitrago, PharmD [address] [place] [address] [phone] Pharmacist Pharmacist 08/06/20 04/26/24 Tammi Buitrago, GudeliaD [address] [place] [address] 145794 Assigned MTM Pharmacist 01/08/2202/07 Crista Norton APRN UNDERLAY STITCHER [address] [place] [address] Assigned PCP 09/06/22 09/12/22 Jaz Ro AuD [address] [place] [address] Audiology 10/02/22 Ashanti Ordoñez [place] [address] [place] [address] Assigned PCP 09/13/22 04/03/24 Majo Roth, [facility] [address] [place] [address] Pharmacist Pharmacist Automation Technician 12/01/22 04/26/24 [facility] [address] [place], [place] 188[address] Assigned MTM Pharmacist 12/06/22 Magalie Whipple, [facility] [address] [place] [address] [address] Pharmacist Pharmacist 12/26/22 04/26/24 Magalie Whipple, [facility] [address] [place] [address] Assigned MTM Pharmacist 01/03/23 Magalie Whipple Medical Student 08/10/23 04/26/24 Tamiko Renee, [facility] [address] [place] [address] [address] Pharmacist Pharmacist 01/27/24 04/26/24 Roxana Cruz PA-C [address] [place] [phone] Assigned PCP 04/04/24 documented as of this encounter
--- OUTSIDE RECORDS SUMMARY | 2024-08-20 10:46 | XMS_ITS | Encounter Summary ---
Author Organization [place] Address [facility] [place] [address] Care Team Providers Care Missile And Missile Checkout Technician Name Role Phone Shana Singleton MD Unavailable [phone] Tammi Buitrago PharmD Unavailable [phone] Jaz Ro Unavailable [phone] Ashanti Ordoñez MD Unavailable [phone] Ashanti Ordoñez MD Primary Care Provider [phone] [facility] Unavailable [phone] [facility] Unavailable [phone] [facility] Unavailable Magalie Whipple Unavailable Unavailable Tamiko Renee [facility] Unavailable Roxana Cruz PA-C Unavailable [phone] Encounter Details Date Type Department Care Team (Late st Contact Info) Description 11/04/2023 MyC Medical Advice [address] [place] [address] Magalie Whipple, [facility] [address] [facility] [place] [address] Social History Tobacco Use [...] How often do you attend chur or spiritism services? More than 4 times per year 03/11/2023 Do you belong to any clubs o r organizations such as latter-day groups, unions, fraternal or athletic groups, or [...] Answer Date Recorded PHQ-2 Score 6 08/10/2023 [facility] [place] of Occupat ional Health - Occupational Stress [...] in an abandoned building, in an overnight retirement, or couch-surfing.) Yes 03/11/2023 Are you worried [...] Sex Assigned at Female 03/22/2018 7:28 AM CLASSIFICATION INSPECTOR Legal Sex Female 5:04 AM CLASSIFICATION INSPECTOR Gender Identity Female 03/22/2018 7:28 AM CLASSIFICATION INSPECTOR Sexual Orientation Straight 03/22/2018 7: 28 AM CLASSIFICATION INSPECTOR 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 [address] [place] [phone] Roxana Cruz, PAChesterC [address] [place] [address] Ashanti Ordoñ[place] [address] [place] [address] documented as of this encounter Visit Diagnoses Not on filedocumented in this encounter Additional Health Concerns Assessment Noted Time PHQ-9 Depression Total Score: 18 024 1:21 PM CDT documented as of this encounter Care Teams Missile And Missile Checkout Technician Relationship Specialty Start Date End Date Ashanti Ordoñ[place] [address] [place] [address] PCP - General 10/29/22 Shana Singleton MD [address] [place] [address]25 Resident Student in organized health care education/training program 12/16/19 Tammi Buitrago, GudeliaD [address] [place] [address] [phone] Pharmacist Pharmacist 08/06/20 04/26/24 Jaz Ro AuD [address] [place] [address] [phone] Audiology 10/02/22 Ashanti Ordoñ[place] [address] [place] [address] Assigned PCP 09/13/22 04/03/[address] [facility] [address] [place] [address] Pharmacist Pharmacist Underground Utility Locator 12/01/22 04/26/24 Magalie Whipple, [facility] [address] [place] [address] Pharmacist Pharmacist 12/26/22 04/26/24 Magalie Whipple, [facility] [address] [place] [address] Assigned MTM Pharmacist 01/03/23 Magalie Whipple Medical Student 08/10/23 04/26/24 Tamiko Renee, [facility] [address] [place] [address] [address] Pharmacist Pharmacist 01/27/24 04/26/24 Roxana Cruz PA-C [address] [place] [address] Assigned PCP 04/04/24 documented as of this encounter
--- OUTSIDE RECORDS SUMMARY | 2024-08-20 10:46 | XMS_ITS | Encounter Summary ---
Author Organization [place] Address [facility] [place] [address] Care Team Providers Care Psychopaedic Nurse Name Role Phone Shana Singleton MD Unavailable [phone] Tammi Buitrago PharmD Unavailable [phone] Jaz Ro Unavailable [phone] Ashanti Ordoñez MD Unavailable [phone] Ashanti Ordoñez MD Primary Care Provider [phone] Majo Roth [facility] Unavailable [phone] Magalie Whipple [facility] Unavailable [phone] Magalie Whipple [facility] Unavailable Magalie Whipple Unavailable Unavailable Tamiko Renee [facility] Unavailable [phone] Roxana Cruz PA-C Unavailable Encounter Details Date Type Department Care Team (Late st Contact Info) Description 10/26/2023 MyC Medical Advice [address] [place] [address] Magalie Whipple, [facility] [address] [facility] [place] [address] Obesity (BMI 30-39.9) (Primary Dx) Social History Tobacco Use Types [...] How often do you attend chur or latter-day services? More than 4 times per year 03/11/2023 Do you belong to any clubs o r organizations such as roman catholic groups, unions, fraternal or athletic groups, or [...] Answer Date Recorded PHQ-2 Score 6 08/10/2023 [facility] of Occupat ional Health - Occupational Stress [...] in an abandoned building, in an overnight skilled nursing, or couch-surfing.) Yes 03/11/2023 Are you worried [...] Sex Assigned at Female 03/22/2018 7:28 AM GRADUATE INTERNSHIP Legal Sex Female 5:04 AM GRADUATE INTERNSHIP Gender Identity Female 03/22/2018 7:28 AM GRADUATE INTERNSHIP Sexual Orientation Straight 03/22/2018 7: 28 AM GRADUATE INTERNSHIP 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 Plan of Treatment Upcoming Encounters Date Type Department Care Team (Late st Contact Info) Description 12/08/2024 1:30 PM CDT Office Visit [address] [address] Roxana Cruz BOB [address] [place] [address] Ashanti Ordoñ[place] [address] [place] [address] documented as of this encounter Visit Diagnoses Diagnosis Obesity (BMI 30-39.9)- Primary Obesity, unspecified documented in this encounter Additional Health Concerns Assessment Noted Time PHQ-9 Depression Total Score: 18 024 1:21 PM CDT documented as of this encounter Care Teams Psychopaedic Nurse Relationship Specialty Start Date End Date Ashanti Ordoñ[place] [address] [place] [address] PCP - General 10/29/22 Shana Singleton MD [address] [place] [address] 595645 Resident Student in organized health care education/training program 12/16/19 Tammi Buitrago, GudeliaD [address] [place] [address] 505494 Pharmacist Pharmacist 08/06/20 04/26/24 Jaz Ro AuD [address] [place] [address] 379385 Audiology 10/02/22 sAhanti Ordoñ[place] [address] [place] [address] Assigned PCP 09/13/22 04/03/24 Majo Roth [facility] [address] [place] [address] [phone] Pharmacist Pharmacist Burlap Spreader 12/01/22 04/26/24 Magalie Whipple, [facility] [address] [id number] Pharmacist Pharmacist 12/26/22 04/26/24 Magalie Whipple, [facility] [address] [id number] Assigned MTM Pharmacist 01/03/23 Magalie Whipple Medical Student 08/10/23 04/26/24 Tamiko Renee, [facility] [address] [place] [address] [address] Pharmacist Pharmacist 01/27/24 04/26/24 Roxana Cruz PAChesterC [address] [place] [address] Assigned PCP 04/04/24 documented as of this encounter
--- OUTSIDE RECORDS SUMMARY | 2024-08-20 10:46 | XMS_ITS | Encounter Summary ---
Author Organization [facility] Address [facility] [place] [address] Care Team Providers Care Flame Hardener Name Role Phone Mora Garrett MD Primary Care Prov ider Mora Garrett MD Unavailable + Mora Garrett MD Unavailable + Tony Francisco Unavailable Unavailable Katina Dow Unavailable Unavailable Shana Singleton MD Unavailable +[phone] Katina Dow Unavailable Unavailable Iftikhar, Tammi PharmD Unavailable [phone] Iftikhar, Tammi PharmD Unavailable +[phone] Iftikhar, Tammi PharmD Unavailable +[phone] Crista Norton APRN SPAR CAP BEVELER Unavailable [phone] Jaz Ro Wyatt Unavailable +[phone] Ashanti Ordoñez MD Unavailable [phone] Ashanti Ordoñez MD Primary Care Provider [phone] Majo Roth [facility] Unavailable [phone] Majo Roth [facility] Unavailable [phone] Magalie Whipple [facility] Unavailable Magalie Whipple [facility] Unavailable Magalie Whipple Unavailable Unavailable Tamiko Renee [facility] Unavailable Roxana Cruz PA-C Unavailable [phone] Encounter Details Date Type Department Care Team (Late st Contact Info) Description 04/01/2018 MyC Medical Advice [facility] [address] [place] [address] Shireen Nagy APRN SPAR CAP BEVELER [address] [place] [address] [address] [place], [place] [id number] Social History Tobacco Use Types Packs/Day Years Used Date Smoking Tobacco: Never Smokeless Tobacco: Never Alcohol Use Standard Drinks/Week Comments Yes 0 (1 standard drink = 0.6 oz pur e alcohol) rare Comments No Sex and Gender Information Value Date Recorded Sex Assigned at Female 03/22/2018 7:28 AM MANUFACTURING ADVISOR Legal Sex Female 5:04 AM MANUFACTURING ADVISOR Gender Identity Female 03/22/2018 7:28 AM MANUFACTURING ADVISOR Sexual Orientation Straight 03/22/2018 7: 28 AM MANUFACTURING ADVISOR documented as of this encounter Plan of Treatment Upcoming Encounters Date Type Department Care Team (Late st Contact Info) Description 12/08/2024 1:30 PM CDT Office Visit [facility] [address] [place] [address] Roxana Cruz PA-C [address] [place] [phone] Ashanti Ordoñ[place] [address] [place] [address] documented as of this encounter Visit Diagnoses Not on filedocumented in this encounter Additional Health Concerns Assessment Noted Time PHQ-9 Depression Total Score: 3 04/02/20 18 7:07 AM MANUFACTURING ADVISOR documented as of this encounter Care Teams Flame Hardener Relationship Specialty Start Date End Date Mora Garrett MD PCP - General Family Practice 01/07/18 10/28/22 Mora Garrett MD [facility] [address] [place] [address] PCP - Assigned PCP 01/10/18 06/15/18 Ashanti Ordoñ[place] [address] [place] [address] PCP - General 10/29/22 Mora Garrett MD Assigned PCP 01/10/18 09/05/22 Tony Francisco Personal Advocate & Liaison (PAL) Family Practice 04/11/19 09/19/19 Katina Dow Personal Advocate & Liaison (PAL) Family Practice 09/20/19 09/15/22 Shana Singleton MD [facility] [place], [place] [phone] Resident Student in organized health care education/training program 12/16/19 Katina Dow Personal Advocate & Liaison (PAL) Family Medicine 06/08/20 01/07/21 Tammi Buitrago, PharmD [address] [place] [address] [phone] Pharmacist Pharmacist 08/06/20 04/26/24 Tammi Buitrago, GudeliaD [address] [place] [address] [phone] Assigned MTM Pharmacist 09/07/21 Tammi Buitrago, PharmD [address] [place] [address] [phone] Assigned MTM Pharmacist 01/08/2202/07 Crista Norton APRN SPAR CAP BEVELER [address] [place] [address] Assigned PCP 09/06/22 09/12/22 Jaz Ro AuD [address] [place] [address] [phone] Audiology 10/02/22 Ashanti Ordoñ[place] [address] [place] [address] Assigned PCP 09/13/22 04/03/24 Majo Roth [facility] [address] [place] [address] [phone] Pharmacist Pharmacist Electrical Accessories Assembler 12/01/22 04/26/24 Majo Roth [facility] [address] [place] [address] [phone] Assigned MTM Pharmacist 12/06/22 Magalie Whipple [facility] [address] [place], [place] [phone] Pharmacist Pharmacist 12/26/22 04/26/24 Magalie Whipple, [facility] [address] [place] [address] [address] Assigned MTM Pharmacist 01/03/23 Magalie Whipple Medical Student 08/10/23 04/26/24 Tamiko Renee, [facility] [address] [place] [address] [address] Pharmacist Pharmacist 01/27/24 04/26/24 Roxana Cruz PAChesterC [address] [place] [address] Assigned PCP 04/04/24 documented as of this encounter
--- OUTSIDE RECORDS SUMMARY | 2024-08-20 10:46 | XMS_ITS | Encounter Summary ---
Author Organization [facility] Address [address] [place] [address] Care Team Providers Care Media Sales Representative Name Role Phone Shana Singleton MD Unavailable [phone] Tammi Buitrago PharmD Unavailable [phone] Jaz Ro Unavailable [phone] Ashanti Ordoñez MD Unavailable [phone] Ashanti Ordoñez MD Primary Care Provider [phone] Majo Roth [facility] Unavailable [phone] Magalie Whipple [facility] Unavailable [phone] Magalie Whipple [facility] Unavailable [phone] Magalie Whipple Unavailable Unavailable Tamiko Renee [facility] Unavailable Roxana Cruz PA-C Unavailable [phone] Encounter Details Date Type Department Care Team (Late st Contact Info) Description 11/06/2023 [facility] Medical Advice [facility] [address] [place] [address] Estee Loo MA Social History Tobacco Use Types Packs/Day Years [...] How often do you attend chur or baptist services? More than 4 times per year 03/11/2023 Do you belong to any clubs o r organizations such as anabaptism groups, unions, fraternal or athletic groups, or [...] Answer Date Recorded PHQ-2 Score 6 08/10/2023 [facility] - Occupational Stress [...] Date Recorded Do you have housing? 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 Plan of Treatment Upcoming Encounters Date Type Department Care Team (Late st Contact Info) Description 12/08/2024 1:30 PM CDT Office Visit [facility] [address] [place] [address] Roxana Cruz PA-C [address] [place] [phone] Ashanti Ordoñ[place] [address] [place] [address] documented as of this encounter Visit Diagnoses Not on filedocumented in this encounter Additional Health Concerns Assessment Noted Time PHQ-9 Depression Total Score: 18 08/09/ 024 1:21 PM CDT documented as of this encounter Care Teams Media Sales Representative Relationship Specialty Start Date End Date Ashanti Ordoñ[place] [address] [place] [address] PCP - General 10/29/22 Shana Singleton MD [address] [place] [address] [phone] Resident Student in [facility] health care education/training program 12/16/19 Tammi Buitrago, GudeliaD [address] [place] [address] [phone] Pharmacist Pharmacist 08/06/20 04/26/24 Jaz Ro AuD [address] [place] [address] [phone] Audiology 10/02/22 Ashanti Ordoñ[place] [address] [place] [address] Assigned PCP 09/13/22 04/03/24 Majo Roth [facility] [address] [place] [address] [phone] Pharmacist Pharmacist Collar Turner 12/01/22 04/26/24 Magalie Whipple [facility] [address] [place] [address] [address] [place], [place] [phone] Pharmacist Pharmacist 12/26/22 04/26/24 Magalie Whipple [facility] [address] [place] [address] [address] Assigned MTM Pharmacist 01/03/23 Magalie Whipple Medical Student 08/10/23 04/26/24 Tamiko Renee, [facility] [address] [place] [address] [address] Pharmacist Pharmacist 01/27/24 04/26/24 Roxana Cruz PAChesterC [address] [place] [address] Assigned PCP 04/04/24 documented as of this encounter
--- OUTSIDE RECORDS SUMMARY | 2024-08-20 10:46 | XMS_ITS | Encounter Summary ---
Author Organization [place] Address Critical access hospital0 [place] [address] Care Team Providers Care Environmental Engineer Name Role Phone Mora Garrett MD Primary Care Prov ider Mora Garrett MD Unavailable + Katina Dow Unavailable Unavailable Shana Singleton MD Unavailable [phone] Iftikhar, Tammi PharmD Unavailable +[phone] Fitikhar, Tammi PharmD Unavailable +[phone] Iftikhar, Tammi PharmD Unavailable +[phone] Crista Norton APRN FIBERGLASS BOAT ASSEMBLY SUPERVISOR Unavailable [phone] Doritanilton Jaz Schneider Unavailable +[phone] Ashanti Ordoñez MD Unavailable [phone] Ashanti Ordoñez MD Primary Care Provider [phone] Majo Roth Miesha Unavailable [phone] Majo Roth RPH Unavailable [phone] Magalie Whipple [facility] Unavailable [phone] Magalie Whipple [facility] Unavailable [phone] Magalie Whipple Unavailable Unavailable Tamiko Renee [facility] Unavailable Roxana Cruz Sirena PA-C Unavailable [phone] Encounter Details Date Type Department Care Team (Late st Contact Info) Description 11/05/2021 MyC Medical Advice [facility] [address] [address] Shana Singleton MD [address] [place] [address] Arthralgia of pelvic region and thigh, unspecified laterality; Moderate single current episode of major depressive disorder (H); Lumbar radiculopathy; PTSD (post-traumatic stress disorder) Social History Tobacco Use Types Packs/Day Years [...] and Family Once a week 11/06/2018 Attends Yazidism Services More than 4 times per year [...] points; Administer PHQ-9 if positive 1 08/05/2021 [facility] - Occupational Stress Questionnaire [...] place to sleep or slept in a jail (including now)? No 06/23/2019 Education Answer Date Recorded What is the highest level of school you have completed or the highest degree you have received? 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 documented in this encounter Plan of Treatment Upcoming Encounters Date Type Department Care Team (Late st Contact Info) Description 12/08/2024 1:30 PM CDT Office Visit [facility] [address] [place] [phone] Roxana Cruz PARodríguez [address] [place] [address] Ashanti Ordoñez [place] [id number] [place] [address] [phone] documented as of this encounter Visit Diagnoses [...] documented as of this encounter Care Teams Environmental Engineer Relationship Specialty Start Date End Date Mora Garrett MD PCP - General Family Practice 01/07/18 10/28/22 Ashanti Ordoñez [place] [id number] [place] [address] PCP - General 10/29/22 Mora Garrett MD Assigned PCP 01/10/18 09/05/22 Katina Dow Personal Advocate & Liaison (PAL) Family Practice 09/20/19 09/15/22 Shana Singleton MD [address] [place] [address] [phone] Resident Student in [facility] care education/training program 12/16/19 Tammi Buitrago, GudeliaD [address] [place] [address] [phone] Pharmacist Pharmacist 08/06/20 04/26/24 Tammi Buitrago, PharmD [address] [place] [address] [phone] Assigned MTM Pharmacist 09/07/21 Tammi Buitrago, PharmD [address] [place] [address] [phone] Assigned MTM Pharmacist 01/08/2202/07 Crista Norton APRN FIBERGLASS BOAT ASSEMBLY SUPERVISOR [address] [place] [address] Assigned PCP 09/06/22 09/12/22 Jaz Ro AuD [address] [place], [place] 618885 Audiology 10/02/22 Ashanti Ordoñ[place] [address] [address] [place] [address] Assigned PCP 09/13/22 04/03/24 Majo Roth, [facility] [address] [place], [place] 728[address] Pharmacist Pharmacist Research Associate Molecular Biology 12/01/22 04/26/24 Majo Roth [facility] [address] [place], [place] 14[address] Assigned MTM Pharmacist 12/06/22 Magalie Whipple, [facility] [address] [place] [address] Pharmacist Pharmacist 12/26/22 04/26/24 Magalie Whipple, [facility] [address] [place] [address] Assigned MTM Pharmacist 01/03/23 Magalie Whipple Medical Student 08/10/23 04/26/24 Tamiko Renee, [facility] [address] [place] [address] Pharmacist Pharmacist 01/27/24 04/26/24 Roxana Cruz PA-C [address] [place] [address] Assigned PCP 04/04/24 documented as of this encounter
--- OUTSIDE RECORDS SUMMARY | 2024-08-20 10:47 | XMS_ITS | Encounter Summary ---
Author Organization [place] Address [facility] [place] [address] Care Team Providers Care Cardiovascular Technologist Name Role Phone Mora Garrett MD Primary Care Prov ider Mora Garrett MD Unavailable + Katina Dow Unavailable Unavailable Shana Singleton MD Unavailable [phone] Iftikhar, Tammi PharmD Unavailable +[phone] Iftikhar, Tammi PharmD Unavailable +[phone] Iftikhar, Tammi PharmD Unavailable +[phone] Crista Norton APRN REAL ESTATE DIRECTOR Unavailable [phone] Doritanilton Jaz Schneider Unavailable +[phone] Ashanti Ordoñez MD Unavailable [phone] Ashanti Ordoñez MD Primary Care Provider [phone] Majo Roth Miesha Unavailable Majo Roth RPH Unavailable [phone] [facility]ie Whipple [facility] Unavailable +[phone] [facility] Whipple [facility] Unavailable +[phone] Magalie Whipple Unavailable Unavailable Tamiko Renee [facility] Unavailable Roxana Cruz PA-C Unavailable [phone] Encounter Details Date Type Department Care Team (Late st Contact Info) Description 05/06/2021 [facility] [address] [place] [address] Debbie Leblanc MD [address] [place] [address] Social History Tobacco Use Types Packs/Day Years [...] and Family Once a week 11/06/2018 Attends Baptism Services More than 4 times per year [...] or more points; Administer PHQ-9 if positive 2 04/23/2021 [facility] - Occupational Stress [...] place to sleep or slept in a fci (including now)? No 06/23/2019 Education Answer Date Recorded What is the highest level of school you have completed or the highest degree you have received? 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 No / Unsure 05/08/2021 5:07 PM AREA DIRECTOR OF HOME HEALTH SALES documented as of this encounter Plan of Treatment Upcoming Encounters Date Type Department Care Team (Late st Contact Info) Description 12/08/2024 1:30 PM CDT Office Visit [facility] [address] [place] [address] Roxana Cruz PA-C [address] [place] [address] Ashanti Ordoñ[place] [address] [place] [address] documented as of this encounter Visit Diagnoses Not on filedocumented in this encounter Additional Health Concerns Assessment Noted Time PHQ-9 Depression Total Score: 10 022 7:01 AM AREA DIRECTOR OF HOME HEALTH SALES documented as of this encounter Care Teams Cardiovascular Technologist Relationship Specialty Start Date End Date Mora Garrett MD PCP - General Family Practice 01/07/18 10/28/22 Ashanti Ordoñ[place] [address] [place] [address] PCP - General 10/29/22 Mora Garrett MD Assigned PCP 01/10/18 09/05/22 Katina Dow Personal Advocate & Liaison (PAL) Family Practice 09/20/19 09/15/22 Shana Singleton MD [address] [place] [address] Resident Student in organized health care education/training program 12/16/19 Tammi Buitrago, PharmD [address] [place] [address] Pharmacist Pharmacist 08/06/20 04/26/24 Tammi Buitrago, GudeliaD [address] [place] [address] Assigned MTM Pharmacist 09/07/21 Tammi Buitrago, GudeliaD [address] [place] [address] Assigned MTM Pharmacist 01/08/2202/07 Crista Norton APRN [facility] [address] [place] [address] Assigned PCP 09/06/22 09/12/22 Jaz Ro AuD [address] [place] [address] Audiology 10/02/22 Ashanti Ordoñ[place] [address] [place] [address] Assigned PCP 09/13/22 04/03/24 Majo Roth Miesha [address] [place] [address] Pharmacist Pharmacist Logging Operations Inspector 12/01/22 04/26/24 Majo Roth RPH [address] [place] [address] Assigned MTM Pharmacist 12/06/22 [facility] Whipple [facility] [address] [place] [address] [address] Pharmacist Pharmacist 12/26/22 04/26/24 Magalie Whipple, [facility] [address] [place] [address] [address] Assigned MTM Pharmacist 01/03/23 Magalie Whipple Medical Student 08/10/23 04/26/24 Tamiko Renee, [facility] [address] [address] Pharmacist Pharmacist 01/27/24 04/26/24 Roxana Cruz PAChesterC [address] [place] [address] Assigned PCP 04/04/24 documented as of this encounter
--- OUTSIDE RECORDS SUMMARY | 2024-08-20 10:47 | XMS_ITS | Encounter Summary ---
Author Organization [place] Address [facility] [place] [address] Care Team Providers Care Surveillance Supervisor Name Role Phone Mora Garrett MD Primary Care Prov ider Mora Garrett MD Unavailable + Tony Francisco Unavailable Unavailable Katina Dow Unavailable Unavailable Shana Singleton MD Unavailable [phone] Katina Dow Unavailable Unavailable Iftikhar, Tammi PharmD Unavailable +[phone] Iftikhar, Tammi PharmD Unavailable +[phone] Iftikhar, Tammi PharmD Unavailable +[phone] Crista Norton APRN DYE WEIGHER HELPER Unavailable [phone] Jaz Ro Unavailable [phone] Ashanti Ordoñez MD Unavailable [phone] Ashanti Ordoñez MD Primary Care Provider [phone] Majo Roth [facility] Unavailable [phone] Majo Roth [facility] Unavailable [phone] Magalie Whipple [facility] Unavailable [phone] Magalie Whipple [facility] Unavailable [phone] Magalie Whipple Unavailable Unavailable Tamiko Renee [facility] Unavailable Roxana Cruz PA-C Unavailable [phone] Reason for Visit * Reason Onset Date Comments Cough 05/05/2019 Encounter Details Date Type Department Care Team (Late st Contact Info) Description 05/05/2019 [facility] Medical Advice [address] [address] Mora Garrett MD [facility] [address] [address] Cough Social History Tobacco Use Types Packs/Day Years [...] and Family Once a week 11/06/2018 Attends Taoist Services More than 4 times per year [...] 11/06/2018 PHQ-2 Answer Date Recorded PHQ-2 Score 1 04/08/2019 [facility] [place] of Occupat ional Health - Occupational Stress [...] Sex Assigned at Female 03/22/2018 7:28 AM SIDE SAWYER Legal Sex Female 5:04 AM SIDE SAWYER Gender Identity Female 03/22/2018 7:28 AM SIDE SAWYER Sexual Orientation Straight 03/22/2018 7: 28 AM SIDE SAWYER 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 Garrett- see Biat message below. Please advise. Dipti Hernández RN SAWYER documented in this encounter Plan of Treatment Upcoming Encounters Date Type Department Care Team (Late st Contact Info) Description 12/08/2024 1:30 PM CDT Office Visit [facility] [address] [place] [address] Roxana Cruz PA-C [address] [place] [phone] Ashanti Ordoñ[place] [address] [place] [address] documented as of this encounter Visit Diagnoses Not on filedocumented in this encounter Additional Health Concerns Assessment Noted Time PHQ-9 Depression Total Score: 5 04/09/20 19 7:02 AM SIDE SAWYER documented as of this encounter Care Teams Surveillance Supervisor Relationship Specialty Start Date End Date Mora Garrett MD PCP - General Family Practice 01/07/18 10/28/22 Ashanti Ordoñ[place] [address] [place] [address] PCP - General 10/29/22 Mora Garrett MD Assigned PCP 01/10/18 09/05/22 Tony Francisco Personal Advocate & Liaison (PAL) Family Practice 04/11/19 09/19/19 Katina Dow Personal Advocate & Liaison (PAL) Family Practice 09/20/19 09/15/22 Shana Singleton MD [address] [place] [address] Resident Student in organized health care education/training program 12/16/19 Katina Dow Personal Advocate & Liaison (PAL) Family Medicine 06/08/20 01/07/21 Tammi Buitrago, PharmD [facility] [address] [address] Pharmacist Pharmacist 08/06/20 04/26/24 Tammi Buitrago, PharmD [facility] [address] [address] Assigned MTM Pharmacist 09/07/21 Tammi Buitrago, PharmD [address] [place] [address] 412574 Assigned MTM Pharmacist 01/08/2202/07 Crista Norton APRN DYE WEIGHER HELPER [address] [place] [address] Assigned PCP 09/06/22 09/12/22 Jaz Ro AuD [address] [place] [address] [phone] Audiology 10/02/22 Ashanti Ordoñ[place] [address] [place] [address] Assigned PCP 09/13/22 04/03/24 Majo Roth RPH [address] [place] [address] [phone] Pharmacist Pharmacist Closing Specialist 12/01/22 04/26/24 Majo Roth RPH [address] [place] [address] [phone] Assigned MTM Pharmacist 12/06/22 Magalie Whipple, [facility] [address] [place] [address] Pharmacist Pharmacist 12/26/22 04/26/24 Magalie Whipple, [facility] [address] [place] [address] [address] Assigned MTM Pharmacist 01/03/23 Magalie Whipple Medical Student 08/10/23 04/26/24 Tamiko Renee, [facility] [address] [place] [address] [address] Pharmacist Pharmacist 01/27/24 04/26/24 Roxana Cruz PA-C [address] [place] [address] Assigned PCP 04/04/24 documented as of this encounter
--- OUTSIDE RECORDS SUMMARY | 2024-08-20 10:47 | XMS_ITS | Encounter Summary ---
Author Organization [place] Address [facility] [place] [address] Care Team Providers Care Weather Anchor Name Role Phone Mora Garrett MD Primary Care Prov ider Mora Garrett MD Unavailable + Katina Dow Unavailable Unavailable Shana Singleton MD Unavailable [phone] Iftikhar, Tammi PharmD Unavailable +[phone] Iftikhar, Tammi PharmD Unavailable +[phone] Iftikhar, Tammi PharmD Unavailable +[phone] Crista Norton APRN CLOTH INSPECTOR Unavailable [phone] [place] Jaz Schneider Unavailable +[phone] Ashanti Ordoñez MD Unavailable [phone] Ashanti Ordoñez MD Primary Care Provider [phone] Majo Roth Miesha Unavailable [phone] Majo Roth RPH Unavailable [phone] Magalie Whipple [facility] Unavailable +[phone] Magalie Whipple [facility] Unavailable +[phone] Magalie Whipple Unavailable Unavailable Tamiko Renee [facility] Unavailable [phone] Venkat Cruzyla Sirena PA-C Unavailable [phone] Reason for Visit * Reason Onset Date Comments Refill Request 05/05/2021 Citalopram 20mg Encounter Details Date Type Department Care Team (Late st Contact Info) Description 05/05/2021 Refill M [facility] [address] [place] [address] Shireen Garzon MD [address] [address] Refill Request (Citalopram 20mg) Social History Tobacco Use Types Packs/Day Years [...] and Family Once a week 11/06/2018 Attends Alevism Services More than 4 times per year [...] points; Administer PHQ-9 if positive 2 04/23/2021 [facility] - Occupational [...] Sex Assigned at Female 03/22/2018 7:28 AM SIGN ERECTOR Legal Sex Female 5:04 AM SIGN ERECTOR Gender Identity Female 03/22/2018 7:28 AM SIGN ERECTOR Sexual Orientation Straight 03/22/2018 7: 28 AM SIGN ERECTOR 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 No / Unsure 05/08/2021 5:07 PM SIGN ERECTOR documented as of this encounter Plan of Treatment Upcoming Encounters Date Type Department Care Team (Late st Contact Info) Description 12/08/2024 1:30 PM CDT Office Visit [facility] [address] [place] [address] Roxana Cruz PA-C [address] [place] [phone] Ashanti Ordoñ[place] [address] [place] [address] documented as of this encounter Visit Diagnoses Diagnosis Major depressive disorder, recurrent episode, moderate (H) Major depressive disorder, recurrent episode, moderate documented in this encounter Additional Health Concerns Assessment Noted Time PHQ-9 Depression Total Score: 10 022 7:01 AM SIGN ERECTOR documented as of this encounter Care Teams Weather Anchor Relationship Specialty Start Date End Date Mora Garrett MD PCP - General Family Practice 01/07/18 10/28/22 Ashanti Ordoñ[place] [address] [place] [address] PCP - General 10/29/22 Mora Garrett MD Assigned PCP 01/10/18 09/05/22 Katina Dow Personal Advocate & Liaison (PAL) Family Practice 09/20/19 09/15/22 Shana Singleton MD [address] [place] [address] [phone] Resident Student in organized health care education/training program 12/16/19 Tammi Buitrago, GudeliaD [address] [place] [address] Pharmacist Pharmacist 08/06/20 04/26/24 Tammi Buitrago, GudeliaD [address] [place] [address] Assigned MTM Pharmacist 09/07/21 Tammi Buitrago, GudeliaD [address] [place] [address] Assigned MTM Pharmacist 01/08/2202/07 Crista Norton APRN [facility] [address] [place] [address] Assigned PCP 09/06/22 09/12/22 Jaz Ro AuD [address] [place] [address] 328105 Audiology 10/02/22 Ashanti Ordoñ[place] [address] [place] [address] Assigned PCP 09/13/22 04/03/24 Majo Roth RPH [address] [place] [address] [phone] [address] Pharmacist [address] Painter Helper 12/01/22 04/26/24 Majo Roth RPH [address] [place] [address] Assigned MTM Pharmacist 12/06/22 Magalie Whipple, [facility] [address] [place] [address] Pharmacist Pharmacist 12/26/22 04/26/24 Magalie Whipple, [facility] [address] [place] [address] Assigned MTM Pharmacist 01/03/23 Magalie Whipple Medical Student 08/10/23 04/26/24 Tamiko Renee, [facility] [address] [place] [address] [address] Pharmacist Pharmacist 01/27/24 04/26/24 Roxana Cruz PA-C [address] [place] [address] Assigned PCP 04/04/24 documented as of this encounter
--- OUTSIDE RECORDS SUMMARY | 2024-08-20 10:47 | XMS_ITS | Encounter Summary ---
Author Organization [place] Address [facility] [place] [address] Care Team Providers Care Payroll Accounting Manager Name Role Phone Shana Singleton MD Unavailable [phone] Tammi Buitrago PharmD Unavailable [phone] Jaz Ro Unavailable [phone] Ashanti Ordoñez MD Unavailable [phone] Ashanti Ordoñez MD Primary Care Provider [phone] Majo Roth [facility] Unavailable [phone] Magalie Whipple [facility] Unavailable [phone] Magalie Whipple [facility] Unavailable [phone] Magalie Whipple Unavailable Unavailable Tamiko Renee [facility] Unavailable Roxana Cruz PA-C Unavailable [phone] Encounter Details Date Type Department Care Team (Late st Contact Info) Description 09/09/2023 MyC Medical Advice [address] [place] [address] Magalie Whiplpe, [facility] [address] [facility] [place] [address] Social History Tobacco [...] How often do you attend chur or evangelical services? 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 Plan of Treatment Upcoming Encounters Date Type Department Care Team (Late st Contact Info) Description 12/08/2024 1:30 PM CDT Office Visit [facility] [address] [place] [phone] Roxana Cruz, PAChesterC [address] [place] [address] Ashanti Ordoñ[place] [address] [place] [address] documented as of this encounter Visit Diagnoses Not on filedocumented in this encounter Additional Health Concerns Assessment Noted Time PHQ-9 Depression Total Score: 18 024 1:21 PM CDT documented as of this encounter Care Teams Payroll Accounting Manager Relationship Specialty Start Date End Date Ashanti Ordoñ[place] [address] [place] [address] PCP - General 10/29/22 Shana Singleton MD [address] [place] [address] [phone] Resident Student in organized health care education/training program 12/16/19 Tammi Buitrago, GudeliaD [address] [place] [address] [phone] Pharmacist Pharmacist 08/06/20 04/26/24 Jaz Ro AuD [address] [place] [address] 048125 Audiology 10/02/22 Ashanti Ordoñ[place] [address] [place] [address] Assigned PCP 09/13/22 04/03/24 Majo Roth [facility] [address] [place] [address] Pharmacist Pharmacist Watch Band Assembler 12/01/22 04/26/24 Magalie Whipple, [facility] [address] [place] [address] [address] [address] Pharmacist Pharmacist 12/26/22 04/26/24 Magalie Whipple, [facility] [address] [place] [address] Assigned MTM Pharmacist 01/03/23 Magalie Whipple Medical Student 08/10/23 04/26/24 Tamiko Renee, [facility] [address] [place] [address] [address] Pharmacist Pharmacist 01/27/24 04/26/24 Roxana Cruz PA-C [address] [place] [address] Assigned PCP 04/04/24 documented as of this encounter
--- OUTSIDE RECORDS SUMMARY | 2024-08-20 10:47 | XMS_ITS | Encounter Summary ---
Author Organization [place] Address [facility] [place] [address] Care Team Providers Care Sign Language Teacher Name Role Phone Mora Garrett MD Primary Care Prov ider Mora Garrett MD Unavailable + Mora Garrett MD Unavailable + Tony Francisco Unavailable Unavailable Katina Dow Unavailable Unavailable Shana Singleton MD Unavailable [phone] Katina Dow Unavailable Unavailable Iftikhar, Tammi PharmD Unavailable [phone] Iftikhar, Tammi PharmD Unavailable [phone] Iftikhar, Tammi PharmD Unavailable +[phone] Crista Norton APRN SALES PERFORMANCE MANAGER Unavailable [phone] Jaz Ro Wyatt Unavailable [phone] Ashanti Ordoñez MD Unavailable [phone] Ashanti Ordoñez MD Primary Care Provider [phone] Majo Roth [facility] Unavailable [phone] Majo Roth [facility] Unavailable [phone] Magalie Whipple [facility] Unavailable [phone] Magalie Whipple [facility] Unavailable [phone] Magalie Whipple Unavailable Unavailable Tamiko Renee [facility] Unavailable Anthony Roxanalachelle [facility] Unavailable [phone] Reason for Visit * Reason Comments Medication Refill tiZANidine (ZANAFLEX ) 2 MG tablet Encounter Details Date Type Department Care Team (Late st Contact Info) Description 05/21/[address] [address] Mora Garrett MD [place] [phone] Medication Refill (tiZANidine (ZANAFLEX) 2 MG tablet) Social History Tobacco Use Types Packs/Day Years Used Date Smoking Tobacco: Never Smokeless Tobacco: Never Alcohol Use Standard Drinks/Week Comments Yes 0 (1 standard drink = 0.6 oz pur e alcohol) rare PHQ-2 Answer Date Recorded PHQ-2 Score 1 04/21/2018 Comments No Sex and Gender Information Value Date Recorded Sex Assigned at Female 03/22/2018 7:28 AM ASSISTANT RESTAURANT GENERAL MANAGER Legal Sex Female 5:04 AM ASSISTANT RESTAURANT GENERAL MANAGER Gender Identity Female 03/22/2018 7:28 AM ASSISTANT RESTAURANT GENERAL MANAGER Sexual Orientation Straight 03/22/2018 7: 28 AM ASSISTANT RESTAURANT GENERAL MANAGER documented as of this encounter Miscellaneous Notes * Telephone Encounter - Dipti Hernández RN - 05/24/2018 10:34 AM ASSISTANT RESTAURANT GENERAL MANAGER Images from the original note were not included. Not PSO med. Sent to provider. Dipti Hernández RN 04/24/18 ASSESSMENT/PLAN: ?? 1. Other skin changes ?? - TSH with free T4 reflex ?? 2. Moderate single current episode of major depressive disorder (H) - long discussion with patient with her baseline back pain we can switch from celexa to cymbalta tosee if this provides better coverage for her pain as well as her mood. Tapering schedule for celexadiscussed - DULoxetine (CYMBALTA) 30 MG capsule; Take 1 capsule (30 mg) by mouth daily Dispense: 30 capsule; Refill: 0 ?? 3. Lumbar radiculopathy - will start on trial of cymbalta - DULoxetine (CYMBALTA) 30 MG capsule; Take 1 capsule (30 mg) by mouth daily Dispense: 30 capsule; Refill: 0 - tiZANidine (ZANAFLEX) 2 MG tablet; 1-2 tablets three times a day as needed Dispense: 60 tablet; Refill: 0 - nabumetone (RELAFEN) 500 MG tablet; Take 1-2 tablets (500-1,000 mg) by mouth 2 times daily as needed for moderate pain Dispense: 120 tablet; Refill: 1 - lidocaine (LIDODERM) 5 % patch; Place 3 patches onto the skin every 24 hours Dispense: 90 patch; Refill: 1 - acetaminophen-codeine (TYLENOL #3) 300-30 MG tablet; Take 1 tablet by mouth every 6 hours as needed for severe pain Dispense: 10 tablet; Refill: 0 ?? 4. Strain of lumbar region, subsequent encounter - tiZANidine (ZANAFLEX) 2 MG tablet; 1-2 tablets three times a day as needed Dispense: 60 tablet; Refill: 0 - acetaminophen-codeine (TYLENOL #3) 300-30 MG tablet; Take 1 tablet by mouth every 6 hours as needed for severe pain Dispense: 10 tablet; Refill: 0 ?? 5. Cervical radiculopathy - lidocaine (LIDODERM) 5 % patch; Place 3 patches onto the skin every 24 hours Dispense: 90 patch; Refill: 1 ?? 6. Dandruff in adult - will start on trial of nizoral - ketoconazole (NIZORAL) 2 % external shampoo; Use every 3 to 4 days for up to 8 weeks; then apply only as needed to control dandruff. Dispense: 120 mL; Refill: 1 ?? 7. Colon cancer screening - GASTROENTEROLOGY ADULT REF PROCEDURE ONLY Aaron Acevedo952) [phone] ?? 8. Watery eyes - regimen vision OTC for now if no improvement advise follow up with her eye provider. See Patient Instructions ?? Mora Garrett MD [facility] ? Instructions Return in about 1 month (around 05/25/2018). STANT RESTAURANT GENERAL MANAGER * Telephone Encounter - Genaro Dupree - 05/21/2018 2:38 PM CST Requested Prescriptions Pending Prescriptions Disp Refills ??? tiZANidine (ZANAFLEX) 2 MG tablet [Pharmacy Med Name: TIZANIDINE HCL 2MG TABS] Last Written Prescription Date: 04/24/2018 Last Fill Quantity: 60 tablet, # refills: 0 Last office visit: 04/24/2018 with prescribing provider: Mora Garrett MD Future Office Visit: 60 tablet 0 Sig: TAKE ONE TO TWO TABLETS BY MOUTH THREE TIMES A DAY NEEDED There is no refill protocol information for this order STANT RESTAURANT GENERAL MANAGER documented in this encounter Plan of Treatment Upcoming Encounters Date Type Department Care Team (Late st Contact Info) Description 12/08/2024 1:30 PM CDT Office Visit [address] [address] Roxana Cruz PA-C [address] [place] [address] Ashanti Ordoñez [place] [id number] [place] [address] documented as of this encounter Visit Diagnoses Diagnosis Lumbar radiculopathy Thoracic or lumbosacral neuritis or radiculitis, unspecified Strain of lumbar region, subsequent encounter documented in this encounter Additional Health Concerns Assessment Noted Time PHQ-9 Depression Total Score: 3 04/02/20 18 7:07 AM ASSISTANT RESTAURANT GENERAL MANAGER documented as of this encounter Care Teams Sign Language Teacher Relationship Specialty Start Date End Date Mora Garrett MD PCP - General Family Practice 01/07/18 10/28/22 Mora Garrett MD [facility] [address] [place] [address] PCP - Assigned PCP 01/10/18 06/15/18 Ashanti Ordoñ[place] [address] [place] [address] PCP - General 10/29/22 Mora Garrett MD Assigned PCP 01/10/18 09/05/22 Tony Francisco Personal Advocate & Liaison (PAL) Family Practice 04/11/19 09/19/19 Katina Dow Personal Advocate & Liaison (PAL) Family Practice 09/20/19 09/15/22 Shana Singleton MD [address] [place] [address] 369375 Resident Student in organized health care education/training program 12/16/19 Katina Dow Personal Advocate & Liaison (PAL) Family Medicine 06/08/20 01/07/21 Tammi Buitrago, GudeliaD [address] [place] [address] [phone] Pharmacist Pharmacist 08/06/20 04/26/24 Tammi Buitrago, PharmD [address] [place] [address], [place] [address] Assigned MTM Pharmacist 09/07/21 Tammi Buitrago, GudeliaD [address] [address] Assigned MTM Pharmacist 01/08/2202/07 Crista Norton APRN SALES PERFORMANCE MANAGER [address] [place] [address] Assigned PCP 09/06/22 09/12/22 Jaz Ro AuD [address] [place] [address] Audiology 10/02/22 Ashanti Ordoñ[place] [address] [place] [address] Assigned PCP 09/13/22 04/03/24 Majo Roth [facility] [address] [place] [address] Pharmacist Pharmacist Tamale Maker 12/01/22 04/26/24 Majo Roth [facility] [address] [place] [address] Assigned MTM Pharmacist 12/06/22 Magalie Whipple [facility] [address] [place] [address] Pharmacist Pharmacist 12/26/22 04/26/24 Magalie Whipple [facility] [address] [place] [address] Assigned MTM Pharmacist 01/03/23 Magalie Whipple Medical Student 08/10/23 04/26/24 Tamiko Renee, [facility] [address] [place], [place] [address] Pharmacist Pharmacist 01/27/24 04/26/24 Roxana Cruz PA-C [address] [place] [address] Assigned PCP 04/04/24 documented as of this encounter
--- OUTSIDE RECORDS SUMMARY | 2024-08-20 10:47 | XMS_ITS | Encounter Summary ---
Author Organization [place] Address [facility] [place] [address] Care Team Providers Care Report Specialist Name Role Phone Mora Garrett MD Primary Care Prov ider Mora Garrett MD Unavailable + Katina Dow Unavailable Unavailable Shana Singleton MD Unavailable [phone] Iftikhar, Tammi PharmD Unavailable +[phone] Iftikhar, Tammi PharmD Unavailable +[phone] Iftikhar, Tammi PharmD Unavailable +[phone] Crista Norton APRN MARKET PRESIDENT Unavailable [phone] [place] Jaz Schneider Unavailable +[phone] Ashanti Ordoñez MD Unavailable [phone] Ashanti Ordoñez MD Primary Care Provider [phone] Majo Roth Miesha Unavailable [phone] Majo Roth RPH Unavailable [phone] Magalie Whipple [facility] Unavailable [phone] Magalie Whipple [facility] Unavailable [phone] Magalie Whipple Unavailable Unavailable Tamiko Renee [facility] Unavailable [phone] Roxana Cruz PA-C Unavailable [phone] Reason for Visit * Reason Onset Date Comments Medication Question 06/20/2021 Encounter Details Date Type Department Care Team (Late st Contact Info) Description 06/20/2021 [facility] Medical Advice [facility] Mental Health & Addiction [place] [phone] [address] Shana Singleton MD [address] [place] [address] Medication Question Social History Tobacco Use Types Packs/Day Years Used Date Smoking Tobacco: Never Smokeless Tobacco: Never Alcohol Use Standard Drinks/Week Comments Yes 0 (1 standard drink = 0.6 oz pur e alcohol) 1x week Social Connection and Isolat ion Panel [...] points; Administer PHQ-9 if positive 2 04/23/2021 [facility] [place] of Occupat ional Health - Occupational Stress [...] Sex Assigned at Female 03/22/2018 7:28 AM INTERVENTIONAL NEURORADIOLOGIST Legal Sex Female 5:04 AM INTERVENTIONAL NEURORADIOLOGIST Gender Identity Female 03/22/2018 7:28 AM INTERVENTIONAL NEURORADIOLOGIST Sexual Orientation Straight 03/22/2018 7: 28 AM INTERVENTIONAL NEURORADIOLOGIST 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 Shana Singleton MD [place], Victoria, RN Hi Victoria, Yes, I agree with you. Please, encourage her to talk with her PCP first before tapering Celexa. That does not sound like RLS and I think medical causes need to be considered. She could split her doseof trazodone in half and take it every night or take it nightly for a period of time then go back to not taking it nightly after getting the pain figured out. I know she is concerned that it will be difficult to stop trazodone though if it is providing her relief and allowing her to sleep, that sounds like a more acute issue to me. Thank you for helping with this!! Shana ?? Previous Messages ?? ----- Message ----- From: Jaz Ivey RN Sent: 06/20/2021 ?? 8:17 AM INTERVENTIONAL NEURORADIOLOGIST To: Shana Singleton MD Subject: Pain ? ----- Message from Jaz Ivey RN sent at 06/20/2021 ??8:17 AM INTERVENTIONAL NEURORADIOLOGIST ----- Shana Paulino! Please see Written message - her appt is not until 07/15 - do you agree with her tapering Celexa? Or should I encourage her to talk to PCP first to rule out medical causes, like polyneuropathy from iron deficiency, or the lumbar radiculopathy? And take trazodone nightly? Thank you! VV Follow up: - relayed the above via response to Written message. RVENTIONAL NEURORADIOLOGIST documented in this encounter Plan of Treatment Upcoming Encounters Date Type Department Care Team (Late st Contact Info) Description 12/08/2024 1:30 PM CDT Office Visit [facility] [address] [place] [address] Roxana Cruz PARodríguez [address] [place] [address] Ashanti Ordoñ[place] [address] [place] [address] documented as of this encounter Visit Diagnoses Not on filedocumented in this encounter Additional Health Concerns Assessment Noted Time PHQ-9 Depression Total Score: 10 022 7:01 AM INTERVENTIONAL NEURORADIOLOGIST documented as of this encounter Care Teams Report Specialist Relationship Specialty Start Date End Date Mora Garrett MD PCP - General Family Practice 01/07/18 10/28/22 Ashanti Ordoñ[place] [address] [place] [address] PCP - General 10/29/22 Mora Garrett MD Assigned PCP 01/10/18 09/05/22 Katina Dow Personal Advocate & Liaison (PAL) Family Practice 09/20/19 09/15/22 Shana Singleton MD [address] [place] [address] 555465 Resident Student in organized health care education/training program 12/16/19 Tammi Buitrago, Pako [address] [place] [address] 393134 Pharmacist Pharmacist 08/06/20 04/26/24 Tammi Buitrago PharmD [address] [place] [address] 495644 Assigned MTM Pharmacist 09/07/21 Tammi Buitrago, GudeliaD [address] [address] Assigned MTM Pharmacist 01/08/2202/07 Crista Norton APRN MARKET PRESIDENT [address] [place] [address] Assigned PCP 09/06/22 09/12/22 Jaz Ro AuD [address] [place] [address] Audiology 10/02/22 Ashanti Ordoñ[place] [address] [place] [address] Assigned PCP 09/13/22 04/03/24 Majo Roth [facility] [address] [place] [address] Pharmacist Pharmacist Cinder Crew Worker 12/01/22 04/26/24 Majo Roth [facility] [address] [place] [address] Assigned MTM Pharmacist 12/06/22 Magalie Whipple [facility] [address] [place] [address] Pharmacist Pharmacist 12/26/22 04/26/24 Magalie Whipple [facility] [address] [id number] Assigned MTM Pharmacist 01/03/23 Magalie Whipple Medical Student 08/10/23 04/26/24 Tamiko Renee, [facility] [address] [place] [address] Pharmacist Pharmacist 01/27/24 04/26/24 Roxana Cruz PA-C [address] [place] [address] Assigned PCP 04/04/24 documented as of this encounter
--- OUTSIDE RECORDS SUMMARY | 2024-08-20 10:47 | XMS_ITS | Encounter Summary ---
Author Organization [place] Address [facility] [place] [address] Care Team Providers Care Critical Care Clinical Nurse Specialist Name Role Phone Mora Garrett MD Primary Care Prov ider Mora Garrett MD Unavailable + Mora Garrett MD Unavailable + Tony Francisco Unavailable Unavailable Katina Dow Unavailable Unavailable Shana Singleton MD Unavailable +[phone] Katina Dow Unavailable Unavailable Iftikhar, Tammi PharmD Unavailable +[phone] Iftikhar, Tammi PharmD Unavailable +[phone] Iftikhar, Tammi PharmD Unavailable +[phone] Crista Norton APRN CORK INSULATION INSTALLER Unavailable +[phone] Jaz Ro Wyatt Unavailable +[phone] Ashanti Ordoñez MD Unavailable +[phone] Ashanti Ordoñez MD Primary Care Provider + [phone] Majo Roth [facility] Unavailable [phone] Majo oRth [facility] Unavailable [phone] Magalie Whipple [facility] Unavailable [phone] Magalie Whipple [facility] Unavailable [phone] Magalie Whipple Unavailable Unavailable Tamiko Renee [facility] Unavailable [phone] Roxana Cruz PA-C Unavailable +[phone] Reason for Visit * Reason Onset Date Comments Referral 05/13/2018 New Eval Encounter Details Date Type Department Care Team (Late st Contact Info) Description 05/13/2018 Telephone [facility] [address] [place] [address] [address] [place] [address] Pain Management Program, [facility] Referral (New Eval) Social History Tobacco Use Types Packs/Day Years Used Date Smoking Tobacco: Never Smokeless Tobacco: Never Alcohol Use Standard Drinks/Week Comments Yes 0 (1 standard drink = 0.6 oz pur e alcohol) rare Social Connection and Isolation Panel [NHANES] A nswer Date Recorded Frequency of Communication with Friends and Fami ly Not on file 12/09/2023 How often do you get together with friends or re latives? Once a week 12/09/2023 Attends Scientology Services Not on file 12/08 Active Member [...] Answer Date Recorded PHQ-2 Score 1 06/13/2024 [facility] [place] of Occupat ional Health - Occupational Stress [...] in an abandoned building, in an overnight care home, or couch-surfing.) Yes 12/09/2023 Are you [...] by your partner or ex-partner? No 12/09/2023 Comments No Sex and Gender Information Value Date Recorded Sex Assigned at Female 03/22/2018 7:28 AM VEHICLE BODY BUILDER Legal Sex Female 5:04 AM VEHICLE BODY BUILDER Gender Identity Female 03/22/2018 7:28 AM VEHICLE BODY BUILDER Sexual Orientation Straight 03/22/2018 7: 28 AM VEHICLE BODY BUILDER COVID-19 Exposure Response Date Recorded In the last 10 days, have yo u been in contact with someone who was confirmed or suspected to have Coronavirus/COVID-19? No / Unsure 01/16/2023 1:10 PM CDT documented as of this encounter Functional Status * Audit-C Score Answer Date of Assessment Author 1 03/11/2023 9:53 AM VEHICLE BODY BUILDER Tablet, A [place] * Q1: How often do you have a drink containing alcohol? Answer Date of Assessment Author Monthly or less 03/11/2023 9:53 AM VEHICLE BODY BUILDER Tablet, A [place] * Q2: How many drinks containing alcohol do you have on a typical day when you are drinking? Answer Date of Assessment Author 1 or 2 03/11/2023 9:53 AM VEHICLE BODY BUILDER Tablet, A [place]ple [place] * Q3: How often do you have six or more drinks on one occasion? Answer Date of Assessment Author Never 03/11/2023 9:53 AM VEHICLE BODY BUILDER Tablet, A [place]ple [place] documented as of this encounter Miscellaneous Notes * Telephone Encounter - Yan Hayward - 05/18/2018 8:52 AM CST Pt declined to schedule. Yan Bautista Pain Management CLE BODY BUILDER * Telephone Encounter - Yan Hayward - 05/13/2018 2:12 PM CST LM for pt to schedule New Eval. Yan Bautista Pain Management CLE BODY BUILDER documented in this encounter Plan of Treatment Upcoming Encounters Date Type Department Care Team (Late st Contact Info) Description 12/08/2024 1:30 PM CDT Office Visit [facility] [address] [place] [phone] Roxana Cruz PA-C [address] [place] [phone] Ashanti Ordoñ[place] [address] [place], [place] [phone] documented as of this encounter Visit Diagnoses Not on filedocumented in this encounter Additional Health Concerns Assessment Noted Time PHQ-9 Depression Total Score: 3 04/02/20 18 7:07 AM VEHICLE BODY BUILDER documented as of this encounter Care Teams Critical Care Clinical Nurse Specialist Relationship Specialty Start Date End Date Mora Garrett MD PCP - General Family Practice 01/07/18 10/28/22 Mora Garrett MD [facility] [address] [place] [address] PCP - Assigned PCP 01/10/18 06/15/18 Ashanti Ordoñ[place] [address] [place] [address] PCP - General 10/29/22 Mora Garrett MD Assigned PCP 01/10/18 09/05/22 Tony Francisco Personal Advocate & Liaison (PAL) Family Practice 04/11/19 09/19/19 Katina Dow Personal Advocate & Liaison (PAL) Family Practice 09/20/19 09/15/22 Shana Singleton MD [address] [place] [address] Resident Student in organized health care education/training program 12/16/19 Katina Dow Personal Advocate & Liaison (PAL) Family Medicine 06/08/20 01/07/21 Tammi Buitrago, PharmD [address] [address] Pharmacist Pharmacist 08/06/20 04/26/24 Tammi Buitrago, PharmD [address] [phone] Assigned MTM Pharmacist 09/07/21 Tammi Buitrago, PharmD [facility] [address] [phone] Assigned MTM Pharmacist 01/08/2202/07 Crista Norton APRN CORK INSULATION INSTALLER [address] [place] [address] Assigned PCP 09/06/22 09/12/22 Jaz oR AuD [address] [place] [address] Audiology 10/02/22 Ashanti Ordoñ[place] [address] [place] [address] Assigned PCP 09/13/22 04/03/24 Majo Roth RPH [address] [place] [address] [phone] Pharmacist Pharmacist Senior Copywriter 12/01/22 04/26/24 Majo Roth RPH [address] [place] [address] [phone] Assigned MTM Pharmacist 12/06/22 Magalie Whipple, [facility] [address] [place] [address] Pharmacist Pharmacist 12/26/22 04/26/24 Magalie Whipple, [facility] [address] [place] [address] Assigned MTM Pharmacist 01/03/23 Magalie Whipple Medical Student 08/10/23 04/26/24 Tamiko Renee, [facility] [address] [place] [address] Pharmacist Pharmacist 01/27/24 04/26/24 Roxana Cruz PA-C [address] [place] [address] Assigned PCP 04/04/24 documented as of this encounter
--- OUTSIDE RECORDS SUMMARY | 2024-08-20 10:47 | XMS_ITS | Encounter Summary ---
Author Organization [place] Address [facility] [place] [address] Care Team Providers Care School Bus Driver/Teacher Assistant Name Role Phone Mora Garrett MD Primary Care Prov ider Mora Garrett MD Unavailable + Katina Dow Unavailable Unavailable Shana Singleton MD Unavailable [phone] Katina Dow Unavailable Unavailable Tammi Buitrago PharmD Unavailable [phone] Iftikhar Tammi PharmD Unavailable +[phone] Iftikhar, Tammi PharmD Unavailable +[phone] Crista Norton APRN ELECTRONIC ASSEMBLY Unavailable [phone] Jaz Ro Unavailable +[phone] Ashanti Ordoñez MD Unavailable [phone] Ashanti Ordoñez MD Primary Care Provider [phone] Majo Roth RPH Unavailable [phone] Majo Roth RPH Unavailable [phone] Magalie Whipple [facility] Unavailable [phone] Magalie Whipple [facility] Unavailable [phone] Magalie Whipple Unavailable Unavailable Tamiko Renee [facility] Unavailable Roxana Cruz PA-C Unavailable [phone] Reason for Visit * Reason Comments Medication Refill Encounter Details Date Type Department Care Team (Late st Contact Info) Description 01/18/[address] [facility] [id number] [place] [address] Hong Allred PA-C [address] [place] [address] Medication Refill Social History Tobacco Use Types [...] and Family Once a week 11/06/2018 Attends Temple Services More than 4 times per year [...] PHQ-2 Answer Date Recorded PHQ-2 Score 2 06/23/2019 [facility] [place] of Occupat ional Health - Occupational Stress [...] Sex Assigned at Female 03/22/2018 7:28 AM SERVICE INSPECTOR Legal Sex Female 5:04 AM SERVICE INSPECTOR Gender Identity Female 03/22/2018 7:28 AM SERVICE INSPECTOR Sexual Orientation Straight 03/22/2018 7: 28 AM SERVICE INSPECTOR 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 Sabina Cintron RN on 01/19/2020 at 8:55 AM documented in this encounter Plan of Treatment Upcoming Encounters Date Type Department Care Team (Late st Contact Info) Description 12/08/2024 1:30 PM CDT Office Visit [facility] [address] [place] [address] Roxana Cruz PA-C [address] [place] [address] Ashanti Ordoñ[place] [address] [place] [address] documented as of this encounter Visit Diagnoses Diagnosis Migraine with aura and without status migrainosus, not intractable Migraine with aura, without mention of intractable migraine without mention of status migrainosus documented in this encounter Additional Health Concerns Assessment Noted Time PHQ-9 Depression Total Score: 8 01/10/20 20 7:10 AM CDT documented as of this encounter Care Teams School Bus Driver/Teacher Assistant Relationship Specialty Start Date End Date Mora Garrett MD PCP - General Family Practice 01/07/18 10/28/22 Ashanti Ordoñez [place] [address] [place] [address] PCP - General 10/29/22 Mora Garrett MD Assigned PCP 01/10/18 09/05/22 Katina Dow Personal Advocate & Liaison (PAL) Family Practice 09/20/19 09/15/22 Shana Singleton MD [address] [place] [address] [phone] Resident Student in organized health care education/training program 12/16/19 Katina Dow Personal Advocate & Liaison (PAL) Family Medicine 06/08/20 01/07/21 Tammi Buitrago, PharmD [address] [place] [address] 335124 Pharmacist Pharmacist 08/06/20 04/26/24 Tammi Buitrago, PharmD [address] [place] [address] [phone] Assigned MTM Pharmacist 09/07/21 Tammi Buitrago, PharmD [address] [place] [address] [phone] Assigned MTM Pharmacist 01/08/2202/07 Crista Norton APRN ELECTRONIC ASSEMBLY [address] [place], [place] [phone] Assigned PCP 09/06/22 09/12/22 Jaz Ro AuD [address] [place] [address] [phone] Audiology 10/02/22 Ashanti Ordoñ[place] [address] [place] [address] Assigned PCP 09/13/22 04/03/24 Majo Roth RPH [address] [place] [address] [phone] Pharmacist Pharmacist Area Attendant 12/01/22 04/26/24 Majo Roth, [facility] [address] [place] [address] Assigned MTM Pharmacist 12/06/22 Magalie Whipple, [facility] [address] [id number] Pharmacist Pharmacist 12/26/22 04/26/24 Magalie Whipple, [facility] [address] [place] [address] Assigned MTM Pharmacist 01/03/23 Magalie Whipple Medical Student 08/10/23 04/26/24 Tamiko Renee, [facility] [address] [place] [address] Pharmacist Pharmacist 01/27/24 04/26/24 Roxana Cruz PA-C [address] [place] [address] Assigned PCP 04/04/24 documented as of this encounter
--- OUTSIDE RECORDS SUMMARY | 2024-08-20 10:47 | XMS_ITS | Encounter Summary ---
Author Organization [place] Address [facility] [place] [address] Care Team Providers Care Anatomic Pathology Assistant Name Role Phone Shana Singleton MD Unavailable [phone] Tammi Buitrago PharmD Unavailable +[phone] Jaz Ro Unavailable [phone] Ashanti Ordoñez MD Unavailable [phone] Ashanti Ordoñez MD Primary Care Provider [phone] Majo Roth [facility] Unavailable [phone] Magalie Whipple [facility] Unavailable [phone] Magalie Whipple [facility] Unavailable [phone] Magalie Whipple Unavailable Unavailable Tamiko Renee [facility] Unavailable Roxana Cruz PA-C Unavailable [phone] Encounter Details Date Type Department Care Team (Late st Contact Info) Description 08/11/2023 MyC Medical Advice [address] [place] [address] Magalie Whipple, [facility] [address] [facility] [place] [address] Social History [...] How often do you attend chur or uatsdin services? More than 4 times per year 03/11/2023 Do you belong to any clubs o r organizations such as scientology groups, unions, fraternal or athletic groups, or [...] Answer Date Recorded PHQ-2 Score 6 08/10/2023 [facility] [place] of Occupat ional Health - Occupational Stress [...] in an abandoned building, in an overnight correction, or couch-surfing.) Yes 03/11/2023 Are you worried [...] Sex Assigned at Female 03/22/2018 7:28 AM CHANGE BOOTH ATTENDANT Legal Sex Female 5:04 AM CHANGE BOOTH ATTENDANT Gender Identity Female 03/22/2018 7:28 AM CHANGE BOOTH ATTENDANT Sexual Orientation Straight 03/22/2018 7: 28 AM CHANGE BOOTH ATTENDANT 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 Plan of Treatment Upcoming Encounters Date Type Department Care Team (Late st Contact Info) Description 12/08/2024 1:30 PM CDT Office Visit [facility] [address] [place] [address] Roxana Cruz, [place]C [address] [place] [address] Ashanti Ordoñ[place] [address] [place] [address] documented as of this encounter Visit Diagnoses Not on filedocumented in this encounter Additional Health Concerns Assessment Noted Time PHQ-9 Depression Total Score: 18 024 1:21 PM CDT documented as of this encounter Care Teams Anatomic Pathology Assistant Relationship Specialty Start Date End Date Ashanti Ordoñ[place] [address] [place] [address] PCP - General 10/29/22 Shana Singleton MD [address] [place] [address] [phone] Resident Student in organized health care education/training program 12/16/19 Tammi Buitrago, GudeliaD [address] [place] [address] [phone] Pharmacist Pharmacist 08/06/20 04/26/24 Jaz Ro AuD [address] [place] [address] [phone] Audiology 10/02/22 Ashanti Ordoñ[place] [address] [place] [address] Assigned PCP 09/13/22 04/03/24 Majo Roth [facility] [address] [place] [address] Pharmacist Pharmacist Airconditioning Drafting Officer 12/01/22 04/26/24 Magalie Whipple, [facility] [address] [place] [address] Pharmacist Pharmacist 12/26/22 04/26/24 Magalie Whipple, [facility] [address] [place] [address] Assigned MTM Pharmacist 01/03/23 Magalie Whipple Medical Student 08/10/23 04/26/24 Tamiko Renee, [facility] [address] [place] [address] [address] Pharmacist Pharmacist 01/27/24 04/26/24 Roxana Cruz PA-C [address] [place] [address] Assigned PCP 04/04/24 documented as of this encounter
--- OUTSIDE RECORDS SUMMARY | 2024-08-20 10:47 | XMS_ITS | Encounter Summary ---
Author Organization [place] Address [facility] [place] [address] Care Team Providers Care Insurance Claim Representative Name Role Phone Mora Garrett MD Primary Care Prov ider Mora Garrett MD Unavailable + Katina Dow Unavailable Unavailable Shana Singleton MD Unavailable +[phone] Katina Dow Unavailable Unavailable Tammi Buitrago PharmD Unavailable +[phone] Iftikhar Tammi PharmD Unavailable +[phone] Iftikhar, Tammi PharmD Unavailable +[phone] Crista Norton APRN SANDWICH AND DRINK CART OPERATOR Unavailable [phone] Jaz Ro Unavailable +[phone] Ashanti Ordoñez MD Unavailable +[phone] Ashanit Ordoñez MD Primary Care Provider [phone] Majo Roth RPH Unavailable [phone] Majo Roth RPH Unavailable [phone] Magalie Whipple [facility] Unavailable +[phone] Magalie Whipple [facility] Unavailable [phone] Magalie Whipple Unavailable Unavailable Tamiko Renee [facility] Unavailable Roxana Cruz PA-C Unavailable [phone] Reason for Visit * Reason Onset Date Comments Refill Request 05/17/2020 [facility] Encounter Details Date Type Department Care Team (Late st Contact Info) Description 05/17/2020 MyC Rupa M [address] [address] Hong Allred PA-C [address] [place], [place] [phone] Refill Request (Maxalt) Social History Tobacco Use Types Packs/Day Years [...] Answer Date Recorded PHQ-2 Score 3 01/29/2020 [facility] [place] of Occupat ional Health - Occupational Stress [...] place to sleep or slept in a fpc (including now)? No 06/23/2019 Education Answer Date Recorded What is the highest level of school you have completed or the highest degree you have received? 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 No / Unsure 05/07/2020 1:04 PM NUCLEAR FUELS RECLAMATION ENGINEER documented as of this encounter Miscellaneous Notes * Telephone Encounter - Tonya Byrne RN - 05/21/2020 10:29 AM CST Disp Refills Start End RERE rizatriptan (MAXALT) 5 MG tablet 18 tablet 1 05/17/2020 No Sig: TAKE ONE TO TWO TABLETS BY MOUTH AT ONSET OF HEADACHE FOR MIGRAINE Sent to pharmacy as: Rizatriptan Benzoate 5 MG Oral Tablet (MAXALT) Class: E-Prescribe Order: [id number] E-Prescribing Status: Receipt confirmed by pharmacy (05/17/2020 ??5:02 PM NUCLEAR FUELS RECLAMATION ENGINEER) [facility] Tonya Byrne RN EAR FUELS RECLAMATION ENGINEER documented in this encounter Plan of Treatment Upcoming Encounters Date Type Department Care Team (Late st Contact Info) Description 12/08/2024 1:30 PM CDT Office Visit [facility] [address] [place] [address] Roxana Cruz PA-C [address] [place] [phone] Ashanti Ordoñez [place] [address] [place] [address] documented as of this encounter Visit Diagnoses Diagnosis Migraine with aura and without status migrainosus, not intractable Migraine with aura, without mention of intractable migraine without mention of status migrainosus documented in this encounter Additional Health Concerns Assessment Noted Time PHQ-9 Depression Total Score: 11 020 7:02 AM CDT documented as of this encounter Care Teams Insurance Claim Representative Relationship Specialty Start Date End Date Mora Garrett MD PCP - General Family Practice 01/07/18 10/28/22 Ashanti Ordoñ[place] [address] [place] [address] PCP - General 10/29/22 Mora Garrett MD Assigned PCP 01/10/18 09/05/22 Katina Dow Personal Advocate & Liaison (PAL) Family Practice 09/20/19 09/15/22 Shana Singleton MD [address] [place] [address] [phone] Resident Student in organized health care education/training program 12/16/19 Katina Dow Personal Advocate & Liaison (PAL) Family Medicine 06/08/20 01/07/21 Tammi Buitrago, GudeliaD [address] [place] [address] [phone] Pharmacist Pharmacist 08/06/20 04/26/24 Tammi Buitrago, PharmD [address] [place] [address] 665364 Assigned MTM Pharmacist 09/07/21 Tammi Buitrago, PharmD [address] [place] [address] 167384 Assigned MTM Pharmacist 01/08/2202/07 Crista Norton APRN SANDWICH AND DRINK CART OPERATOR [address] [place] [address] Assigned PCP 09/06/22 09/12/22 Jaz Ro AuD [address] [place] [address] [phone] Audiology 10/02/22 Ashanti Ordoñ[place] [address] [place] [address] Assigned PCP 09/13/22 04/03/24 [facility] [address] [place] [address] Pharmacist Pharmacist Mail Distributor 12/01/22 04/26/24 [facility] [address] [place] [address] Assigned MTM Pharmacist 12/06/22 Magalie Whipple, [facility] [address] [place] [address] Pharmacist Pharmacist 12/26/22 04/26/24 [facility] [address] [place] [address] Assigned MTM Pharmacist 01/03/23 Magalie Whipple Medical Student 08/10/23 04/26/24 Tamiko Renee, [facility] [address] [place] [address] Pharmacist Pharmacist 01/27/24 04/26/24 Roxana Cruz PA-C [address] [place] [address] Assigned PCP 04/04/24 documented as of this encounter
--- OUTSIDE RECORDS SUMMARY | 2024-08-20 10:47 | XMS_ITS | Encounter Summary ---
Author Organization [place] Address [facility] [place] [address] Care Team Providers Care Agricultural Technical Officer Name Role Phone Mora Garrett MD Primary Care Prov ider Mora Garrett MD Unavailable + Katina Dow Unavailable Unavailable Shana Singleton MD Unavailable +[phone] Iftikhar, Tammi PharmD Unavailable +[phone] Iftikhar, Tammi PharmD Unavailable +[phone] Iftikhar, Tammi PharmD Unavailable +[phone] Crista Norton APRN SHIP'S CAPTAIN Unavailable +[phone] Doritanilton Jaz Schneider Unavailable +[phone] Ashanti Ordoñez MD Unavailable +[phone] Ashanti Ordoñez MD Primary Care Provider [phone] Majo Roth Miesha Unavailable [phone] Majo Roth RPH Unavailable [phone] Magalie Whipple [facility] Unavailable +[phone] Magalie Whipple [facility] Unavailable +[phone] Magalie Whipple Unavailable Unavailable Tamiko Renee [facility] Unavailable [phone] Roxana Cruz PA-C Unavailable Reason for Visit * Reason Onset Date Comments Medication Question 09/10/2021 Antidepressa nt switch Encounter Details Date Type Department Care Team (Late st Contact Info) Description 09/10/2021 MyC Medical Advice [facility] Mental Health & Addiction [place] [id number] [address] [address] Shana Singleton MD 3518 [place] [address] Medication Question (Antidepressant switch) Social History Tobacco Use Types Packs/Day Years [...] points; Administer PHQ-9 if positive 1 08/05/2021 [facility] [place] of Occupat ional Health - Occupational Stress [...] Sex Assigned at Female 03/22/2018 7:28 AM SPINNING FRAME CHANGER Legal Sex Female 5:04 AM SPINNING FRAME CHANGER Gender Identity Female 03/22/2018 7:28 AM SPINNING FRAME CHANGER Sexual Orientation Straight 03/22/2018 7: 28 AM SPINNING FRAME CHANGER 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 She would like to increase Cymbalta from 60 mg to 90 mg to see ifthat would be beneficial. documented in this encounter Plan of Treatment Upcoming Encounters Date Type Department Care Team (Late st Contact Info) Description 12/08/2024 1:30 PM CDT Office Visit [facility] [address] [place] [phone] Roxana Cruz PA-C [address] [place] [address] Ashanti Ordoñ[place] [address] [place] [address] documented as of this encounter Visit Diagnoses Not on filedocumented in this encounter Additional Health Concerns Assessment Noted Time PHQ-9 Depression Total Score: 5 08/07/19 22 7:02 AM CDT documented as of this encounter Care Teams Agricultural Technical Officer Relationship Specialty Start Date End Date Mora Garrett MD PCP - General Family Practice 01/07/18 10/28/22 Ashanti Ordoñ[place] [address] [place] [address] PCP - General 10/29/22 Mora Garrett MD Assigned PCP 01/10/18 09/05/22 Katina Dow Personal Advocate & Liaison (PAL) Family Practice 09/20/19 09/15/22 Shana Singleton MD [address] [place] [address] [id number] Resident Student in [facility] care education/training program 12/16/19 Tammi Buitrago, GudeliaD [address] [place] [address] [phone] Pharmacist Pharmacist 08/06/20 04/26/24 Tammi Buitrago, GudeliaD [address] [place] [address] 173254 Assigned MTM Pharmacist 09/07/21 Tammi Buitrago PharmD [address] [place] [address] [phone] Assigned MTM Pharmacist 01/08/2202/07 Crista Norton APRN CNP [address] [place], [place] [phone] Assigned PCP 09/06/22 09/12/22 Jaz Ro AuD [address] [place] [address] [phone] Audiology 10/02/22 Ashanti Ordoñ[place] [address] [place] [address] Assigned PCP 09/13/22 04/03/24 Majo Roth [facility] [address] [place] [address] [phone] Pharmacist Pharmacist Recapper 12/01/22 04/26/24 Majo Rtoh, [facility] [address] [place] [address] Assigned MTM Pharmacist 12/06/22 Magalie Whipple, [facility] [address] [id number] Pharmacist Pharmacist 12/26/22 04/26/24 Magalie Whipple, [facility] [address] [place] [address] Assigned MTM Pharmacist 01/03/23 Magalie Whipple Medical Student 08/10/23 04/26/24 Tamiko Renee, [facility] [place] [address] [address] Pharmacist Pharmacist 01/27/24 04/26/24 Roxana Cruz PA-C [address] [place] [address] Assigned PCP 04/04/24 documented as of this encounter
--- OUTSIDE RECORDS SUMMARY | 2024-08-20 10:47 | XMS_ITS | Encounter Summary ---
Author Organization [place] Address [facility] [place] [address] Care Team Providers Care Leadite Heater Name Role Phone Mora Garrett MD Primary Care Prov ider Mroa Garrett MD Unavailable + Katina Dow Unavailable Unavailable Shana Singleton MD Unavailable [phone] Iftikhar, Tammi PharmD Unavailable +[phone] Iftikhar, Tammi PharmD Unavailable +[phone] Iftikhar, Tammi PharmD Unavailable +[phone] Crista Norton APRN MOTOR TUNE UP SPECIALIST Unavailable +[phone] Doritanilton Jaz Schneider Unavailable +[phone] Ashanti Ordoñez MD Unavailable [phone] Ashanti Ordoñez MD Primary Care Provider +[phone] Majo Roth Miesha Unavailable [phone] Majo Roth RPH Unavailable [phone] Magalie Whipple [facility] Unavailable +[phone] Magalie Whipple [facility] Unavailable +[phone] Magalie Whipple Unavailable Unavailable Tamiko Renee [facility] Unavailable Roxana Cruz PA-C Unavailable [phone] Reason for Visit * Reason Onset Date Comments Prior Auth - Medication 09/24/2021 Duloxeti ne 30mg-APPROVED Encounter Details Date Type Department Care Team (Late st Contact Info) Description 09/24/2021 Telephone [facility] Mental Health & Addiction [place] [id number] [address] Shana Singleton MD 46[address] [place] [address] Prior Auth - Medication (Duloxetine 30mg-APPROVED) Social History Tobacco Use Types Packs/Day Years [...] re latives? Once a week 12/09/2023 Attends Christian Services Not on file 12/08 Active Member [...] Answer Date Recorded PHQ-2 Score 1 06/13/2024 [facility] [place] of Occupat ional Health - Occupational Stress [...] Sex Assigned at Female 03/22/2018 7:28 AM SITE SUPERINTENDENT Legal Sex Female 5:04 AM SITE SUPERINTENDENT Gender Identity Female 03/22/2018 7:28 AM SITE SUPERINTENDENT Sexual Orientation Straight 03/22/2018 7: 28 AM SITE SUPERINTENDENT Occupation Industry Job Start Date Job End [...] of Assessment Author 1 03/11/2023 9:53 AM SITE SUPERINTENDENT Tablet, [place] * Q1: How often do you have a drink containing alcohol? Answer Date of Assessment Author Monthly or less 03/11/2023 9:53 AM SITE SUPERINTENDENT Tablet, [place] * Q2: How many drinks containing alcohol do you have on a typical day when you are drinking? Answer Date of Assessment Author 1 or 2 03/11/2023 9:53 AM SITE SUPERINTENDENT Tablet, [place] * Q3: How often do you have six or more drinks on one occasion? Answer Date of Assessment Author Never 03/11/2023 9:53 AM SITE SUPERINTENDENT Tablet, [place] documented as of this encounter Miscellaneous Notes * Telephone Encounter - Nancy Maciel - 09/30/2021 4:11 PM CDT Images from the original note were not included. Prior Authorization Approval Authorization Effective Date: 09/26/2021 Authorization Expiration Date: 09/26/2022 Medication: Duloxetine 30mg-APPROVED Approved Dose/Quantity: #90/30 days Reference #: Insurance Company: [employer] Part D - Expected CoPay: CoPay Card Available: Foundation Assistance Needed: Which Pharmacy is filling the prescription (Not needed for infusion/clinic administered): [facility] [id number] [place] [address] Pharmacy Notified: Yes Patient Notified: No * Telephone Encounter - Raheem Nancy T - 09/26/2021 12:43 PM CDT Images from the original note were not included. Central Prior Authorization Team PA Initiation Medication: Duloxetine 30mg Insurance Company: [employer] Part D - Pharmacy Filling the Rx: [place], [place] - [address] [facility] Filling Pharmacy Filling Pharmacy Fax: Start Date: 09/26/2021 * Telephone Encounter - Olivia Kendall - 09/24/2021 5:55 PM CDT Gelacio Puckett's dose is one 30mg three times daily (90mg) total daily. The insurance is limiting do max daily dose of 1 capsule. They do not make this medication in 90mg. Please contact insurance to start prior auth. Please do not close this encounter until this has been addressed. (prior auth approved/denied, prescriber refusal to complete prior auth or medication changed/discontinued) Prior Authorization needed on: Duloxetine 30mg (#90) Drug [facility]: [id number] Insurance: [facility] commercial Insurance phone #: [phone] Pharmacy Pharmacy Phone #: [phone] Pharmacy Fax #: [phone] Please let us know if the PA gets approved or denied or if medication is changed Thank you, Olivia Kendall [facility] Staff Director Of Religious Activities [facility] Pharmacy [email or web address] #: Fax#: documented in this encounter Plan of Treatment Upcoming Encounters Date Type Department Care Team (Late st Contact Info) Description 12/08/2024 1:30 PM CDT Office Visit [facility] [address] [place] [address] Roxana Cruz PA-C [address] [place] [phone] Ashanti Ordoñ[place] [address] [place] [address] documented as of this encounter Visit Diagnoses Not on filedocumented in this encounter Additional Health Concerns Assessment Noted Time PHQ-9 Depression Total Score: 5 08/07/19 22 7:02 AM CDT documented as of this encounter Care Teams Leadite Heater Relationship Specialty Start Date End Date Mora Garrett MD PCP - General Family Practice 01/07/18 10/28/22 Ashanti Ordoñ[place] [address] [place] [address] PCP - General 10/29/22 Mora Garrett MD Assigned PCP 01/10/18 09/05/22 Katina Dow Personal Advocate & Liaison (PAL) Family Practice 09/20/19 09/15/22 Shana Singleton MD [address] [place] [address] [phone] Resident Student in organized health care education/training program 12/16/19 Tammi Buitrago, PharmD [address] [place] [address] [phone] Pharmacist Pharmacist 08/06/20 04/26/24 Tammi Buitrago, GudeliaD [address] [place] [address] Assigned MTM Pharmacist 09/07/21 Tammi Buitrago, PharmD [address] [place] [address]38 Assigned MTM Pharmacist 01/08/2202/07 Crista Norton APRN MOTOR TUNE UP SPECIALIST [address] [place] [address] Assigned PCP 09/06/22 09/12/22 Jaz Ro AuD [address] [place] [address] Audiology 10/02/22 Ashanti Ordoñez [place] [address] [place] [address] Assigned PCP 09/13/22 04/03/24 Majo Roth [facility] [address] [place] [address] Pharmacist Pharmacist Vp Customer Development 12/01/22 04/26/24 Majo Roth [facility] [address] [place] [address] Assigned MTM Pharmacist 12/06/22 Magalie Whipple [facility] [address] [place] [address] Pharmacist Pharmacist 12/26/22 04/26/24 Magalie Whipple [facility] [address] [place] [address] Assigned MTM Pharmacist 01/03/23 Magalie Whipple Medical Student 08/10/23 04/26/24 Tamiko Renee, [facility] [address] [place] [address] Pharmacist Pharmacist 01/27/24 04/26/24 Roxana Cruz PA-C [address] [place] [address] Assigned PCP 04/04/24 documented as of this encounter
--- OUTSIDE RECORDS SUMMARY | 2024-08-20 10:47 | XMS_ITS | Encounter Summary ---
Author Organization [place] Address [facility] [place] [address] Care Team Providers Care Clicking Machine Operator Name Role Phone Mora Garrett MD Primary Care Prov ider Mora Garrett MD Unavailable + Katina Dow Unavailable Unavailable Shana Singleton MD Unavailable +[phone] Iftikhar, Tammi PharmD Unavailable +[phone] Iftikhar, Tammi PharmD Unavailable +[phone] Iftikhar, Tammi PharmD Unavailable +[phone] Crista Norton APRN PILOT PLANT OPERATOR Unavailable +[phone] Doritanilton Jaz Schneider Unavailable +[phone] Ashanti Ordoñez MD Unavailable [phone] Ashanti Ordoñez MD Primary Care Provider [phone] Majo Roth Miesha Unavailable [phone] Majo Roth RPH Unavailable [phone] Magalie Whipple [facility] Unavailable [phone] Magalie Whipple [facility] Unavailable [phone] Magalie Whipple Unavailable Unavailable Tamiko Renee [facility] Unavailable [phone] AnthonyVenkatRoxana Sirena PA-C Unavailable [phone] Reason for Visit * Reason Onset Date Comments Refill Request 05/06/2021 tizanidine Encounter Details Date Type Department Care Team (Late st Contact Info) Description 05/06/2021 Refill M [address] [address] Mora Garrett MD [facility] [address] [address] Refill Request (tizanidine) Social History Tobacco Use Types Packs/Day Years [...] and Family Once a week 11/06/2018 Attends Orthodox Services More than 4 times per year [...] points; Administer PHQ-9 if positive 2 04/23/2021 [facility] of Occupat ional Health - [...] place to sleep or slept in a intermediate (including now)? No 06/23/2019 Education Answer Date Recorded What is the highest level of school you have completed or the highest degree you have received? 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 No / Unsure 05/08/2021 5:07 PM REVENUE CYCLE SPECIALIST documented as of this encounter Miscellaneous Notes * Telephone Encounter - Lety Garcia RN - 05/06/2021 11:25 AM REVENUE CYCLE SPECIALIST Routing refill request to provider for review/approval because: Drug not on the [facility] refill protocol Lety Garcia RN [facility] -- Triage Nurse NUE CYCLE SPECIALIST documented in this encounter Plan of Treatment Upcoming Encounters Date Type Department Care Team (Late st Contact Info) Description 12/08/2024 1:30 PM CDT Office Visit [facility] [address] [place] [phone] Roxana Cruz PA-C [address] [place] [address] Ashanti Ordoñez [place] [id number] [place] [address] [phone] documented as of this encounter Visit Diagnoses Diagnosis Migraine with aura and without status migrainosus, not intractable- Primary Migraine with aura, without mention of intractable migraine without mention of status migrainosus documented in this encounter Additional Health Concerns Assessment Noted Time PHQ-9 Depression Total Score: 10 022 7:01 AM REVENUE CYCLE SPECIALIST documented as of this encounter Care Teams Clicking Machine Operator Relationship Specialty Start Date End Date Mora Garrett MD PCP - General Family Practice 01/07/18 10/28/22 Ashanti Ordoñ[place] [address] [place], [place] [phone] PCP - General 10/29/22 Mora Garrett MD Assigned PCP 01/10/18 09/05/22 Katina Dow Personal Advocate & Liaison (PAL) Family Practice 09/20/19 09/15/22 Shana Singleton MD [address] [place] [address] [phone] Resident Student in organized health care education/training program 12/16/19 Tammi Buitrago, GudeliaD [address] [place] [address] [phone] Pharmacist Pharmacist 08/06/20 04/26/24 Tammi Buitrago PharmD [address] [place] [address] [phone] Assigned MTM Pharmacist 09/07/21 Tammi Buitrago, PharmD [address] [place] [address] [id number] Assigned MTM Pharmacist 01/08/2202/07 Crista Norton APRN PILOT PLANT OPERATOR [address] [place] [address] Assigned PCP 09/06/22 09/12/22 Jaz Ro AuD [address] [place], [place] 814135 Audiology 10/02/22 Ashanti Ordoñ[place] [address] [place], [place] [phone] Assigned PCP 09/13/22 04/03/24 Majo Roth, [facility] [address] [place] [address] Pharmacist Pharmacist Prepress Operator 12/01/22 04/26/24 Majo Roth, [facility] [address] [place] [address] Assigned MTM Pharmacist 12/06/22 Magalie Whipple, [facility] [address] [place] [address] Pharmacist Pharmacist 12/26/22 04/26/24 Magalie Whipple, [facility] [address] [place] [address] Assigned MTM Pharmacist 01/03/23 Magalie Whipple Medical Student 08/10/23 04/26/24 Tamiko Renee, [facility] [address] [place] [address] Pharmacist Pharmacist 01/27/24 04/26/24 Roxana Cruz PA-C [address] [place] [address] Assigned PCP 04/04/24 documented as of this encounter
--- OUTSIDE RECORDS SUMMARY | 2024-08-20 10:47 | XMS_ITS | Encounter Summary ---
Author Organization [place] Address [facility] [place] [address] Care Team Providers Care Grip Assembler Name Role Phone Mora Garrett MD Primary Care Prov ider Mora Garrett MD Unavailable + Katina Dow Unavailable Unavailable Shana Singleton MD Unavailable +[phone] Katina Dow Unavailable Unavailable Tammi Buitrago PharmD Unavailable +[phone] Iftikhar Tammi PharmD Unavailable +[phone] Iftikhar, Tammi PharmD Unavailable +[phone] Crista Norton APRN HOG RIBBER Unavailable [phone] Jaz Ro Unavailable +[phone] Ashanti Ordoñez MD Unavailable [phone] Ashanti Ordoñez MD Primary Care Provider [phone] Majo Roth RPH Unavailable [phone] Majo Roth RPH Unavailable [phone] Magalie Whipple [facility] Unavailable [phone] Magalie Whipple [facility] Unavailable [phone] Magalie Whipple Unavailable Unavailable Tamiko Renee [facility] Unavailable Roxana Cruz Sirena PA-C Unavailable [phone] Reason for Visit * Reason Comments Medication Refill Encounter Details Date Type Department Care Team (Late st Contact Info) Description 10/27/[address], [address] [place] [address] [place] [address] [place] [address] Medication Refill Social History Tobacco Use Types [...] and Family Once a week 11/06/2018 Attends Faith Services More than 4 times per year [...] Answer Date Recorded PHQ-2 Score 2 06/23/2019 [facility] [place] of Occupat ional Health - Occupational Stress [...] Sex Assigned at Female 03/22/2018 7:28 AM LINE HAUL TRUCK DRIVER Legal Sex Female 5:04 AM LINE HAUL TRUCK DRIVER Gender Identity Female 03/22/2018 7:28 AM LINE HAUL TRUCK DRIVER Sexual Orientation Straight 03/22/2018 7: 28 AM LINE HAUL TRUCK DRIVER 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 No / Unsure 10/10/2019 1:03 PM CDT documented as of this encounter Miscellaneous Notes * Telephone Encounter - Breonna Xavier RN - 10/27/2019 5:02 PM CDT Prescription approved per [facility], [facility] or [facility] refill protocol. Breonna Adame - Registered Nurse [facility] documented in this encounter Plan of Treatment Upcoming Encounters Date Type Department Care Team (Late st Contact Info) Description 12/08/2024 1:30 PM CDT Office Visit [facility] [address] [place] [phone] Roxana Cruz PA-C [address] [place] [phone] Ashanti Ordoñ[place] [address] [place] [address] documented as of this encounter Visit Diagnoses Diagnosis Benign paroxysmal positional vertigo, unspecified laterality documented in this encounter Additional Health Concerns Assessment Noted Time PHQ-9 Depression Total Score: 10 020 3:27 PM CDT documented as of this encounter Care Teams Grip Assembler Relationship Specialty Start Date End Date Mora Garrtet MD PCP - General Family Practice 01/07/18 10/28/22 Ashanti Ordoñ[place] [address] [place] [address] PCP - General 10/29/22 Mora Garrett MD Assigned PCP 01/10/18 09/05/22 Katina Dow Personal Advocate & Liaison (PAL) Family Practice 09/20/19 09/15/22 Shana Singleton MD [address] [place] [address] [phone] Resident Student in organized health care education/training program 12/16/19 Katina Dow Personal Advocate & Liaison (PAL) Family Medicine 06/08/20 01/07/21 Tammi Buitrago, PharmD [address] [place] [address] [phone] Pharmacist Pharmacist 08/06/20 04/26/24 Tammi Buitrago, PharmD [address] [place] [address] 298604 Assigned MTM Pharmacist 09/07/21 Tammi Buitrago, PharmD [address] [place] [address] 121894 Assigned MTM Pharmacist 01/08/2202/07 Crista Norton APRN HOG RIBBER [address] [place] [address] Assigned PCP 09/06/22 09/12/22 Jaz Ro AuD [address] [place], [place] 171915 Audiology 10/02/22 Ashanti Ordoñ[place] [address] [place] [address] Assigned PCP 09/13/22 04/03/24 Majo Roth [facility] [address] [place] [address] Pharmacist Pharmacist Aerial Survey Technician 12/01/22 04/26/24 Majo Roth, [facility] [address] [place] [address] Assigned MTM Pharmacist 12/06/22 Magalie Whipple, [facility] [address] [place] [address] Pharmacist Pharmacist 12/26/22 04/26/24 Magalie Whipple, [facility] [address] [place] [address] [address] Assigned MTM Pharmacist 01/03/23 Magalie Whipple Medical Student 08/10/23 04/26/24 Tamiko Renee, [facility] [address] [place] [address] [address] Pharmacist Pharmacist 01/27/24 04/26/24 Roxana Cruz PA-C [address] [place] [address] Assigned PCP 04/04/24 documented as of this encounter
--- OUTSIDE RECORDS SUMMARY | 2024-08-20 10:47 | XMS_ITS | Encounter Summary ---
Author Organization [place] Address [facility] [place] [address] Care Team Providers Care Variety Lathe Operator Name Role Phone Mora Garrett MD Primary Care Prov ider Mora Garrett MD Unavailable + Katina Dow Unavailable Unavailable Shana Singleton MD Unavailable +[phone] Katina Dow Unavailable Unavailable Tammi Buitrago PharmD Unavailable +[phone] Iftikhar Tammi PharmD Unavailable +[phone] Iftikhar, Tammi PharmD Unavailable +[phone] Crista Norton APRN ROLL UP MACHINE OPERATOR Unavailable [phone] Jaz Ro Unavailable + [phone] Ashanti Ordoñez MD Unavailable +[phone] Ashanti Ordoñez MD Primary Care Provider [phone] Majo Roth RPH Unavailable [phone] Majo Roth RPH Unavailable [phone] Magalie Whipple [facility] Unavailable [phone] Magalie Whipple [facility] Unavailable [phone] Magalie Whipple Unavailable Unavailable Tamiko Renee [facility] Unavailable AnthonyRoxana Sirena PA-C Unavailable [phone] Encounter Details Date Type Department Care Team (Latest Contact Info) Description 01/30/2020 Historic Results Social History Tobacco Use Types Packs/Day Years [...] Answer Date Recorded PHQ-2 Score 3 01/29/2020 [facility] [place] of Occupat ional Health - Occupational Stress [...] Sex Assigned at Female 03/22/2018 7:28 AM BAG BLEACHER Legal Sex Female 5:04 AM BAG BLEACHER Gender Identity Female 03/22/2018 7:28 AM BAG BLEACHER Sexual Orientation Straight 03/22/2018 7: 28 AM BAG BLEACHER Occupation Industry Job Start Date Job End [...] Description 12/08/2024 1:30 PM CDT Office Visit [facility] [address] [place] [phone] Roxana Cruz, PAChesterC [address] [place] [address] Ashanti Ordoñ[place] [address] [place] [address] documented as of this encounter Visit Diagnoses Not on filedocumented in this encounter Additional Health Concerns Assessment Noted Time PHQ-9 Depression Total Score: 11 020 7:02 AM CDT documented as of this encounter Care Teams Variety Lathe Operator Relationship Specialty Start Date End Date Mora Garrett MD PCP - General Family Practice 01/07/18 10/28/22 Ashanti Ordoñ[place] [address] [place] [address] PCP - General 10/29/22 Mora Garrett MD Assigned PCP 01/10/18 09/05/22 Katina Dow Personal Advocate & Liaison (PAL) Family Practice 09/20/19 09/15/22 Shana Singleton MD [address] [place] [address] [phone] Resident Student in organized health care education/training program 12/16/19 Katina Dow Personal Advocate & Liaison (PAL) Family Medicine 06/08/20 01/07/21 Tammi Buitrago, GudeliaD [address] [place] [address] 305424 Pharmacist Pharmacist 08/06/20 04/26/24 Tammi Buitrago, GudeliaD [address] [place] [address] Assigned MTM Pharmacist 09/07/21 Tammi Buitrago, GudeliaD [address] [place] [address] Assigned MTM Pharmacist 01/08/2202/07 Crista Norton APRN ROLL UP MACHINE OPERATOR [address] [place] [address] Assigned PCP 09/06/22 09/12/22 Jaz Ro AuD [address] [place] [address] Audiology 10/02/22 Ashanti Ordoñ[place] [address] [place] [address] Assigned PCP 09/13/22 04/03/24 Majo Roth Miesha [address] [place] [address] Pharmacist Pharmacist Bumper Operator 12/01/22 04/26/24 Majo Roth Miesha [address] [place] [address] Assigned MTM Pharmacist 12/06/22 Magalie Whipple [facility] [address] [place] [address] Pharmacist Pharmacist 12/26/22 04/26/24 Magalie Whipple [facility] [address], [place] [address] Assigned MTM Pharmacist 01/03/23 Magalie Whipple Medical Student 08/10/23 04/26/24 Tamiko Renee, [facility] [address] [place], [place] [address] Pharmacist Pharmacist 01/27/24 04/26/24 Roxana Cruz PAChesterC [address] [place] [address] Assigned PCP 04/04/24 documented as of this encounter
--- OUTSIDE RECORDS SUMMARY | 2024-08-20 10:47 | XMS_ITS | Encounter Summary ---
Author Organization [place] Address [facility] [place] [address] Care Team Providers Care Learning Coordinator Name Role Phone Mora Garrett MD Primary Care Prov ider Mora Garrett MD Unavailable + Katina Dow Unavailable Unavailable Shana Singleton MD Unavailable +[phone] Iftikhar, Tammi PharmD Unavailable +[phone] Iftikhar, Tammi PharmD Unavailable +[phone] Iftikhar, Tammi PharmD Unavailable +[phone] Crista Norton APRN METAL TURNER Unavailable +[phone] [place] Jaz Schneider Unavailable +[phone] Ashanti Ordoñez MD Unavailable +[phone] Ashanti Ordoñez MD Primary Care Provider [phone] Majo Roth Miesha Unavailable Majo Roth RPH Unavailable [phone] Magalie Whipple [facility] Unavailable +[phone] Magalie Whipple [facility] Unavailable +[phone] Magalie Whipple Unavailable Unavailable Tamiko Renee [facility] Unavailable Roxana Cruz PA-C Unavailable [phone] Encounter Details Date Type Department Care Team (Late st Contact Info) Description 05/09/2021 MyC Medical Advice [facility] [address] [place] [address] Mora Garrett MD [facility] [address] [address] Social History Tobacco Use Types [...] points; Administer PHQ-9 if positive 2 04/23/2021 [facility] [place] of Occupat ional Health - Occupational Stress [...] place to sleep or slept in a residential (including now)? No 06/23/2019 Education Answer Date Recorded What is the highest level of school you have completed or the highest degree you have received? 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 No / Unsure 05/08/2021 5:07 PM THREE KNIFE TRIMMER documented as of this encounter Plan of Treatment Upcoming Encounters Date Type Department Care Team (Late st Contact Info) Description 12/08/2024 1:30 PM CDT Office Visit [facility] [address] [place] [address] Roxana Cruz PA-C [address] [place] [address] Ashanti Ordoñ[place] [address] [place] [address] documented as of this encounter Visit Diagnoses Not on filedocumented in this encounter Additional Health Concerns Assessment Noted Time PHQ-9 Depression Total Score: 10 022 7:01 AM THREE KNIFE TRIMMER documented as of this encounter Care Teams Learning Coordinator Relationship Specialty Start Date End Date Mora Garrett MD PCP - General Family Practice 01/07/18 10/28/22 Ashanti Ordoñez [place] [address] [place] [address] PCP - General 10/29/22 Mora Garrett MD Assigned PCP 01/10/18 09/05/22 Katina Dow Personal Advocate & Liaison (PAL) Family Practice 09/20/19 09/15/22 Shana Singleton MD [address] [place] [address] Resident Student in organized health care education/training program 12/16/19 Tammi Buitrago, PharmD [address] [place] [address] Pharmacist Pharmacist 08/06/20 04/26/24 Tammi Buitrago, GudeliaD [address] [place] [address] Assigned MTM Pharmacist 09/07/21 Tammi Buitrago, GudeliaD [address] [place] [address] Assigned MTM Pharmacist 01/08/2202/07 Crista Norton APRN [facility] [address] [place] [address] Assigned PCP 09/06/22 09/12/22 Jaz Ro AuD [address] [place] [address] Audiology 10/02/22 Ashanti Ordoñ[place] [address] [place] [address] Assigned PCP 09/13/22 04/03/24 Majo Roth Miesha [address] [place] [address] Pharmacist Pharmacist Supervisor Industrial Arts Education 12/01/22 04/26/24 Majo Roth RPH [address] [place] [address] Assigned MTM Pharmacist 12/06/22 Magalie Whipple [facility] [address], [place] [address] Pharmacist Pharmacist 12/26/22 04/26/24 Magalie Whipple, [facility] [address] [place] [address] Assigned MTM Pharmacist 01/03/23 Magalie Whipple Medical Student 08/10/23 04/26/24 Tamiko Renee, [facility] [address], [place] [address] Pharmacist Pharmacist 01/27/24 04/26/24 Roxana Cruz PA-C [address] [place] [address] Assigned PCP 04/04/24 documented as of this encounter
--- OUTSIDE RECORDS SUMMARY | 2024-08-20 10:47 | XMS_ITS | Encounter Summary ---
Author Organization [place] Address [facility] [place] [address] Care Team Providers Care Electronic Typesetting Machine Operator Name Role Phone Mora Garrett MD Primary Care Prov ider Mora Garrett MD Unavailable + Tony Francisco Unavailable Unavailable Katina Dow Unavailable Unavailable Shana Singleton MD Unavailable [phone] Katina Dow Unavailable Unavailable Iftikhar, Tammi PharmD Unavailable +[phone] Iftikhar, Tammi PharmD Unavailable +[phone] Iftikhar, Tammi PharmD Unavailable +[phone] Crista Norton APRN TERMITE CONTROL SERVICER Unavailable +[phone] Jaz Ro Unavailable +[phone] Ashanti Ordoñez MD Unavailable +[phone] Ashanti Ordoñez MD Primary Care Provider [phone] Majo Roth [facility] Unavailable [phone] Majo Roth [facility] Unavailable [phone] Magalie Whipple [facility] Unavailable [phone] Magalie Whipple [facility] Unavailable [phone] Magalie Whipple Unavailable Unavailable Tamiko Renee [facility] Unavailable [phone] Roxana Cruz PA-C Unavailable [phone] Reason for Visit * Reason Comments Medication Refill Encounter Details Date Type Department Care Team (Late st Contact Info) Description 08/24/[address] [address] Mora Garrett MD [facility] [address] [address] Medication Refill Social History Tobacco Use Types [...] Answer Date Recorded PHQ-2 Score 2 06/23/2019 [facility] [place] of Occupat ional Health - Occupational Stress [...] Sex Assigned at Female 03/22/2018 7:28 AM AGRICULTURAL COMMODITIES INSPECTOR Legal Sex Female 5:04 AM AGRICULTURAL COMMODITIES INSPECTOR Gender Identity Female 03/22/2018 7:28 AM AGRICULTURAL COMMODITIES INSPECTOR Sexual Orientation Straight 03/22/2018 7: 28 AM AGRICULTURAL COMMODITIES INSPECTOR 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 Miscellaneous Notes * Telephone Encounter - Tamiko Martinez RN - 08/24/2019 4:17 PM CDT Medication refilled per [facility] protocol Tamiko Martinez, RN documented in this encounter Plan of Treatment Upcoming Encounters Date Type Department Care Team (Late st Contact Info) Description 12/08/2024 1:30 PM CDT Office Visit [facility] [address] [place] [address] Roxana Cruz PARodríguez [address] [place] [address] Ashanti Ordoñ[place] [address] [place] [address] documented as of this encounter Visit Diagnoses Diagnosis Lumbar radiculopathy Thoracic or lumbosacral neuritis or radiculitis, unspecified documented in this encounter Additional Health Concerns Assessment Noted Time PHQ-9 Depression Total Score: 10 020 3:27 PM CDT documented as of this encounter Care Teams Electronic Typesetting Machine Operator Relationship Specialty Start Date End Date Mora Garrett MD PCP - General Family Practice 01/07/18 10/28/22 Ashanti Ordoñ[place] [address] [place] [address] PCP - General 10/29/22 Mora Garrett MD Assigned PCP 01/10/18 09/05/22 Tony Francisco Personal Advocate & Liaison (PAL) Family Practice 04/11/19 09/19/19 Katina Dow Personal Advocate & Liaison (PAL) Family Practice 09/20/19 09/15/22 Shana Singleton MD [address] [place] [address] Resident Student in organized health care education/training program 12/16/19 Katina Dow Personal Advocate & Liaison (PAL) Family Medicine 06/08/20 01/07/21 Tammi Buitrago, PharmD [address] [place] [address] Pharmacist Pharmacist 08/06/20 04/26/24 Tammi Buitrago, GudeliaD [address] [place] [address] Assigned MTM Pharmacist 09/07/21 Tammi Buitrago, PharmD [address] [place] [address] Assigned MTM Pharmacist 01/08/2202/07 Crista Norton APRN [facility] [address] [place] [address] Assigned PCP 09/06/22 09/12/22 Jaz Ro AuD [address] [place] [address] Audiology 10/02/22 Ashanti Ordoñ[place] [address] [place] [address] Assigned PCP 09/13/22 04/03/24 Majo Roth [facility] 9 [place] [address] Pharmacist Pharmacist Adoption Agent 12/01/22 04/26/24 Majo Roth, [facility] [address] [place] [address] Assigned MTM Pharmacist 12/06/22 Magalie Whipple, [facility] [address] [place] [address] Pharmacist Pharmacist 12/26/22 04/26/24 Magalie Whipple, [facility] [address] [place] [address] Assigned MTM Pharmacist 01/03/23 Magalie Whipple Medical Student 08/10/23 04/26/24 Tamiko Renee, [facility] [address] [place] [address] Pharmacist Pharmacist 01/27/24 04/26/24 Roxana Cruz PA-C [address] [place] [address] Assigned PCP 04/04/24 documented as of this encounter
--- OUTSIDE RECORDS SUMMARY | 2024-08-20 10:47 | XMS_ITS | Encounter Summary ---
Author Organization [place] Address [facility] [place] [address] Care Team Providers Care Manager Customer Service Name Role Phone Mora Garrett MD Primary Care Prov ider Mora Garrett MD Unavailable + Katina Dow Unavailable Unavailable Shana Singleton MD Unavailable +[phone] Katina Dow Unavailable Unavailable Tammi Buitrago PharmD Unavailable +[phone] Iftikhar Tammi PharmD Unavailable +-[phone] Iftikhar, Tammi PharmD Unavailable +[phone] Crista Norton APRN CHUCKING AND SAWING MACHINE OPERATOR Unavailable +[phone] Jaz Ro Unavailable +[phone] Ashanti Ordoñez MD Unavailable +[phone] Ashanti Ordoñez MD Primary Care Provider [phone] Majo Roth RPH Unavailable [phone] Majo Roth RPH Unavailable [phone] Magalie Whipple [facility] Unavailable +[phone] Magalie Whipple [facility] Unavailable [phone] Magalie Whipple Unavailable Unavailable Tamiko Renee [facility] Unavailable AnthonySachijoni Pack PA-C Unavailable [phone] Encounter Details Date Type Department Care Team (Late st Contact Info) Description 01/09/2020 MyC Medical Advice [address] [address] Dipti Hernández, RN Social History Tobacco Use Types Packs/Day Years [...] Answer Date Recorded PHQ-2 Score 2 06/23/2019 [facility] [place] of Occupat ional Health - Occupational Stress [...] place to sleep or slept in a custodial (including now)? No 06/23/2019 Education Answer Date Recorded What is the highest level of school you have completed or the highest degree you have received? 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 Plan of Treatment Upcoming Encounters Date Type Department Care Team (Late st Contact Info) Description 12/08/2024 1:30 PM CDT Office Visit [facility] [address] [place] [address] Roxana Cruz PAChesterC [address] [place] [address] Ashanti Ordoñ[place] [address] [place], [place] 97[address] documented as of this encounter Visit Diagnoses Not on filedocumented in this encounter Additional Health Concerns Assessment Noted Time PHQ-9 Depression Total Score: 8 01/10/20 20 7:10 AM CDT documented as of this encounter Care Teams Manager Customer Service Relationship Specialty Start Date End Date Mora Garrett MD PCP - General Family Practice 01/07/18 10/28/22 Ashanti Ordoñez [place] [address] [place] [address] PCP - General 10/29/22 Mora Garrett MD Assigned PCP 01/10/18 09/05/22 Katina Dow Personal Advocate & Liaison (PAL) Family Practice 09/20/19 09/15/22 Shana Singleton MD [address] [place] [address] [phone] Resident Student in organized health care education/training program 12/16/19 Kaitna Dow Personal Advocate & Liaison (PAL) Family Medicine 06/08/20 01/07/21 Tammi Buitrago, GudeliaD [address] [place] [address] [phone] Pharmacist Pharmacist 08/06/20 04/26/24 Tammi Buitrago, GudeliaD [address] [place] [address] Assigned MTM Pharmacist 09/07/21 Tammi Buitrago, GudeliaD [address] [address] Assigned MTM Pharmacist 01/08/2202/07 Crista Norton APRN CHUCKING AND SAWING MACHINE OPERATOR [address] [place] [address] Assigned PCP 09/06/22 09/12/22 Jaz Ro AuD [address] [place] [address] Audiology 10/02/22 Ashanti Ordoñ[place] [address] [place] [address] Assigned PCP 09/13/22 04/03/24 Majo Roth [facility] [address] [place] [address] Pharmacist Pharmacist Melting Furnace Skimmer 12/01/22 04/26/24 Majo Roth [facility] 9 [place] [address] Assigned MTM Pharmacist 12/06/22 Magalie Whipple [facility] [address] [id number] Pharmacist Pharmacist 12/26/22 04/26/24 Magalie Whipple [facility] [address] [place] [address] [address] Assigned MTM Pharmacist 01/03/23 Magalie Whipple Medical Student 08/10/23 04/26/24 Tamiko Renee, [facility] [address] [place] [address] Pharmacist Pharmacist 01/27/24 04/26/24 Roxana Cruz PA-C [address] [place] [address] Assigned PCP 04/04/24 documented as of this encounter
--- OUTSIDE RECORDS SUMMARY | 2024-08-20 10:48 | XMS_ITS | Encounter Summary ---
Author Organization [place] Address [facility]ending [facility] [place] [address] Care Team Providers Care Cad Administrator Name Role Phone Mora Garrett MD Primary Care Prov ider Mora Garrett MD Unavailable + Tony Francisco Unavailable Unavailable Katina Dow Unavailable Unavailable Shana Singleton MD Unavailable [phone] Katina Dow Unavailable Unavailable Iftikhar, Tammi PharmD Unavailable +[phone] Iftikhar, Tammi PharmD Unavailable +[phone] 73-1300 Iftikhar, Tammi PharmD Unavailable +[phone] Crista Norton APRN FLORAL ARTIST Unavailable [phone] Jaz Ro Unavailable +[phone] Ashanti Ordoñez MD Unavailable +[phone] Ashanti Ordoñez MD Primary Care Provider [phone] Majo Roth [facility] Unavailable [phone] Majo Roth [facility] Unavailable [phone] Magalie Whipple [facility] Unavailable [phone] Magalie Whipple [facility] Unavailable [phone] Magalie Whipple Unavailable Unavailable Tamiko Renee [facility] Unavailable [phone] Roxana Cruz PA-C Unavailable [phone] Encounter Details Date Type Department Care Team (Late st Contact Info) Description 03/03/2019 MyC Medical Advice M [address] [address] Patti Rodriguez CMA Social History Tobacco Use Types Packs/Day Years [...] and Family Once a week 11/06/2018 Attends Syn[employer] Services More than 4 times per year [...] Answer Date Recorded PHQ-2 Score 4 11/06/2018 [facility] [place] of Occupat ional Health - Occupational Stress [...] Sex Assigned at Female 03/22/2018 7:28 AM HEAD BANQUET WAITER/WAITRESS Legal Sex Female 5:04 AM HEAD BANQUET WAITER/WAITRESS Gender Identity Female 03/22/2018 7:28 AM HEAD BANQUET WAITER/WAITRESS Sexual Orientation Straight 03/22/2018 7: 28 AM HEAD BANQUET WAITER/WAITRESS 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 Plan of Treatment Upcoming Encounters Date Type Department Care Team (Late st Contact Info) Description 12/08/2024 1:30 PM CDT Office Visit [facility] [address] [place] [address] Roxana Cruz PA-C [address] [place] [address] Ashanti Ordoñ[place] [address] [place] [address] documented as of this encounter Visit Diagnoses Not on filedocumented in this encounter Additional Health Concerns Assessment Noted Time PHQ-9 Depression Total Score: 14 019 12:17 PM CDT documented as of this encounter Care Teams Cad Administrator Relationship Specialty Start Date End Date Mora Garrett MD PCP - General Family Practice 01/07/18 10/28/22 Ashanti Ordoñ[place] [address] [place] [address] PCP - General 10/29/22 Mora Garrett MD Assigned PCP 01/10/18 09/05/22 Tony Francisco Personal Advocate & Liaison (PAL) Family Practice 04/11/19 09/19/19 Katina Dow Personal Advocate & Liaison (PAL) Family Practice 09/20/19 09/15/22 Shana Singleton MD [address] [place] [address] [phone] Resident Student in organized health care education/training program 12/16/19 Katina Dow Personal Advocate & Liaison (PAL) Family Medicine 06/08/20 01/07/21 Tammi Buitrago, PharmD [address] [place] [address] 488494 Pharmacist Pharmacist 08/06/20 04/26/24 Tammi Buitrago, PharmD [address] [place] [address] [phone] Assigned MTM Pharmacist 09/07/21 Tammi Buitrago, PharmD [address] [place] [address] [phone] Assigned MTM Pharmacist 01/08/2202/07 Crista Norton APRN [facility] [address] [place] [address] Assigned PCP 09/06/22 09/12/22 Jaz Ro AuD [address] [place] [address] Audiology 10/02/22 Ashanti Ordoñez [place] [address] [place] [address] Assigned PCP 09/13/22 04/03/24 Majo Roth [facility] [address] [place] [address] Pharmacist Pharmacist Hot Die Picker 12/01/22 04/26/24 Majo Roth [facility] [address] [place] [address] Assigned MTM Pharmacist 12/06/22 Magalie Whipple [facility] [address] [place] [address] Pharmacist Pharmacist 12/26/22 04/26/24 Magalie Whipple [facility] [address] [place] [address] [address] Assigned MTM Pharmacist 01/03/23 Magalie Whipple Medical Student 08/10/23 04/26/24 Tamiko Renee, [facility] [address] [place] [address] Pharmacist Pharmacist 01/27/24 04/26/24 Roxana Cruz PA-C [address] [place] [address] Assigned PCP 04/04/24 documented as of this encounter
--- OUTSIDE RECORDS SUMMARY | 2024-08-20 10:48 | XMS_ITS | Encounter Summary ---
Author Organization [place] Address [facility] [place] [address] Care Team Providers Care Financial Recording Clerk Name Role Phone Mora Garrett MD Primary Care Prov ider Mora Garrett MD Unavailable + Katina Dow Unavailable Unavailable Shana Singleton MD Unavailable [phone] Iftikhar, Tammi PharmD Unavailable +[phone] Iftikhar, Tammi PharmD Unavailable +[phone] Iftikhar, Tammi PharmD Unavailable +[phone] Crista Norton APRN SALES PLANNING ANALYST Unavailable +[phone] Doritanilton Jaz Schneider Unavailable +[phone] Ashanti Ordoñez MD Unavailable +[phone] Ashanti Ordoñez MD Primary Care Provider [phone] Majo Roth Miesha Unavailable [phone] Majo Roth RPH Unavailable [phone] Magalie Whipple [facility] Unavailable +[phone] Magalie Whipple [facility] Unavailable +[phone] Magalie Whipple Unavailable Unavailable Tamiko Renee [facility] Unavailable Roxana Cruz PA-C Unavailable [phone] Encounter Details Date Type Department Care Team (Late st Contact Info) Description 02/25/2021 MyC Medical Advice [facility] [address] [place] [address] Mora Garrett MD [facility] [address] [address] Social History Tobacco Use Types [...] and Family Once a week 11/06/2018 Attends Hoahaoism Services More than 4 times per year [...] PHQ-2 Answer Date Recorded PHQ-2 Score 4 02/26/2021 [place] [facility] Occupat ional [facility] - Occupational Stress [...] Sex Assigned at Female 03/22/2018 7:28 AM BALCONY WORKER Legal Sex Female 5:04 AM BALCONY WORKER Gender Identity Female 03/22/2018 7:28 AM BALCONY WORKER Sexual Orientation Straight 03/22/2018 7: 28 AM BALCONY WORKER 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 No / Unsure 02/28/2021 11:39 AM BALCONY WORKER documented as of this encounter Miscellaneous Notes * Telephone Encounter - Davina Pittman - 02/25/2021 4:42 PM CST Called patient, appointment has been changed to 2:40PM tomorrow 02/26/21. Davina Pittman. Glass Vial Filler ONY WORKER documented in this encounter Plan of Treatment Upcoming Encounters Date Type Department Care Team (Late st Contact Info) Description 12/08/2024 1:30 PM CDT Office Visit [facility] [address] [place] [phone] Roxana Cruz PA-C [address] [place] [phone] Ashanti Ordoñ[place] [address] [place] [address] documented as of this encounter Visit Diagnoses Not on filedocumented in this encounter Additional Health Concerns Assessment Noted Time PHQ-9 Depression Total Score: 15 021 7:01 AM CDT documented as of this encounter Care Teams Financial Recording Clerk Relationship Specialty Start Date End Date Mora Garrett MD PCP - General Family Practice 01/07/18 10/28/22 Ashanti Ordoñ[place] [address] [place] [address] PCP - General 10/29/22 Mora Garrett MD Assigned PCP 01/10/18 09/05/22 Katina Dow Personal Advocate & Liaison (PAL) Family Practice 09/20/19 09/15/22 Shana Singleton MD [address] [place] [address] [phone] Resident Student in [facility] health care education/training program 12/16/19 Tammi Buitrago, PharmD [address] [place] [address] Pharmacist Pharmacist 08/06/20 04/26/24 Tammi Buitrago, PharmD [address] [place] [address] Assigned MTM Pharmacist 09/07/21 Tammi Buitrago, GudeliaD [address] [place] [address] Assigned MTM Pharmacist 01/08/2202/07 Crista Norton APRN SALES PLANNING ANALYST [address] [place] [address] Assigned PCP 09/06/22 09/12/22 Jaz Ro AuD [address] [place] [address] [phone] Audiology 10/02/22 Ashanti Ordoñ[place] [address] [place] [address] Assigned PCP 09/13/22 04/03/24 Majo Roth [facility] [address] [place] [address] Pharmacist Pharmacist Assistant Child Care Teacher 12/01/22 04/26/24 Majo Roth, [facility] [address] [place] [address] Assigned MTM Pharmacist 12/06/22 Magalie Whipple, [facility] [address] [id number] Pharmacist Pharmacist 12/26/22 04/26/24 Magalie Whipple, [facility] [address] [id number] Assigned MTM Pharmacist 01/03/23 Magalie Whipple Medical Student 08/10/23 04/26/24 Tamiko Renee, [facility] [address] [place] [address] Pharmacist Pharmacist 01/27/24 04/26/24 Roxana Cruz PA-C [address] [place] [address] Assigned PCP 04/04/24 documented as of this encounter
--- OUTSIDE RECORDS SUMMARY | 2024-08-20 10:48 | XMS_ITS | Encounter Summary ---
Author Organization [place] Address [facility] [place] [address] Care Team Providers Care Camera Mechanic Name Role Phone Shana Singleton MD Unavailable [phone] Tammi Buitrago PharmD Unavailable [phone] Jaz Ro Unavailable [phone] Ashanti Ordoñez MD Unavailable [phone] Ashanti Ordoñez MD Primary Care Provider [phone] Majo Roth [facility] Unavailable [phone] Magalie Whipple [facility] Unavailable [phone] Magalie Whipple [facility] Unavailable [phone] Magalie Whipple Unavailable Unavailable Tamiko Renee [facility] Unavailable [phone] Roxana Cruz PA-C Unavailable [phone] Encounter Details Date Type Department Care Team (Late st Contact Info) Description 01/08/2023 [facility] [address] [place] [address] Magalie Whipple Vldaimir, [facility] [address] [facility] [...] week 09/08/2022 How often do you attend chur or bahai services? More than 4 times per year 09/08/2022 Do you belong to any clubs o r organizations such as mandaen groups, unions, fraternal or athletic groups, or [...] Answer Date Recorded PHQ-2 Score 2 10/30/2022 [facility] Occupat ional Health - [...] place to sleep or slept in a care home (including now)? No 09/08/2022 Adolescent Education Answer Date Record ed Getting School Help Needed Not on file 01/03 Education Answer Date Recorded What is the highest level of school you have completed or the highest degree you have received? 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 Plan of Treatment Upcoming Encounters Date Type Department Care Team (Late st Contact Info) Description 12/08/2024 1:30 PM CDT Office Visit [facility] [address] [place] [phone] Roxana Cruz PA-C [address] [place] [address] Ashanti Ordoñ[place] [address] [place] [address] documented as of this encounter Visit Diagnoses Not on filedocumented in this encounter Additional Health Concerns Assessment Noted Time PHQ-9 Depression Total Score: 7 10/30/19 23 8:58 PM CDT documented as of this encounter Care Teams Camera Mechanic Relationship Specialty Start Date End Date Ashanti Ordoñ[place] [address] [place] [address] PCP - General 10/29/22 Shana Singleton MD [address] [place] [address] [phone] Resident Student in organized health care education/training program 12/16/19 Tammi Buitrago, GudeliaD [address] [place] [address] [phone] Pharmacist Pharmacist 08/06/20 04/26/24 Jaz Ro AuD [address] [place] [address] 790065 Audiology 10/02/22 Ashanti Ordoñ[place] [address] [place] [address] Assigned PCP 09/13/22 04/03/24 Majo Roth [facility] [address] [place] [address] Pharmacist Pharmacist Scaffolding Helper 12/01/22 04/26/24 Magalie Whipple, [facility] [address] [place] [address] [address] Pharmacist Pharmacist 12/26/22 04/26/24 Magalie Whipple, [facility] [address] [place] [address] Assigned MTM Pharmacist 01/03/23 Magalie Whipple Medical Student 08/10/23 04/26/24 Tamiko Renee, [facility] [address] [place] [address] [address] Pharmacist Pharmacist 01/27/24 04/26/24 Roxana Cruz PA-C [address] [place] [phone] Assigned PCP 04/04/24 documented as of this encounter
--- OUTSIDE RECORDS SUMMARY | 2024-08-20 10:48 | XMS_ITS | Encounter Summary ---
Author Organization [place] Address [facility] [place] [address] Care Team Providers Care Log Rafter Name Role Phone Mora Garrett MD Primary Care Prov ider Mora Garrett MD Unavailable + Katina Dow Unavailable Unavailable Shana Singleton MD Unavailable [phone] Iftikhar, Tammi PharmD Unavailable +[phone] Iftikhar, Tammi PharmD Unavailable +[phone] Iftikhar, Tammi PharmD Unavailable +[phone] Crista Norton APRN CORK WIRER Unavailable [phone] Doritanilton Jaz Schneider Unavailable +[phone] Ashanti Ordoñez MD Unavailable [phone] Ashanti Ordoñez MD Primary Care Provider [phone] Majo Roth Miesha Unavailable [phone] Majo Roth RPH Unavailable [phone] Magalie Whipple [facility] Unavailable [phone] Magalie Whipple [facility] Unavailable [phone] Magalie Whipple Unavailable Unavailable Tamiko Renee [facility] Unavailable Roxana Cruz PA-C Unavailable [phone] Encounter Details Date Type Department Care Team (Late st Contact Info) Description 07/09/2021 MyC Medical Advice [address] [address] Mora Garrett MD [facility] [address] [address] Social History Tobacco Use Types [...] and Family Once a week 11/06/2018 Attends Religion Services More than 4 times per year [...] more points; Administer PHQ-9 if positive 2 07/06/2021 [facility] [place] of Occupat ional Health - Occupational Stress [...] place to sleep or slept in a fdc (including now)? No 06/23/2019 Education Answer Date Recorded What is the highest level of school you have completed or the highest degree you have received? 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 No / Unsure 07/09/2021 7:43 AM CDT documented as of this encounter Miscellaneous Notes * Telephone Encounter - Dipti Hernández RN - 07/11/2021 10:[address] Garrett- see additional [employer] message below. Please advise. Dipti Hernández RN * Telephone Encounter - Dipti Hernández RN - 07/10/2021 7:02 AM CDT See mychart message below and below message. Please advise. Dipti Hernández RN Me KF ?? 07/09/21 4:00 PM Note Provider needs to comment on labs. Routed to provider. See below message. Dipti Hernández RN ? MB ?? 07/09/21 3:52 PM Katina Dow routed this conversation to Cr Triage Katina Dow MB ?? 07/09/21 3:52 PM Note Routed to Triage ?? Katina Dow/EMT-B [facility] [place] ?? HL ?? 07/09/21 3:45 PM Nupur Chandra routed this conversation to Cr Sb4 Kyburz Eric (Chg) Nupur Chandra HL ?? 07/09/21 3:44 PM Note Reason for Call: Other call back ?? Detailed comments: wants to know next steps for high lab results ?? Phone Number Patient can be reached at: Home number on file [phone] (home) ?? Best Time: any ?? Can we leave a detailed message on this number? YES ?? Call taken on 07/09/2021 at 3:44 PM by Nupur Chandra ? documented in this encounter Plan of Treatment Upcoming Encounters Date Type Department Care Team (Late st Contact Info) Description 12/08/2024 1:30 PM CDT Office Visit [address] [address] Roxana Cruz PA-C [address] [place] [address] Ashanti Ordoñez [place] [address] [place], [place] [phone] documented as of this encounter Visit Diagnoses Not on filedocumented in this encounter Additional Health Concerns Assessment Noted Time PHQ-9 Depression Total Score: 9 07/10/19 22 7:55 AM CDT documented as of this encounter Care Teams Log Rafter Relationship Specialty Start Date End Date Mora Garrett MD PCP - General Family Practice 01/07/18 10/28/22 Ashanti Ordoñez [place] [address] [place] [address] PCP - General 10/29/22 Mora Garrett MD Assigned PCP 01/10/18 09/05/22 Katina Dow Personal Advocate & Liaison (PAL) Family Practice 09/20/19 09/15/22 Shana Singleton MD [address] [place] [address] 771955 Resident Student in organized health care education/training program 12/16/19 Tammi Buitrago, GudeliaD [address] [place], [place] [address] [place], [place] [phone] Pharmacist Pharmacist 08/06/20 04/26/24 Tammi Buitrago, PharmD [address] [address] Assigned MTM Pharmacist 09/07/21 Tammi Buitrago, GudeliaD [address] [address] Assigned MTM Pharmacist 01/08/2202/07 Crista Norton APRN CORK WIRER [address] [place] [address] Assigned PCP 09/06/22 09/12/22 Jaz Ro AuD [address] [place] [address] [id number] Audiology 10/02/22 Ashanti Ordoñez [place] [address] [place] [address] Assigned PCP 09/13/22 04/03/24 Majo Roth [facility] 9 [place], [place] 484505 Pharmacist Pharmacist Balance Truing Inspector 12/01/22 04/26/24 Majo Roth [facility] [address] [place], [place] 731485 Assigned MTM Pharmacist 12/06/22 Magalie Whipple [facility] [address] [place] [address] Pharmacist Pharmacist 12/26/22 04/26/24 Magalie Whipple [facility] [address] [place] [address] [address] Assigned MTM Pharmacist 01/03/23 Magalie Whipple Medical Student 08/10/23 04/26/24 Tamiko Renee, [facility] [address] [place] [address] [address] Pharmacist Pharmacist 01/27/24 04/26/24 Roxana Cruz PA-C [address] [place] [phone] Assigned PCP 04/04/24 documented as of this encounter
--- OUTSIDE RECORDS SUMMARY | 2024-08-20 10:48 | XMS_ITS | Encounter Summary ---
Author Organization [place] Address [facility] [place] [address] Care Team Providers Care Case Management Rn Name Role Phone Mora Garrett MD Primary Care Prov ider Mora Garrett MD Unavailable + Katina Dow Unavailable Unavailable Shana Singleton MD Unavailable [phone] Iftikhar, Tammi PharmD Unavailable +[phone] Iftikhar, Tammi PharmD Unavailable +[phone] Iftikhar, Tammi PharmD Unavailable +[phone] Crista Norton APRN DIVER TENDER Unavailable +[phone] Doritanilton Jaz Schneider Unavailable +[phone] Ashanti Ordoñez MD Unavailable [phone] Ashanti Ordoñez MD Primary Care Provider [phone] Majo Roth Miesha Unavailable [phone] Majo Roth RPH Unavailable [phone] Magalie Whipple [facility] Unavailable [phone] Magalie Whipple [facility] Unavailable [phone] Magalie Whipple Unavailable Unavailable Tamiko Renee [facility] Unavailable Roxana Cruz PA-C Unavailable [phone] Encounter Details Date Type Department Care Team (Late st Contact Info) Description 02/21/2021 MyC Medical Advice [address] [address] Sylvia Quach MA Social History Tobacco Use Types Packs/Day [...] more points; Administer PHQ-9 if positive 4 02/25/2021 [facility] [place] of Occupat ional Health - Occupational Stress [...] Sex Assigned at Female 03/22/2018 7:28 AM BUSINESS PROJECT MANAGER Legal Sex Female 5:04 AM BUSINESS PROJECT MANAGER Gender Identity Female 03/22/2018 7:28 AM BUSINESS PROJECT MANAGER Sexual Orientation Straight 03/22/2018 7: 28 AM BUSINESS PROJECT MANAGER 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 [address] [place] [phone] Roxana Cruz, PAChesterC [address] [place] [address] Ashanti Ordoñ[place] [address] [place] [address] documented as of this encounter Visit Diagnoses Not on filedocumented in this encounter Additional Health Concerns Assessment Noted Time PHQ-9 Depression Total Score: 15 02/15/ 021 7:01 AM CDT documented as of this encounter Care Teams Case Management Rn Relationship Specialty Start Date End Date Mora Garrett MD PCP - General Family Practice 01/07/18 10/28/22 Ashanti Ordoñez [place] [address] [place] [address] PCP - General 10/29/22 Mora Garrett MD Assigned PCP 01/10/18 09/05/22 Katina Dow Personal Advocate & Liaison (PAL) Family Practice 09/20/19 09/15/22 Shana Singleton MD [address] [place] [address] [phone] Resident Student in organized health care education/training program 12/16/19 Tammi Buitrago, GudeliaD [address] [place] [address] [phone] Pharmacist Pharmacist 08/06/20 04/26/24 Tammi Buitrago, GudeliaD [address] [place] [address] 140034 Assigned MTM Pharmacist 09/07/21 Tammi Buitrago, GudeliaD [address] [address] Assigned MTM Pharmacist 01/08/2202/07 Crista Norton APRN DIVER TENDER [address] [place] [address] Assigned PCP 09/06/22 09/12/22 Jaz Ro AuD [address] [place] [address] 656365 Audiology 10/02/22 Ashanti Ordoñ[place] [address] [place] [address] Assigned PCP 09/13/22 04/03/24 Majo Roth [facility] 9 [place], [place] [address] Pharmacist Pharmacist Heading Up Machine Operator 12/01/22 04/26/24 Majo Roth [facility] 9 [place], [place] 280245 Assigned MTM Pharmacist 12/06/22 Magalie Whipple, [facility] [address] [id number] Pharmacist Pharmacist 12/26/22 04/26/24 Magalie Whipple, [facility] [address] [id number] Assigned MTM Pharmacist 01/03/23 Magalie Whipple Medical Student 08/10/23 04/26/24 Tamiko Renee, [facility] [address] [place] [address] Pharmacist Pharmacist 01/27/24 04/26/24 Roxana Cruz PA-C [address] [place] [phone] Assigned PCP 04/04/24 documented as of this encounter
--- OUTSIDE RECORDS SUMMARY | 2024-08-20 10:48 | XMS_ITS | Encounter Summary ---
Author Organization [place] Address [facility] [place] [address] Care Team Providers Care Certified Bench Jeweler Technician Name Role Phone Mora Garrett MD Primary Care Prov ider Mora Garrett MD Unavailable + Katina Dow Unavailable Unavailable Shana Singleton MD Unavailable +[phone] Iftikhar, Tammi PharmD Unavailable +[phone] Iftikhar, Tammi PharmD Unavailable +[phone] Iftikhar, Tammi PharmD Unavailable +[phone] Crista Norton APRN JUNIOR ART DIRECTOR Unavailable +[phone] Doritanilton Jaz Schneider Unavailable +[phone] Ashanti Ordoñez MD Unavailable +[phone] Ashanti Ordoñez MD Primary Care Provider +[phone] Majo Roth Miesha Unavailable +[phone] Majo Roth RPH Unavailable [phone] Magalie Whipple [facility] Unavailable +[phone] Magalie Whipple [facility] Unavailable +[phone] Magalie Whipple Unavailable Unavailable Tamiko Renee [facility] Unavailable Roxana Cruz PA-C Unavailable +[phone] Encounter Details Date Type Department Care Team (Late st Contact Info) Description 02/14/2021 MyC Medical Advice [address] [address] Sylvia Quach MA Social History [...] and Family Once a week 11/06/2018 Attends Taoism Services More than 4 times per year [...] points; Administer PHQ-9 if positive 4 02/14/2021 [facility] [place] of Occupat ional Health - Occupational Stress [...] Sex Assigned at Female 03/22/2018 7:28 AM NURSING UNIT CLERK Legal Sex Female 5:04 AM NURSING UNIT CLERK Gender Identity Female 03/22/2018 7:28 AM NURSING UNIT CLERK Sexual Orientation Straight 03/22/2018 7: 28 AM NURSING UNIT CLERK 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 PHQ-9 score: PHQ 02/14/2021 PHQ-9 Total Score 15 Q9: Thoughts of better off /self-harm past 2 weeks Several days F/U: Thoughts of suicide or self-harm Yes F/U: Self harm-plan No F/U: Self-harm action No F/U: Safety concerns No Patient answered phone call, appreciated the check in. Patient states that she is doing a lot better compared to two months ago. Patient naming resources including counseling and support groups. Patient committed to a contract of safety, stating she has a safety plan that is written up should shedevelop more severe thoughts of self harm. Patient denies an active plan at this time. Patient denies intention to develop a plan, stating she would never do such a thing, I have kids that really depend on me. Patient's tone of voice can be heard to be pleasant and calm. Patient is concerned about a new issue with her medication. Patient states that she is now on MA, of which they do not cover her fetzima medication. Patient states that she is also continuing to haveblood pressure issues related to the fetzima, stating her blood pressure continues to be around 140/100 especially at night. * Telephone Encounter - Sylvia Quach MA - 02/14/2021 3:24 PM CDT Sent Phq 9. High response routing to triage. Sylvia Quach MA * Telephone Encounter - Sylvia Quach MA - 02/14/2021 3:22 PM CDT Patient Quality Outreach Patient is due for the following: Depression - PHQ-9 Needed NEXT STEPS: Type of outreach: Sent Sensipass message. Questions for provider review: None Sylvia Quach MA documented in this encounter Plan of Treatment Upcoming Encounters Date Type Department Care Team (Late st Contact Info) Description 12/08/2024 1:30 PM CDT Office Visit [facility] [id number] [place] [phone] Roxana Cruz PA-C [address] [place] [phone] Ashanti Ordoñ[place] [address] [place], [place] [phone] documented as of this encounter Visit Diagnoses Not on filedocumented in this encounter Additional Health Concerns Assessment Noted Time PHQ-9 Depression Total Score: 15 021 7:01 AM CDT documented as of this encounter Care Teams Certified Bench Jeweler Technician Relationship Specialty Start Date End Date Mora Garrett MD PCP - General Family Practice 01/07/18 10/28/22 Ashanti Ordoñ[place] [address] [place] [address] PCP - General 10/29/22 Mora Garrett MD Assigned PCP 01/10/18 09/05/22 Katina Dow Personal Advocate & Liaison (PAL) Family Practice 09/20/19 09/15/22 Shana Singleton MD [facility] [place], [place] [address] Resident Student in organized health care education/training program 12/16/19 Tammi Buitrago, PharmD [address] [place] [address] Pharmacist Pharmacist 08/06/20 04/26/24 Tammi Buitrago, PharmD [address] [address] Assigned MTM Pharmacist 09/07/21 Tammi Buitrago, PharmD [address] [address] Assigned MTM Pharmacist 01/08/2202/07 Crista Norton APRN JUNIOR ART DIRECTOR [address] [place] [address] Assigned PCP 09/06/22 09/12/22 Jaz Ro AuD [address] [place] [address] [phone] Audiology 10/02/22 Ashanti Ordoñ[place] [address] [place] [address] Assigned PCP 09/13/22 04/03/24 Majo Roth [facility] 9 [place], [place] [address] Pharmacist Pharmacist Cake Puller 12/01/22 04/26/24 Majo Roth [facility] [address] [place], [place] 98[address] Assigned MTM Pharmacist 12/06/22 Magalie Whipple [facility] [address] [place] [id number] Pharmacist Pharmacist 12/26/22 04/26/24 Magalie Whipple, [facility] [address], [place] [address] Assigned MTM Pharmacist 01/03/23 Magalie Whipple Medical Student 08/10/23 04/26/24 Tamiko Renee, [facility] [address] [place] [address] [address] Pharmacist Pharmacist 01/27/24 04/26/24 Roxana Cruz PA-C [address] [place] [phone] Assigned PCP 04/04/24 documented as of this encounter
--- OUTSIDE RECORDS SUMMARY | 2024-08-20 10:48 | XMS_ITS | Encounter Summary ---
Author Organization [place] Address [facility] [place] [address] Care Team Providers Care Cinder Worker Name Role Phone Mora Garrett MD Primary Care Prov ider Mora Garrett MD Unavailable + Katina Dow Unavailable Unavailable Shana Singleton MD Unavailable +[phone] Iftikhar, Tammi PharmD Unavailable +[phone] Iftikhar, Tammi PharmD Unavailable +[phone] Iftikhar, Tammi PharmD Unavailable +[phone] Crista Norton APRN ASSEMBLER HYDRAULIC BACKHOE Unavailable +[phone] Doritanilton Jaz Schneider Unavailable +[phone] Ashanti Ordoñez MD Unavailable +[phone] Ashanti Ordoñez MD Primary Care Provider [phone] Majo Roth Miesha Unavailable [phone] Majo Roth RPH Unavailable [phone] Magalie Whipple [facility] Unavailable +[phone] Magalie Whipple [facility] Unavailable [phone] Magalie Whipple Unavailable Unavailable Tamiko Renee [facility] Unavailable AnthonyRoxana Sirena PA-C Unavailable Encounter Details Date Type Department Care Team (Late st Contact Info) Description 04/15/2021 Telephone [facility] [address] [place] [phone] Mora Garrett MD [facility] [address] [address] Social History Tobacco Use Types [...] re latives? Once a week 12/09/2023 Attends [employer]od[employer] Services Not on file 12/08 Active Member [...] Answer Date Recorded PHQ-2 Score 1 06/13/2024 [facility] of Occupat ional Health - Occupational [...] in an abandoned building, in an overnight fci, or couch-surfing.) Yes 12/09/2023 Are you worried [...] Sex Assigned at Female 03/22/2018 7:28 AM TRAILHEAD MAINTENANCE WORKER Legal Sex Female 5:04 AM TRAILHEAD MAINTENANCE WORKER Gender Identity Female 03/22/2018 7:28 AM TRAILHEAD MAINTENANCE WORKER Sexual Orientation Straight 03/22/2018 7: 28 AM TRAILHEAD MAINTENANCE WORKER Occupation Industry Job Start Date Job [...] of Assessment Author 1 03/11/2023 9:53 AM TRAILHEAD MAINTENANCE WORKER Tablet, [place] * Q1: How often do you have a drink containing alcohol? Answer Date of Assessment Author Monthly or less 03/11/2023 9:53 AM TRAILHEAD MAINTENANCE WORKER Tablet, [place] * Q2: How many drinks containing alcohol do you have on a typical day when you are drinking? Answer Date of Assessment Author 1 or 2 03/11/2023 9:53 AM TRAILHEAD MAINTENANCE WORKER Tablet, [place] * Q3: How often do you have six or more drinks on one occasion? Answer Date of Assessment Author Never 03/11/2023 9:53 AM TRAILHEAD MAINTENANCE WORKER Tablet, [place] documented as of this encounter Miscellaneous Notes * Telephone Encounter - Katina Dow - 04/15/2021 12:44 PM CST Routed to Provider / Katina Dow/EMT-B [facility] [place] LHEAD MAINTENANCE WORKER * Telephone Encounter - Lydia Johnson - 04/15/2021 12:34 PM CST Reason for Call: Other appointment Detailed comments: patient has a video visit appt with Lisbeth Worrell at [facility] tomorrow. Patient would like in person visit instead. Provider approval is needed. Please contact patient today. Thank you. Phone Number Patient can be reached at: Home number on file [phone] (home) Best Time: any Can we leave a detailed message on this number? YES Call taken on 04/15/2021 at 12:34 PM by Lydia Johnson LHEAD MAINTENANCE WORKER documented in this encounter Plan of Treatment Upcoming Encounters Date Type Department Care Team (Late st Contact Info) Description 12/08/2024 1:30 PM CDT Office Visit [facility] [address] [place] [address] Roxana Cruz PA-C [address] [place] [phone] Ashanti Ordoñ[place] [address] [place] [address] documented as of this encounter Visit Diagnoses Not on filedocumented in this encounter Additional Health Concerns Assessment Noted Time PHQ-9 Depression Total Score: 13 021 7:03 AM TRAILHEAD MAINTENANCE WORKER documented as of this encounter Care Teams Cinder Worker Relationship Specialty Start Date End Date Mora Garrett MD PCP - General Family Practice 01/07/18 10/28/22 Ashanti Ordoñ[place] [address] [place] [address] PCP - General 10/29/22 Mora Garrett MD Assigned PCP 01/10/18 09/05/22 Katina Dow Personal Advocate & Liaison (PAL) Family Practice 09/20/19 09/15/22 Shana Singleton MD [address] [place] [address] Resident Student in [facility] health care education/training program 12/16/19 Tammi Buitrago, PharmD [address] [place] [address] [phone] Pharmacist Pharmacist 08/06/20 04/26/24 Tammi Buitrago, PharmD [address] [place] [address] [phone] Assigned MTM Pharmacist 09/07/21 Tammi Buitrago, PharmD [address] [place] [address] [phone] Assigned MTM Pharmacist 01/08/2202/07 Crista Norton APRN [facility] [address] [place] [address] Assigned PCP 09/06/22 09/12/22 Jaz Ro AuD [address] [place] [address] [phone] Audiology 10/02/22 Ashanti Ordoñ[place] [address] [place] [address] Assigned PCP 09/13/22 04/03/24 Majo Roth RPH [address] [place] [address] Pharmacist Pharmacist Philosophy Faculty Member 12/01/22 04/26/24 Majo Roth RPH [address] [place] [address] [phone] Assigned MTM Pharmacist 12/06/22 Magalie Whipple, [facility] [address] [place] [address] Pharmacist Pharmacist 12/26/22 04/26/24 Magalie Whipple, [facility] [address] [place] [address] Assigned MTM Pharmacist 01/03/23 Magalie Whipple Medical Student 08/10/23 04/26/24 Tamiko Renee, [facility] [address] [place] [address] Pharmacist Pharmacist 01/27/24 04/26/24 Roxana Cruz PA-C [address] [place] [phone] Assigned PCP 04/04/24 documented as of this encounter
--- OUTSIDE RECORDS SUMMARY | 2024-08-20 10:48 | XMS_ITS | Encounter Summary ---
Author Organization [place] Address [address] [place] [address] Care Team Providers Care Automotive Salesperson Name Role Phone Shana Singleton MD Unavailable [phone] Tammi Buitrago PharmD Unavailable [phone] Jaz Ro Unavailable [phone] Ashanti Ordoñez MD Unavailable [phone] Ashanti Odroñez MD Primary Care Provider [phone] Majo Roth [facility] Unavailable [phone] Majo Roth [facility] Unavailable Magalie Whipple [facility] Unavailable [phone] Magalie Whipple [facility] Unavailable [phone] Magalie Whipple Unavailable Unavailable Tamiko Renee [facility] Unavailable Roxana Cruz PA-C Unavailable [phone] Encounter Details Date Type Department Care Team (Late st Contact Info) Description 12/31/2022 MyC Medical Advice [facility] [address] [facility] [address] [place] [address] Magalie Whipple, [facility] [address] [facility] [place] [address] Migraine with aura and without status migrainosus, not intractable; Benign essential hypertension; Obesity (BMI 30-39.9) Social History Tobacco Use Types Packs/Day Years [...] week 09/08/2022 How often do you attend [facility] or episcopalian services? More than 4 times per year 09/08/2022 Do you belong to any clubs o r organizations such as denominational groups, unions, fraternal or athletic groups, or [...] Answer Date Recorded PHQ-2 Score 2 10/30/2022 [facility] [place] of Occupat ional Health - Occupational Stress [...] slept in a alf (including now)? No 09/08/2022 Adolescent Education Answer Date Record ed Getting School Help Needed Not on file 01/03 Education Answer Date Recorded What is the highest level of school you have completed or the highest degree you have received? 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 No / Unsure 12/02/2022 1:19 PM CDT documented as of this encounter Miscellaneous Notes * Telephone Encounter - Magalie Whipple [facility] - 01/05/2023 1:44 PM CDT Cost issue per cpa documented in this encounter Plan of Treatment Upcoming Encounters Date Type Department Care Team (Late st Contact Info) Description 12/08/2024 1:30 PM CDT Office Visit [facility] [address] [place] [phone] Roxana Cruz PA-C [address] [place] [address] Ashanti Ordoñez [place] [id number] [place] [address] [phone] documented as of this encounter Visit Diagnoses Diagnosis Migraine with aura and without status migrainosus, not intractable Migraine with aura, without mention of intractable migraine without mention of status migrainosus Benign essential hypertension Essential hypertension, benign Obesity (BMI 30-39.9) Obesity, unspecified documented in this encounter Additional Health Concerns Assessment Noted Time PHQ-9 Depression Total Score: 7 10/30/19 8:58 PM CDT documented as of this encounter Care Teams Automotive Salesperson Relationship Specialty Start Date End Date Ashanti Ordoñez [place] [id number] [place] [address] [phone] PCP - General 10/29/22 Shana Singleton MD [facility] [place], [place] 630965 Resident Student in organized health care education/training program 12/16/19 Tammi Buitrago, GudeliaD [facility] [address] [address] Pharmacist Pharmacist 08/06/20 04/26/24 Jaz Ro AuD [address] [place] [address] Audiology 10/02/22 Ashanti Ordoñ[place] [address] [place] [address] Assigned PCP 09/13/22 04/03/24 Majo Roth [facility] [address] [place] [address] Pharmacist Pharmacist Can Piler 12/01/22 04/26/24 Majo Roth, [facility] [address] [place] [address] Assigned MTM Pharmacist 12/06/22 Magalie Whipple, [facility] [address] [place] [address] Pharmacist Pharmacist 12/26/22 04/26/24 Magalie Whipple, [facility] [address] [id number] Assigned MTM Pharmacist 01/03/23 Magalie Whipple Medical Student 08/10/23 04/26/24 Tamiko Renee, [facility] [place] [address] [address] Pharmacist Pharmacist 01/27/24 04/26/24 Roxana Cruz PA-C [address] [place] [phone] Assigned PCP 04/04/24 documented as of this encounter
--- OUTSIDE RECORDS SUMMARY | 2024-08-20 10:48 | XMS_ITS | Encounter Summary ---
Author Organization [place] Address [facility] [place] [address] Care Team Providers Care Butane Compressor Operator Name Role Phone Mora Garrett MD Primary Care Prov ider Mora Garrett MD Unavailable + Katina Dow Unavailable Unavailable Shana Singleton MD Unavailable [phone] Iftikhar, Tammi PharmD Unavailable +[phone] Iftikhar, Tammi PharmD Unavailable +[phone] Iftikhar, Tammi PharmD Unavailable +[phone] Crista Norton APRN PRODUCTION DIRECTOR Unavailable [phone] Doritanilton Jaz Schneider Unavailable +[phone] Ashanti Ordoñez MD Unavailable +[phone] Ashanti Ordoñez MD Primary Care Provider [phone] Majo Roth Miesha Unavailable [phone] Majo Roth RPH Unavailable [phone] Magalie Whipple [facility] Unavailable +[phone] Magalie Whipple [facility] Unavailable +[phone] Magalie Whipple Unavailable Unavailable Tamiko Renee [facility] Unavailable Roxana Cruz PA-C Unavailable [phone] Encounter Details Date Type Department Care Team (Late st Contact Info) Description 03/18/2021 MyC Medical Advice [facility] [address] [address] [address] [address] Shana Singleton MD [address] [place] [address] Social History Tobacco Use Types [...] Answer Date Recorded PHQ-2 Score 4 02/26/2021 [facility] [place] of Occupat ional Health - Occupational Stress [...] Sex Assigned at Female 03/22/2018 7:28 AM POCKET GRINDER OPERATOR Legal Sex Female 5:04 AM POCKET GRINDER OPERATOR Gender Identity Female 03/22/2018 7:28 AM POCKET GRINDER OPERATOR Sexual Orientation Straight 03/22/2018 7: 28 AM POCKET GRINDER OPERATOR 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 No / Unsure 02/28/2021 11:39 AM POCKET GRINDER OPERATOR documented as of this encounter Plan of Treatment Upcoming Encounters Date Type Department Care Team (Late st Contact Info) Description 12/08/2024 1:30 PM CDT Office Visit [facility] [address] [place] [address] Roxana Cruz PA-C [address] [place] [phone] Ashanti Ordoñ[place] [address] [place] [address] documented as of this encounter Visit Diagnoses Not on filedocumented in this encounter Additional Health Concerns Assessment Noted Time PHQ-9 Depression Total Score: 13 021 7:03 AM POCKET GRINDER OPERATOR documented as of this encounter Care Teams Butane Compressor Operator Relationship Specialty Start Date End Date Mora Garrett MD PCP - General Family Practice 01/07/18 10/28/22 Ashanti Ordoñ[place] [address] [place] [address] PCP - General 10/29/22 Mora Garrett MD Assigned PCP 01/10/18 09/05/22 Katina Dow Personal Advocate & Liaison (PAL) Family Practice 09/20/19 09/15/22 Shana Singleton MD [address] [place] [address] [phone] Resident Student in organized health care education/training program 12/16/19 Tammi Buitrago, PharmD [address] [place] [address] [phone] Pharmacist Pharmacist 08/06/20 04/26/24 Tammi Buitrago, GudeliaD [address] [place] [address] Assigned MTM Pharmacist 09/07/21 Tammi Buitrago, PharmD [address] [place] [address] Assigned MTM Pharmacist 01/08/2202/07 Crista Norton APRN PRODUCTION DIRECTOR [address] [place] [address] Assigned PCP 09/06/22 09/12/22 Jaz Ro AuD [address] [place] [address] Audiology 10/02/22 Ashanti Ordoñ[place] [address] [place] [address] Assigned PCP 09/13/22 04/03/24 Majo Roth [facility] [address] [place] [address] Pharmacist Pharmacist Agriculture Science Teacher 12/01/22 04/26/24 Majo Roth [facility] [address] [place] [address] Assigned MTM Pharmacist 12/06/22 Magalie Whipple [facility] [address] [place] [address] Pharmacist Pharmacist 12/26/22 04/26/24 Magalie Whipple [facility] [address] [place] [address] Assigned MTM Pharmacist 01/03/23 Magalie Whipple Medical Student 08/10/23 04/26/24 Tamiko Renee, [facility] [address] [place] [address] [address] Pharmacist Pharmacist 01/27/24 04/26/24 Roxana Cruz PA-C [address] [place] [address] Assigned PCP 04/04/24 documented as of this encounter
--- OUTSIDE RECORDS SUMMARY | 2024-08-20 10:48 | XMS_ITS | Encounter Summary ---
Author Organization [place] Address [facility] [place] [address] Care Team Providers Care Hospitality Manager Name Role Phone Mora Garrett MD Primary Care Prov ider Mora Garrett MD Unavailable + Katina Dow Unavailable Unavailable Shana Singleton MD Unavailable [phone] Iftikhar, Tammi PharmD Unavailable [phone] Iftikhar, Tammi PharmD Unavailable [phone] Iftikhar, Tammi PharmD Unavailable [phone] Crista Norton APRN SENIOR MECHANICAL DESIGNER Unavailable [phone] Doritanilton Jaz Schneider Unavailable [phone] Ashanti Ordoñez MD Unavailable [phone] Ashanti Ordoñez MD Primary Care Provider [phone] Majo Roth Miesha Unavailable [phone] Majo Roth RPH Unavailable [phone] Magalie Whipple [facility] Unavailable [phone] Magalie Whipple [facility] Unavailable [phone] Magalie Whipple Unavailable Unavailable Tamiko Renee [facility] Unavailable [phone] Roxana Cruz Sirena PA-C Unavailable [phone] Reason for Visit * Reason Onset Date Comments MyChart Communication 06/20/2021 leg pain Encounter Details Date Type Department Care Team (Latest Contact Info) Description 06/20/2021 MyC Medical Advice [address] [address] Mora Garrett MD [place] [address] [address] MyChart Communication (leg pain) Social History Tobacco Use Types Packs/Day Years [...] and Family Once a week 11/06/2018 Attends Yazdanism Services More than 4 times per year [...] Administer PHQ-9 if positive 2 04/23/2021 [facility] of Occupat ional Health - Occupational Stress [...] Sex Assigned at Female 03/22/2018 7:28 AM COREMAKING MACHINE SETTER Legal Sex Female 5:04 AM COREMAKING MACHINE SETTER Gender Identity Female 03/22/2018 7:28 AM COREMAKING MACHINE SETTER Sexual Orientation Straight 03/22/2018 7: 28 AM COREMAKING MACHINE SETTER 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 MAKING MACHINE SETTER documented in this encounter Plan of Treatment Upcoming Encounters Date Type Department Care Team (Late st Contact Info) Description 12/08/2024 1:30 PM CDT Office Visit [facility] [address] [place] [phone] Roxana Cruz PA-C [address] [place] [phone] Ashanti Ordoñ[place] [address] [place] [address] documented as of this encounter Visit Diagnoses Not on filedocumented in this encounter Additional Health Concerns Assessment Noted Time PHQ-9 Depression Total Score: 10 022 7:01 AM COREMAKING MACHINE SETTER documented as of this encounter Care Teams Hospitality Manager Relationship Specialty Start Date End Date Mora Garrett MD PCP - General Family Practice 01/07/18 10/28/22 Ashanti Ordoñ[place] [address] [place] [address] PCP - General 10/29/22 Mora Garrett MD Assigned PCP 01/10/18 09/05/22 Katina Dow Personal Advocate & Liaison (PAL) Family Practice 09/20/19 09/15/22 Shana Singleton MD [address] [place] [address] [id number] Resident Student in [facility] [employer] [facility] health care education/training program 12/16/19 Tammi Buitrago, PharmD [address] [place] [address] [id number] Pharmacist Pharmacist 08/06/20 04/26/24 Tammi Buitrago, PharmD [address] [place] [address] [phone] Assigned MTM Pharmacist 09/07/21 Tammi Buitrago, GudeliaD [address] [place] [address] [id number] Assigned MTM Pharmacist 01/08/2202/07 Crista Norton APRN [facility] [address] [place], [place] [id number] Assigned PCP 09/06/22 09/12/22 Jaz Ro AuD [address] [place] [address] [id number] Audiology 10/02/22 Ashanti Ordoñ[place] [address] [place] [address] Assigned PCP 09/13/22 04/03/24 Majo Roth RPH [address] [place] [address] [id number] Pharmacist Pharmacist Elementary Supervisor 12/01/22 04/26/24 Majo Roth, [facility] [address] [place] [address] Assigned MTM Pharmacist 12/06/22 Magalie Whipple, [facility] [address] [id number] Pharmacist Pharmacist 12/26/22 04/26/24 Magalie Whipple, [facility] [address] [id number] Assigned MTM Pharmacist 01/03/23 Magalie Whipple Medical Student 08/10/23 04/26/24 Tamiko Renee, [facility] [address] [place] [address] Pharmacist Pharmacist 01/27/24 04/26/24 Roxana Crzu PA-C [address] [place] [address] Assigned PCP 04/04/24 documented as of this encounter
--- OUTSIDE RECORDS SUMMARY | 2024-08-20 10:48 | XMS_ITS | Encounter Summary ---
Author Organization [place] Address [address] [place] [address] Care Team Providers Care Test And Balance Engineer Name Role Phone Shana Singleton MD Unavailable [phone] Tammi Buitrago PharmD Unavailable [phone] Jaz Ro Unavailable [phone] Ashanti Ordoñez MD Unavailable [phone] Ashanit Ordoñez MD Primary Care Provider [phone] Majo Roth [facility] Unavailable [phone] Majo Roth [facility] Unavailable [phone] Magalie Whipple [facility] Unavailable [phone] Magalie Whipple [facility] Unavailable [phone] Magalie Whipple Unavailable Unavailable Tamiko Renee [facility] Unavailable Roxana Cruz PA-C Unavailable [phone] Encounter Details Date Type Department Care Team (Late st Contact Info) Description 12/24/2022 MyC Medical [facility] [id number] [place] [phone] Majo Roth, [facility] [address] [place] [address] Social History Tobacco Use Types Packs/Day Years [...] week 09/08/2022 How often do you attend [facility] or gnosticist services? More than 4 times per year 09/08/2022 Do you belong to any clubs o r organizations such as amish groups, unions, fraternal or athletic groups, or [...] Answer Date Recorded PHQ-2 Score 2 10/30/2022 [facility] [place] of Occupat ional Health - Occupational Stress [...] in a alf (including now)? No 09/08/2022 Education Answer Date Recorded What is the highest level of school you have completed or the highest degree you have received? Bachelor's degree (e.g., BA, AB, BS) 06/23/2019 Comments No Sex and Gender Information Value Date Recorded Sex Assigned at Female 03/22/2018 7:28 AM STITCH BONDING MACHINE TENDER Legal Sex Female 5:04 AM STITCH BONDING MACHINE TENDER Gender Identity Female 03/22/2018 7:28 AM STITCH BONDING MACHINE TENDER Sexual Orientation Straight 03/22/2018 7: 28 AM STITCH BONDING MACHINE TENDER Occupation Industry Job Start Date Job End [...] Description 12/08/2024 1:30 PM CDT Office Visit [facility] [address] [place] [address] Roxana Cruz PA-C [address] [place] [phone] Ashanti Ordoñ[place] [address] [place] [address] documented as of this encounter Visit Diagnoses Not on filedocumented in this encounter Additional Health Concerns Assessment Noted Time PHQ-9 Depression Total Score: 7 10/30/19 8:58 PM CDT documented as of this encounter Care Teams Test And Balance Engineer Relationship Specialty Start Date End Date Ashanti Ordoñ[place] [address] [place] [address] PCP - General 10/29/22 Shana Singleton MD [address] [place] [address] [phone] Resident Student in organized health care education/training program 12/16/19 Tammi Buitrago, GudeliaD [address] [place] [address] [phone] Pharmacist Pharmacist 08/06/20 04/26/24 Jaz Ro AuD [address] [place] [address] [id number] Audiology 10/02/22 Ashanti Ordoñ[place] [address] [place] [address] Assigned PCP 09/13/22 04/03/24 Majo Roth, [facility] [address] [place] [address] Pharmacist Pharmacist Plan Checker 12/01/22 04/26/24 Majo Roth, [facility] [address] [place] [address] Assigned MTM Pharmacist 12/06/22 Magalie Whipple, [facility] [address] [place] [address] Pharmacist Pharmacist 12/26/22 04/26/24 Magalie Whipple, [facility] [address] [place] [address] Assigned MTM Pharmacist 01/03/23 Magalie Whipple Medical Student 08/10/23 04/26/24 Tamiko Renee, [facility] [address] [place] [address] Pharmacist Pharmacist 01/27/24 04/26/24 Roxana Cruz PA-C [address] [place] [address] Assigned PCP 04/04/24 documented as of this encounter
--- OUTSIDE RECORDS SUMMARY | 2024-08-20 10:48 | XMS_ITS | Encounter Summary ---
Author Organization [facility] Address [address] [place] [address] Care Team Providers Care Lye Peel Operator Name Role Phone Ashanti Ordoñez MD Primary Care Provider [phone] Reason for Referral * Other (Routine) - Open Specialty Diagnoses / Procedures Referred By Bunny ricardo Referred To Contact Diagnoses Chronic migraine with aura without status migrainosus, not intractable Cervicalgia Procedures [facility] PROCEDURE APPOINTMENT Aayush Mcfarland PA-C [address] [place] [address] [place] [address] Phone: tel: fax: Referral ID Status Reason Start Date Expiration Date Visits Re quested Visits Authorized [id number] Open 07/12/2024 1 1 Reason for Visit * Reason Comments Botulinum Toxin Injection Follow up Migraine Procedure * (Routine) - Authorized Specialty Diagnoses / Procedures Referred By Bunny ricardo Referred To Contact Neurology Diagnoses Migraine, unspecified, not intractable, without status migrainosus BOTOX-200 l/s Procedures INJECTION,ONABOTULINUMTOXINA INJECTION Aayush Mcfarland PA-C [address] [place] [address] [place] [facility] [address] [place] [address] Phone: tel: fax: Referral ID Status Reason Start Date Expiration Date V isits Requested Visits Authorized [id number] Authorized 06/25/2023 06/27/2025 8 8 Encounter Details Date Type Department Care Team (Late st Contact Info) Description 07/12/2024 3:30 PM CDT Office Visit [facility] - [address] [place] [phone] Aayush Mcfarland PA-C [address] [place] [address] [place] [address] [phone] Chronic migraine with aura without status migrainosus, not intractable (Primary Dx); Cervicalgia Social History Tobacco Use Types Packs/Day Years Used Date Smoking Tobacco: Never Smokeless Tobacco: Never Alcohol Use Standard Drinks/Week Comments Yes 0 (1 standard drink = 0.6 oz pur e alcohol) rarely Comments Unknown Sex and Gender Information Value Date Recorded Sex Assigned at Female 12/22/2022 12:24 PM CDT Legal Sex Female 7:15 PM CDT Gender Identity Female 12/22/2022 12:24 PM CDT Sexual Orientation Straight 12/22/2022 12 :24 PM CDT documented as of this encounter Last Filed Vital Signs Vital Sign Reading Time Taken Comments Blood Pressure - - Pulse - - Temperature - - Respiratory Rate 14 07/12/2024 4:02 PM CDT Oxygen Saturation - - Inhaled Oxygen Concentration - - Weight 90.7 kg (200 lb) 07/12/2024 4:02 PM CDT Height 172.7 cm (5' 8) 07/12/2024 4:02 PM CDT Body Mass Index 30.41 07/12/2024 4:02 PM CDT documented in this encounter Progress Notes * Aayush Mcfarland PA-C - 07/12/2024 3:30 PM CDT 07/12/2024 Neurology Follow-up Note 4:03 PM ~~~~~~~~~~~~ Aayush Mcfarland PA-C Neurology ~~~~~~~~~~~ REPORT OF CONSULTATION Patient Name: Michelle Martel : 1970 Primary Care Physician: Ashanti Ordoñez MD Consulting Physician: Aayush Mcfarland PA-C HPI: Michelle is seen in follow-up of chronic migraines and neck pain. She had her thrid round of Botox injections completed on 03/24/2024. Maxalt has been helpful with these headaches acutely. She has noticed intermittent headaches from time to time. Overall she feels like Botox injections have been helpful along with Maxalt helping acutely. She did start estrogen and progesterone and a thyroid medication as well as controlling her blood pressure and feels like this has been a big help with her headaches as well. She is here today to repeat Botox injections to help with her chronic migraines. She continues to watch out for migraine triggers. She stretched out the Botox about 15 weeks this time and felt some increase over this last week for sure. She is not sure if it is more the weather changes or just that she was trying to stretch out the Botox injections. She said her next Botox injections were 13 weeks out instead of 15. Medications tried: Gabapentin, Topamax, mirtazapine, amitriptyline, tizanidine, Lyrica -ineffectiveand caused side effects. Qulipta -ineffective Imitrex -ineffective Nurtec -nausea and dizziness Baseline: daily headaches. 1st Botox: 01/28/2023 After Botox: Improvements in headaches overall. Intermittent breakthrough headaches. PAST MEDICAL HISTORY Past Medical History: Diagnosis Date Classical migraine Neck pain PAST SURGICAL HISTORY No past surgical history on file. ALLERGIES/SENSITIVITIES Allergies Allergen Reactions Methylprednisolone Other Patient experienced severe depression with suicidal ideation when she started a Medrol dose pack. She reported rage episodes in the past as well. Sulfamethoxazole-Trimethoprim Nausea and Vomiting Happened in 2017 Happened in 2017 Lactose Metaxalone Muscle twiching Sulfa (Sulfonamide Antibiotics) Moxifloxacin Nausea CURRENT MEDS Current Outpatient Medications: buPROPion XL (WELLBUTRIN XL) 300 mg oral extended release tablet 24 HR, Take 1 tablet (300 mg) by mouth once daily., Disp: , Rfl: cetirizine (ZYRTEC) 10 mg oral tablet, Take 1 tablet (10 mg) by mouth Daily., Disp: , Rfl: Cholecalciferol, Vitamin D3, 50 mcg (2,000 unit) oral tablet, , Disp: , Rfl: DULoxetine (CYMBALTA) 30 mg oral delayed release capsule, Take 60 mg by mouth Daily., Disp: , Rfl: estradioL (VIVELLE-DOT) 0.05 mg/24 hr TD SEMIweekly patch, , Disp: , Rfl: Glucosamine-Chondroitin 500-400 mg oral Tab, Take 1 tablet by mouth., Disp: , Rfl: metoprolol succinate, XL, (TOPROL XL) 25 mg oral extended release tablet 24 HR, Take 1 tablet (25 mg) by mouth twice a day., Disp: , Rfl: HIGH LIFT DRIVER THYROID 30 mg oral tablet, , Disp: , Rfl: progesterone micronized (PROMETRIUM) 100 mg oral capsule, , Disp: , Rfl: rizatriptan (MAXALT) 5 mg oral tablet, TAKE ONE TO TWO TABLETS BY MOUTH AT ONSET OF HEADACHE FOR MIGRAINE, Disp: 12 tablet, Rfl: 3 traMADoL (ULTRAM) 50 mg oral tablet, Take 1 tablet (50 mg) by mouth every 6 (six) hours. Take 1 tablet q6 as needed for intense headache., Disp: 10 tablet, Rfl: 0 traZODone (DESYREL) 50 mg oral tablet, Take 25-50 mg (1/2 tablet-1 tablet) at bedtime as needed forinsomnia, may take an additional 12.5 mg (1/4 tablet) during the day PRN for anxiety, Disp: , Rfl: SOCIAL HISTORY Social History Socioeconomic History Marital status: Spouse name: Not on file Number of children: Not on file Years of education: Not on file Highest education level: Not on file Occupational History Not on file Tobacco Use Smoking status: Never Smokeless tobacco: Never Substance and Sexual Activity Alcohol use: Yes Comment: rarely Drug use: Never Sexual activity: Not on file Other Topics Concern Not on file Social History Narrative Not on file Social Drivers of Health Financial Resource Strain: Low Risk (12/09/2023) Received from [facility] Financial Resource Strain Within the past 12 months, have you or your family members you live with been unable to get utilities (heat, electricity) when it was really needed?: No Food Insecurity: Low Risk (12/09/2023) Received from [facility] Food Insecurity Within the past 12 months, did you worry that your food would run out before you got money to buy more?: No Within the past 12 months, did the food you bought just not last and you didn???t have money to getmore?: No Transportation Needs: Low Risk (12/09/2023) Received from [facility] Transportation Needs Within the past 12 months, has lack of transportation kept you from medical appointments, getting your medicines, non-medical meetings or appointments, work, or from getting things that you need?: No Physical Activity: Unknown (12/09/2023) Received from [facility] Exercise Vital Sign Days of Exercise per Week: 2 days Minutes of Exercise per Session: Not on file Stress: No Stress Concern Present (12/09/2023) Received from [facility] [place] of Occupational Health - Occupational Stress Questionnaire Feeling of Stress : Not at all Social Connections: Unknown (12/09/2023) Received from [facility] Social Connection and Isolation Panel [NHANES] Frequency of Communication with Friends and Family: Not on file Frequency of Social Gatherings with Friends and Family: Once a week Attends Confucianism Services: Not on file Active Member of Clubs or Organizations: Not on file Attends Club or Organization Meetings: Not on file Marital Status: Not on file Intimate Partner Violence: Low Risk (12/09/2023) Received from [facility] Interpersonal Safety Do you feel physically and emotionally safe where you currently live?: Yes Within the past 12 months, have you been hit, slapped, kicked or otherwise physically hurt by someone?: No Within the past 12 months, have you been humiliated or emotionally abused in other ways by your partner or ex-partner?: No Housing Stability: Low Risk (12/09/2023) Received from [facility] Housing Stability Do you have housing? (Housing is defined as stable permanent housing and does not include staying ouside in a car, in a tent, in an abandoned building, in an overnight mcfp, or couch-surfing.): Yes Are you worried about losing your housing?: No FAMILY HISTORY No family history on file. REVIEW OF SYSTEMS: 10 point ROS was otherwise negative. Resp. rate 14, height 5' 8 (1.727 m), weight 90.7 kg (200 lb). Exam: Patient was well groomed and appeared of appropriate age. HEENT: Extraocular movements were intact. No mucosal congestion. Neck: The neck was supple. There were myofascial tender points in the paracervical, trapezius, and TMJ areas with tenderness over the occipital nerve bilaterally. Neurological examination: Higher mental functions: The patient was awake alert and oriented x3. Speech and language functionswere normal. Cranial nerves examination: Extraocular movements were intact. There was no disconjugate gaze. There were no facial sensory deficits. There was no facial asymmetry. The tongue and uvula were in the midline. The shoulder shrug was normal. CN II- XII normal. Motor examination: The tone was normal. There is no pronator drift. The strength in the proximal and distal muscle groups in both upper and lower extremities was normal at 5/5. Coordination: Finger to nose -normal. There was no dysmetria. Gait: The patient walked with a narrow-based gait. Assessment and Plan: Michelle is seen in follow-up of chronic migraines and neck pain. She noticed improvements in her headaches after having Botox injections completed. Maxalt has been helpful acutely when needed. I will give her a few pills of tramadol 50 mg to use for intense headaches that do not respond to Maxalt. She feels like blood pressure medications and adding hormone replacement medications have helped with her headaches overall. She is tolerating her current dose of Cymbalta. She will continue with all her other current medications. I will perform Botox injections today to help with her headaches and neck pain. She was told not to do any vigorous exercising for the next 24 hours after the procedure iscompleted. She is also encouraged to work on a daily exercise program and practice relaxation techniques. She send her next Botox injections for 13 weeks instead of 15 weeks. She wants to see if the hormone replacement medications and blood pressure medications have helped control headaches. Procedure note: The Botox procedure was explained to the patient. Two Botox vials from lot# [id number] exp: 08/2026 were used. The Botox vials were diluted with 1 cc of preservative-free normal saline each. The following muscles were injected: #1 procerus 5 units #2 marketing planner 5 units bilaterally #3 frontalis 5 units at 4 different sites #4 temporalis 5 units at 5 different sites bilaterally #5 Occipitalis 5 units at 5 different sites bilaterally #6 trapezius 5 units at 3 different sites bilaterally #7 Upper paracervicals 5 units at 2 different sites bilaterally #8 masseter 5 units bilaterally #9 levator scapula 2.5 units bilaterally Total units used- 200 Units wasted- 0 Patient tolerated the procedure well. She was discharged in a healthy condition. Procedure performed by Aayush Mcfarland PA-C I spent 33 min. With the patient in activities before, during and after the visit. (This time does not include the time spent on injection procedures) 2024: Documentation of current mediations reviewed every visit 2. Does patient use tobacco? No 3. Patient has had no falls in calendar year 4. Does patient have Dementia? No Aayush Mcfarland PA-C Neurology documented in this encounter Plan of Treatment Not on file documented as of this encounter Visit Diagnoses Diagnosis Chronic migraine with aura without status migrainosus, not intractable- Primary Cervicalgia documented in this encounter Administered Medications Inactive Administered Medications - up to 3 most recent administrations Medication Order MAR Action Action Date Dose Rate Site onabotulinumtoxinA (Botox) injection 100 Units 100 Units, IntraMUSCULAR, ONCE, 1 dose, On Thu07/12/24 at 1615Indications:Chronic migraine with aura without status migrainosus, not intractable,Cervicalgia Given 07/12/2024 4:08 PM CDT 100 Units Procedural onabotulinumtoxinA (Botox) injection 100 Units 100 Units, IntraMUSCULAR, ONCE, 1 dose, On Thu07/12/24 at 1615Indications:Chronic migraine with aura without status migrainosus, not intractable,Cervicalgia Given 07/12/2024 4:08 PM CDT 100 Units Procedural documented in this encounter Care Teams Lye Peel Operator Relationship Specialty Start Date [place]Ahanti Or[place] [address] [place] [address] PCP - General 12/22/22 documented as of this encounter
--- OUTSIDE RECORDS SUMMARY | 2024-08-20 10:48 | XMS_ITS | Encounter Summary ---
Author Organization [place] Address [facility] [place] [address] Care Team Providers Care Tree Cutter Name Role Phone Mora Garrett MD Primary Care Prov ider Mora Garrett MD Unavailable + Tony Francisco Unavailable Unavailable Katina Dow Unavailable Unavailable Shana Singleton MD Unavailable +[phone] Katina Dow Unavailable Unavailable Iftikhar, Tammi PharmD Unavailable +[phone] Iftikhar, Tammi PharmD Unavailable +[phone] Iftikhar, Tammi PharmD Unavailable +[phone] Crista Norton APRN PRODUCT EXPERT Unavailable [phone] Jaz Ro Unavailable [phone] Ashanti Ordoñez MD Unavailable +[phone] Ashanti Ordoñez MD Primary Care Provider [phone] Majo Roth [facility] Unavailable [phone] Majo Roth [facility] Unavailable [phone] Magalie Whipple [facility] Unavailable +[phone] Magalie Whipple [facility] Unavailable [phone] Magalie Whipple Unavailable Unavailable Tamiko Renee [facility] Unavailable [phone] Roxana Cruz PA-C Unavailable [phone] Reason for Visit * Reason Onset Date Comments Refill Request 07/19/2019 Encounter Details Date Type Department Care Team (Late st Contact Info) Description 07/19/[address], [address] [place] [address] oHng Allred PA-C [address] [place] [address] Refill Request Social History Tobacco Use Types [...] and Family Once a week 11/06/2018 Attends Anabaptism Services More than 4 times per year [...] Answer Date Recorded PHQ-2 Score 2 06/23/2019 [facility] [place] of Occupat ional Health - Occupational Stress [...] place to sleep or slept in a halfway (including now)? No 06/23/2019 Education Answer Date Recorded What is the highest level of school you have completed or the highest degree you have received? 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 No / Unsure 07/20/2019 3:22 PM CDT documented as of this encounter Plan of Treatment Upcoming Encounters Date Type Department Care Team (Late st Contact Info) Description 12/08/2024 1:30 PM CDT [facility] [address] [place] [phone] Roxana Cruz PA-C [address] [place] [phone] Ashanti Ordoñ[place] [address] [place] [address] documented as of this encounter Visit Diagnoses Diagnosis Moderate single current episode of major depressive disorder (H) Benign paroxysmal positional vertigo, unspecified laterality documented in this encounter Additional Health Concerns Assessment Noted Time PHQ-9 Depression Total Score: 9 10/06/19 20 7:06 AM CDT documented as of this encounter Care Teams Tree Cutter Relationship Specialty Start Date End Date Mora Garrett MD PCP - General Family Practice 01/07/18 10/28/22 Ashanti Ordoñ[place] [address] [place] [address] PCP - General 10/29/22 Mora Garrett MD Assigned PCP 01/10/18 09/05/22 Tony Francisco Personal Advocate & Liaison (PAL) Family Practice 04/11/19 09/19/19 Katina Dow Personal Advocate & Liaison (PAL) Family Practice 09/20/19 09/15/22 Shana Singleton MD [facility] [place], [place] 7[address] Resident Student in organized health care education/training program 12/16/19 Katina Dow Personal Advocate & Liaison (PAL) Family Medicine 06/08/20 01/07/21 Tammi Buitrago, GudeliaD [address] [place] [address] Pharmacist Pharmacist 08/06/20 04/26/24 Tammi Buitrago, GudeliaD [address] [place] [address] Assigned MTM Pharmacist 09/07/21 Tammi Buitrago, GudeliaD [address] [place] [address] Assigned MTM Pharmacist 01/08/2202/07 Crista Norton APRN [facility] [address] [place] [address] Assigned PCP 09/06/22 09/12/22 Jaz Ro AuD [address] [place] [address] [phone] Audiology 10/02/22 Ashanti Ordoñ[place] [address] [place] [address] Assigned PCP 09/13/22 04/03/24 Majo Roth RPH [address] [place] [address] 078225 Pharmacist Pharmacist Heel Builder Machine 12/01/22 04/26/24 Majo Roth, [facility] 9 [place] [address] Assigned MTM Pharmacist 12/06/22 Magalie Whipple, [facility] [address] [place] [address] Pharmacist Pharmacist 12/26/22 04/26/24 Magalie Whipple, [facility] [address] [place] [address] Assigned MTM Pharmacist 01/03/23 Magalie Whipple Medical Student 08/10/23 04/26/24 Tamiko Renee, [facility] [address] [place] [address] Pharmacist Pharmacist 01/27/24 04/26/24 Roxana Cruz PA-C [address] [place] [address] Assigned PCP 04/04/24 documented as of this encounter
--- OUTSIDE RECORDS SUMMARY | 2024-08-20 10:48 | XMS_ITS | Encounter Summary ---
Author Organization [place] Address [facility] [place] [address] Care Team Providers Care Pcb Designer Name Role Phone Mora Garrett MD Primary Care Prov ider Mora Garrett MD Unavailable + Katina Dow Unavailable Unavailable Shana Singleton MD Unavailable [phone] Iftikhar, Tammi PharmD Unavailable +[phone] Iftikhar, Tammi PharmD Unavailable +[phone] Iftikhar, Tammi PharmD Unavailable +[phone] Crista Norton APRN ROTARY DRUM TANNER Unavailable +[phone] [place] Jaz Schneider Unavailable +[phone] Ashanti Ordoñez MD Unavailable [phone] Ashanti Ordoñez MD Primary Care Provider [phone] Majo Roth Miesha Unavailable [phone] Majo Roth RPH Unavailable [phone] Magalie Whipple [facility] Unavailable +[phone] Magalie Whipple [facility] Unavailable +[phone] Magalie Whipple Unavailable Unavailable Tamiko Renee [facility] Unavailable Roxana Cruz PA-C Unavailable [phone] Encounter Details Date Type Department Care Team (Late st Contact Info) Description 02/15/2021 My[facility] Medical Advice [address] [address] Edwina Jamil Social History Tobacco Use Types Packs/Day Years [...] points; Administer PHQ-9 if positive 4 02/14/2021 [facility] [place] of Occupat ional Health - Occupational Stress [...] Sex Assigned at Female 03/22/2018 7:28 AM FIRST COAT SANDER Legal Sex Female 5:04 AM FIRST COAT SANDER Gender Identity Female 03/22/2018 7:28 AM FIRST COAT SANDER Sexual Orientation Straight 03/22/2018 7: 28 AM FIRST COAT SANDER 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 Plan of Treatment Upcoming Encounters Date Type Department Care Team (Late st Contact Info) Description 12/08/2024 1:30 PM CDT Office Visit [facility] [address] [place] [phone] Roxana Cruz, PAChesterC [address] [place] [address] Ashanti Ordoñ[place] [address] [place] [address] documented as of this encounter Visit Diagnoses Not on filedocumented in this encounter Additional Health Concerns Assessment Noted Time PHQ-9 Depression Total Score: 15 02/15/ 021 7:01 AM CDT documented as of this encounter Care Teams Pcb Designer Relationship Specialty Start Date End Date Mora Garrett MD PCP - General Family Practice 01/07/18 10/28/22 Ashanti Ordoñez [place] [address] [place] [address] PCP - General 10/29/22 Mora Garrett MD Assigned PCP 01/10/18 09/05/22 Katina Dow Personal Advocate & Liaison (PAL) Family Practice 09/20/19 09/15/22 Shana Singleton MD [address] [place] [address] 657005 Resident Student in organized health care education/training program 12/16/19 Tammi Buitrago, GudeliaD [address] [place] [address] [phone] Pharmacist Pharmacist 08/06/20 04/26/24 Tammi Buitrago, GudeliaD [address] [place] [address] [phone] Assigned MTM Pharmacist 09/07/21 Tammi Buitrago, GudeliaD [address] [address] Assigned MTM Pharmacist 01/08/2202/07 Crista Norton APRN ROTARY DRUM TANNER [address] [place] [address] Assigned PCP 09/06/22 09/12/22 Jaz Ro AuD [address] [place] [address] 956215 Audiology 10/02/22 Ashanti Ordoñ[place] [address] [place] [address] Assigned PCP 09/13/22 04/03/24 Majo Roth [facility] 9 [place], [place] [address] Pharmacist Pharmacist Hedis Registered Nurse Rn 12/01/22 04/26/24 Majo Roth [facility] 9 [place], [place] 156245 Assigned MTM Pharmacist 12/06/22 Magalie Whipple, [facility] [address] [id number] Pharmacist Pharmacist 12/26/22 04/26/24 Magalie Whipple, [facility] [address] [id number] Assigned MTM Pharmacist 01/03/23 Magalie Whipple Medical Student 08/10/23 04/26/24 Tamiko Renee, [facility] [address] [place] [address] Pharmacist Pharmacist 01/27/24 04/26/24 Roxana Cruz PA-C [address] [place] [phone] Assigned PCP 04/04/24 documented as of this encounter
--- OUTSIDE RECORDS SUMMARY | 2024-08-20 10:48 | XMS_ITS | Encounter Summary ---
Author Organization [place] Address [facility] [place] [address] Care Team Providers Care Bag Liner Name Role Phone Shana Singleton MD Unavailable [phone] Tammi Buitrago PharmD Unavailable [phone] Jaz Ro Unavailable [phone] Ashanti Ordoñez MD Unavailable [phone] Ashanti Ordoñez MD Primary Care Provider [phone] Majo Roth [facility] Unavailable [phone] Magalie Whipple [facility] Unavailable [phone] Magalie Whipple [facility] Unavailable Magalie Whipple Unavailable Unavailable Tamiko Renee [facility] Unavailable Roxana Cruz PA-C Unavailable [phone] Encounter Details Date Type Department Care Team (Late st Contact Info) Description 04/08/2023 [facility] Medical Advice [address] [place] [address] Magalie Whipple, [facility] [address] [facility] [place] [address] Migraine with aura and without status migrainosus, not intractable (Primary Dx); Obesity (BMI 30-39.9); Benign essential hypertension Social History Tobacco Use Types Packs/Day Years [...] week 03/11/2023 How often do you attend [facility] or muslim services? More than 4 times per year 03/11/2023 Do you belong to any clubs o r organizations such as hinduism groups, unions, fraternal or athletic groups, or [...] 03/11/2023 PHQ-2 Answer Date Recorded PHQ-2 Score 0 03/11/2023 [facility] [place] of Occupat ional Health - Occupational Stress [...] abandoned building, in an overnight mcfp, or couch-surfing.) Yes 03/11/2023 Are you worried [...] Sex Assigned at Female 03/22/2018 7:28 AM MANDARIN TEACHER Legal Sex Female 5:04 AM MANDARIN TEACHER Gender Identity Female 03/22/2018 7:28 AM MANDARIN TEACHER Sexual Orientation Straight 03/22/2018 7: 28 AM MANDARIN TEACHER 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 Plan of Treatment Upcoming Encounters Date Type Department Care Team (Late st Contact Info) Description 12/08/2024 1:30 PM CDT Office Visit [address] [address] Roxana Cruz PA-C [address] [place] [phone] Ashanti Ordoñez [place] [address] [place] [address] documented as of this encounter Visit Diagnoses Diagnosis Migraine with aura and without status migrainosus, not intractable- Primary Migraine with aura, without mention of intractable migraine without mention of status migrainosus Obesity (BMI 30-39.9) Obesity, unspecified Benign essential hypertension Essential hypertension, benign documented in this encounter Additional Health Concerns Assessment Noted Time PHQ-9 Depression Total Score: 4 03/11/20 23 9:50 AM MANDARIN TEACHER documented as of this encounter Care Teams Bag Liner Relationship Specialty Start Date End Date Ashanti Ordoñ[place] [address] [place] [address] PCP - General 10/29/22 Shana Singleton MD [address] [place] [address] Resident Student in organized health care education/training program 12/16/19 Tammi Buitrago, GudeliaD [address] [place] [address] [phone] Pharmacist Pharmacist 08/06/20 04/26/24 Jaz Ro AuD [address] [place], [place] 084055 Audiology 10/02/22 Ashanti Ordoñ[place] [address] [place] [address] Assigned PCP 09/13/22 04/03/24 Majo Roth, [facility] 9 [place] [address] Pharmacist Pharmacist Pantograph Watcher 12/01/22 04/26/24 Magalie Whipple, [facility] [address] [id number] Pharmacist Pharmacist 12/26/22 04/26/24 Magalie Whipple, [facility] [address] [id number] Assigned MTM Pharmacist 01/03/23 Magalie Whipple Medical Student 08/10/23 04/26/24 Tamiko Renee, [facility] [address] [place] [address] [address] Pharmacist Pharmacist 01/27/24 04/26/24 Roxana Cruz PA-C [address] [place] [address] Assigned PCP 04/04/24 documented as of this encounter
--- OUTSIDE RECORDS SUMMARY | 2024-08-20 10:48 | XMS_ITS | Encounter Summary ---
Author Organization [place] Address [address] [place] [address] Care Team Providers Care Rigger Supervisor Name Role Phone Shana Singleton MD Unavailable [phone] Tammi Buitrago PharmD Unavailable +[phone] Jaz Ro Unavailable [phone] Ashanti Ordoñez MD Unavailable [phone] Ashanti Ordoñez MD Primary Care Provider [phone] Majo Roth [facility] Unavailable [phone] Majo Roth [facility] Unavailable [phone] Magalie Whipple [facility] Unavailable [phone] Magalie Whipple [facility] Unavailable [phone] Magalie Whipple Unavailable Unavailable Tamiko Renee [facility] Unavailable Roxana Cruz PA-C Unavailable [phone] Encounter Details Date Type Department Care Team (Late st Contact Info) Description 12/26/2022 MyC Medical Advice [facility] [address] [facility] [address] [place] [address] Magalie Whipple, [facility] [address] [facility] [place] [address] Social History Tobacco [...] week 09/08/2022 How often do you attend [facility] or sabianism services? More than 4 times per year 09/08/2022 Do you belong to any clubs o r organizations such as moravian groups, unions, fraternal or athletic groups, or [...] Answer Date Recorded PHQ-2 Score 2 10/30/2022 [facility] [place] of Occupat ional Health - Occupational Stress [...] in a skilled nursing (including now)? No 09/08/2022 Education Answer Date Recorded What is the highest level of school you have completed or the highest degree you have received? Bachelor's degree (e.g., BA, AB, BS) 06/23/2019 Comments No Sex and Gender Information Value Date Recorded Sex Assigned at Female 03/22/2018 7:28 AM STOCK CHASER Legal Sex Female 5:04 AM STOCK CHASER Gender Identity Female 03/22/2018 7:28 AM STOCK CHASER Sexual Orientation Straight 03/22/2018 7: 28 AM STOCK CHASER Occupation Industry Job Start Date Job End [...] 12/08/2024 1:30 PM CDT Office Visit [facility] [address] [place] [address] Roxana Cruz PA-C [address] [place] [phone] Ashanti Ordoñ[place] [address] [place], [place] [phone] documented as of this encounter Visit Diagnoses Not on filedocumented in this encounter Additional Health Concerns Assessment Noted Time PHQ-9 Depression Total Score: 7 10/30/19 23 8:58 PM CDT documented as of this encounter Care Teams Rigger Supervisor Relationship Specialty Start Date End Date Ashanti Ordoñ[place] [address] [place] [address] PCP - General 10/29/22 Shana Singleton MD [address] [place] [address] [phone] Resident Student in organized health care education/training program 12/16/19 Tammi Buitrago, GudeliaD [address] [place] [address] 402254 Pharmacist Pharmacist 08/06/20 04/26/24 Jaz Ro AuD [address] [place] [address] 780025 Audiology 10/02/22 Ashanti Ordoñ[place] [address] [place] [address] Assigned PCP 09/13/22 04/03/24 Majo Roth, [facility] [address] [place] [address] Pharmacist Pharmacist Water Resource Agent 12/01/22 04/26/24 Majo Roth, [facility] [address] [place] [address] Assigned MTM Pharmacist 12/06/22 Magalie Whipple, [facility] [address] [place] [id number] Pharmacist Pharmacist 12/26/22 04/26/24 Magalie Whipple, [facility] [address] [place] [id number] Assigned MTM Pharmacist 01/03/23 Magalie Whipple Medical Student 08/10/23 04/26/24 Tamiko Renee, [facility] [address] [place] [id number] Pharmacist Pharmacist 01/27/24 04/26/24 Roxana Cruz PA-C [address] [place] [address] Assigned PCP 04/04/24 documented as of this encounter
--- OUTSIDE RECORDS SUMMARY | 2024-08-20 10:48 | XMS_ITS | Encounter Summary ---
Author Organization [place] Address [facility] [place] [address] Care Team Providers Care Security Services Specialist Name Role Phone Mora Garrett MD Primary Care Prov ider Mora Garrett MD Unavailable + Katina Dow Unavailable Unavailable Shana Singleton MD Unavailable [phone] Iftikhar, Tammi PharmD Unavailable +[phone] Iftikhar, Tammi PharmD Unavailable +[phone] Iftikhar, Tammi PharmD Unavailable +[phone] Crista Norton APRN CABLE STRANDER Unavailable [phone] [place] Jaz Schneider Unavailable +[phone] Ashanti Ordoñez MD Unavailable +[phone] Ashanti Ordoñez MD Primary Care Provider [phone] Majo Roth Miesha Unavailable [phone] Majo Roth RPH Unavailable [phone] Magalie Whipple [facility] Unavailable [phone] Magalie Whipple [facility] Unavailable [phone] Magalie Whipple Unavailable Unavailable Tamiko Renee [facility] Unavailable [phone] Roxana Cruz PA-C Unavailable [phone] Reason for Visit * Reason Onset Date Comments MyChart Communication 04/18/2021 cholestero l Encounter Details Date Type Department Care Team (Latest Contact Info) Description 04/18/2021 MyC Medical Advice M [address] [address] Mora Garrett MD [facility] [address] [address] MyChart Communication (cholesterol) Social History Tobacco Use Types Packs/Day Years [...] Answer Date Recorded PHQ-2 Score 4 02/26/2021 [facility] [place] of Occupat ional Health - Occupational Stress [...] Sex Assigned at Female 03/22/2018 7:28 AM VOCATIONAL TRAINING INSTRUCTOR Legal Sex Female 5:04 AM VOCATIONAL TRAINING INSTRUCTOR Gender Identity Female 03/22/2018 7:28 AM VOCATIONAL TRAINING INSTRUCTOR Sexual Orientation Straight 03/22/2018 7: 28 AM VOCATIONAL TRAINING INSTRUCTOR 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 No / Unsure 04/16/2021 10:37 AM VOCATIONAL TRAINING INSTRUCTOR documented as of this encounter Miscellaneous Notes * Telephone Encounter - Michlele Beltran RN - 04/19/2021 8:19 AM CST Routed to [facility], see [employer] message and advise Michelle Beltran RN, BSN [facility] TIONAL TRAINING INSTRUCTOR documented in this encounter Plan of Treatment Upcoming Encounters Date Type Department Care Team (Late st Contact Info) Description 12/08/2024 1:30 PM CDT Office Visit [facility] [address] [place] [phone] Roxana Cruz PARodríguez [address] [place] [address] Ashanti Ordoñez [place] [address] [place] [address] documented as of this encounter Visit Diagnoses Not on filedocumented in this encounter Additional Health Concerns Assessment Noted Time PHQ-9 Depression Total Score: 13 02/26/ 021 7:03 AM VOCATIONAL TRAINING INSTRUCTOR documented as of this encounter Care Teams Security Services Specialist Relationship Specialty Start Date End Date Mora Garrett MD PCP - General Family Practice 01/07/18 10/28/22 Ashanti Ordoñ[place] [address] [place] [address] PCP - General 10/29/22 Mora Garrett MD Assigned PCP 01/10/18 09/05/22 Katina Dow Personal Advocate & Liaison (PAL) Family Practice 09/20/19 09/15/22 Shana Singleton MD [address] [place] [address] [phone] Resident Student in organized health care education/training program 12/16/19 Tammi Buitrago, GudeliaD [address] [place] [address] Pharmacist Pharmacist 08/06/20 04/26/24 Tammi Buitrago PharmD [address] [place] [address] Assigned MTM Pharmacist 09/07/21 Tammi Buitrago, GudeliaD [address] [place] [address] Assigned MTM Pharmacist 01/08/2202/07 Crista Norton APRN [facility] [address] [place] [address] Assigned PCP 09/06/22 09/12/22 Jaz Ro AuD [address] [place] [address] Audiology 10/02/22 Ashanti Ordoñ[place] [address] [place] [address] Assigned PCP 09/13/22 04/03/24 Majo Roth [facility] [address] [place] [address] Pharmacist Pharmacist Gear Hobber 12/01/22 04/26/24 Majo Roth, [facility] [address] [place] [address] Assigned MTM Pharmacist 12/06/22 Magalie Whipple, [facility] [address] [place] [address] Pharmacist Pharmacist 12/26/22 04/26/24 Magalie Whipple, [facility] [address] [place] [address] Assigned MTM Pharmacist 01/03/23 Magalie Whipple Medical Student 08/10/23 04/26/24 Tamiko Renee, [facility] [address] [place] [address] Pharmacist Pharmacist 01/27/24 04/26/24 Roxana Cruz PA-C [address] [place] [address] Assigned PCP 04/04/24 documented as of this encounter
--- OUTSIDE RECORDS SUMMARY | 2024-08-20 10:48 | XMS_ITS | Encounter Summary ---
Author Organization [place] Address [facility] [place] [address] Care Team Providers Care Remotely Piloted Vehicle Controller Name Role Phone Mora Garrett MD Primary Care Prov ider Mora Garrett MD Unavailable + Tony Francisco Unavailable Unavailable Katina Dow Unavailable Unavailable Shana Singleton MD Unavailable [phone] Katina Dow Unavailable Unavailable Iftikhar, Tammi PharmD Unavailable [phone] Iftikhar, Tammi PharmD Unavailable [phone] Iftikhar, Tammi PharmD Unavailable [phone] Crista Norton APRN [employer] Unavailable [phone] Jaz Ro Unavailable +[phone] Ashanti Ordoñez MD Unavailable [phone] Ashanti Ordoñez MD Primary Care Provider [phone] Majo Roth [facility] Unavailable [phone] Majo Roth [facility] Unavailable [phone] Magalie Whipple [facility] Unavailable [phone] Magalie Whipple [facility] Unavailable [phone] Magalie Whipple Unavailable Unavailable aTmiko Renee [facility] Unavailable Roxana Cruz PA-C Unavailable [phone] Encounter Details Date Type Department Care Team (Late st Contact Info) Description 07/07/2019 MyC Medical Advice LARS RS STEELE CHIRO [address] [facility] [address] [place] [address] Pearl Menjivar, ILEANA [facility] [address] [place] [address] Social History Tobacco Use Types Packs/Day Years [...] and Family Once a week 11/06/2018 Attends Christian Services More than 4 times per year [...] Answer Date Recorded PHQ-2 Score 2 06/23/2019 [facility] - Occupational [...] place to sleep or slept in a assisted (including now)? No 06/23/2019 Education Answer Date Recorded What is the highest level of school you have completed or the highest degree you have received? 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 Plan of Treatment Upcoming Encounters Date Type Department Care Team (Late st Contact Info) Description 12/08/2024 1:30 PM CDT Office Visit [address] [address] Roxana Cruz PA-C [address] [place] [phone] Ashanti Ordoñ[place] [address] [place] [address] documented as of this encounter Visit Diagnoses Not on filedocumented in this encounter Additional Health Concerns Assessment Noted Time PHQ-9 Depression Total Score: 9 10/06/19 20 7:06 AM CDT documented as of this encounter Care Teams Remotely Piloted Vehicle Controller Relationship Specialty Start Date End Date Mora Garrett MD PCP - General Family Practice 01/07/18 10/28/22 Ashanti Ordoñez [place] [address] [place] [address] PCP - General 10/29/22 Mora Garrett MD Assigned PCP 01/10/18 09/05/22 Tony Francisco Personal Advocate & Liaison (PAL) Family Practice 04/11/19 09/19/19 Katina Dow Personal Advocate & Liaison (PAL) Family Practice 09/20/19 09/15/22 Shana Singleton MD [address] [place] [address] Resident Student in organized health care education/training program 12/16/19 Katina Dow Personal Advocate & Liaison (PAL) Family Medicine 06/08/20 01/07/21 Tammi Buitrago, PharmD [address] [place] [address] Pharmacist Pharmacist 08/06/20 04/26/24 Tammi Buitrago, GudeliaD [address] [place] [address] Assigned MTM Pharmacist 09/07/21 Tammi Buitrago, GudeliaD [address] [place] [address] Assigned MTM Pharmacist 01/08/2202/07 Crista Norton APRN [facility] [address] [place] [address] Assigned PCP 09/06/22 09/12/22 Jaz Ro AuD [address] [place] [address] Audiology 10/02/22 Ashanti Ordoñ[place] [address] [place] [address] Assigned PCP 09/13/22 04/03/24 Majo Roth [facility] [address] [place] [address] Pharmacist Pharmacist Account Solutions Analyst 12/01/22 04/26/24 Majo Roth Miesha [address] [place] [address] Assigned MTM Pharmacist 12/06/22 Magalie Whipple [facility] [address] [place] [address] Pharmacist Pharmacist 12/26/22 04/26/24 Magalie Whipple [facility] [address] [place] [address] Assigned MTM Pharmacist 01/03/23 Magalie Whipple Medical Student 08/10/23 04/26/24 Tamiko Renee, [facility] [address] [place] [address] Pharmacist Pharmacist 01/27/24 04/26/24 Roxana Cruz PA-C [address] [place] [address] Assigned PCP 04/04/24 documented as of this encounter
--- OUTSIDE RECORDS SUMMARY | 2024-08-20 10:48 | XMS_ITS | Encounter Summary ---
Author Organization [place] Address [facility] [place] [address] Care Team Providers Care Sanitizer Name Role Phone Agnes Cam MD Primary Care Provider Unavaila ble No Ref-Primary, Physician Primary Care Provider Marcella Blake MD Primary Care Provider [phone] Mora Garrett MD Primary Care Prov ider Mora Garrett MD Unavailable + Mora Garrett MD Unavailable + Tony Francisco Unavailable Unavailable Katina Dow Unavailable Unavailable Shana Singleton MD Unavailable [phone] Katina Dow Unavailable Unavailable Iftikhar, Tammi PharmD Unavailable [phone] Iftikhar, Tammi PharmD Unavailable [phone] Iftikhar, Tammi PharmD Unavailable [phone] Crista Norton APRN PLANT OPERATIONS VICE PRESIDENT Unavailable [phone] Jaz Ro AuD Unavailable [phone] Ashanti Ordoñez MD Unavailable [phone] Ashanti Ordoñez MD Primary Care Provider [phone] Majo Roth RP Unavailable +[phone] Majo Roth RP Unavailable +[phone] Magalie Whipple RP Unavailable [phone] Magalie Whipple RP Unavailable [phone] Magalie Whipple Unavailable Unavailable Tamiko Renee [facility] Unavailable + [phone] oRxana Cruz PA-C Unavailable [phone] Reason for Visit * Reason Comments Medication Refill buPROPion Encounter Details Date Type Department Care Team (Late st Contact Info) Description 02/15/[address] [address] Mely Ruelas MD [address] [place] [address] Medication Refill (buPROPion ) Social History Tobacco Use Types Packs/Day Years Used Date Smoking Tobacco: Never Alcohol Use Standard Drinks/Week Comments Yes 0 (1 standard drink = 0.6 oz pur e alcohol) Comments No Sex and Gender Information Value Date Recorded Sex Assigned at Female 03/22/2018 7:28 AM STRATEGIC ANALYST Legal Sex Female 5:04 AM STRATEGIC ANALYST Gender Identity Female 03/22/2018 7:28 AM STRATEGIC ANALYST Sexual Orientation Straight 03/22/2018 7: 28 AM STRATEGIC ANALYST documented as of this encounter Miscellaneous Notes * Telephone Encounter - Marianela Barragan, ARRT - 02/15/2016 10:04 AM CDT buPROPion Last Written Prescription Date: Last Fill Quantity: , # refills: Last Office Visit with [facility] primary care provider: Last PHQ-9 score on record= No flowsheet data found. Routing refill request to provider for review/approval because: Medication is reported/historical documented in this encounter Plan of Treatment Upcoming Encounters Date Type Department Care Team (Late st Contact Info) Description 12/08/2024 1:30 PM CDT Office Visit [facility] [address] [place] [phone] Roxana Cruz PA-C [address] [place] [address] Ashanti Ordoñ[place] [address] [place] [address] documented as of this encounter Visit Diagnoses Not on filedocumented in this encounter Care Teams Sanitizer Relationship Specialty Start Date End Date Agnes Cam MD PCP - General 01/15/16 12/01/17 No Ref-Primary, Physician PCP - General 12/02/17 12/06/17 Marcella Blake MD PCP - General Family Practice 12/07/17 01/06/18 Mora Garrett MD PCP - General Family Practice 01/07/18 10/28/22 Mora Garrett MD [address] [address] PCP - Assigned PCP 01/10/18 06/15/18 Ashanti Ordoñ[place] [address] [place] [address] PCP - General 10/29/22 Mora Garrett MD Assigned PCP 01/10/18 09/05/22 Tony Francisco Personal Advocate & Liaison (PAL) Family Practice 04/11/19 09/19/19 Katina Dow Personal Advocate & Liaison (PAL) Family Practice 09/20/19 09/15/22 Shana Singleton MD [address] [place] [address] 696565 Resident Student in organized health care education/training program 12/16/19 Katina Dow Personal Advocate & Liaison (PAL) Family Medicine 06/08/20 01/07/21 Tammi Buitrago, PharmD [address] [place] [address] 366[address] Pharmacist Pharmacist 08/06/20 04/26/24 Tammi Buitrago, PharmD [address] [place] [address] [phone] Assigned MTM Pharmacist 09/07/21 Tammi Buitrago, PharmD [address] [place] [address] 989854 Assigned MTM Pharmacist 01/08/2202/07 Crista Norton APRN PLANT OPERATIONS VICE PRESIDENT [address] [place] [address] Assigned PCP 09/06/22 09/12/22 Jaz Ro AuD [address] [place] [address] Audiology 10/02/22 Ashanti Ordoñ[place] [address] [place] [address] Assigned PCP 09/13/22 04/03/24 [facility] [address] [place] [address] Pharmacist Pharmacist Third Officer 12/01/22 04/26/24 [facility] [address] [place], [place] [address] Assigned MTM Pharmacist 12/06/22 [facility] [address] [place] [address] Pharmacist Pharmacist 12/26/22 04/26/24 [facility] [address] [place] [address] Assigned MTM Pharmacist 01/03/23 Magalie Whipple Medical Student 08/10/23 04/26/24 Tamiko Renee, [facility] [address] [place] [address] [address] Pharmacist Pharmacist 01/27/24 04/26/24 Roxana Cruz PA-C [address] [place] [address] Assigned PCP 04/04/24 documented as of this encounter
--- OUTSIDE RECORDS SUMMARY | 2024-08-20 10:49 | XMS_ITS | Encounter Summary ---
Author Organization [place] Address [facility] [place] [address] Care Team Providers Care Supervisor Mending Name Role Phone Shana Singleton MD Unavailable [phone] Tammi Buitrago PharmD Unavailable [phone] Jaz Ro Unavailable [phone] Ashanti Ordoñez MD Unavailable [phone] Ashanti Ordoñez MD Primary Care Provider [phone] [facility] Unavailable [phone] [facility] Unavailable [phone] [facility] Unavailable Magalie Whipple Unavailable Unavailable Tamiko Renee [facility] Unavailable [phone] Roxana Cruz PA-C Unavailable [phone] Encounter Details Date Type Department Care Team (Late st Contact Info) Description 05/30/2023 MyC Medical Advice [address] [place] [address] Magalie Whipple, [facility] [address] [facility] [address] [place] [address] Benign essential hypertension (Primary Dx); Migraine with aura and without status migrainosus, not intractable Social History Tobacco Use Types Packs/Day Years [...] How often do you attend chur or sikh services? More than 4 times per year 03/11/2023 Do you belong to any clubs o r organizations such as pentecostalism groups, unions, fraternal or athletic groups, or [...] Answer Date Recorded PHQ-2 Score 0 03/11/2023 [facility] [place] of Occupat ional Health - Occupational Stress [...] in an abandoned building, in an overnight intermediate, or couch-surfing.) Yes 03/11/2023 Are you worried [...] Sex Assigned at Female 03/22/2018 7:28 AM ELECTRONIC TESTER Legal Sex Female 5:04 AM ELECTRONIC TESTER Gender Identity Female 03/22/2018 7:28 AM ELECTRONIC TESTER Sexual Orientation Straight 03/22/2018 7: 28 AM ELECTRONIC TESTER 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 Plan of Treatment Upcoming Encounters Date Type Department Care Team (Late st Contact Info) Description 12/08/2024 1:30 PM CDT Office Visit [address] [address] Roxana Cruz PA-C [address] [place] [address] Ashanti Ordoñ[place] [address] [place] [address] documented as of this encounter Visit Diagnoses Diagnosis Benign essential hypertension- Primary Essential hypertension, benign Migraine with aura and without status migrainosus, not intractable Migraine with aura, without mention of intractable migraine without mention of status migrainosus documented in this encounter Additional Health Concerns Assessment Noted Time PHQ-9 Depression Total Score: 4 03/11/20 23 9:50 AM ELECTRONIC TESTER documented as of this encounter Care Teams Supervisor Mending Relationship Specialty Start Date End Date Ashanti Ordoñ[place] [address] [place] [address] PCP - General 10/29/22 Shana Singleton MD [address] [place] [address] [phone] Resident Student in organized health care education/training program 12/16/19 Tammi Buitrago, GudeliaD [address] [place] [address] 856354 Pharmacist Pharmacist 08/06/20 04/26/24 Jaz Ro AuD [address] [place] [address] [id number] Audiology 10/02/22 Ashanti Ordoñ[place] [address] [place] [address] Assigned PCP 09/13/22 04/03/24 Majo Roth, [facility] 9 [place] [address] Pharmacist Pharmacist Rod Machine Operator 12/01/22 04/26/24 Magalie Whipple, [facility] [address] [place] [address] Pharmacist Pharmacist 12/26/22 04/26/24 Magalie Whipple, [facility] [address] [place] [address] [address] Assigned MTM Pharmacist 01/03/23 Magalie Whipple Medical Student 08/10/23 04/26/24 Tamiko Renee, [facility] [address] [place] [address] [address] Pharmacist Pharmacist 01/27/24 04/26/24 Roxana Cruz PA-C [address] [place] [phone] Assigned PCP 04/04/24 documented as of this encounter
--- OUTSIDE RECORDS SUMMARY | 2024-08-20 10:49 | XMS_ITS | Referral Summary ---
Author Organization [facility] Address [address] [place] [address] Care Team Providers Care Community Health Director Name Role Phone Ashanti Ordoñez MD Primary Care Provider [phone] Encounters Date Type Department Care Team Description 07/12/2024 3:30 PM CDT Office Visit [facility] [address] [place] [address] Aayush Mcfarland PA-C Chronic migraine with aura without status migrainosus, not intractable (Primary Dx); Cervicalgia from Last 3 Months Allergies Active Allergy Reactions Criticality Noted Date Comments Lactose 05/07/2020 Metaxalone 12/07/2017 Muscle twiching Methylprednisolone Other High 10/24/2020 Patient experienced severe depression with suicidal ideation when she started a Medrol dose pack. She reported rage episodes in the past as well. Moxifloxacin Nausea Low 06/25/2011 Sulfa (Sulfonamide Antibiotics) 10/07/2017 Sulfamethoxazole-Trimethopr im Nausea,Vomiting High 05/03/2016 Happened in 2017 Happened in 2017 Medications Cholecalciferol, Vitamin D3, 50 mcg (2,000 unit) oral tablet 1 Active DULoxetine (CYMBALTA) 30 mg oral delayed release capsule Take 60 mg by mouth Daily. 2 Active traZODone (DESYREL) 50 mg oral tablet Take 25-50 mg (1/2 tablet-1 tablet) at bedtime as needed for insomnia, may take an additional 12.5 mg (1/4 tablet) during the day PRN for anxiety 1 Active buPROPion XL (WELLBUTRIN XL) 300 mg oral extended release tablet 24 HR Take 1 tablet (300 mg) by mouth once daily. Active cetirizine (ZYRTEC) 10 mg oral tablet Take 1 tablet (10 mg) by mouth Daily. Active Glucosamine-Devon droitin 500-400 mg oral Tab Take 1 tablet by mouth. Active metoprolol succinate, XL, (TOPROL XL) 25 mg oral extended release tablet 24 HR Take 1 tablet (25 mg) by mouth twice a day. 4 Active estradioL (VIVELLE-DOT) 0.05 mg/24 hr TD SEMIweekly patch 4 Active progesterone micronized (PROMETRIUM) 100 mg oral capsule 4 Active WELDING MACHINE OPERATOR ELECTRO GAS THYROID 30 mg oral tablet 4 Active rizatriptan (MAXALT) 5 mg oral tabletIndication s:Chronic migraine with aura without status migrainosus, not intractable TAKE ONE TO TWO TABLETS BY MOUTH AT ONSET OF HEADACHE FOR MIGRAINE 12 tablet 3 5 Active traMADoL (ULTRAM) 50 mg oral tabletIndication s:Chronic migraine with aura without status migrainosus, not intractable Take 1 tablet (50 mg) by mouth every 6 (six) hours. Take 1 tablet q6 as needed for intense headache. 10 tablet 5 Active Active Problems Problem Noted Date Diagnosed Date Major depressive disorder, recurrent episode, mo derate 03/18/2022 Depression with anxiety 01/21/2022 Elevated blood pressure read ing without diagnosis of hypertension 05/07/2020 Drug induced akathisia 08/10/2018 Polyneuropathy due to other toxic agents 019 Migraine with aura and witho ut status migrainosus, not intractable 06/23/2018 Moderate single current epis ode of major depressive disorder 12/07/2017 Pain in unspecified hip 11/27/2017 Sacrococcygeal disorders, not elsewhere classifi ed 06/18/2017 Cervicalgia 06/18/2017 Radiculopathy, cervical region 06/18/2017 Weakness 06/18/2017 Low back pain 02/21/2015 Radiculopathy, lumbar region 02/21/2015 Trochanteric bursitis, unspecified hip 5 Osteoarthrosis 08/14/2006 Immunizations Name Administration Dates Next Due Influenza Unspecified 01/31/2014 Influenza recombinant (FluBl ok Quadrivalent PF) 01/17/2022,01/17/2022,01/07/2021,2019,01/17/2019,01/07/2018,01/09/2017,0 12/26/2016,01/28/2016,01/12/2016, 015,12/28/2012,12/08/2011,03/01/2010 Influenza recombinant (FluBl ok Trivalent PF) 01/02/2024 Influenza split virus (Fluzo ne Quadrivalent PF) 01/07/2018,12/26/2016,01/12/2016,2014 Influenza split virus trivalent 01/21/2011 Moderna 18+ YRS Monovalent C OVID Vaccine (Insurance Business Analyst) 02/28/2021 Pfizer 12+ Yrs Bivalent COVI D Vaccine (booth cap) 01/24/2022 Pfizer 12+ Yrs Monovalent CO VID Vaccine (booth cap) 01/24/2022 Pfizer 12+ Yrs Monovalent CO VID Vaccine (purple cap) 05/31/2020,05/10/2020 Tdap 04/16/2021,04/25/2011 Zoster Recombinant 04/18/2020,02/10/2020 Social History Tobacco Use Types Packs/Day Years Used Date Smoking Tobacco: Never Smokeless Tobacco: Never Tobacco Cessation:Counseling Given: No Alcohol Use Standard Drinks/Week Comments Yes 0 (1 standard drink = 0.6 oz pur e alcohol) rarely Comments Unknown Sex and Gender Information Value Date Recorded Sex Assigned at Female 12/22/2022 12:24 PM CDT Legal Sex Female 7:15 PM CDT Gender Identity Female 12/22/2022 12:24 PM CDT Sexual Orientation Straight 12/22/2022 12 :24 PM CDT Last Filed Vital Signs Vital Sign Reading Time Taken Comments Blood Pressure - - Pulse - - Temperature - - Respiratory Rate 14 07/12/2024 4:02 PM CDT Oxygen Saturation - - Inhaled Oxygen Concentration - - Weight 90.7 kg (200 lb) 07/12/2024 4:02 PM CDT Height 172.7 cm (5' 8) 07/12/2024 4:02 PM CDT Body Mass Index 30.41 07/12/2024 4:02 PM CDT Plan of Treatment Not on file Insurance [facility] Care Teams Community Health Director Relationship Specialty Start Date End Date Ashanti Ordoñez [place] [address] [place] [address] PCP - General 12/22/22
--- OUTSIDE RECORDS SUMMARY | 2024-08-20 10:49 | XMS_ITS | Clinical Summary ---
Author Organization [facility] Address [address] [place] [address] Care Team Providers Care Supervisor Heading Name Role Phone Ashanti Ordoñez MD Primary Care Provider [phone] Allergies Active Allergy Reactions Criticality Noted Date [...] (PROMETRIUM) 100 mg oral capsule 4 Active TRANSPLANT REGISTERED NURSE THYROID 30 mg oral tablet 4 Active [...] Trochanteric bursitis, unspecified hip 5 Osteoarthrosis 08/14/2006 Encounters Date Type Department Care Team Description 07/12/2024 3:30 PM CDT Office Visit [facility] - [address] [place] [address] Aayush Mcfarland PA-C Chronic migraine with aura without status migrainosus, not intractable (Primary Dx); Cervicalgia from Last 3 Months Immunizations Name Administration Dates Next Due Influenza Unspecified 01/31/2014 Influenza recombinant (FluBl ok Quadrivalent PF) 01/17/2022,01/17/2022,01/07/2021,2019,01/17/2019,01/07/2018,01/09/2017,0 12/26/2016,01/28/2016,01/12/2016, 015,12/28/2012,12/08/2011,03/01/2010 Influenza recombinant (FluBl ok Trivalent PF) 01/02/2024 Influenza split virus (Fluzo ne Quadrivalent PF) 01/07/2018,12/26/2016,01/12/2016,2014 Influenza split virus trivalent 01/21/2011 Moderna 18+ YRS Monovalent C OVID Vaccine (Chart Clerk) 02/28/2021 Pfizer 12+ Yrs Bivalent COVI D [...] 07/12/2024 4:02 PM CDT Plan of Treatment Health Maintenance Due Date Last Done Comments Colonoscopy 1968 Diabetes Screening 1968 Hepatitis C Screening 1968 Lipid Screening 1968 Pap Smear 1968 Anxiety Follow-Up (HARDIK-7) 01/14/1969 Depression Follow-Up (PHQ-9) 01/14/1969 Pneumococcal 50+ Years (1 of 2 - PCV) 01/14/1987 Yearly Review of HCD 01/14/2018 COVID-19 Vaccine (2023-2 5 season) 2023 01/24/2022, 01/24/2022, 02/28/2021, Additional history exists Mammogram Screening 12/10/2025 12/11/2023, 10/21/2022, 10/21/2022, Additional history exists Adult Tetanus Booster 04/16/2031 04/16/2021, 012 RSV Vaccines (1 - 1-dose 75+ series) 01/14/2043 Zoster Vaccine Completed 04/18/2020, 02/10/2020 Influenza Vaccine Completed 01/02/2024, , 01/17/2022, Additional history exists Insurance [facility] Care Teams Supervisor Heading Relationship Specialty Start Date End Date Ashanti Ordoñez [place] [address] [place] [address] PCP - General 12/22/22
--- OUTSIDE RECORDS SUMMARY | 2024-08-20 10:49 | XMS_ITS | Encounter Summary ---
Author Organization [place] Address [facility] [place] [address] Care Team Providers Care Nurse Informaticist Name Role Phone Mora Garrett MD Primary Care Prov ider Mora Garrett MD Unavailable + Katina Dow Unavailable Unavailable Shana Singleton MD Unavailable [phone] Iftikhar, Tammi PharmD Unavailable [phone] Iftikhar, Tammi PharmD Unavailable [phone] Iftikhar, Tammi PharmD Unavailable [phone] Crista Norton APRN EVIDENCE CUSTODIAN Unavailable [phone] Doritanilton Jaz Schneider Unavailable [phone] Ashanti Ordoñez MD Unavailable [phone] Ashanti Ordoñez MD Primary Care Provider [phone] Majo Roth Miesha Unavailable [phone] Majo Roth RPH Unavailable [phone] Magalie Whipple [facility] Unavailable [phone] Magalie Whipple [facility] Unavailable [phone] Magalie Whipple Unavailable Unavailable Tamiko Renee [facility] Unavailable Roxana Cruz Sirena PA-C Unavailable [phone] Encounter Details Date Type Department Care Team (Late st Contact Info) Description 04/23/2021 [facility] Medical Advice M [address] [address] Patti Rodriguez, JOB ANALYST Social History Tobacco Use Types Packs/Day Years [...] and Family Once a week 11/06/2018 Attends [employer] More than 4 times per year [...] points; Administer PHQ-9 if positive 2 04/23/2021 [facility] [place] [facility] Occup[facility] - Occupational Stress [...] Sex Assigned at Female 03/22/2018 7:28 AM CHILD PSYCHIATRIST Legal Sex Female 5:04 AM CHILD PSYCHIATRIST Gender Identity Female 03/22/2018 7:28 AM CHILD PSYCHIATRIST Sexual Orientation Straight 03/22/2018 7: 28 AM CHILD PSYCHIATRIST 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 No / Unsure 04/16/2021 10:37 AM CHILD PSYCHIATRIST documented as of this encounter Plan of Treatment Upcoming Encounters Date Type Department Care Team (Late st Contact Info) Description 12/08/2024 1:30 PM CDT Office Visit [facility] [address] [place] [address] Roxana Cruz PA-C [address] [place] [address] Ashanti Ordoñ[place] [address] [place] [address] documented as of this encounter Visit Diagnoses Not on filedocumented in this encounter Additional Health Concerns Assessment Noted Time PHQ-9 Depression Total Score: 10 022 7:01 AM CHILD PSYCHIATRIST documented as of this encounter Care Teams Nurse Informaticist Relationship Specialty Start Date End Date Mora Garrett MD PCP - General Family Practice 01/07/18 10/28/22 Ashanti Ordoñ[place] [address] [place] [address] PCP - General 10/29/22 Mora Garrett MD Assigned PCP 01/10/18 09/05/22 Katina Dow Personal Advocate & Liaison (PAL) Family Practice 09/20/19 09/15/22 Shana Singleton MD [address] [place] [address] [id number] Resident Student in organized health care education/training program 12/16/19 Tammi Buitrago, PharmD [address] [place] [address] [id number] Pharmacist Pharmacist 08/06/20 04/26/24 Tammi Buitrago, PharmD [facility] [address] [address] Assigned MTM Pharmacist 09/07/21 Tammi Buitrago, PharmD [facility] [address] [address] Assigned MTM Pharmacist 01/08/2202/07 Crista Norton APRN EV[employer]ENCE CUSTODIAN [address] [facility] [place] [address] Assigned PCP 09/06/22 09/12/22 Jaz Ro AuD [address] [place] [address] [id number] Audiology 10/02/22 Ashanti Ordoñ[place] [address] [place] [address] Assigned PCP 09/13/22 04/03/24 Majo Roth [facility] [address] [place] [address] Pharmacist Pharmacist Automatic Paint Sprayer Operator 12/01/22 04/26/24 Majo Roth [facility] [address] [place], [place] [address] Assigned MTM Pharmacist 12/06/22 Magalie Whipple [facility] [address] [id number] Pharmacist Pharmacist 12/26/22 04/26/24 Magalie Whipple [facility] [address] [place] [address] Assigned MTM Pharmacist 01/03/23 Magalie Whipple Medical Student 08/10/23 04/26/24 Tamiko Renee, [facility] [address] [place] [id number] Pharmacist Pharmacist 01/27/24 04/26/24 Roxana Cruz PA-C [address] [place] [id number] Assigned PCP 04/04/24 documented as of this encounter
== END 2024-08-20 11:36 | disposition home or self-care (01) ==
PROVIDERS: Emergency Provider Internal Medicine
DX: R07.9 Chest pain, unspecified (principal); I10 Essential (primary) hypertension; Z79.899 Other long term (current) drug therapy
CPT/HCPCS: 36415; 71045; 71260; 80053; 84484; 85025; 85379; 93005; 96374; 96375; 99283; 99284; 99285; A9270; J1171; J2405; Q9967